=== PATIENT | female | born 1940 | race Caucasian/White ===

== ENCOUNTER 2025-01-04 17:34 | Inpatient (IN) | payer MEDICARE, SELFPAY ==
[2025-01-04] VITALS (76 sets, daily range): BP systolic 66–130; BP diastolic 37–110; PULSE 112–144; RESP 16–33; TEMP 36.7–36.9; O2SAT 97–100
--- NOTE | ~2025-01-04 | CT_ITS ---
EXAMINATION: CT brain wo gail, 01/05/2025 17:20 CDT HISTORY: altered mental status COMPARISON: No comparisons available. Technique: Axial images obtained of the brain without contrast. One or more of the following dose reduction techniques were used: automated exposure control, adjustment of the mA and/or kV according to patient size, use of iterative reconstruction technique. Findings: No acute infarct or parenchymal hemorrhage. No abnormal mass or mass effect. No midline shift. No extra-axial fluid collections. No hydrocephalus. Mastoid air cells unremarkable. Sinuses and orbits unremarkable. No acute fracture. No significant facial or scalp soft tissue swelling evident. No radiopaque foreign body is seen. Impression: 1.No acute intracranial abnormality. Reviewed, dictated and finalized at location A. Impression: 1.No acute intracranial abnormality.
--- NOTE | ~2025-01-04 | XR_ITS ---
EXAMINATION: XR chest 1V portable COMPARISON: No comparisons available. HISTORY: palpitations FINDINGS: Mild pulmonary venous congestion. No pneumothorax. Mild cardiomegaly. Mediastinal and hilar contours are within normal limits. Bony thorax no acute abnormality. Miscellaneous: None Impression: Mild CHF Reviewed, dictated and finalized at location A. Impression: Mild CHF
--- NOTE | ~2025-01-04 | XR_ITS ---
EXAMINATION: XR chest 1V portable DATE: 01/15/2025 05:53 INDICATION: Pulmonary congestion TECHNIQUE: frontal view of the chest was obtained. COMPARISON: Chest radiograph dated 01/04/25 FINDINGS: Again seen are diffuse interstitial and mild groundglass opacities throughout both lungs. There is also some mild bilateral scattered linear discoid atelectasis. No pleural effusion or pneumothorax. Cardiomegaly. IMPRESSION: 1. Persistent interstitial and groundglass opacities throughout both lungs which could represent pulmonary edema and/or pneumonia. 2. Cardiomegaly. Reviewed, dictated and finalized at location A. IMPRESSION: 1. Persistent interstitial and groundglass opacities throughout both lungs whic h could represent pulmonary edema and/or pneumonia. 2. Cardiomegaly.
--- NOTE | ~2025-01-04 | CT_ITS ---
EXAMINATION: CT brain wo gail, 01/19/2025 16:40 CDT HISTORY: altered mental status COMPARISON: No comparisons available. Technique: Axial images obtained of the brain without contrast. One or more of the following dose reduction techniques were used: automated exposure control, adjustment of the mA and/or kV according to patient size, use of iterative reconstruction technique. Findings: No acute infarct or parenchymal hemorrhage. No abnormal mass or mass effect. No midline shift. No extra-axial fluid collections. No hydrocephalus. Mastoid air cells unremarkable. Sinuses and orbits unremarkable. No acute fracture. No significant facial or scalp soft tissue swelling evident. No radiopaque foreign body is seen. Impression: 1.No acute intracranial abnormality. Reviewed, dictated and finalized at location P. Impression: 1.No acute intracranial abnormality.
--- NOTE | ~2025-01-04 | XR_ITS ---
Examination: XR chest 1V portable Clinical History: f/u pneumonia Comparison: 01/17/2025 Technique: Portable AP Findings: Heart size normal. Persistent scattered patchy bilateral airspace disease. Small effusions not excluded. No acute bony abnormality. IMPRESSION: 1. No significant change. 2. Persistent diffuse scattered bilateral airspace disease. Reviewed, dictated and finalized at location R.
--- NOTE | ~2025-01-04 | US_ITS ---
EXAMINATION: US venous doppler LE , 01/13/2025 16:00 CDT HISTORY: Bilateral LE, R>L edema COMPARISON: None Technique: Nicole-scale and color Doppler images were attempted of the lower saphenofemoral junction, common femoral vein,superficial femoral vein, proximal deep femoral vein, proximal deep femoral vein, popliteal vein and posterior tibial veins. Findings: Deep Venous System:There is thrombus with diminished flow in the right posterior tibial and peroneal veins as well as the left posterior tibial and peroneal veins. Superficial Venous SystemNo superficial thrombophlebitis. Soft tissues: Soft tissues are unremarkable. Impression: Bilateral DVT detailed above Reviewed, dictated and finalized at location A. Impression: Bilateral DVT detailed above
--- NOTE | ~2025-01-04 | CT_ITS ---
EXAMINATION: CTA chest PE abdomen pel, 01/19/2025 16:40 CDT HISTORY: rule out PE, tachypnea, DVT COMPARISON: No comparisons available. TECHNIQUE: CTA scan with 3D Reconstructions of the chest, CT of the abdomen and pelvis was performed with contrast Isovue 300, 92cc injected IV. One or more of the following dose reduction techniques were used: automated exposure control, adjustment of the mA and/or kV according to patient size, use of iterative reconstruction technique. Unless otherwise stated, incidental findings do not require dedicated follow up imaging FINDINGS: CT chest: No significant coronary calcification is present ([id number]) LUNGS: Small simple appearing bilateral pleural effusions with compressive atelectasis. The contrast bolus is adequate, there is no pulmonary embolism identified. No tracheomalacia. No bronchiectasis. Moderate emphysematous changes. Moderate pulmonary fibrotic changes. Mild emphysematous changes, no ar eas of bullous formation. There are large bilateral infiltrates throughout the lung parenchyma. Scattered micronodules are noted many of which demonstrate a tree-in-bud distribution and are probably infectious. Punctate calcified splenic granulomas. HEART AND PERICARDIUM: Mild cardiomegaly. Trace pericardial effusion. AORTA: Atherosclerotic changes of the aorta with ectasia, no aneurysm. MEDIASTINUM: Unremarkable. THYROID: The thyroid is unremarkable. CT abdomen: LIVER: Portal vein patent. No intrahepatic biliary duct dilatation. SPLEEN: Unremarkable, no splenomegaly. KIDNEYS: Right Kidney: Right kidney multiple simple appearing renal cysts the largest 3 x 4 cm. Left Kidney: Unremarkable. No calculi. No hydronephrosis ADRENAL GLANDS: Unremarkable. PANCREAS: Moderate pancreatic atrophy. GALLBLADDER/BILIARY: Cholelithiasis. STOMACH AND ESOPHAGUS: The stomach is decompressed. BOWEL/MESENTERY: The rectum is dilated measuring 7 cm with moderate fecal content and pericolonic stranding. Remaining large bowel demonstrates multiple fluid-filled loops. Appendix appears normal. Remaining mesentery normal. No dilated loops of small bowel. RETROPERITONEUM: Unremarkable AORTA/VASCULATURE: Normal caliber aorta. FREE FLUID OR FREE AIR: None. CT pelvis: SOLID ORGANS/REPRODUCTIVE: Uterus atrophic, no adnexal mass. BLADDER: The bladder is distended. LYMPHADENOPATHY: There are enlarged lymph nodes in the mediastinum the largest 1.2 x 1.1 cm. OSSEOUS STRUCTURES: No acute osseous abnormality.No suspicious lesions. OVERLYING SOFT TISSUES: Unremarkable. IMPRESSION: 1. Negative for pulmonary embolism. CHF with chronic lung disease detailed above. Superimposed severe bilateral bronchopneumonia. 2. Fecal impaction with mild proctitis. Incidental findings above Reviewed, dictated and finalized at location P. IMPRESSION: 1. Negative for pulmonary embolism. CHF with chronic lung disease detailed abov e. Superimposed severe bilateral bronchopneumonia. 2. Fecal impaction with mild proctitis. Incidental findings above
--- NOTE | ~2025-01-04 | XR_ITS ---
XR chest 1V portable 01/17/2025 18:34 Indication: Elevated white cell count. Shortness of breath. Procedure: AP portable chest Comparison: 01/15/2025 Findings: Patchy bilateral airspace disease, compatible with pneumonia. Heart size upper normal. No significant effusion or pneumothorax. Impression: 1: Persistent patchy bilateral airspace disease, compatible with pneumonia. Reviewed, dictated and finalized at location O. Impression: 1: Persistent patchy bilateral airspace disease, compatible with pneumonia.
--- NOTE | ~2025-01-04 | CT_ITS ---
EXAMINATION: CT abdomen pelvis w con DATE: 01/04/2025 21:27 INDICATION: Anemia. TECHNIQUE: Computed tomography (CT) of the abdomen and pelvis was performed with 100 mL Omnipaque 350 intravenous contrast. Automated exposure control and iterative reconstruction technique were employed. The dose-length product was 786.98 mGy-cm. COMPARISON: None. FINDINGS: The visualized portions of the lung bases demonstrate small pleural effusions. There is septal thickening in the lungs with groundglass opacities, consistent with pulmonary edema. Calcified pulmonary nodules and calcified right hilar lymph nodes are consistent with old granulomatous disease. Cardiomegaly is noted. There are coronary artery calcifications. There are calcifications of the aortic valve. There is a trace pericardial effusion. The liver is normal. Calcifications in the spleen are consistent with old granulomatous disease. There is a 10 mm hypodense mass in the spleen, most likely a benign mass such as a cyst. There are gallstones in the gallbladder, which is normal in size. The pancreas and adrenal glands are normal. There is cortical thinning of the kidneys. There are areas of hypodensity in the kidneys bilaterally, consistent with pyelonephritis. There are cysts in the kidneys measuring up to 3.7 cm on the right. There is diffuse bladder wall thickening, consistent with cystitis. There are no dilated loops of bowel. The appendix is normal. There are no pathologically enlarged lymph nodes. There is no ascites. There is severe lumbar spondylosis. There are bridging endplate osteophytes at multiple levels in the spine, consistent with diffuse idiopathic skeletal hyperostosis (DISH). IMPRESSION: 1. Mild pulmonary edema. 2. Small pleural effusions. 3. Cystitis. 4. Bilateral acute pyelonephritis. Reviewed, dictated and finalized at location K.
--- NOTE | 2025-01-04 17:40 | ECG_ITS ---
Test Date: 2025-01-04 17:38:04 Measurements Intervals [place] Rate: 133 P: 0 [place]: 0 QRS: 75 QRSD: 137 T: -30 QT: 333 QTc: 496 Interpretive Statements ATRIAL FIBRILLATION WITH RAPID VENTRICULAR RESPONSE RIGHT BUNDLE BRANCH BLOCK [120+ ms QRS DURATION, UPRIGHT V1, 40+ ms S IN I/aVL/V4/V5/V6] ABNORMAL ECG No previous ECG available for comparison Electronically Signed On 01-05-2025 09:38:11 CDT by Francisco Tavares M.D.
[2025-01-04 17:52] LABS: Hematocrit 22.2 % (37.0-47.0); Immature Platelet Fraction Pct 10.5 % (0.9-11.2); Mean Corpuscular HGB Conc 31.1 g/dl (32-36); Mean Corpuscular Hemoglobin 27.9 pg (26-34); Mean Corpuscular Volume 89.9 fl (80-100); Platelet Count Result 126 k/mm3 (150-375); Red Blood Count 2.47 M/mm3 (4.2-5.4); White Blood Count 11.8 K/mm3 (4.5-10.0)
[2025-01-04] MEDS: SODIUM CHLORIDE 0.9% IV 500 ML 999 ML (17:53)
--- NOTE | 2025-01-04 17:56 | ED.ARRPALP ---
HPI - Arrhythmia/Palpitations General Chief Complaint: Arrhythmia/Palpitations <Gary Aguilera MD - Last Filed: 01/04/25 21:00> Stated Complaint: doesn't feel right <Gary Aguilera MD - Last Filed: 01/04/25 21:00> Time Seen by Provider: 01/04/25 17:56 <Gary Aguilera MD - Last Filed: 01/04/25 21:00> Source: patient and EMS <Gary Aguilera MD - Last Filed: 01/04/25 21:00> Mode of arrival: EMS <Gary Aguilera MD - Last Filed: 01/04/25 21:00> Limitations: no limitations <Gary Aguilera MD - Last Filed: 01/04/25 21:00> History of Present Illness HPI narrative: 84 YEARS OLD WHITE FEMALE CAME FROM [facility] FOR NOT FEELING WELL FOR UNKNOWN DURATION. [facility] REPORTED THAT PATIENT HAVING CONFUSION AND SLURRED SPEECH WHICH IS RESOLVED. IN THE ED PATIENT IS AWAKE, ALERT ORIENTED X4, DENYING ANY SYMPTOMS AND DOES NOT KNOW WHY SHE IS HERE. SHE DENIES ANY FEVER, CHILLS, NAUSEA, VOMITING, CHEST PAIN, SHORTNESS OF BREATH OR BACK PAIN. History of AFib, according to [facility] paper patient is not on any anti-platelet or anticoagulant medication her daughter is telling me that patient used to be on Lovenox injection 1 week prior to transfer to [facility]. <Gary Aguilera MD - Last Filed: 01/04/25 21:00> Related Data Allergies/Adverse Reactions: Allergies Allergy/AdvReac Type Severity Reaction Status Date / Time vancomycin Allergy Rash Verified 01/04/25 18:08 <Gary Aguilera MD - Last Filed: 01/04/25 21:00> Review of Systems Review of Systems: All systems reviewed & are unremarkable except as noted in HPI and below <Gary Aguilera MD - Last Filed: 01/04/25 21:00> Exam Narrative: GENERAL APPEARANCE: WELL-DEVELOPED, WELL-NOURISHED SKIN: PALE HEAD: NORMOCEPHALIC, NONTRAUMATIC EYES: CLEAR CONJUNCTIVA ENT: OROPHARYNX NORMAL, EARS NORMAL, NOSE NORMAL NECK: SUPPLE, NONTENDER CHEST AND RESPIRATORY: AIRWAY PATENT, NO RESPIRATORY DISTRESS, NO ACCESSORY MUSCLE USE HEART: TACHYCARDIA, IRREGULAR IRREGULARITY ABDOMEN: SOFT, NONTENDER, NO ORGANOMEGALY, QUIET BOWEL SOUNDS, RECTAL EXAM GUAIAC NEGATIVE VASCULAR: NORMAL PERIPHERAL PULSES, NORMAL CAPILLARY REFILL. MUSCULOSKELETAL: NORMAL RANGE OF MOTION, NONTENDER BACK NEUROLOGIC: ALERT AND ORIENTED ?3, MAIL FORWARDING SYSTEM MARKUP CLERK IS NORMAL TESTED, NO GROSS MOTOR DEFICIT <Gary Aguilera MD - Last Filed: 01/04/25 21:00> Course Vital Signs Vital signs: Vital Signs Pulse Rate 131 H 01/04/25 17:34 Respiratory Rate 22 H 01/04/25 17:34 Blood Pressure 99/54 L 01/04/25 17:34 Pulse Oximetry 100 01/04/25 17:34 Oxygen Delivery Room Air 01/04/25 17:34 Temperature 98.1 F 01/04/25 22:53 Pulse Rate 121 H 01/04/25 22:53 Respiratory Rate 20 01/04/25 22:53 Blood Pressure 71/60 L 01/04/25 22:53 Pulse Oximetry 97 01/04/25 22:53 Oxygen Delivery Room Air 01/04/25 17:34 <Gary Aguilera MD - Last Filed: 01/04/25 21:00> Vital Signs Pulse Rate 131 H 01/04/25 17:34 Respiratory Rate 22 H 01/04/25 17:34 Blood Pressure 99/54 L 01/04/25 17:34 Pulse Oximetry 100 01/04/25 17:34 Oxygen Delivery Room Air 01/04/25 17:34 Temperature 98.1 F 01/04/25 22:53 Pulse Rate 121 H 01/04/25 22:53 Respiratory Rate 20 01/04/25 22:53 Blood Pressure 71/60 L 01/04/25 22:53 Pulse Oximetry 97 01/04/25 22:53 Oxygen Delivery Room Air 01/04/25 17:34 <Denia Pollock MD - Last Filed: 01/04/25 23:37> MDM - Arrhythmia/Palpitations MDM Narrative Medical decision making narrative: PATIENT CAME TO THE ED NOT FEELING WELL VITAL SIGNS BLOOD PRESSURE 99/54, HEART RATE 131, RESPIRATION 22, SATURATION ON ROOM AIR 100% PHYSICAL EXAMINATION: PALE SKIN, TACHYCARDIA, IRREGULAR IRREGULARITY, GUAIAC STOOL IS NEGATIVE DIFFERENTIAL DIAGNOSIS ANXIETY, DEPRESSION, ELECTROLYTE IMBALANCE, DEHYDRATION, ANEMIA, COULD CARDIAC ARRHYTHMIA, AR BLOOD WORKUP TODAY INCLUDES CBC, CMP, TROPONIN, COAG, PRO BMP SHOWED WBC 11.8, hemoglobin 6.9 platelet count 126 EKG ON ARRIVAL SHOWED AFIB WITH RVR AT 133 BEATS PER MINUTE Chest x-ray mild CHF Patient care turned over to Dr. pollock at shift change, awaiting labs, imaging, disposition. Patient been resting quietly in the emergency room without any issues or problems. <Gary Aguilera MD - Last Filed: 01/04/25 21:00> PATIENT CAME TO THE ED NOT FEELING WELL VITAL SIGNS BLOOD PRESSURE 99/54, HEART RATE 131, RESPIRATION 22, SATURATION ON ROOM AIR 100% PHYSICAL EXAMINATION: PALE SKIN, TACHYCARDIA, IRREGULAR IRREGULARITY, GUAIAC STOOL IS NEGATIVE DIFFERENTIAL DIAGNOSIS ANXIETY, DEPRESSION, ELECTROLYTE IMBALANCE, DEHYDRATION, ANEMIA, COULD CARDIAC ARRHYTHMIA, AR BLOOD WORKUP TODAY INCLUDES CBC, CMP, TROPONIN, COAG, PRO BMP SHOWED WBC 11.8, hemoglobin 6.9 platelet count 126 EKG ON ARRIVAL SHOWED AFIB WITH RVR AT 133 BEATS PER MINUTE Chest x-ray mild CHF Patient care turned over to Dr. Pollock at shift change, awaiting labs, imaging, disposition. Patient been resting quietly in the emergency room without any issues or problems. Phill: Patient was signed out to me pending remainder of the workup. CT abdomen pelvis with IV contrast was obtained at this time revealing severe UTI otherwise no acute process, no active bleeding. Patient currently has 2nd unit of packed RBCs going, has approximately 60-70% remaining, last 3 blood pressure 107/66 with a map of 79, 86/69 with a map of 76 and 113/57 with a map of 73. Patient has been maintaining her map above 65 after 1st unit of packed RBCs. Heart rate currently ranging in the 120s. Blood cultures and lactic acid were ordered at this time as patient admits sepsis criteria. Urinalysis did reveal UTI and at this time patient was administered 1 g of IV Rocephin. Case was discussed again with the on-call hospitalist Dr. Moeller who accepted IMU admission. Critical care time of 75 minutes, exclusive of separately performed procedures, necessary for treating or preventing eminent or life-threatening deterioration of patient's condition of sepsis, atrial fibrillation with RVR, anemia requiring transfusion of multiple units of packed RBCs, focused on patient care provided personally by me and time spent during initial evaluation, physical examination, ordering and performing treatments and interventions, ordering and reviewing laboratory studies, ordering and reviewing radiographic studies, re-evaluation of the patient's condition, evaluation of the patient's response to treatment, and discussion of patient case with multiple consultants. <Denia Pollock MD - Last Filed: 01/04/25 23:37> Differential Diagnosis Differential diagnosis: Likely other (As above) <Gary Aguilera MD - Last Filed: 01/04/25 21:00> Lab Data Result diagrams: 01/04/25 17:43 01/04/25 18:27 <Gary Aguilera MD - Last Filed: 01/04/25 21:00> Labs: Lab Results 01/04/25 01/04/25 01/04/25 Range/Units 17:43 18:27 20:47 WBC 11.8 H (4.5-10.0) K/mm3 RBC 2.47 L (4.2-5.4) M/mm3 Hgb 6.9 L* (12.0-15.0) g/dL Hct 22.2 L (37.0-47.0) % MCV 89.9 (80-100) fl MCH 27.9 (26-34) pg MCHC 31.1 L (32-36) g/dl RDW 24.1 H (11.5-14.5) % Plt Count 126 L (150-375) k/mm3 MPV TNP Immature Gran % (Auto) Not Reportable Neut % (Auto) Not Reportable Lymph % (Auto) Not Reportable [place] % (Auto) Not Reportable Eos % (Auto) Not Reportable Baso % (Auto) Not Reportable Lymph # (Auto) Not Reportable [place] # (Auto) Not Reportable Eos # (Auto) Not Reportable Baso # (Auto) Not Reportable Abs Immat Gran (auto) Not Reportable Absolute Neuts (auto) Not Reportable Absolute Nucleated RBC Not Reportable Total Counted 100 Neutrophils % (Manual) 41 L (46-73) % Band Neutrophils % 16 H (0-6) % Lymphocytes % (Manual) 30.0 (18-44) % Monocytes % (Manual) 5 (3-9) % Eosinophils % (Manual) 1 (0-4) % Basophils % (Manual) 2 H (0-1) % Metamyelocytes % 4 % Myelocytes % 1 % Nucleated RBC % Not Reportable Abs Neuts (Manual) 6.72 H (1.3-6.7) K/mm3 Abs Lymphs (Manual) 3.54 (1.1-4.5) K/mm3 Abs Monocytes (Manual) 0.59 (0.1-0.90) K/mm3 Absolute Eos (Manual) 0.11 (0.02-0.50) K/mm3 Abs Basophils (Manual) 0.23 H (0.0-0.1) K/mm3 Nucleated RBCs 1 % Platelet Estimate Decreased (Adequate) Giant Platelets Present % Immature Plt Fraction 10.5 (0.9-11.2) % Polychromasia Occasional Hypochromasia 2+ Anisocytosis 1+ Microcytosis 1+ (NORMAL) Schistocytes None seen PT 15.6 H (11.1-14.7) Seconds INR 1.2 APTT 27.7 (22.3-36.8) Seconds Sodium 132 L (137-145) mmol/L Potassium 4.7 (3.4-5.0) mmol/L Chloride 106 (98-107) mmol/L Carbon Dioxide 14 L (22-30) mmol/L Anion Gap 12 (4-12) mmol/L BUN 21 H (7-17) mg/dL Creatinine 1.26 H (0.7-1.0) mg/dL Estim Creat Clear Calc 29 ml/min Estimated GFR 40 L (59 - ) Glucose 174 H (65-110) mg/dL Calcium 7.9 L (8.4-10.2) mg/dL Iron 110 (37-170) ug/dL TIBC 237 L (261-462) ug/dL % Saturation 46 (20-50) % Ferritin 758.00 H (11.1-264) ng/mL Total Bilirubin 0.8 (0.2-1.3) mg/dL AST 39 H (14-36) U/L ALT 22 (6-35) U/L Alkaline Phosphatase 91 (38-126) U/L Troponin I 1.090 H* 1.120 H* (0.000-0.034) ng/mL NT-Pro-B Natriuret Pep 70536 H (19.9-100) pg/mL Total Protein 7.1 (6.3-8.2) g/dL Albumin 2.6 L (3.5-5.1) g/dL Lipase 182 (23-300) U/L Procalcitonin 0.3 ng/mL Urine Color (Yellow) Urine Appearance (Clear) Urine pH (5.0-9.0) Ur Specific [place] (1.001-1.035) Urine Protein (Negative) mg/dL Urine Glucose (UA) (Negative) mg/dL Urine Ketones (Negative) mg/dL Ur Blood (Man) (Negative) Urine Nitrate (Negative) Urine Bilirubin (Negative) Urine Urobilinogen (<2.0) mg/dL Add Ur Microanalysis Leukocyte Esterase Rfl (Negative) LAYNE/UL Urine RBC (0-2) /hpf Urine WBC (0-3) /hpf Ur Squamous Epith Cells (Few) /hpf Urine Bacteria /hpf Urine Casts Blood Type A Positive Antibody Screen Negative Crossmatch See Detail 01/04/25 Range/Units 21:14 WBC (4.5-10.0) K/mm3 RBC (4.2-5.4) M/mm3 Hgb (12.0-15.0) g/dL Hct (37.0-47.0) % MCV (80-100) fl MCH (26-34) pg MCHC (32-36) g/dl RDW (11.5-14.5) % Plt Count (150-375) k/mm3 MPV Immature Gran % (Auto) Neut % (Auto) Lymph % (Auto) [place] % (Auto) Eos % (Auto) Baso % (Auto) Lymph # (Auto) [place] # (Auto) Eos # (Auto) Baso # (Auto) Abs Immat Gran (auto) Absolute Neuts (auto) Absolute Nucleated RBC Total Counted Neutrophils % (Manual) (46-73) % Band Neutrophils % (0-6) % Lymphocytes % (Manual) (18-44) % Monocytes % (Manual) (3-9) % Eosinophils % (Manual) (0-4) % Basophils % (Manual) (0-1) % Metamyelocytes % % Myelocytes % % Nucleated RBC % Abs Neuts (Manual) (1.3-6.7) K/mm3 Abs Lymphs (Manual) (1.1-4.5) K/mm3 Abs Monocytes (Manual) (0.1-0.90) K/mm3 Absolute Eos (Manual) (0.02-0.50) K/mm3 Abs Basophils (Manual) (0.0-0.1) K/mm3 Nucleated RBCs % Platelet Estimate (Adequate) Giant Platelets % Immature Plt Fraction (0.9-11.2) % Polychromasia Hypochromasia Anisocytosis Microcytosis (NORMAL) Schistocytes PT (11.1-14.7) Seconds INR APTT (22.3-36.8) Seconds Sodium (137-145) mmol/L Potassium (3.4-5.0) mmol/L Chloride (98-107) mmol/L Carbon Dioxide (22-30) mmol/L Anion Gap (4-12) mmol/L BUN (7-17) mg/dL Creatinine (0.7-1.0) mg/dL Estim Creat Clear Calc ml/min Estimated GFR (59 - ) Glucose (65-110) mg/dL Calcium (8.4-10.2) mg/dL Iron (37-170) ug/dL TIBC (261-462) ug/dL % Saturation (20-50) % Ferritin (11.1-264) ng/mL Total Bilirubin (0.2-1.3) mg/dL AST (14-36) U/L ALT (6-35) U/L Alkaline Phosphatase (38-126) U/L Troponin I (0.000-0.034) ng/mL NT-Pro-B Natriuret Pep (19.9-100) pg/mL Total Protein (6.3-8.2) g/dL Albumin (3.5-5.1) g/dL Lipase (23-300) U/L Procalcitonin ng/mL Urine Color Yellow (Yellow) Urine Appearance Turbid H (Clear) Urine pH 5.5 (5.0-9.0) Ur Specific [place] 1.015 (1.001-1.035) Urine Protein 1+ H (Negative) mg/dL Urine Glucose (UA) Negative (Negative) mg/dL Urine Ketones Trace H (Negative) mg/dL Ur Blood (Man) Negative (Negative) Urine Nitrate Negative (Negative) Urine Bilirubin Negative (Negative) Urine Urobilinogen 1.0 (<2.0) mg/dL Add Ur Microanalysis Reviewed Leukocyte Esterase Rfl 2+ H (Negative) LAYNE/UL Urine RBC 0-2 (0-2) /hpf Urine WBC 21-50 H (0-3) /hpf Ur Squamous Epith Cells Many H (Few) /hpf Urine Bacteria 4+ H /hpf Urine Casts 11-20 Blood Type Antibody Screen Crossmatch <Gary Aguilera MD - Last Filed: 01/04/25 21:00> Lab Results 01/04/25 01/04/25 01/04/25 Range/Units 17:43 18:27 20:47 WBC 11.8 H (4.5-10.0) K/mm3 RBC 2.47 L (4.2-5.4) M/mm3 Hgb 6.9 L* (12.0-15.0) g/dL Hct 22.2 L (37.0-47.0) % MCV 89.9 (80-100) fl MCH 27.9 (26-34) pg MCHC 31.1 L (32-36) g/dl RDW 24.1 H (11.5-14.5) % Plt Count 126 L (150-375) k/mm3 MPV TNP Immature Gran % (Auto) Not Reportable Neut % (Auto) Not Reportable Lymph % (Auto) Not Reportable [place] % (Auto) Not Reportable Eos % (Auto) Not Reportable Baso % (Auto) Not Reportable Lymph # (Auto) Not Reportable [place] # (Auto) Not Reportable Eos # (Auto) Not Reportable Baso # (Auto) Not Reportable Abs Immat Gran (auto) Not Reportable Absolute Neuts (auto) Not Reportable Absolute Nucleated RBC Not Reportable Total Counted 100 Neutrophils % (Manual) 41 L (46-73) % Band Neutrophils % 16 H (0-6) % Lymphocytes % (Manual) 30.0 (18-44) % Monocytes % (Manual) 5 (3-9) % Eosinophils % (Manual) 1 (0-4) % Basophils % (Manual) 2 H (0-1) % Metamyelocytes % 4 % Myelocytes % 1 % Nucleated RBC % Not Reportable Abs Neuts (Manual) 6.72 H (1.3-6.7) K/mm3 Abs Lymphs (Manual) 3.54 (1.1-4.5) K/mm3 Abs Monocytes (Manual) 0.59 (0.1-0.90) K/mm3 Absolute Eos (Manual) 0.11 (0.02-0.50) K/mm3 Abs Basophils (Manual) 0.23 H (0.0-0.1) K/mm3 Nucleated RBCs 1 % Platelet Estimate Decreased (Adequate) Giant Platelets Present % Immature Plt Fraction 10.5 (0.9-11.2) % Polychromasia Occasional Hypochromasia 2+ Anisocytosis 1+ Microcytosis 1+ (NORMAL) Schistocytes None seen PT 15.6 H (11.1-14.7) Seconds INR 1.2 APTT 27.7 (22.3-36.8) Seconds Sodium 132 L (137-145) mmol/L Potassium 4.7 (3.4-5.0) mmol/L Chloride 106 (98-107) mmol/L Carbon Dioxide 14 L (22-30) mmol/L Anion Gap 12 (4-12) mmol/L BUN 21 H (7-17) mg/dL Creatinine 1.26 H (0.7-1.0) mg/dL Estim Creat Clear Calc 29 ml/min Estimated GFR 40 L (59 - ) Glucose 174 H (65-110) mg/dL Calcium 7.9 L (8.4-10.2) mg/dL Iron 110 (37-170) ug/dL TIBC 237 L (261-462) ug/dL % Saturation 46 (20-50) % Ferritin 758.00 H (11.1-264) ng/mL Total Bilirubin 0.8 (0.2-1.3) mg/dL AST 39 H (14-36) U/L ALT 22 (6-35) U/L Alkaline Phosphatase 91 (38-126) U/L Troponin I 1.090 H* 1.120 H* (0.000-0.034) ng/mL NT-Pro-B Natriuret Pep 11659 H (19.9-100) pg/mL Total Protein 7.1 (6.3-8.2) g/dL Albumin 2.6 L (3.5-5.1) g/dL Lipase 182 (23-300) U/L Procalcitonin 0.3 ng/mL Urine Color (Yellow) Urine Appearance (Clear) Urine pH (5.0-9.0) Ur Specific [place] (1.001-1.035) Urine Protein (Negative) mg/dL Urine Glucose (UA) (Negative) mg/dL Urine Ketones (Negative) mg/dL Ur Blood (Man) (Negative) Urine Nitrate (Negative) Urine Bilirubin (Negative) Urine Urobilinogen (<2.0) mg/dL Add Ur Microanalysis Leukocyte Esterase Rfl (Negative) LAYNE/UL Urine RBC (0-2) /hpf Urine WBC (0-3) /hpf Ur Squamous Epith Cells (Few) /hpf Urine Bacteria /hpf Urine Casts Blood Type A Positive Antibody Screen Negative Crossmatch See Detail 01/04/25 Range/Units 21:14 WBC (4.5-10.0) K/mm3 RBC (4.2-5.4) M/mm3 Hgb (12.0-15.0) g/dL Hct (37.0-47.0) % MCV (80-100) fl MCH (26-34) pg MCHC (32-36) g/dl RDW (11.5-14.5) % Plt Count (150-375) k/mm3 MPV Immature Gran % (Auto) Neut % (Auto) Lymph % (Auto) [place] % (Auto) Eos % (Auto) Baso % (Auto) Lymph # (Auto) [place] # (Auto) Eos # (Auto) Baso # (Auto) Abs Immat Gran (auto) Absolute Neuts (auto) Absolute Nucleated RBC Total Counted Neutrophils % (Manual) (46-73) % Band Neutrophils % (0-6) % Lymphocytes % (Manual) (18-44) % Monocytes % (Manual) (3-9) % Eosinophils % (Manual) (0-4) % Basophils % (Manual) (0-1) % Metamyelocytes % % Myelocytes % % Nucleated RBC % Abs Neuts (Manual) (1.3-6.7) K/mm3 Abs Lymphs (Manual) (1.1-4.5) K/mm3 Abs Monocytes (Manual) (0.1-0.90) K/mm3 Absolute Eos (Manual) (0.02-0.50) K/mm3 Abs Basophils (Manual) (0.0-0.1) K/mm3 Nucleated RBCs % Platelet Estimate (Adequate) Giant Platelets % Immature Plt Fraction (0.9-11.2) % Polychromasia Hypochromasia Anisocytosis Microcytosis (NORMAL) Schistocytes PT (11.1-14.7) Seconds INR APTT (22.3-36.8) Seconds Sodium (137-145) mmol/L Potassium (3.4-5.0) mmol/L Chloride (98-107) mmol/L Carbon Dioxide (22-30) mmol/L Anion Gap (4-12) mmol/L BUN (7-17) mg/dL Creatinine (0.7-1.0) mg/dL Estim Creat Clear Calc ml/min Estimated GFR (59 - ) Glucose (65-110) mg/dL Calcium (8.4-10.2) mg/dL Iron (37-170) ug/dL TIBC (261-462) ug/dL % Saturation (20-50) % Ferritin (11.1-264) ng/mL Total Bilirubin (0.2-1.3) mg/dL AST (14-36) U/L ALT (6-35) U/L Alkaline Phosphatase (38-126) U/L Troponin I (0.000-0.034) ng/mL NT-Pro-B Natriuret Pep (19.9-100) pg/mL Total Protein (6.3-8.2) g/dL Albumin (3.5-5.1) g/dL Lipase (23-300) U/L Procalcitonin ng/mL Urine Color Yellow (Yellow) Urine Appearance Turbid H (Clear) Urine pH 5.5 (5.0-9.0) Ur Specific [place] 1.015 (1.001-1.035) Urine Protein 1+ H (Negative) mg/dL Urine Glucose (UA) Negative (Negative) mg/dL Urine Ketones Trace H (Negative) mg/dL Ur Blood (Man) Negative (Negative) Urine Nitrate Negative (Negative) Urine Bilirubin Negative (Negative) Urine Urobilinogen 1.0 (<2.0) mg/dL Add Ur Microanalysis Reviewed Leukocyte Esterase Rfl 2+ H (Negative) LAYNE/UL Urine RBC 0-2 (0-2) /hpf Urine WBC 21-50 H (0-3) /hpf Ur Squamous Epith Cells Many H (Few) /hpf Urine Bacteria 4+ H /hpf Urine Casts 11-20 Blood Type Antibody Screen Crossmatch <Denia Pollock MD - Last Filed: 01/04/25 23:37> Imaging Data Radiologist's impression: Impressions Chest X-Ray 01/04/25 17:55 Impression: Mild CHF <Gary Aguilera MD - Last Filed: 01/04/25 21:00> ECG Data EKG #1: Attestation: I personally reviewed and interpreted this ECG as follows: <Gary Aguilera MD - Last Filed: 01/04/25 21:00> ECG completion date: 01/04/25 <Gary Aguilera MD - Last Filed: 01/04/25 21:00> Interpretation: AFIB WITH RVR AT 133 BEATS PER MINUTE, RIGHT BUNDLE-BRANCH BLOCK, NO PREVIOUS EKG AVAILABLE FOR COMPARISON <Gary Aguilera MD - Last Filed: 01/04/25 21:00> Critical Care Time Critical Care Time Critical Care Time: Yes <Gary Aguilera MD - Last Filed: 01/04/25 21:00> Total Critical Care Time: 30 <Gary Aguilera MD - Last Filed: 01/04/25 21:00> 75 (Please refer to [facility] for attestation.) <Denia Pollock MD - Last Filed: 01/04/25 23:37> Discharge Plan Discharge Clinical Impression: Anemia, Atrial fibrillation with rapid ventricular response, Sepsis, Acute UTI <Gary Aguilera MD - Last Filed: 01/04/25 21:00> Patient Disposition: Still a Patient <Gary Aguilera MD - Last Filed: 01/04/25 21:00> Condition: Stable <Gary Aguilera MD - Last Filed: 01/04/25 21:00> Patient Language: Mongolian <Gary Aguilera MD - Last Filed: 01/04/25 21:00> Time of Disposition: 23:37 <Gary Aguilera MD - Last Filed: 01/04/25 21:00> 23:37 <Denia Pollock MD - Last Filed: 01/04/25 23:37>
[2025-01-04 18:02] LABS: Hemoglobin 6.9 g/dL (12.0-15.0)
[2025-01-04 18:03] LABS: INR 1.2; Prothrombin Time 15.6 Seconds (11.1-14.7)
[2025-01-04 18:04] LABS: Partial Thromboplastin Time 27.7 Seconds (22.3-36.8)
[2025-01-04 18:23] LABS: Band Neutrophils Percent 16 % (0-6); Basophils Absolute Manual 0.23 K/mm3 (0.0-0.1); Basophils Percent Manual 2 % (0-1); Eosinophils Absolute Manual 0.11 K/mm3 (0.02-0.50); Eosinophils Percent Manual 1 % (0-4); Lymphocytes Absolute Manual 3.54 K/mm3 (1.1-4.5); Lymphocytes Percent Manual 30.0 % (18-44); Metamyelocytes Percent 4 %; Monocytes Absolute Manual 0.59 K/mm3 (0.1-0.90); Monocytes Percent Manual 5 % (3-9); Myelocytes Percent 1 %; Neutrophils Absolute Manual 6.72 K/mm3 (1.3-6.7); Neutrophils Percent Manual 41 % (46-73); Total Cells Counted 100
[2025-01-04 18:24] LABS: Anisocytosis 1+; Giant Platelets Present; Hypochromasia 2+; Microcytosis 1+ (NORMAL); Polychromasia Occasional; Schistocytes None Seen
--- NOTE | 2025-01-04 19:16 | PC.NURSE ---
ON 01/04/2025 AT 1916 - JERMAINE FROM THE LAB CALLED TO INFORM ED STAFF THAT BLOOD IS NOW READY, JODIE CATALAN CURRENTLY EN ROUTE TO PICK IT UP.
[2025-01-04] MEDS: SODIUM CHLORIDE 0.9% IV 250 ML 30 ML IV CONT (19:47)
[2025-01-04] MEDS: TUBING, BLOOD SET 1 EACH XX (19:47)
[2025-01-04 20:23] LABS: NT Pro B Type Natriuretic Pept 14200 pg/mL (19.9-100)
[2025-01-04 20:34] LABS: Alanine Aminotransferase 22 U/L (6-35); Albumin Level 2.6 g/dL (3.5-5.1); Alkaline Phosphatase 91 U/L (38-126); Anion Gap 12 mmol/L (4-12); Aspartate Amino Transferase 39 U/L (14-36); Bilirubin,Total 0.8 mg/dL (0.2-1.3); Blood Urea Nitrogen 21 mg/dL (7-17); Calcium 7.9 mg/dL (8.4-10.2); Carbon Dioxide 14 mmol/L (22-30); Chloride 106 mmol/L (98-107); Estimated CRCL calculation 29 ml/min; Estimated Glomerular Filt Rate 40; Glucose 174 mg/dL (65-110); Lipase 182 U/L (23-300); Potassium 4.7 mmol/L (3.4-5.0); Sodium 132 mmol/L (137-145); Total Protein 7.1 g/dL (6.3-8.2)
--- NOTE | 2025-01-04 20:38 | ECG_ITS ---
Test Date: 2025-01-04 20:47:51 Measurements Intervals [place] Rate: 131 P: 0 IA: 0 QRS: 77 QRSD: 138 T: -29 QT: 338 QTc: 499 Interpretive Statements ATRIAL FIBRILLATION WITH RAPID VENTRICULAR RESPONSE RIGHT BUNDLE BRANCH BLOCK [120+ ms QRS DURATION, UPRIGHT V1, 40+ ms S IN I/aVL/V4/V5/V6] ABNORMAL ECG Compared to ECG 01/04/2025 17:38:04 No significant changes Electronically Signed On 01-05-2025 09:40:28 CDT by Francisco Tavares M.D.
[2025-01-04 20:47] LABS: Troponin I 1.090 ng/mL (0.000-0.034)
[2025-01-04 21:10] LABS: Iron 110 ug/dL (37-170)
[2025-01-04 21:19] LABS: Troponin I 1.120 ng/mL (0.000-0.034)
[2025-01-04 21:19] LABS: Percent Iron Saturation 46 % (20-50)
[2025-01-04 21:33] LABS: Add Urine Microscopic? YES; Appearance Urine Turbid (Clear); Glucose Urine UA Negative (Negative); Leukocyte Esterase Ur 2+ LEU/UL (Negative); Need Manual Microscopic Reviewed; Nitrate Urine Negative (Negative); Specific Grav Ur 1.015 (1.001-1.035)
[2025-01-04 21:46] LABS: Ferritin 758.00 ng/mL (11.1-264)
[2025-01-04 22:26] LABS: Procalcitonin 0.3 ng/mL
[2025-01-05] VITALS (29 sets, daily range): BP systolic 70–111; BP diastolic 35–70; PULSE 113–156; RESP 16–28; TEMP 36.4–36.7; O2SAT 95–100; BMI 28.5
[2025-01-05] MEDS: cefTRIAXone 1 GM in SODIUM CHLORIDE 0.9% IV 50 ML 100 ML IVPB ×2 (00:23→23:15)
[2025-01-05 00:48] LABS: Troponin I 1.250 ng/mL (0.000-0.034)
--- NOTE | 2025-01-05 01:00 | ADMGEN ---
This patient, Char Tucker, was admitted to IMU Room 205-01 on 01/05/25 at 0045. Patient/family oriented to hospital policies and general routines including ID bracelet, bed and alarms, visiting hours, pain management, procedures, bathroom and other care routines, personal items, smoking policy, room service/diet, and visiting hours. Information on how to activate the Rapid Response Team has been discussed. Patient/Family are encouraged to report perceived risks to care and to ask questions if they do not understand what they are told or what they should do.
--- NOTE | 2025-01-05 01:25 | PM.IMHP ---
H&P: HPI History of Present Illness Date/Time: 01/05/25 01:25 Chief Complaint: ?Not feeling right? Narrative: 84-year-old female with a past medical history of ?cognitive communication disorder, type 2 diabetes mellitus with neuropathy, essential hypertension, CHF, heart murmur, chronic anemia and recent hospitalization for sepsis at [facility] who presented to the ER from [facility] due to confusion and slurred speech. Patient is alert oriented to person, place and year but confused as to the month. Despite being relatively conversational and oriented she is poor historian. As such significant portion of the history was obtained from long term records and ER physician report. Patient is never been evaluated at our facility previously. At the time my evaluation the patient's speech is fluent and clear. She complains of chronic pain in her feet and had is likely due to diabetic peripheral neuropathy. She does report some dysuria recently. She denies any fevers or chills. She has been afebrile since presentation. She denies any nausea or vomiting. She has had decreased appetite. She has not had any upper respiratory symptoms. According to the ER provider he had contacted [facility] and was notified that the patient's prior hemoglobin was 8 with hemoglobin on presentation to the ER was 6. Patient's Hemoccult stool was negative in the ER. Patient is not on any chronic anticoagulation. Patient denied any abdominal pain. She did have significant bandemia on her labs and she had an abnormal urinalysis. Since we did not have a source for patient's drop in hemoglobin and UA was not overtly suggestive of infection CT of the abdomen pelvis was obtained which demonstrated findings concerning for urinary tract infection per stat read interpretation. The patient reports that her blood pressures are always low. Her exact arrange for her normal is unknown. In the ER the patient's blood pressures ranged from 67/40 to 99/50. For the most part are maps ranged between 60 and 65. She received 1 unit of packed red blood cells with improvement in her blood pressures to the 70s to 80s range. Mcc to her 2nd unit of blood patient's blood pressures had improved up to the mid 90s to 100s. Patient was given empiric antibiotic therapy with Rocephin and admitted to IMU for treatment of sepsis and multifactorial hypotension. Review of Systems Review of Systems: 12 systems were reviewed with pertinent positives and negatives per HPI. Except as documented in the HPI, all other systems were reviewed and are negative. However patient is not the best historian which limits accuracy of review of systems. [facility] Past Medical History Medical History (Updated 01/05/25 @ 06:57 by Berkley Moeller DO) Hyperlipidemia Hepatic steatosis Atrial fibrillation CHF (congestive heart failure) Type 2 diabetes mellitus Diabetic peripheral neuropathy Anemia of chronic disease Cognitive communication disorder Surgical History Surgical History (Updated 01/05/25 @ 06:41 by Berkley Moeller DO) History of 3 sections Status post cataract extraction of both eyes with insertion of intraocular lens Family History Family History Father Unknown family medical history Mother Diabetes mellitus Sibling Unknown family medical history Sibling Diabetes mellitus Sibling Unknown family medical history Sibling Diabetes mellitus Sibling Diabetes mellitus Sibling Diabetes mellitus Social History Social History (Updated 01/05/25 @ 06:44 by Berkley Moeller DO) Social History: The patient usually lives with her granddaughter Ranjana but following her recent hospitalization November 2024 she has been at a shelter facility. She has been for about 20 years. She briefly smoked as a young adult. She denies any history of alcohol use. She raised 3 children but does not want her children have any information regarding her medical conditions. Code status: DNR/DNI Healthcare power of commonwealth attorney: Ranjana Alfonso (granddaughter) Smoking packs per day: 1 Smoking cigarettes per day: 20.0 Years smoked: 2 Smoking pack-years: 2.00 Smoking status: Former smoker Tobacco type: cigarettes Second hand tobacco smoke exposure: No Alcohol intake: never Substance use: never Substance use type: does not use Lack of Transportation: No Lack of Food: Never True Current Housing: I Have Housing Concerned About Future Housing: No Difficulty Paying Gas/Electric Bills: No Difficulty Paying for Meds: No Currently Unemployed: No Education: High School Diploma/GED Difficulty w/ Childcare or Family Care: No Spiritual care concerns: No Meds Home Medications and Allergies Home Medications ?Medication ?Instructions ?Recorded ?Confirmed ?Type ascorbic acid (vitamin C) 1,000 mg 1,000 mg PO DAILY 01/05/25 01/05/25 History tablet folic acid 1 mg tablet 1 mg PO DAILY 01/05/25 01/05/25 History insulin glargine 100 unit/mL (3 17 unit subcut BID 01/05/25 01/05/25 History mL) subcutaneous pen (Basaglar TeaHerman U-100 Insulin) losartan 50 mg tablet 50 mg PO DAILY 01/05/25 01/05/25 History metformin 1,000 mg tablet 1,000 mg PO BID 01/05/25 01/05/25 History metoprolol succinate 50 mg 50 mg PO DAILY 01/05/25 01/05/25 History tablet,extended release 24 hr miconazole nitrate 2 % topical 1 applic topical BID 01/05/25 01/05/25 History powder omega 3 350 mg-dha 235 mg-epa 90 1 cap PO DAILY 01/05/25 01/05/25 History mg-fish oil 597 mg capsule,delay rel (Petroleum-3) polyethylene glycol 3350 17 17 g PO BID PRN constipation 01/05/25 01/05/25 History gram/dose oral powder (Miralax) sennosides 8.6 mg-docusate sodium 1 tab-cap PO DAILY 01/05/25 01/05/25 History 50 mg tablet (Senna Plus) Allergies Allergy/AdvReac Type Severity Reaction Status Date / Time vancomycin Allergy Rash Verified 01/05/25 02:18 Vital Signs Vital Signs - 24 hr 01/04/25 17:34 01/04/25 17:54 01/04/25 17:56 Temperature Pulse Rate 131 H 126 H 119 H Respiratory Rate 22 H 29 H 21 H Blood Pressure 99/54 L 70/42 L 66/47 L Pulse Oximetry 100 Oxygen Delivery Room Air 01/04/25 17:57 01/04/25 18:00 01/04/25 18:01 Temperature Pulse Rate 120 H 118 H 119 H Respiratory Rate 33 H 31 H 25 H Blood Pressure 76/65 L Pulse Oximetry Oxygen Delivery 01/04/25 18:11 01/04/25 18:15 01/04/25 18:26 Temperature Pulse Rate 117 H 115 H 132 H Respiratory Rate 27 H 19 26 H Blood Pressure 81/52 L 75/37 L Pulse Oximetry 100 Oxygen Delivery 01/04/25 18:40 01/04/25 18:45 01/04/25 18:46 Temperature Pulse Rate 122 H 112 H 112 H Respiratory Rate 29 H 25 H 30 H Blood Pressure 71/56 L 76/50 L Pulse Oximetry 100 100 100 Oxygen Delivery 01/04/25 18:51 01/04/25 18:56 01/04/25 19:00 Temperature Pulse Rate 120 H 125 H 130 H Respiratory Rate 25 H 28 H 20 Blood Pressure 77/59 L 85/60 L Pulse Oximetry Oxygen Delivery 01/04/25 19:01 01/04/25 19:06 01/04/25 19:11 Temperature Pulse Rate 136 H 133 H 138 H Respiratory Rate 25 H 25 H 26 H Blood Pressure 78/58 L 84/55 L 76/52 L Pulse Oximetry Oxygen Delivery 01/04/25 19:15 01/04/25 19:16 01/04/25 19:21 Temperature Pulse Rate 118 H 119 H 126 H Respiratory Rate 20 27 H 21 H Blood Pressure 85/59 L 81/45 L Pulse Oximetry Oxygen Delivery 01/04/25 19:26 01/04/25 19:30 01/04/25 19:31 Temperature Pulse Rate 122 H 134 H 123 H Respiratory Rate 26 H 29 H 28 H Blood Pressure 86/59 L 85/59 L Pulse Oximetry Oxygen Delivery 01/04/25 19:36 01/04/25 19:36 01/04/25 19:41 Temperature 98.5 F Pulse Rate 132 H 129 H 124 H Respiratory Rate 24 H 26 H 25 H Blood Pressure 79/62 L 79/62 L 87/60 L Pulse Oximetry 98 Oxygen Delivery 01/04/25 19:45 01/04/25 19:46 01/04/25 19:51 Temperature Pulse Rate 120 H 126 H 127 H Respiratory Rate 16 22 H 26 H Blood Pressure 81/54 L 77/46 L Pulse Oximetry Oxygen Delivery 01/04/25 19:52 01/04/25 19:56 01/04/25 20:00 Temperature 98.2 F Pulse Rate 113 H 125 H 126 H Respiratory Rate 24 H 25 H 26 H Blood Pressure 77/46 L 82/54 L Pulse Oximetry 97 Oxygen Delivery 01/04/25 20:01 01/04/25 20:06 01/04/25 20:11 Temperature Pulse Rate 132 H 127 H 127 H Respiratory Rate 26 H 26 H 25 H Blood Pressure 84/58 L 77/50 L 83/59 L Pulse Oximetry Oxygen Delivery 01/04/25 20:15 01/04/25 20:16 01/04/25 20:21 Temperature Pulse Rate 125 H 124 H 137 H Respiratory Rate 26 H 27 H 30 H Blood Pressure 92/64 L 73/57 L Pulse Oximetry Oxygen Delivery 01/04/25 20:26 01/04/25 20:30 01/04/25 20:32 Temperature Pulse Rate 135 H 128 H 132 H Respiratory Rate 28 H 26 H 28 H Blood Pressure 84/56 L 89/50 L Pulse Oximetry Oxygen Delivery 01/04/25 20:36 01/04/25 20:41 01/04/25 20:45 Temperature Pulse Rate 126 H 133 H 128 H Respiratory Rate 27 H 27 H 24 H Blood Pressure 74/50 L 130/110 H Pulse Oximetry Oxygen Delivery 01/04/25 20:46 01/04/25 20:51 01/04/25 20:52 Temperature 98.5 F Pulse Rate 121 H 124 H 124 H Respiratory Rate 22 H 23 H 20 Blood Pressure 90/69 L 85/59 L 81/56 L Pulse Oximetry 97 Oxygen Delivery 01/04/25 20:56 01/04/25 21:00 01/04/25 21:01 Temperature Pulse Rate 127 H 132 H 138 H Respiratory Rate 26 H 25 H 26 H Blood Pressure 81/56 L 71/59 L Pulse Oximetry Oxygen Delivery 01/04/25 21:06 01/04/25 21:11 01/04/25 21:27 Temperature Pulse Rate 127 H 125 H 132 H Respiratory Rate 26 H 20 26 H Blood Pressure 79/61 L 74/56 L Pulse Oximetry Oxygen Delivery 01/04/25 21:30 01/04/25 21:32 01/04/25 21:34 Temperature 98.3 F Pulse Rate 128 H 128 H 115 H Respiratory Rate 26 H 24 H 25 H Blood Pressure 74/42 L Pulse Oximetry 97 Oxygen Delivery 01/04/25 21:41 01/04/25 21:46 01/04/25 21:51 Temperature Pulse Rate 125 H 144 H 122 H Respiratory Rate 23 H 23 H 24 H Blood Pressure 87/54 L 78/56 L 82/60 L Pulse Oximetry 100 100 Oxygen Delivery 01/04/25 21:53 01/04/25 21:58 01/04/25 22:53 Temperature 98.2 F 98.4 F 98.1 F Pulse Rate 130 H 122 H 121 H Respiratory Rate 20 20 20 Blood Pressure 67/44 L 67/44 L 71/60 L Pulse Oximetry 100 100 97 Oxygen Delivery 01/04/25 23:11 01/04/25 23:15 01/04/25 23:16 Temperature Pulse Rate 135 H 124 H 141 H Respiratory Rate 24 H 25 H 27 H Blood Pressure 107/66 114/76 Pulse Oximetry 100 Oxygen Delivery 01/04/25 23:21 01/04/25 23:26 01/04/25 23:30 Temperature Pulse Rate 135 H 141 H 116 H Respiratory Rate 27 H 28 H 24 H Blood Pressure 92/67 L 86/69 L Pulse Oximetry 100 100 99 Oxygen Delivery 01/04/25 23:31 01/04/25 23:36 01/04/25 23:40 Temperature Pulse Rate 128 H 126 H 125 H Respiratory Rate 26 H 22 H Blood Pressure 96/62 L 113/57 L 102/58 L Pulse Oximetry 99 100 Oxygen Delivery 01/04/25 23:41 01/04/25 23:45 01/04/25 23:47 Temperature Pulse Rate 126 H 129 H 126 H Respiratory Rate 26 H 27 H 23 H Blood Pressure 102/58 L 97/63 L Pulse Oximetry 100 100 Oxygen Delivery 01/04/25 23:51 01/04/25 23:56 01/05/25 00:00 Temperature Pulse Rate 137 H 125 H 122 H Respiratory Rate 22 H 25 H 25 H Blood Pressure 99/67 L 96/60 L Pulse Oximetry 100 96 Oxygen Delivery 01/05/25 00:01 01/05/25 00:06 01/05/25 00:07 Temperature Pulse Rate 133 H 123 H 116 H Respiratory Rate 24 H 24 H 26 H Blood Pressure 99/69 L 93/63 L Pulse Oximetry 100 100 Oxygen Delivery 01/05/25 00:11 01/05/25 00:15 01/05/25 00:16 Temperature Pulse Rate 116 H 130 H 123 H Respiratory Rate 25 H 26 H 24 H Blood Pressure 89/70 L 84/68 L Pulse Oximetry 99 99 98 Oxygen Delivery 01/05/25 00:22 01/05/25 00:23 01/05/25 00:26 Temperature Pulse Rate 135 H 130 H 126 H Respiratory Rate 24 H 28 H 24 H Blood Pressure 70/35 L 98/61 L 96/66 L Pulse Oximetry Oxygen Delivery 01/05/25 00:30 01/05/25 00:31 01/05/25 01:15 Temperature 98.1 F Pulse Rate 136 H 120 H 121 H Respiratory Rate 26 H 27 H 19 Blood Pressure 96/67 L 95/58 L Pulse Oximetry 100 Oxygen Delivery Exam Narrative: Weight 75.3 kg BMI 28.5 Const: Other: No acute distress, well-developed well-nourished appears stated age HENMT: Other: Mucous membranes are tacky, no oral pharyngeal erythema, head is normocephalic atraumatic Eyes: Other: Pupils are equal and reactive with lens implants noted bilaterally, positive conjunctival pallor, no scleral icterus Neck: Other: No JVD, no lymphadenopathy Resp: Other: Clear to auscultation bilaterally, no increased work of breathing Cardio: Other: 3/6 systolic murmur heard best at the left upper sternal border, irregularly irregular, tachycardic, no JVD GI: Other: Soft, nontender, nondistended, positive bowel sounds Skin: Other: Generalized pallor, non jaundice, no petechiae Neuro: Other: Alert oriented to person, place, year and when in prompted a she can states that president to last name once she has told his 1st name, she thinks the month is January or February, speech is clear and fluent, no localizing neurologic deficits noted during the course of conversation Extrem: Other: 5/5 armature winder repair strength bilateral, no lower extremity edema, no foot wounds Psych: Other: Pleasantly confused, cooperative H&P: Results Labs Labs: Laboratory Tests 01/04/25 17:43 01/04/25 18:27 01/04/25 01/04/25 01/04/25 17:43 18:27 20:47 WBC 11.8 H RBC 2.47 L Hgb 6.9 L* Hct 22.2 L MCV 89.9 MCH 27.9 MCHC 31.1 L RDW 24.1 H Plt Count 126 L MPV TNP Immature Gran % (Auto) Not Reportable Neut % (Auto) Not Reportable Lymph % (Auto) Not Reportable [place] % (Auto) Not Reportable Eos % (Auto) Not Reportable Baso % (Auto) Not Reportable Lymph # (Auto) Not Reportable [place] # (Auto) Not Reportable Eos # (Auto) Not Reportable Baso # (Auto) Not Reportable Abs Immat Gran (auto) Not Reportable Absolute Neuts (auto) Not Reportable Absolute Nucleated RBC Not Reportable Total Counted 100 Neutrophils % (Manual) 41 L Band Neutrophils % 16 H Lymphocytes % (Manual) 30.0 Monocytes % (Manual) 5 Eosinophils % (Manual) 1 Basophils % (Manual) 2 H Metamyelocytes % 4 Myelocytes % 1 Nucleated RBC % Not Reportable Abs Neuts (Manual) 6.72 H Abs Lymphs (Manual) 3.54 Abs Monocytes (Manual) 0.59 Absolute Eos (Manual) 0.11 Abs Basophils (Manual) 0.23 H Nucleated RBCs 1 Platelet Estimate Decreased Giant Platelets Present % Immature Plt Fraction 10.5 Polychromasia Occasional Hypochromasia 2+ Anisocytosis 1+ Microcytosis 1+ Schistocytes None seen PT 15.6 H INR 1.2 APTT 27.7 Sodium 132 L Potassium 4.7 Chloride 106 Carbon Dioxide 14 L Anion Gap 12 BUN 21 H Creatinine 1.26 H Estim Creat Clear Calc 29 Estimated GFR 40 L Glucose 174 H Lactic Acid Calcium 7.9 L Iron 110 TIBC 237 L % Saturation 46 Ferritin 758.00 H Total Bilirubin 0.8 AST 39 H ALT 22 Alkaline Phosphatase 91 Troponin I 1.090 H* 1.120 H* NT-Pro-B Natriuret Pep 60593 H Total Protein 7.1 Albumin 2.6 L Lipase 182 Procalcitonin 0.3 Urine Color Urine Appearance Urine pH Ur Specific Tr[place]ble Urine Protein Urine Glucose (UA) Urine Ketones Ur Blood (Man) Urine Nitrate Urine Bilirubin Urine Urobilinogen Add Ur Microanalysis Leukocyte Esterase Rfl Urine RBC Urine WBC Ur Squamous Epith Cells Urine Bacteria Urine Casts Blood Type A Positive Antibody Screen Negative Crossmatch See Detail 01/04/25 01/05/25 21:14 00:09 WBC RBC Hgb Hct MCV MCH MCHC RDW Plt Count MPV Immature Gran % (Auto) Neut % (Auto) Lymph % (Auto) [place] % (Auto) Eos % (Auto) Baso % (Auto) Lymph # (Auto) [place] # (Auto) Eos # (Auto) Baso # (Auto) Abs Immat Gran (auto) Absolute Neuts (auto) Absolute Nucleated RBC Total Counted Neutrophils % (Manual) Band Neutrophils % Lymphocytes % (Manual) Monocytes % (Manual) Eosinophils % (Manual) Basophils % (Manual) Metamyelocytes % Myelocytes % Nucleated RBC % Abs Neuts (Manual) Abs Lymphs (Manual) Abs Monocytes (Manual) Absolute Eos (Manual) Abs Basophils (Manual) Nucleated RBCs Platelet Estimate Giant Platelets % Immature Plt Fraction Polychromasia Hypochromasia Anisocytosis Microcytosis Schistocytes PT INR APTT Sodium Potassium Chloride Carbon Dioxide Anion Gap BUN Creatinine Estim Creat Clear Calc Estimated GFR Glucose Lactic Acid 3.2 H Calcium Iron TIBC % Saturation Ferritin Total Bilirubin AST ALT Alkaline Phosphatase Troponin I 1.250 H* NT-Pro-B Natriuret Pep Total Protein Albumin Lipase Procalcitonin Urine Color Yellow Urine Appearance Turbid H Urine pH 5.5 Ur Specific Tr[place]ble 1.015 Urine Protein 1+ H Urine Glucose (UA) Negative Urine Ketones Trace H Ur Blood (Man) Negative Urine Nitrate Negative Urine Bilirubin Negative Urine Urobilinogen 1.0 Add Ur Microanalysis Reviewed Leukocyte Esterase Rfl 2+ H Urine RBC 0-2 Urine WBC 21-50 H Ur Squamous Epith Cells Many H Urine Bacteria 4+ H Urine Casts 11-20 Blood Type Antibody Screen Crossmatch Impressions Chest X-Ray 01/04/25 17:55 Impression: Mild CHF EKG: AFib RVR rate 131 with right bundle-branch block QTC mildly prolonged at 499 cardiology interpretation pending Assessment and Plan Assessment and plan (1) Sepsis: Qualifiers: Acute renal failure type: unspecified Sepsis acute organ dysfunction status: with acute organ dysfunction Sepsis type: sepsis due to unspecified organism Severe sepsis acute organ dysfunction type: acute renal failure Severe sepsis shock status: without septic shock Qualified Code(s): A41.9 - Sepsis, unspecified organism; R65.20 - Severe sepsis without septic shock; N17.9 - Acute kidney failure, unspecified Code(s): A41.9 - Sepsis, unspecified organism Status: Acute (2) Acute on chronic anemia: Code(s): D64.9 - Anemia, unspecified Status: Acute (3) Acute UTI: Code(s): N39.0 - Urinary tract infection, site not specified Status: Acute (4) Atrial fibrillation with rapid ventricular response: Code(s): I48.91 - Unspecified atrial fibrillation Status: Acute (5) Hypotension due to hypovolemia: Code(s): E86.1 - Hypovolemia Status: Acute (6) Type 2 diabetes mellitus with hyperglycemia, with long-term current use of insulin: Code(s): E11.65 - Type 2 diabetes mellitus with hyperglycemia; Z79.4 - long term (current) use of insulin Status: Acute (7) Bandemia: Code(s): D72.825 - Bandemia Status: Acute (8) Elevated troponin level not due myocardial infarction: Code(s): R79.89 - Other specified abnormal findings of blood chemistry Status: Acute Plan Patient had hypotension likely due to a combination of sepsis from UTI and hypovolemia due to acute on chronic anemia. Patient has 2 units packed red blood cells ordered. By the time of my evaluation the patient had completed her 2nd unit of blood transfusion and blood pressures have improved. Patient's heart rate however remains elevated with her known history of AFib and likely underlying valvular heart disease given history murmur in the position of the aortic valve on exam I still suspect patient has hypovolemic given her dry mucous membranes. The patient has no evidence of is lower extremity edema is or volume overload. Will give the patient 1 L fluid fluid bolus over 4 hours and re-evaluate fluid status at that time. Patient's heart rate has improved. Will resume the patient's home metoprolol but will hold lisinopril. Will obtain echocardiogram to further evaluate cardiac structure and function. Patient is not a candidate for chronic anticoagulation given her acute on chronic anemia. Anemia evaluation is consistent with anemia of chronic disease. Patient does have an elevated troponin due to demand ischemia from hypotension and tachycardia. Currently treating underlying causes. Patient has acute kidney injury associated with above factors. It Is unknown if she has some component of chronic kidney disease as well.. Will avoid nephrotoxic medications. Will repeat electrolyte panel in a.m.. Will monitor strict I&O's. The patient has been started on empiric antibiotic therapy with Rocephin. Blood cultures and urine cultures have been obtained. Will repeat CBC with diff in a.m. Patient does have a history of diabetes mellitus and has mildly hyperglycemic. Will place patient on a decreased dose of her home long-acting insulin. Will hold metformin. Will add moderate dose sliding scale insulin with Accu-Cheks a.c. HS. 45 minute spent in critical care activities. Due to a high probability of clinically significant, life threatening deterioration, the patient required my highest level of preparedness to intervene emergently and I personally spent this critical care time directly and personally managing the patient. This critical care time included obtaining a history; examining the patient; pulse oximetry; ordering and review of studies; arranging urgent treatment with development of a management plan; evaluation of patient's response to treatment; frequent reassessment; and discussions with other providers. It was exclusive of separately billable procedures and treating other patients and teaching time. Please see Assessment and Plan section and the rest of the note for further information on patient assessment and treatment. Quality VTE Prophylaxis VTE prophylaxis: mechanical ordered (SCDs) Hospitalist MIPS Advance Care Plan I have confirmed that the patient's Advanced Care Plan is present, code status is documented, or surrogate decision maker is listed in patient medical record.: Yes Medication Reconciliation I have utilized all available resources to obtain, update and review the patients current medications (includes all prescriptions, OTC, herbals, cannabis, and nutritional supplements).: Yes
[2025-01-05] MEDS: SODIUM CHLORIDE 0.9% IV 1,000 ML 250 ML IV CONT (02:07)
[2025-01-05 03:29] LABS: Alanine Aminotransferase 16 U/L (6-35); Albumin Level 2.6 g/dL (3.5-5.1); Alkaline Phosphatase 92 U/L (38-126); Anion Gap 10 mmol/L (4-12); Aspartate Amino Transferase 36 U/L (14-36); Bilirubin,Total 1.3 mg/dL (0.2-1.3); Blood Urea Nitrogen 21 mg/dL (7-17); Calcium 7.7 mg/dL (8.4-10.2); Carbon Dioxide 16 mmol/L (22-30); Chloride 106 mmol/L (98-107); Estimated CRCL calculation 30 ml/min; Estimated Glomerular Filt Rate 42; Glucose 200 mg/dL (65-110); Potassium 5.0 mmol/L (3.4-5.0); Sodium 132 mmol/L (137-145); Total Protein 7.1 g/dL (6.3-8.2)
[2025-01-05 03:30] LABS: Hematocrit 26.7 % (37.0-47.0); Hemoglobin 9.0 g/dL (12.0-15.0); Immature Platelet Fraction Pct 9.7 % (0.9-11.2); Mean Corpuscular HGB Conc 33.7 g/dl (32-36); Mean Corpuscular Hemoglobin 29.6 pg (26-34); Mean Corpuscular Volume 87.8 fl (80-100); Platelet Count Result 101 k/mm3 (150-375); Red Blood Count 3.04 M/mm3 (4.2-5.4); White Blood Count 9.7 K/mm3 (4.5-10.0)
[2025-01-05 03:44] LABS: Troponin I 1.320 ng/mL (0.000-0.034)
--- NOTE | 2025-01-05 03:57 | PC.NURSE ---
12/26/24 0118-Per Dr. Moeller, hold off on transfusing the 3rd unit of PRBC's until we know what the latest H&H results are.
[2025-01-05 04:09] LABS: Band Neutrophils Percent 6 % (0-6); Basophils Absolute Manual 0.09 K/mm3 (0.0-0.1); Basophils Percent Manual 1 % (0-1); Lymphocytes Absolute Manual 3.10 K/mm3 (1.1-4.5); Lymphocytes Percent Manual 32.0 % (18-44); Metamyelocytes Percent 1 %; Monocytes Absolute Manual 0.67 K/mm3 (0.1-0.90); Monocytes Percent Manual 7 % (3-9); Myelocytes Percent 1 %; Neutrophils Absolute Manual 5.62 K/mm3 (1.3-6.7); Neutrophils Percent Manual 52 % (46-73); Total Cells Counted 100
[2025-01-05 04:10] LABS: Anisocytosis 2+; Microcytosis 2+ (NORMAL); Poikilocytosis 2+
[2025-01-05 04:11] LABS: Ovalocytes 1+
[2025-01-05 04:12] LABS: Schistocytes Rare
[2025-01-05 04:15] LABS: Hypochromasia 1+; Smudge Cells FEW
--- NOTE | 2025-01-05 08:57 | P.PNCROSS_ITS ---
Event Note Event Note Event Note: Evaluated patient at bedside. She reports no shortness of breath, no chest noemi n, no cough. Denies fever. She is confused, A&O x2. Unclear what her baseline is. We will obtain a CT of head noncontrast evaluate for ischemic event however since she has persistent tachycardia, low blood pressure, we will hold off until she is more hemodynamically stable as lying her flat may cause her CHF to exacerbate. She has crackles bibasilar and mid lung grullon greater on the right. Consult cardiology. We hold metoprolol for now since her blood pressures on the lower side. Likely this is all precipitated by UTI with sepsis which we are treating. However, giving more fluids may exacerbate her heart failure, Consult Cardiology for further recommendations of AFib with RVR while she is in severe sepsis. Amiodarone is a consideration but she is not on anticoagulation prior to arrival. We will recheck lactic acid, troponin. Elevated troponin likely due to demand ischemia. It appears there is no urine culture reflux from the urinalysis, will order now STAT.
[2025-01-05] MEDS: OMEGA 3 POLYUNSAT FATTY ACIDS 1 GM CAP PO (09:08)
[2025-01-05] MEDS: FOLIC ACID 1 MG TABLET PO (09:08)
[2025-01-05] MEDS: SENNA/DOCUSATE SODIUM TABLET 1 TAB PO (09:08)
[2025-01-05 09:45] LABS: Hematocrit 27.9 % (37.0-47.0); Hemoglobin 9.0 g/dL (12.0-15.0); Immature Reticulocyte Fraction 17.8 % (3.0-15.9); Reticulocyte Hemoglobin Conten 30.4 pg (28.2-36.6); Reticulocytes Absolute 0.05 10^6/uL (0.02-0.10)
[2025-01-05 10:15] LABS: Troponin I 1.160 ng/mL (0.000-0.034)
--- NOTE | 2025-01-05 11:21 | PM.CNCAR ---
Assessment and Plan Assessment and plan (1) Atrial fibrillation with rapid ventricular response: Code(s): I48.91 - Unspecified atrial fibrillation Status: Acute Assessment and Plan: She did receive her metoprolol but blood pressure is still soft and she is still significantly tachycardic. Will give a dose of IV amiodarone 150 mg IV x1 to evaluate for response. May start her on amiodarone drip. If not responsive, could also use digoxin (albeit not preferred). As blood pressure stabilizes with antibiotics and fluid resuscitation, up titration of beta-rose marie could be utilized also. Due to severe anemia upon presentation, holding off on anticoagulation at this point. 2D echocardiogram Doppler is ordered and will be reviewed. (2) Elevated troponin: Code(s): R79.89 - Other specified abnormal findings of blood chemistry Status: Acute Assessment and Plan: Not related to acute plaque rupture. Demand ischemia from severe anemia and tachycardia/urosepsis (3) Hypotension due to hypovolemia: Code(s): E86.1 - Hypovolemia Status: Acute Assessment and Plan: Improving but still hypotensive. (4) Sepsis: Qualifiers: Acute renal failure type: unspecified Sepsis acute organ dysfunction status: with acute organ dysfunction Sepsis type: sepsis due to unspecified organism Severe sepsis acute organ dysfunction type: acute renal failure Severe sepsis shock status: without septic shock Qualified Code(s): A41.9 - Sepsis, unspecified organism; R65.20 - Severe sepsis without septic shock; N17.9 - Acute kidney failure, unspecified Code(s): A41.9 - Sepsis, unspecified organism Status: Acute Assessment and Plan: On antibiotics. Uroseptic History of Present Illness History of Present Illness Consult date/time: 01/05/25 11:21 Requesting physician: Cherri Sosa MD Consult reason: atrial fibrillation Reason For Visit: Anemia, Sepsis Narrative: Date of service: 01/05/2025 Reason for consultation: Atrial fibrillation in setting of sepsis Requesting provider: History: Patient 84-year-old female with diabetes, hypertension, CHF, anemia who was recently hospitalized for sepsis a [place]. She was at [facility] and was admitted and brought to the hospital for confusion, slurred speech. She was thought to be uroseptic and also found to be in atrial fibrillation with rapid ventricular response. Cardiology consultation to assist with management. Patient's blood pressure in the ER was significantly hypotensive with systolic BP of 67. She did receive 2 unit packed red blood cells. She was started on IV antibiotics and volume. Blood pressure has stabilized. He was falling she is not a candidate for anticoagulation due to acute on chronic anemia. She denies any chest pain, significant shortness breath, syncope again, presyncope, paroxysmal nocturnal dyspnea, orthopnea, edema or palpitations. Review of Systems Review of Systems: All systems reviewed & are unremarkable except as noted in HPI and below Constitutional: Constitutional: Denies body ache(s) Eyes: Eyes: Denies blurry vision ENT: Denies Normal hearing present Cardiovascular: Cardiovascular: Denies chest pain Respiratory: Respiratory: Reports dyspnea on exertion Gastrointestinal: Gastrointestinal: Denies abdominal pain Genitourinary: Genitourinary: Denies hematuria Musculoskeletal: Musculoskeletal: Denies arthralgias Integumentary/Breasts: Skin/Breast: Denies pruritus Neurologic: Denies Abnormal speech present Psychiatric: Psychiatric: Denies behavioral changes Endocrine: Endocrine: Denies excessive sweating Hematologic/Lymphatic: Hematologic/Lymphatic: Denies easy bleeding Allergic/Immunologic: Allergic/Immunologic: Denies GI upset with certain foods PMFSH Past Medical History Medical History (Updated 01/05/25 @ 11:30 by Francisco Tavares MD) Hyperlipidemia Hepatic steatosis Atrial fibrillation CHF (congestive heart failure) Type 2 diabetes mellitus Diabetic peripheral neuropathy Anemia of chronic disease Cognitive communication disorder Surgical History Surgical History (Updated 01/05/25 @ 06:41 by Berkley Moeller DO) History of 3 sections Status post cataract extraction of both eyes with insertion of intraocular lens Family History Family History Father Unknown family medical history Mother Diabetes mellitus Sibling Unknown family medical history Sibling Diabetes mellitus Sibling Unknown family medical history Sibling Diabetes mellitus Sibling Diabetes mellitus Sibling Diabetes mellitus Social History Social History (Updated 01/05/25 @ 06:44 by Berkley Moeller DO) Social History: The patient usually lives with her granddaughter Ranjana but following her recent hospitalization November 2024 she has been at a correction facility. She has been for about 20 years. She briefly smoked as a young adult. She denies any history of alcohol use. She raised 3 children but does not want her children have any information regarding her medical conditions. Code status: DNR/DNI Healthcare power of insurance defense attorney: Ranjana Alfonso (granddaughter) Smoking packs per day: 1 Smoking cigarettes per day: 20.0 Years smoked: 2 Smoking pack-years: 2.00 Smoking status: Former smoker Tobacco type: cigarettes Second hand tobacco smoke exposure: No Alcohol intake: never Substance use: never Substance use type: does not use Lack of Transportation: No Lack of Food: Never True Current Housing: I Have Housing Concerned About Future Housing: No Difficulty Paying Gas/Electric Bills: No Difficulty Paying for Meds: No Currently Unemployed: No Education: High School Diploma/GED Difficulty w/ Childcare or Family Care: No Spiritual care concerns: No Meds Home Medications and Allergies Home Medications ?Medication ?Instructions ?Recorded ?Confirmed ?Type ascorbic acid (vitamin C) 1,000 mg 1,000 mg PO DAILY 01/05/25 01/05/25 History tablet folic acid 1 mg tablet 1 mg PO DAILY 01/05/25 01/05/25 History insulin glargine 100 unit/mL (3 17 unit subcut BID 01/05/25 01/05/25 History mL) subcutaneous pen (Basaglar KwikPen U-100 Insulin) losartan 50 mg tablet 50 mg PO DAILY 01/05/25 01/05/25 History metformin 1,000 mg tablet 1,000 mg PO BID 01/05/25 01/05/25 History metoprolol succinate 50 mg 50 mg PO DAILY 01/05/25 01/05/25 History tablet,extended release 24 hr miconazole nitrate 2 % topical 1 applic topical BID 01/05/25 01/05/25 History powder omega 3 350 mg-dha 235 mg-epa 90 1 cap PO DAILY 01/05/25 01/05/25 History mg-fish oil 597 mg capsule,delay rel (Reno-3) polyethylene glycol 3350 17 17 g PO BID PRN constipation 01/05/25 01/05/25 History gram/dose oral powder (Miralax) sennosides 8.6 mg-docusate sodium 1 tab-cap PO DAILY 01/05/25 01/05/25 History 50 mg tablet (Senna Plus) Allergies Allergy/AdvReac Type Severity Reaction Status Date / Time vancomycin Allergy Rash Verified 01/05/25 02:18 Vital Signs Vital Signs - 24 hr 01/04/25 17:34 01/04/25 17:54 01/04/25 17:56 Temperature Pulse Rate 131 H 126 H 119 H Respiratory Rate 22 H 29 H 21 H Blood Pressure 99/54 L 70/42 L 66/47 L Pulse Oximetry 100 Oxygen Delivery Room Air 01/04/25 17:57 01/04/25 18:00 01/04/25 18:01 Temperature Pulse Rate 120 H 118 H 119 H Respiratory Rate 33 H 31 H 25 H Blood Pressure 76/65 L Pulse Oximetry Oxygen Delivery 01/04/25 18:11 01/04/25 18:15 01/04/25 18:26 Temperature Pulse Rate 117 H 115 H 132 H Respiratory Rate 27 H 19 26 H Blood Pressure 81/52 L 75/37 L Pulse Oximetry 100 Oxygen Delivery 01/04/25 18:40 01/04/25 18:45 01/04/25 18:46 Temperature Pulse Rate 122 H 112 H 112 H Respiratory Rate 29 H 25 H 30 H Blood Pressure 71/56 L 76/50 L Pulse Oximetry 100 100 100 Oxygen Delivery 01/04/25 18:51 01/04/25 18:56 01/04/25 19:00 Temperature Pulse Rate 120 H 125 H 130 H Respiratory Rate 25 H 28 H 20 Blood Pressure 77/59 L 85/60 L Pulse Oximetry Oxygen Delivery 01/04/25 19:01 01/04/25 19:06 01/04/25 19:11 Temperature Pulse Rate 136 H 133 H 138 H Respiratory Rate 25 H 25 H 26 H Blood Pressure 78/58 L 84/55 L 76/52 L Pulse Oximetry Oxygen Delivery 01/04/25 19:15 01/04/25 19:16 01/04/25 19:21 Temperature Pulse Rate 118 H 119 H 126 H Respiratory Rate 20 27 H 21 H Blood Pressure 85/59 L 81/45 L Pulse Oximetry Oxygen Delivery 01/04/25 19:26 01/04/25 19:30 01/04/25 19:31 Temperature Pulse Rate 122 H 134 H 123 H Respiratory Rate 26 H 29 H 28 H Blood Pressure 86/59 L 85/59 L Pulse Oximetry Oxygen Delivery 01/04/25 19:36 01/04/25 19:36 01/04/25 19:41 Temperature 36.9 C Pulse Rate 132 H 129 H 124 H Respiratory Rate 24 H 26 H 25 H Blood Pressure 79/62 L 79/62 L 87/60 L Pulse Oximetry 98 Oxygen Delivery 01/04/25 19:45 01/04/25 19:46 01/04/25 19:51 Temperature Pulse Rate 120 H 126 H 127 H Respiratory Rate 16 22 H 26 H Blood Pressure 81/54 L 77/46 L Pulse Oximetry Oxygen Delivery 01/04/25 19:52 01/04/25 19:56 01/04/25 20:00 Temperature 36.8 C Pulse Rate 113 H 125 H 126 H Respiratory Rate 24 H 25 H 26 H Blood Pressure 77/46 L 82/54 L Pulse Oximetry 97 Oxygen Delivery 01/04/25 20:01 01/04/25 20:06 01/04/25 20:11 Temperature Pulse Rate 132 H 127 H 127 H Respiratory Rate 26 H 26 H 25 H Blood Pressure 84/58 L 77/50 L 83/59 L Pulse Oximetry Oxygen Delivery 01/04/25 20:15 01/04/25 20:16 01/04/25 20:21 Temperature Pulse Rate 125 H 124 H 137 H Respiratory Rate 26 H 27 H 30 H Blood Pressure 92/64 L 73/57 L Pulse Oximetry Oxygen Delivery 01/04/25 20:26 01/04/25 20:30 01/04/25 20:32 Temperature Pulse Rate 135 H 128 H 132 H Respiratory Rate 28 H 26 H 28 H Blood Pressure 84/56 L 89/50 L Pulse Oximetry Oxygen Delivery 01/04/25 20:36 01/04/25 20:41 01/04/25 20:45 Temperature Pulse Rate 126 H 133 H 128 H Respiratory Rate 27 H 27 H 24 H Blood Pressure 74/50 L 130/110 H Pulse Oximetry Oxygen Delivery 01/04/25 20:46 01/04/25 20:51 01/04/25 20:52 Temperature 36.9 C Pulse Rate 121 H 124 H 124 H Respiratory Rate 22 H 23 H 20 Blood Pressure 90/69 L 85/59 L 81/56 L Pulse Oximetry 97 Oxygen Delivery 01/04/25 20:56 01/04/25 21:00 01/04/25 21:01 Temperature Pulse Rate 127 H 132 H 138 H Respiratory Rate 26 H 25 H 26 H Blood Pressure 81/56 L 71/59 L Pulse Oximetry Oxygen Delivery 01/04/25 21:06 01/04/25 21:11 01/04/25 21:27 Temperature Pulse Rate 127 H 125 H 132 H Respiratory Rate 26 H 20 26 H Blood Pressure 79/61 L 74/56 L Pulse Oximetry Oxygen Delivery 01/04/25 21:30 01/04/25 21:32 01/04/25 21:34 Temperature 36.8 C Pulse Rate 128 H 128 H 115 H Respiratory Rate 26 H 24 H 25 H Blood Pressure 74/42 L Pulse Oximetry 97 Oxygen Delivery 01/04/25 21:41 01/04/25 21:46 01/04/25 21:51 Temperature Pulse Rate 125 H 144 H 122 H Respiratory Rate 23 H 23 H 24 H Blood Pressure 87/54 L 78/56 L 82/60 L Pulse Oximetry 100 100 Oxygen Delivery 01/04/25 21:53 01/04/25 21:58 01/04/25 22:53 Temperature 36.8 C 36.9 C 36.7 C Pulse Rate 130 H 122 H 121 H Respiratory Rate 20 20 20 Blood Pressure 67/44 L 67/44 L 71/60 L Pulse Oximetry 100 100 97 Oxygen Delivery 01/04/25 23:11 01/04/25 23:15 01/04/25 23:16 Temperature Pulse Rate 135 H 124 H 141 H Respiratory Rate 24 H 25 H 27 H Blood Pressure 107/66 114/76 Pulse Oximetry 100 Oxygen Delivery 01/04/25 23:21 01/04/25 23:26 01/04/25 23:30 Temperature Pulse Rate 135 H 141 H 116 H Respiratory Rate 27 H 28 H 24 H Blood Pressure 92/67 L 86/69 L Pulse Oximetry 100 100 99 Oxygen Delivery 01/04/25 23:31 01/04/25 23:36 01/04/25 23:40 Temperature Pulse Rate 128 H 126 H 125 H Respiratory Rate 26 H 22 H Blood Pressure 96/62 L 113/57 L 102/58 L Pulse Oximetry 99 100 Oxygen Delivery 01/04/25 23:41 01/04/25 23:45 01/04/25 23:47 Temperature Pulse Rate 126 H 129 H 126 H Respiratory Rate 26 H 27 H 23 H Blood Pressure 102/58 L 97/63 L Pulse Oximetry 100 100 Oxygen Delivery 01/04/25 23:51 01/04/25 23:56 01/05/25 00:00 Temperature Pulse Rate 137 H 125 H 122 H Respiratory Rate 22 H 25 H 25 H Blood Pressure 99/67 L 96/60 L Pulse Oximetry 100 96 Oxygen Delivery 01/05/25 00:01 01/05/25 00:06 01/05/25 00:07 Temperature Pulse Rate 133 H 123 H 116 H Respiratory Rate 24 H 24 H 26 H Blood Pressure 99/69 L 93/63 L Pulse Oximetry 100 100 Oxygen Delivery 01/05/25 00:11 01/05/25 00:15 01/05/25 00:16 Temperature Pulse Rate 116 H 130 H 123 H Respiratory Rate 25 H 26 H 24 H Blood Pressure 89/70 L 84/68 L Pulse Oximetry 99 99 98 Oxygen Delivery 01/05/25 00:22 01/05/25 00:23 01/05/25 00:26 Temperature Pulse Rate 135 H 130 H 126 H Respiratory Rate 24 H 28 H 24 H Blood Pressure 70/35 L 98/61 L 96/66 L Pulse Oximetry Oxygen Delivery 01/05/25 00:30 01/05/25 00:31 01/05/25 00:55 Temperature Pulse Rate 136 H 120 H 130 H Respiratory Rate 26 H 27 H Blood Pressure 96/67 L Pulse Oximetry Oxygen Delivery 01/05/25 00:56 01/05/25 01:15 01/05/25 02:00 Temperature 36.7 C Pulse Rate 121 H 121 H 124 H Respiratory Rate 19 19 Blood Pressure 95/58 L Pulse Oximetry 100 100 Oxygen Delivery Room Air 01/05/25 03:33 01/05/25 04:00 01/05/25 04:00 Temperature 36.4 C L Pulse Rate 113 H 113 H 118 H Respiratory Rate 24 H 24 H Blood Pressure 94/52 L Pulse Oximetry 95 95 Oxygen Delivery Room Air 01/05/25 06:00 01/05/25 07:43 01/05/25 08:00 Temperature 36.5 C Pulse Rate 122 H 127 H Respiratory Rate 16 Blood Pressure 99/61 L Pulse Oximetry 100 Oxygen Delivery Room Air 01/05/25 08:00 01/05/25 10:00 Temperature Pulse Rate 143 H 139 H Respiratory Rate Blood Pressure Pulse Oximetry Oxygen Delivery Exam Narrative: Awake alert oriented. Appears to be in no acute distress. Appears stated age Const: General: comfortable and no acute distress HENMT: Ears: TM's normal bilaterally Face/Nose/Sinus: Normal nares present Eyes: General: appearance normal, both eyes and all related structures Sclera: sclerae normal Neck: Neck: supple and no JVD Chest: Other: No reproducible chest wall pain to palpation Resp: Effort & Inspection: normal respiratory effort Auscultation: clear to auscultation bilaterally Cardio: Rate: tachycardic Rhythm: abnormal rhythm irregularly irregular GI: Inspection: non-distended GI Palp: Yes Soft to palpation Skin: General skin exam: normal color Neuro: Speech: normal speech Sensory Exam: normal sensation Extrem: General: normal to inspection Psych: Mental Status: mental status grossly normal Affect: normal affect Results Labs and Meds 01/05/25 09:29 01/05/25 03:08 Lab results: Cardiac Enzymes 01/04/25 01/04/25 01/05/25 Range/Units 18:27 20:47 00:09 AST 39 H (14-36) U/L Troponin I 1.090 H* 1.120 H* 1.250 H* (0.000-0.034) ng/mL 01/05/25 01/05/25 Range/Units 03:08 09:29 AST 36 (14-36) U/L Troponin I 1.320 H* 1.160 H* (0.000-0.034) ng/mL Coagulation 01/04/25 Range/Units 17:43 PT 15.6 H (11.1-14.7) Seconds APTT 27.7 (22.3-36.8) Seconds CBC 01/04/25 01/05/25 01/05/25 Range/Units 17:43 03:08 09:29 WBC 11.8 H 9.7 (4.5-10.0) K/mm3 RBC 2.47 L 3.04 L (4.2-5.4) M/mm3 Hgb 6.9 L* 9.0 L 9.0 L (12.0-15.0) g/dL Hct 22.2 L 26.7 L 27.9 L (37.0-47.0) % Plt Count 126 L 101 L (150-375) k/mm3 Lymph # (Auto) Not Reportable Not Reportable Reynolds # (Auto) Not Reportable Not Reportable Eos # (Auto) Not Reportable Not Reportable Baso # (Auto) Not Reportable Not Reportable Comprehensive Metabolic Panel 01/04/25 01/05/25 Range/Units 18:27 03:08 Sodium 132 L 132 L (137-145) mmol/L Potassium 4.7 5.0 (3.4-5.0) mmol/L Chloride 106 106 (98-107) mmol/L Carbon Dioxide 14 L 16 L (22-30) mmol/L BUN 21 H 21 H (7-17) mg/dL Creatinine 1.26 H 1.21 H (0.7-1.0) mg/dL Glucose 174 H 200 H (65-110) mg/dL Calcium 7.9 L 7.7 L (8.4-10.2) mg/dL AST 39 H 36 (14-36) U/L ALT 22 16 (6-35) U/L Alkaline Phosphatase 91 92 (38-126) U/L Total Protein 7.1 7.1 (6.3-8.2) g/dL Albumin 2.6 L 2.6 L (3.5-5.1) g/dL Intake and Output 01/04/25 01/05/25 01/05/25 23:59 07:59 15:59 Intake Total 850 1650 Output Total 0 Balance 850 1650 Intake: IV 500 1100 Sodium Chloride 0.9% IV 500 ml 500 @ 0 mls/hr .ROUTE .STK-MED ONE Rx#:[id number] Sodium Chloride 0.9% IV 1,000 1000 ml @ 250 mls/hr IV CONT .Q4H ONE Rx#:[id number] Sodium Chloride 0.9% IV 250 ml 50 @ 30 mls/hr IV CONT .Q8H20M STA Rx#:[id number] [id number] 1 gm In Sodium 50 Chloride 0.9% IV 50 ml @ 100 mls/hr IVPB ONCE STA Rx#: [id number] Intake (Blood Product) Amt 350 350 Leukocyte Reduced Rbc Unit 0 350 [id number] Leukocyte Reduced Rbc Unit 350 [id number] Oral 200 Output: Catheter Urine 0 External/Condom 0 Other: # Unmeasured Voids 1 Patient Weight 01/05/25 23:59 Weight 77.3 kg EKG is personally reviewed and independently interpreted showing atrial fibrillation with rapid ventricular response and right bundle-branch block. Abnormal ECG
[2025-01-05] MEDS: INSULIN ASPART (*BKC) 100 UNITS/ML SUB-Q ×2 (12:10→16:37)
[2025-01-05 13:54] LABS: Magnesium 1.3 mg/dL (1.6-2.3)
[2025-01-05] MEDS: MAGNESIUM SULF 4 GM/WATER100ML 4 GM/100 ML BAG IVPB (15:56)
[2025-01-05 21:11] LABS: Anion Gap 8 mmol/L (4-12); Blood Urea Nitrogen 22 mg/dL (7-17); Calcium 7.8 mg/dL (8.4-10.2); Carbon Dioxide 16 mmol/L (22-30); Chloride 106 mmol/L (98-107); Estimated CRCL calculation 34 ml/min; Estimated Glomerular Filt Rate 50; Glucose 327 mg/dL (65-110); Potassium 4.7 mmol/L (3.4-5.0); Sodium 130 mmol/L (137-145)
[2025-01-05] MEDS: INSULIN GLARGINE (*BKC) 100 UNITS/ML 12 UNITS SUB-Q (21:18)
[2025-01-06] VITALS (27 sets, daily range): BP systolic 92–108; BP diastolic 53–67; PULSE 99–150; RESP 16–22; TEMP 36.4–36.8; O2SAT 97–100; BMI 29.5
--- NOTE | 2025-01-06 | ECHO_ITS ---
Patient Info Name: Char Tucker Age: 84 years : 1940 Gender: Female Ht: 64 in Wt: 170 lbs BSA: 1.89 m2 HR: 125 bpm BP: 93 / 61 mmHg Heart Rhythm: Atrial Fibrillation Technical Quality: Good Exam Date: 01/06/2025 9:39 AM Patient Status: I Admit Date: 01/04/2025 Exam Type: CA echo doppler color flow Complete two-dimensional, color flow and Doppler transthoracic echocardiogram is performed. Staff Referring Physician: Cherri Sosa Groover And Turner: Ashley Cai Attending Provider: Berkley Moeller DO Summary 1. Complete two-dimensional, color flow and Doppler transthoracic echocardiogram is performed. 2. Left ventricular chamber dimension is mildly enlarged. 3. Left ventricular systolic function is mildly reduced, estimated at 45-50. 4. There is moderate asymmetric septal increased left ventricular wall thickness. 5. The left ventricular diastolic function is abnormal. 6. Right ventricular chamber dimension is mildly enlarged. 7. Left atrial chamber dimension is moderately enlarged. 8. Right atrial chamber dimension is moderately enlarged. 9. There is moderate to severe aortic valve stenosis with a peak velocity of 291 cm/s, mean gradient of 15 mmHg, and aortic valve area of 1.0 cm2. 10. There is moderate aortic valve regurgitation. 11. There is severe aortic valve calcification. 12. There is moderate mitral valve regurgitation. 13. There is moderate tricuspid valve regurgitation. 14. Moderate pulmonary hypertension, estimated pulmonary arterial systolic pressure is 59 mmHg. 15. There is mild pulmonic regurgitation. 16. The prox ascending aorta size is dilated. Left Ventricle Left ventricular chamber dimension is mildly enlarged. Left ventricular systolic function is mildly reduced, estimated at 45-50. There is moderate asymmetric septal increased left ventricular wall thickness. The left ventricular diastolic function is abnormal. Right Ventricle Right ventricular chamber dimension is mildly enlarged. Right ventricular systolic function is normal. Left Atria Left atrial chamber dimension is moderately enlarged. Right Atria Right atrial chamber dimension is moderately enlarged. Atrial Septum Intact interatrial septum visualized by color flow imaging. Aortic Valve The aortic valve is trileaflet. There is moderate to severe aortic valve stenosis with a peak velocity of 291 cm/s, mean gradient of 15 mmHg, and aortic valve area of 1.0 cm2. There is moderate aortic valve regurgitation. There is severe aortic valve calcification. Pulmonic Valve The pulmonic valve is normal. There is no pulmonic valve stenosis. There is mild pulmonic regurgitation. Mitral Valve The mitral valve has a calcified annulus. There is no mitral valve stenosis. There is moderate mitral valve regurgitation. Tricuspid Valve The tricuspid valve leaflets are normal. There is no significant tricuspid valve stenosis. There is moderate tricuspid valve regurgitation. Moderate pulmonary hypertension, estimated pulmonary arterial systolic pressure is 59 mmHg. Pericardium/Pleural The pericardium appears normal. There is no pericardial effusion. Inferior Vena Cava Normal inferior vena cava with <50% collapse upon inspiration consistent with elevated right atrial pressure, 10 mmHg. Aorta The aortic root size at the sinus of Valsalva is normal. The prox ascending aorta size is dilated. Left Ventricular Outflow Tract Name Value Normal LVOT 2D LVOT Diameter 2.1 cm LVOT Doppler LVOT Peak Velocity 90 cm/s LVOT Peak Gradient 3 mmHg LVOT Mean Gradient 2 mmHg LVOT VTI 16 cm LVOT VTI/AV VTI Ratio 0.3 LVOT Stroke Volume 54 ml LVOT CO 14.1 l/min LVOT CI 7.4 l/min/m2 Pulmonic Valve Name Value Normal PV Doppler PV Peak Velocity 104 cm/s PV Peak Gradient 4 mmHg Mitral Valve Name Value Normal MV Diastolic Function MV E Peak Velocity 140 cm/s MV A Peak Velocity 2 cm/s MV E/A 82.9 MV Decel Time (PW) 160 ms MV Annular TDI MV E/e' (Septal) 26.3 MV E/e' (Lateral) 15.9 MV E/e' (Average) 21.1 Tricuspid Valve Name Value Normal TV Regurgitation Doppler TR Peak Velocity 351 cm/s TR Peak Gradient 49 mmHg Estimated PAP/RSVP RA Pressure 10 mmHg <=5 PA Systolic Pressure 59 mmHg <36 RV Systolic Pressure 59 mmHg <36 TV Annular TDI TV Lateral Joan s' Velocity 6.4 cm/s >=9.5 Aorta Name Value Normal Ascending Aorta Ao Root Diameter (MM) 3.4 cm Ao Root Diam Index (MM) 1.8 cm/m2 Aortic Valve Name Value Normal AV Doppler AV Peak Velocity 291 cm/s AV Peak Gradient 23 mmHg AV Mean Gradient 15 mmHg AV VTI 52 cm AV Area (Cont Eq VTI) 1.0 cm2 >=3.0 AV Area (Cont Eq Flo) 1.0 cm2 AV DI (Flo) 0.31 AV Regurgitation 2D LVOT Area 3.3 cm2 Ventricles Name Value Normal LV Dimensions 2D/MM IVS Diastolic Thickness (2D) 1.5 cm 0.6-1.0 LVID Diastole (2D) 4.2 cm 3.8-5.2 LVIW Diastolic Thickness (2D) 0.9 cm 0.6-0.9 LVID Systole (2D) 3.2 cm 2.2-3.5 LVOT Diameter 2.1 cm LV Mass (2D Cubed) 167.38 g 67.00-162.00 LV Mass Index (2D Cubed) 89 g/m2 43-95 Relative Wall Thickness (2D) 0.41 <=0.42 LV Fractional Shortening/Ejection Fraction 2D/MM LV Fractional Shortening (2D) 24 % 27-45 LV EF (2D Teichholz) 47 % LV Diastolic Volume (4C MOD) 80 ml LV EF (4C MOD) 54 % LV Diastolic Volume (2C MOD) 102 ml LV EF (2C MOD) 47 % LV Diastolic Volume (BP MOD) 92 ml 46-106 LV Diastolic Volume Index (BP MOD) 49 ml/m2 29-61 LV Systolic Volume (BP MOD) 44 ml 14-42 LV Systolic Volume Index (BP MOD) 23 ml/m2 8-24 LV EF (BP MOD) 52 % 54-74 LV Diastolic Length (4C) 6.9 cm LV Systolic Length (4C) 6.2 cm LV Stroke Volume (4C MOD) 43 ml RV Dimensions 2D/MM RVID Diastole (2D) 5.0 cm 2.1-3.5 Atria Name Value Normal LA Dimensions LA Dimension (MM) 4.7 cm 2.7-3.8 LA Volume (4C A-L) 82 ml LA Volume (BP A-L) 83 ml RA Dimensions RA Systolic Major Ovalo Length (4C) 5.1 cm 2.2-2.8 RA Area (4C) 19.7 cm2 <=18.0 Report Signatures
--- NOTE | 2025-01-06 00:37 | PC.NURSE ---
Called and left message for Dr. Tavares regarding patients heart rate continuing to stay elevated to see if he wanted to add any additional orders. Answering service said the message would be relayed to him.
--- NOTE | 2025-01-06 01:00 | PC.NURSE ---
Received phone call back from Dr. Tavares to start amio crystal per protocol.
[2025-01-06 04:43] LABS: Hematocrit 28.6 % (37.0-47.0); Hemoglobin 9.1 g/dL (12.0-15.0); Immature Platelet Fraction Pct 9.5 % (0.9-11.2); Mean Corpuscular HGB Conc 31.8 g/dl (32-36); Mean Corpuscular Hemoglobin 29.0 pg (26-34); Mean Corpuscular Volume 91.1 fl (80-100); Platelet Count Result 85 k/mm3 (150-375); Red Blood Count 3.14 M/mm3 (4.2-5.4); White Blood Count 8.8 K/mm3 (4.5-10.0)
[2025-01-06 05:07] LABS: Alanine Aminotransferase 17 U/L (6-35); Albumin Level 2.6 g/dL (3.5-5.1); Alkaline Phosphatase 107 U/L (38-126); Anion Gap 8 mmol/L (4-12); Aspartate Amino Transferase 32 U/L (14-36); Bilirubin,Total 0.8 mg/dL (0.2-1.3); Blood Urea Nitrogen 22 mg/dL (7-17); Calcium 7.8 mg/dL (8.4-10.2); Carbon Dioxide 16 mmol/L (22-30); Chloride 104 mmol/L (98-107); Estimated CRCL calculation 35 ml/min; Estimated Glomerular Filt Rate 51; Glucose 343 mg/dL (65-110); Magnesium 2.5 mg/dL (1.6-2.3); Potassium 4.8 mmol/L (3.4-5.0); Sodium 128 mmol/L (137-145); Total Protein 6.9 g/dL (6.3-8.2)
[2025-01-06 05:11] LABS: Band Neutrophils Percent 18 % (0-6); Lymphocytes Absolute Manual 2.20 K/mm3 (1.1-4.5); Lymphocytes Percent Manual 25.0 % (18-44); Monocytes Absolute Manual 0.35 K/mm3 (0.1-0.90); Monocytes Percent Manual 4 % (3-9); Neutrophils Absolute Manual 6.24 K/mm3 (1.3-6.7); Neutrophils Percent Manual 53 % (46-73); Total Cells Counted 100
[2025-01-06 05:16] LABS: Anisocytosis 2+; Schistocytes None Seen
[2025-01-06 05:17] LABS: Burr Cells 1+; Ovalocytes 1+
--- NOTE | 2025-01-06 07:49 | P.PNIM_ITS ---
Progress Note: A&P Assessment and Plan (1) Acute on chronic anemia: Code(s): D64.9 - Anemia, unspecified Status: Acute (2) Acute UTI: Code(s): N39.0 - Urinary tract infection, site not specified Status: Acute (3) Elevated troponin: Code(s): R79.89 - Other specified abnormal findings of blood chemistry Status: Acute (4) Atrial fibrillation with rapid ventricular response: Code(s): I48.91 - Unspecified atrial fibrillation Status: Acute Plan 84-year-old female with H neurocognitive disorder, type 2 diabetes mellitus neuropathy with current long-term use of insulin, essential hypertension, CHF, chronic anemia, recent hospitalization for sepsis at [place] presented to [facility] on 01/05/[address] [facility] due to confusion and slurred speech. Upon arrival the patient A&O x2 and in unreliable historian. Found to be in AFib with RVR with an acute UTI and severe anemia. ----- Complicated UTI, present on admission with severe sepsis -urinalysis 01/04/2025 many squamous cells, 4+ bacteria, 2+ leukocyte esterase. CT abdomen pelvis on admission demonstrated findings concerning for urinary tract infection. Official radiology interpretation pending. -urine culture did not reflex, ordered urine culture, has not been obtained yet, I discussed with nurse to obtain this, straight cath Maxwell if needed. Urine culture results may be unreliable after antibiotics administered -01/06/2025 leukocytosis resolved, bandemia 18 now -01/05/2025 blood culture x2, pending. -ceftriaxone 1 g started 01/05/2025, continue -01/04/2025 checks x-ray with mild CHF reported -she has persistent hypotension, not requiring vasopressors. She received fluid bolus on admission but has significant crackles. Unclear if due to rapid ventricular rate or true hypovolemia. She is 4.3 L net fluid balance positive since admission. Treat RVR and reassess. Anemia, normocytic -unclear baseline, 6.9 on admission. Received 2 units PRBC, has stabilized with a hemoglobin 9.0. -hemoccult negative. No evidence of overt bleeding. -iron 110, TIBC 237, ferritin 758 -monitor hemoglobin daily AFib with RVR -sepsis complicates treatment. Received metoprolol on admission, due to persistent tachycardia and hypotension she was given amiodarone bolus with GTT protocol. -01/06/2025: Telemetry reveals average heart rate 130. Continue to appreciate Cardiology recommendations. Currently on metoprolol 50 mg p.o. q.day. she does have crackles -magnesium 1.3 on admission 01/05/2025: Adequate on 01/06/2025 status post replacement Confusion/slurred speech -she does have a baseline neurocognitive disorder/cognitive communication disorder -A&O x2, pleasantly confused. -CT brain on admission no evidence of ischemic/hemorrhagic event CHF -BNP 42277 on admission, has crackles but on room air, received volume and blood -pending surface echocardiogram -cardiology following Lactic acidosis -3.2 on admission, resolved status post 2 units PRBC isotonic fluid resuscitation Elevated serum creatinine -1.26 on admission, unclear baseline. Improving. Elevated troponin -present on admission, likely due to sepsis in AFib with RVR. Peak. No chest pain, no shortness of breath. Cardiology consulted Insulin-dependent diabetes mellitus -blood sugars reviewed, continue current regimen, avoid over-correction. -Accu-Cheks a.c. HS with Lantus 12 units subQ b.i.d.. ----- DNR. Hold pharmacological DVT prophylaxis due to recent severe anemia. SCDs. Diabetic heart healthy diet. Saline lock IV. Daily weights/intake/output. Ambulate with assistance Subjective Date/time seen: 01/06/25 07:49 Interval history: No major acute overnight events. Patient sits at the edge of the bed eating breakfast. Today, she is A&O x2 and her history is unreliable. Review of Systems Review of Systems: All systems reviewed & are unremarkable except as noted in HPI and below (Subjective) Exam Const: General: comfortable and no acute distress Other: A&O x2 HENMT: Mouth: Yes moist mucous membranes Eyes: Pupils: Equal, round and reactive pupils present Neck: Neck: supple Resp: Effort & Inspection: normal respiratory effort Other: Wet crackles at bases and mid lung [place] bilaterally Cardio: Rate: tachycardic Rhythm: abnormal rhythm GI: Inspection: non-distended GI Palp: Yes Soft to palpation Neuro: Motor exam (neuro): 5/5 motor strength present throughout Extrem: General: no edema Objective Data Vital Signs Vital Signs: Vital Signs - 24 hr 01/05/25 08:00 01/05/25 08:00 01/05/25 10:00 Temperature Pulse Rate 143 H 139 H Respiratory Rate Blood Pressure Pulse Oximetry Oxygen Delivery Room Air 01/05/25 12:00 01/05/25 12:00 01/05/25 12:00 Temperature 97.5 F L Pulse Rate 138 H 143 H Respiratory Rate 28 H Blood Pressure 98/60 L Pulse Oximetry 100 Oxygen Delivery Room Air 01/05/25 12:11 01/05/25 14:00 01/05/25 16:00 Temperature Pulse Rate 156 H 129 H Respiratory Rate Blood Pressure Pulse Oximetry Oxygen Delivery Room Air 01/05/25 16:00 01/05/25 16:00 01/05/25 20:00 Temperature 97.8 F 98.0 F Pulse Rate 137 H 135 H 129 H Respiratory Rate 24 H 18 Blood Pressure 111/65 98/60 L Pulse Oximetry 98 98 Oxygen Delivery 01/05/25 20:00 01/05/25 22:00 01/05/25 23:40 Temperature 97.5 F L Pulse Rate 127 H 131 H 146 H Respiratory Rate 28 H Blood Pressure 108/60 Pulse Oximetry 97 Oxygen Delivery 01/06/25 00:00 01/06/25 01:12 01/06/25 02:00 Temperature Pulse Rate 144 H 136 H 133 H Respiratory Rate Blood Pressure Pulse Oximetry Oxygen Delivery 01/06/25 03:34 01/06/25 04:00 01/06/25 06:00 Temperature 98.2 F Pulse Rate 122 H 133 H 135 H Respiratory Rate 19 Blood Pressure 93/61 L Pulse Oximetry 100 Oxygen Delivery 01/06/25 06:29 01/06/25 06:48 Temperature Pulse Rate 150 H 126 H Respiratory Rate Blood Pressure 94/55 L Pulse Oximetry Oxygen Delivery Intake/Output Intake/Output: Intake & Output 01/03/25 01/04/25 01/05/25 01/06/25 23:59 23:59 23:59 23:59 Intake Total 850 2250 1560 Output Total 300 225 Balance 850 1950 1335 Meds/Results Medications: Active Medications Generic Name Dose Route Start Last Admin Trade Name Freq PRN Reason Stop Dose Admin Dextrose 12.5 gm 01/05/25 01:39 Dextrose 50% 25 Gm/50 Ml Syringe IV PUSH PRN PRN Hypoglycemia Protocol Fish Oil 1 gm 01/05/25 09:00 01/05/25 09:08 [place] 3 Polyunsat Fatty Acids 1 Gm Cap PO 1 gm QAM JEN Administration Folic Acid 1 mg 01/05/25 09:00 01/05/25 09:08 Folic Acid 1 Mg Tablet PO 1 mg DAILY JEN Administration Glucagon 1 mg 01/05/25 01:39 Glucagon For Inj 1 Mg Vial IM PRN PRN Hypoglycemia Protocol Glucose 15 gm 01/05/25 01:39 Glucose Oral Gel 15 Gm Of Glucse In 37.5 Gm Tube PO PRN PRN Hypoglycemia Protocol Dextrose 1,000 mls @ 100 mls/hr 01/05/25 01:39 Dextrose 5% 1,000 Ml IVPB PRN PRN Hypoglycemia Protocol Ceftriaxone Sodium 1 gm/ 50 mls @ 100 mls/hr 01/05/25 23:00 01/05/25 23:15 Sodium Chloride IVPB 100 mls/hr Q24H JEN Administration Insulin Aspart 3 - 6 units 01/05/25 08:00 01/05/25 16:37 Insulin Aspart (*Bkc) 100 Units/Ml SUB-Q 5 units TIDWM JEN Administration Protocol Insulin Glargine 12 units 01/05/25 09:00 01/05/25 21:18 Insulin Glargine (*Bkc) 100 Units/Ml SUB-Q 12 units Q12HR JEN Administration Metoprolol Succinate 50 mg 01/05/25 09:00 01/05/25 09:04 Metoprolol Succinate Ext Rel 50 Mg Tabcr PO Not Given DAILY JEN Perflutren Lipid Microsphere 0 ml 01/05/25 06:56 Perflutren Lipid Microspheres 1.5 Ml Vial Diluted To 10 Ml Total Volume IV PUSH 01/08/25 06:56 ONCE PRN adequate visualization Protocol Polyethylene Glycol 17 gm 01/05/25 01:38 Polyethylene Glycol 3350 17 Gm Powd.Pack PO BID PRN Constipation Senna/Docusate Sodium 1 tab 01/05/25 09:00 01/05/25 09:08 Senna/Docusate Sodium Tablet PO 1 tab DAILY JEN Administration Radiology Results: ITS Impressions Chest X-Ray 01/04/25 17:55 Impression: Mild CHF Head CT 01/05/25 17:34 Impression: 1.No acute intracranial abnormality. Labs Labs: Laboratory Results - last 24 hr 01/04/25 01/05/25 01/05/25 17:43 09:29 11:36 WBC RBC Hgb 9.0 L Hct 27.9 L MCV MCH MCHC RDW Plt Count MPV Immature Gran % (Auto) Neut % (Auto) Lymph % (Auto) [place] % (Auto) Eos % (Auto) Baso % (Auto) Lymph # (Auto) [place] # (Auto) Eos # (Auto) Baso # (Auto) Abs Immat Gran (auto) Absolute Neuts (auto) Absolute Nucleated RBC Total Counted Neutrophils % (Manual) Band Neutrophils % Lymphocytes % (Manual) Monocytes % (Manual) Nucleated RBC % Abs Neuts (Manual) Abs Lymphs (Manual) Abs Monocytes (Manual) Platelet Estimate % Immature Plt Fraction Anisocytosis Ovalocytes [place] Cells Schistocytes Absolute Retic 0.05 Percent Retic 1.54 Immature Retic Fraction 17.8 H Retic Hgb Content 30.4 Sodium Potassium Chloride Carbon Dioxide Anion Gap BUN Creatinine Estim Creat Clear Calc Estimated GFR Glucose POC Capillary Glucose 297 H Lactic Acid 2.9 H Calcium Magnesium 1.3 L Total Bilirubin AST ALT Alkaline Phosphatase Troponin I 1.160 H* Total Protein Albumin Crossmatch See Detail 01/05/25 01/05/25 01/05/25 13:25 15:41 15:49 WBC RBC Hgb Hct MCV MCH MCHC RDW Plt Count MPV Immature Gran % (Auto) Neut % (Auto) Lymph % (Auto) [place] % (Auto) Eos % (Auto) Baso % (Auto) Lymph # (Auto) [place] # (Auto) Eos # (Auto) Baso # (Auto) Abs Immat Gran (auto) Absolute Neuts (auto) Absolute Nucleated RBC Total Counted Neutrophils % (Manual) Band Neutrophils % Lymphocytes % (Manual) Monocytes % (Manual) Nucleated RBC % Abs Neuts (Manual) Abs Lymphs (Manual) Abs Monocytes (Manual) Platelet Estimate % Immature Plt Fraction Anisocytosis Ovalocytes [place] Cells Schistocytes Absolute Retic Percent Retic Immature Retic Fraction Retic Hgb Content Sodium Potassium Chloride Carbon Dioxide Anion Gap BUN Creatinine Estim Creat Clear Calc Estimated GFR Glucose POC Capillary Glucose 306 H Lactic Acid 2.6 H 2.2 H Calcium Magnesium Cancelled Total Bilirubin AST ALT Alkaline Phosphatase Troponin I Total Protein Albumin Crossmatch 01/05/25 01/05/25 01/06/25 20:50 21:01 03:57 WBC 8.8 RBC 3.14 L Hgb 9.1 L Hct 28.6 L MCV 91.1 MCH 29.0 MCHC 31.8 L RDW 21.3 H Plt Count 85 L MPV TNP Immature Gran % (Auto) Not Reportable Neut % (Auto) Not Reportable Lymph % (Auto) Not Reportable [place] % (Auto) Not Reportable Eos % (Auto) Not Reportable Baso % (Auto) Not Reportable Lymph # (Auto) Not Reportable [place] # (Auto) Not Reportable Eos # (Auto) Not Reportable Baso # (Auto) Not Reportable Abs Immat Gran (auto) Not Reportable Absolute Neuts (auto) Not Reportable Absolute Nucleated RBC Not Reportable Total Counted 100 Neutrophils % (Manual) 53 Band Neutrophils % 18 H Lymphocytes % (Manual) 25.0 Monocytes % (Manual) 4 Nucleated RBC % Not Reportable Abs Neuts (Manual) 6.24 Abs Lymphs (Manual) 2.20 Abs Monocytes (Manual) 0.35 Platelet Estimate Decreased % Immature Plt Fraction 9.5 Anisocytosis 2+ Ovalocytes 1+ [place] Cells 1+ Schistocytes None seen Absolute Retic Percent Retic Immature Retic Fraction Retic Hgb Content Sodium 130 L 128 L Potassium 4.7 4.8 Chloride 106 104 Carbon Dioxide 16 L 16 L Anion Gap 8 8 BUN 22 H 22 H Creatinine 1.05 H 1.03 H Estim Creat Clear Calc 34 35 Estimated GFR 50 L 51 L Glucose 327 H 343 H POC Capillary Glucose 313 H Lactic Acid 2.0 Calcium 7.8 L 7.8 L Magnesium 2.5 H Total Bilirubin 0.8 AST 32 ALT 17 Alkaline Phosphatase 107 Troponin I Total Protein 6.9 Albumin 2.6 L Crossmatch 01/06/25 07:29 WBC RBC Hgb Hct MCV MCH MCHC RDW Plt Count MPV Immature Gran % (Auto) Neut % (Auto) Lymph % (Auto) [place] % (Auto) Eos % (Auto) Baso % (Auto) Lymph # (Auto) [place] # (Auto) Eos # (Auto) Baso # (Auto) Abs Immat Gran (auto) Absolute Neuts (auto) Absolute Nucleated RBC Total Counted Neutrophils % (Manual) Band Neutrophils % Lymphocytes % (Manual) Monocytes % (Manual) Nucleated RBC % Abs Neuts (Manual) Abs Lymphs (Manual) Abs Monocytes (Manual) Platelet Estimate % Immature Plt Fraction Anisocytosis Ovalocytes [place] Cells Schistocytes Absolute Retic Percent Retic Immature Retic Fraction Retic Hgb Content Sodium Potassium Chloride Carbon Dioxide Anion Gap BUN Creatinine Estim Creat Clear Calc Estimated GFR Glucose POC Capillary Glucose 331 H Lactic Acid Calcium Magnesium Total Bilirubin AST ALT Alkaline Phosphatase Troponin I Total Protein Albumin Crossmatch
[2025-01-06] MEDS: INSULIN ASPART (*BKC) 100 UNITS/ML SUB-Q ×3 (07:55→16:59)
[2025-01-06] MEDS: INSULIN GLARGINE (*BKC) 100 UNITS/ML 12 UNITS SUB-Q ×2 (07:57→20:38)
[2025-01-06] MEDS: OMEGA 3 POLYUNSAT FATTY ACIDS 1 GM CAP PO (09:07)
[2025-01-06] MEDS: FOLIC ACID 1 MG TABLET PO (09:07)
[2025-01-06] MEDS: SENNA/DOCUSATE SODIUM TABLET 1 TAB PO (09:07)
--- NOTE | 2025-01-06 10:27 | P.PNCA_ITS ---
Progress Note: A&P Assessment and Plan (1) Atrial fibrillation with rapid ventricular response: Code(s): I48.91 - Unspecified atrial fibrillation Status: Acute (2) Elevated troponin: Code(s): R79.89 - Other specified abnormal findings of blood chemistry Status: Acute Plan Diagnosis: -AFib with RVR-symptomatic -Not on anticoagulation due to anemia -Elevated troponin (1.090, 1.120, 1.250, 1.320, 1.160)-most likely type 2 NM secondary to AFib with RVR, no chest pain -Acute on chronic anemia requiring blood transfusion during this hospitali zation-hemoglobin 9.1 today; no evidence of external bleeding (no urinary bleeding, no blood in stool-Hemoccult negative) -Hyponatremia -Urosepsis on IV antibiotics-symptoms improving Plan: -Continue amiodarone drip -Change metoprolol to [id number] tartrate 25 mg QID. Hold beta- rose marie for SBP less than 100 mm Hg -Unable to cardiovert as she cannot take anticoagulation due to anemia (if cardioversion is performed she will need anticoagulation for at least a month) -TTE -Outpatient consult with structural interventional cardiology for evaluation for left atrial appendage occlusion-unable to take anticoagulation due to anemia -Continue to monitor on telemetry -Check and replace electrolytes to keep potassium greater than 4 and magnesium greater than 2 -plan was discussed with patient and she is agreeable with above plan Subjective Date/time seen: 01/06/25 10:27 Interval history: Reason for encounter: AFib with RVR, hypotension at presentation with SBP in the 60s Other medical history: Urosepsis on IV antibiotics, diabetes, hypertension, CHF , anemia status post PRBC transfusion during this hospitalization Interval history: Patient remains in AFib with RVR with rates in the 120s to 150s on amiodarone drip. SBP is in the 90s. Beta-rose marie has been held due to soft blood pressure. No chest pain or shortness of breath. She reports occasional lightheadedness. Review of Systems Cardiovascular: Comments: As per HPI Respiratory: Comments: As per HPI Objective Data Vital Signs Vital Signs: Vital Signs - 24 hr 01/05/25 12:00 01/05/25 12:00 01/05/25 12:00 Temperature 36.4 C L Pulse Rate 138 H 143 H Respiratory Rate 28 H Blood Pressure 98/60 L Pulse Oximetry 100 Oxygen Delivery Room Air 01/05/25 12:11 01/05/25 14:00 01/05/25 16:00 Temperature Pulse Rate 156 H 129 H Respiratory Rate Blood Pressure Pulse Oximetry Oxygen Delivery Room Air 01/05/25 16:00 01/05/25 16:00 01/05/25 20:00 Temperature 36.6 C 36.7 C Pulse Rate 137 H 135 H 129 H Respiratory Rate 24 H 18 Blood Pressure 111/65 98/60 L Pulse Oximetry 98 98 Oxygen Delivery 01/05/25 20:00 01/05/25 22:00 01/05/25 23:40 Temperature 36.4 C L Pulse Rate 127 H 131 H 146 H Respiratory Rate 28 H Blood Pressure 108/60 Pulse Oximetry 97 Oxygen Delivery 01/06/25 00:00 01/06/25 01:12 01/06/25 02:00 Temperature Pulse Rate 144 H 136 H 133 H Respiratory Rate Blood Pressure Pulse Oximetry Oxygen Delivery 01/06/25 03:34 01/06/25 04:00 01/06/25 06:00 Temperature 36.8 C Pulse Rate 122 H 133 H 135 H Respiratory Rate 19 Blood Pressure 93/61 L Pulse Oximetry 100 Oxygen Delivery 01/06/25 06:29 01/06/25 06:48 01/06/25 08:00 Temperature 36.6 C Pulse Rate 150 H 126 H 136 H Respiratory Rate 18 Blood Pressure 94/55 L 96/67 L Pulse Oximetry 98 Oxygen Delivery 01/06/25 08:57 01/06/25 10:17 Temperature 36.4 C L Pulse Rate 110 H 105 H Respiratory Rate 16 Blood Pressure 92/53 L 108/60 Pulse Oximetry 98 Oxygen Delivery Intake/Output Intake/Output: Intake & Output 01/03/25 01/04/25 01/05/25 01/06/25 23:59 23:59 23:59 23:59 Intake Total 850 2250 1780 Output Total 300 225 Balance 850 1950 1555 Meds/Results Medications: Active Medications Generic Name Dose Route Start Last Admin Trade Name Freq PRN Reason Stop Dose Admin Dextrose 12.5 gm 01/05/25 01:39 Dextrose 50% 25 Gm/50 Ml Syringe IV PUSH PRN PRN Hypoglycemia Protocol Fish Oil 1 gm 01/05/25 09:00 01/06/25 09:07 [place] 3 Polyunsat Fatty Acids 1 Gm Cap PO 1 gm QAM JEN Administration Folic Acid 1 mg 01/05/25 09:00 01/06/25 09:07 Folic Acid 1 Mg Tablet PO 1 mg DAILY JEN Administration Glucagon 1 mg 01/05/25 01:39 Glucagon For Inj 1 Mg Vial IM PRN PRN Hypoglycemia Protocol Glucose 15 gm 01/05/25 01:39 Glucose Oral Gel 15 Gm Of Glucse In 37.5 Gm Tube PO PRN PRN Hypoglycemia Protocol Dextrose 1,000 mls @ 100 mls/hr 01/05/25 01:39 Dextrose 5% 1,000 Ml IVPB PRN PRN Hypoglycemia Protocol Ceftriaxone Sodium 1 gm/ 50 mls @ 100 mls/hr 01/05/25 23:00 01/05/25 23:15 Sodium Chloride IVPB 100 mls/hr Q24H JEN Administration Insulin Aspart 3 - 6 units 01/05/25 08:00 01/06/25 07:55 Insulin Aspart (*Bkc) 100 Units/Ml SUB-Q 5 units TIDWM JEN Administration Protocol Insulin Glargine 12 units 01/05/25 09:00 01/06/25 07:57 Insulin Glargine (*Bkc) 100 Units/Ml SUB-Q 12 units Q12HR JEN Administration Metoprolol Succinate 50 mg 01/05/25 09:00 01/06/25 09:43 Metoprolol Succinate Ext Rel 50 Mg Tabcr PO Not Given DAILY JEN Perflutren Lipid Microsphere 0 ml 01/05/25 06:56 Perflutren Lipid Microspheres 1.5 Ml Vial Diluted To 10 Ml Total Volume IV PUSH 01/08/25 06:56 ONCE PRN adequate visualization Protocol Polyethylene Glycol 17 gm 01/05/25 01:38 Polyethylene Glycol 3350 17 Gm Powd.Pack PO BID PRN Constipation Senna/Docusate Sodium 1 tab 01/05/25 09:00 01/06/25 09:07 Senna/Docusate Sodium Tablet PO 1 tab DAILY JEN Administration Radiology Results: ITS Impressions Chest X-Ray 01/04/25 17:55 Impression: Mild CHF Head CT 01/05/25 17:34 Impression: 1.No acute intracranial abnormality. Labs Labs: Laboratory Results - last 24 hr 01/05/25 01/05/25 01/05/25 09:29 11:36 13:25 WBC RBC Hgb Hct MCV MCH MCHC RDW Plt Count MPV Immature Gran % (Auto) Neut % (Auto) Lymph % (Auto) [place] % (Auto) Eos % (Auto) Baso % (Auto) Lymph # (Auto) [place] # (Auto) Eos # (Auto) Baso # (Auto) Abs Immat Gran (auto) Absolute Neuts (auto) Absolute Nucleated RBC Total Counted Neutrophils % (Manual) Band Neutrophils % Lymphocytes % (Manual) Monocytes % (Manual) Nucleated RBC % Abs Neuts (Manual) Abs Lymphs (Manual) Abs Monocytes (Manual) Platelet Estimate % Immature Plt Fraction Anisocytosis Ovalocytes [place] Cells Schistocytes Sodium Potassium Chloride Carbon Dioxide Anion Gap BUN Creatinine Estim Creat Clear Calc Estimated GFR Glucose POC Capillary Glucose 297 H Lactic Acid 2.6 H Calcium Magnesium 1.3 L Cancelled Total Bilirubin AST ALT Alkaline Phosphatase Total Protein Albumin 01/05/25 01/05/25 01/05/25 15:41 15:49 20:50 WBC RBC Hgb Hct MCV MCH MCHC RDW Plt Count MPV Immature Gran % (Auto) Neut % (Auto) Lymph % (Auto) [place] % (Auto) Eos % (Auto) Baso % (Auto) Lymph # (Auto) [place] # (Auto) Eos # (Auto) Baso # (Auto) Abs Immat Gran (auto) Absolute Neuts (auto) Absolute Nucleated RBC Total Counted Neutrophils % (Manual) Band Neutrophils % Lymphocytes % (Manual) Monocytes % (Manual) Nucleated RBC % Abs Neuts (Manual) Abs Lymphs (Manual) Abs Monocytes (Manual) Platelet Estimate % Immature Plt Fraction Anisocytosis Ovalocytes [place] Cells Schistocytes Sodium 130 L Potassium 4.7 Chloride 106 Carbon Dioxide 16 L Anion Gap 8 BUN 22 H Creatinine 1.05 H Estim Creat Clear Calc 34 Estimated GFR 50 L Glucose 327 H POC Capillary Glucose 306 H Lactic Acid 2.2 H 2.0 Calcium 7.8 L Magnesium Total Bilirubin AST ALT Alkaline Phosphatase Total Protein Albumin 01/05/25 01/06/25 01/06/25 21:01 03:57 07:29 WBC 8.8 RBC 3.14 L Hgb 9.1 L Hct 28.6 L MCV 91.1 MCH 29.0 MCHC 31.8 L RDW 21.3 H Plt Count 85 L MPV TNP Immature Gran % (Auto) Not Reportable Neut % (Auto) Not Reportable Lymph % (Auto) Not Reportable [place] % (Auto) Not Reportable Eos % (Auto) Not Reportable Baso % (Auto) Not Reportable Lymph # (Auto) Not Reportable [place] # (Auto) Not Reportable Eos # (Auto) Not Reportable Baso # (Auto) Not Reportable Abs Immat Gran (auto) Not Reportable Absolute Neuts (auto) Not Reportable Absolute Nucleated RBC Not Reportable Total Counted 100 Neutrophils % (Manual) 53 Band Neutrophils % 18 H Lymphocytes % (Manual) 25.0 Monocytes % (Manual) 4 Nucleated RBC % Not Reportable Abs Neuts (Manual) 6.24 Abs Lymphs (Manual) 2.20 Abs Monocytes (Manual) 0.35 Platelet Estimate Decreased % Immature Plt Fraction 9.5 Anisocytosis 2+ Ovalocytes 1+ [place] Cells 1+ Schistocytes None seen Sodium 128 L Potassium 4.8 Chloride 104 Carbon Dioxide 16 L Anion Gap 8 BUN 22 H Creatinine 1.03 H Estim Creat Clear Calc 35 Estimated GFR 51 L Glucose 343 H POC Capillary Glucose 313 H 331 H Lactic Acid Calcium 7.8 L Magnesium 2.5 H Total Bilirubin 0.8 AST 32 ALT 17 Alkaline Phosphatase 107 Total Protein 6.9 Albumin 2.6 L ECG Interpretation: AFib with RVR with rates in the 130s
[2025-01-06] MEDS: METOPROLOL TARTRATE 25 MG TABLET PO (11:59)
--- NOTE | 2025-01-06 17:08 | PC.NURSE ---
On 01/06/25, the student, Jesica Hurtado and Marzena Deluna, provided care and completed [employer] documentation on this patient. I have reviewed the student's documentation and agree with the findings. AR Arnett, MSN, RN
[2025-01-06] MEDS: cefTRIAXone 1 GM in SODIUM CHLORIDE 0.9% IV 50 ML 100 ML IVPB (23:21)
[2025-01-07] VITALS (21 sets, daily range): BP systolic 85–113; BP diastolic 45–77; PULSE 82–154; RESP 16–24; TEMP 36.5–36.8; O2SAT 94–99
[2025-01-07 04:35] LABS: Hematocrit 26.2 % (37.0-47.0); Hemoglobin 8.6 g/dL (12.0-15.0); Immature Granulocyte Percent A 12.1 % (0-0.5); Immature Platelet Fraction Pct 10.0 % (0.9-11.2); Lymphocytes Absolute Auto 1.39 K/mm3 (0.9-3.2); Mean Corpuscular HGB Conc 32.8 g/dl (32-36); Mean Corpuscular Hemoglobin 29.1 pg (26-34); Mean Corpuscular Volume 88.5 fl (80-100); Nucleated Red Blood Cells Absolute Auto 0.370 K/mm3 (0.0-0.012); Nucleated Red Blood Cells Perc 4.9 % (0.0-0.2); Platelet Count Result 71 k/mm3 (150-375); Red Blood Count 2.96 M/mm3 (4.2-5.4); White Blood Count 7.6 K/mm3 (4.5-10.0)
[2025-01-07 04:53] LABS: Alanine Aminotransferase 14 U/L (6-35); Albumin Level 2.4 g/dL (3.5-5.1); Alkaline Phosphatase 83 U/L (38-126); Anion Gap 7 mmol/L (4-12); Aspartate Amino Transferase 29 U/L (14-36); Bilirubin,Total 0.7 mg/dL (0.2-1.3); Blood Urea Nitrogen 21 mg/dL (7-17); Calcium 7.6 mg/dL (8.4-10.2); Carbon Dioxide 18 mmol/L (22-30); Chloride 103 mmol/L (98-107); Estimated CRCL calculation 37 ml/min; Estimated Glomerular Filt Rate 54; Glucose 190 mg/dL (65-110); Magnesium 2.1 mg/dL (1.6-2.3); Potassium 4.2 mmol/L (3.4-5.0); Sodium 128 mmol/L (137-145); Total Protein 6.5 g/dL (6.3-8.2)
[2025-01-07 05:35] LABS: Anisocytosis 1+; Burr Cells 2+; Hypochromasia 1+; Poikilocytosis 1+; Schistocytes None Seen
--- NOTE | 2025-01-07 08:32 | P.PNIM_ITS ---
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 Upon arrival the patient A&O x2 and in unreliable historian. Found to be in AFib with RVR with an acute UTI and severe anemia. ----- Complicated UTI, present on admission with severe sepsis -urinalysis 01/04/2025 many squamous cells, 4+ bacteria, 2+ leukocyte esterase. CT abdomen pelvis on admission demonstrated findings concerning for urinary tract infection, small pleural effusions, mild pulmonary edema, bilateral acute pyelonephritis. -urine culture did not reflex, urine culture finally obtained on 01/06/2025. Results may be unreliable as she has had antibiotics -01/06/2025, leukocytosis resolved. 01/07/2025, bandemia resolved. -01/05/2025 blood culture x2, pending. -ceftriaxone 1 g started 01/05/2025, continue -she has persistent hypotension which is more likely due to RVR. Sepsis in all other aspects as improved. She received fluid bolus on admission but has crackles, small pleural effusions. Anemia, normocytic Thrombocytopenia -unclear baseline, 6.9 on admission. Received 2 units PRBC, has stabilized with a hemoglobin around 9.0. -hemoccult negative reported in ER. No evidence of overt bleeding. -iron 110, TIBC 237, ferritin 758 -check lactic acid, vitamin B12, haptoglobin, reticulocyte, TSH -consult Hematology to assist. -monitor hemoglobin daily AFib with RVR -Received metoprolol on admission, due to persistent tachycardia and hypotension she was given amiodarone GTT, ended on 01/06/2025. -check TSH -persistent RVR. Currently on metoprolol 25 mg p.o. q.6 hours however unable to give due to blood pressure being low. -appreciate cardiology recommendations. Hemoglobin stable, thrombocytopenia slightly decreasing. Consult Hematology, anticoagulation? would need shared decisions making with consultants and pt's surrogate. -keep potassium greater than 4, magnesium greater than 2. -has been stable on RA, breathing well, she appears dry at the mucous membranes today, has had poor oral intake. will give small 500 cc bolus considering blood pressure decreased this am. discussed with cardiology, continue to manage and re-assess. Confusion/slurred speech, resolved. -she does have a baseline neurocognitive disorder/cognitive communication disorder -A&O x2, pleasantly confused. -CT brain on admission no evidence of ischemic/hemorrhagic event CHF, systolic -BNP 70741 on admission, has crackles but on room air, received volume and blood. -unable to tolerate metoprolol at this time due to low BP, treat a fib. -TTE 01/07/25: Summary 1. Complete two-dimensional, color flow and Doppler transthoracic echocardiogram is performed. 2. Left ventricular chamber dimension is mildly enlarged. 3. Left ventricular systolic function is mildly reduced, estimated at 45-50. 4. There is moderate asymmetric septal increased left ventricular wall thickness. 5. The left ventricular diastolic function is abnormal. 6. Right ventricular chamber dimension is mildly enlarged. 7. Left atrial chamber dimension is moderately enlarged. 8. Right atrial chamber dimension is moderately enlarged. 9. There is moderate to severe aortic valve stenosis with a peak velocity of 291 cm/s, mean gradient of 15 mmHg, and aortic valve area of 1.0 cm2. 10. There is moderate aortic valve regurgitation. 11. There is severe aortic valve calcification. 12. There is moderate mitral valve regurgitation. 13. There is moderate tricuspid valve regurgitation. 14. Moderate pulmonary hypertension, estimated pulmonary arterial systolic pressure is 59 mmHg. 15. There is mild pulmonic regurgitation. 16. The prox ascending aorta size is dilated. -cardiology following Lactic acidosis -3.2 on admission, resolved status post 2 units PRBC and isotonic fluid resuscitation Elevated serum creatinine -1.26 on admission, unclear baseline. Serum creatinine 0.97 on 01/07/2025 Elevated troponin -present on admission, likely due to sepsis in AFib with RVR. Peak. No chest pain, no shortness of breath. Cardiology consulted Insulin-dependent diabetes mellitus -blood sugars reviewed, continue current regimen, avoid over-correction. -Accu-Cheks a.c. HS with Lantus 12 units subQ b.i.d.. Constipation -CE[employer]ER Senokot S1 tab p.o. q.day resumed -01/07/2025 no BM, increase to 2 tabs b.i.d. ----- DNR. Hold pharmacological DVT prophylaxis due to recent severe anemia. SCDs. Diabetic heart healthy diet. consult dietitian, poor oral intake. Saline lock IV. Daily weights/intake/output. Ambulate with assistance PT/OT when RVR improved Subjective Date/time seen: 01/07/25 08:32 Interval history: No major acute overnight events. Overnight heart rate high normal, this morning averaging 130. Patient has no complaints although is pleasantly confused. She does tell me has been 3 days since she had a bowel movement. Review of Systems Review of Systems: All systems reviewed & are unremarkable except as noted in HPI and below (subjective) Exam Const: General: comfortable and no acute distress Other: A&O x2 HENMT: Mouth: Yes moist mucous membranes Eyes: Pupils: Equal, round and reactive pupils present Neck: Neck: supple Resp: Effort & Inspection: normal respiratory effort Other: Wet crackles at bases and mid lung gr[place] bilaterally Cardio: Rate: tachycardic Rhythm: abnormal rhythm GI: Inspection: non-distended GI Palp: Yes Soft to palpation Neuro: Motor exam (neuro): 5/5 motor strength present throughout Extrem: General: no edema Objective Data Vital Signs Vital Signs: Vital Signs - 24 hr 01/06/25 08:57 01/06/25 10:00 01/06/25 10:00 Temperature Pulse Rate 110 H 105 H 105 H Respiratory Rate Blood Pressure 92/53 L 108/60 Pulse Oximetry 01/06/25 10:17 01/06/25 11:59 01/06/25 12:00 Temperature 97.5 F L Pulse Rate 105 H 107 H 127 H Respiratory Rate 16 Blood Pressure 108/60 Pulse Oximetry 98 01/06/25 12:00 01/06/25 12:11 01/06/25 13:24 Temperature 97.6 F Pulse Rate 107 H 107 H 120 H Respiratory Rate 16 Blood Pressure 106/56 L 106/56 L 107/64 Pulse Oximetry 99 01/06/25 13:53 01/06/25 14:00 01/06/25 16:00 Temperature Pulse Rate 117 H 106 H 99 Respiratory Rate Blood Pressure 107/64 Pulse Oximetry 01/06/25 16:28 01/06/25 16:57 01/06/25 17:52 Temperature 98.1 F Pulse Rate 105 H 107 H 101 H Respiratory Rate 18 Blood Pressure 92/55 L 92/55 L Pulse Oximetry 98 01/06/25 18:00 01/06/25 18:01 01/06/25 20:00 Temperature 98.3 F Pulse Rate 112 H 112 H 113 H Respiratory Rate 22 H Blood Pressure 92/54 L 92/54 L 98/63 L Pulse Oximetry 97 01/06/25 20:00 01/06/25 22:00 01/06/25 23:40 Temperature 97.8 F Pulse Rate 105 H 114 H 116 H Respiratory Rate 18 Blood Pressure 101/56 L Pulse Oximetry 98 01/07/25 00:00 01/07/25 02:00 01/07/25 03:57 Temperature 98 F Pulse Rate 116 H 114 H 120 H Respiratory Rate 18 Blood Pressure 104/45 L Pulse Oximetry 99 01/07/25 04:00 01/07/25 06:00 01/07/25 07:52 Temperature 98.2 F Pulse Rate 123 H 120 H 125 H Respiratory Rate 20 Blood Pressure 85/54 L Pulse Oximetry 99 Intake/Output Intake/Output: Intake & Output 01/04/25 01/05/25 01/06/25 01/07/25 23:59 23:59 23:59 23:59 Intake Total 850 2300 3186.9 580 Output Total 300 775 300 Balance 850 2000 2411.9 280 Meds/Results Medications: Active Medications Generic Name Dose Route Start Last Admin Trade Name Freq PRN Reason Stop Dose Admin Dextrose 12.5 gm 01/05/25 01:39 Dextrose 50% 25 Gm/50 Ml Syringe IV PUSH PRN PRN Hypoglycemia Protocol Fish Oil 1 gm 01/05/25 09:00 01/06/25 09:07 [place] 3 Polyunsat Fatty Acids 1 Gm Cap PO 1 gm QAM JEN Administration Folic Acid 1 mg 01/05/25 09:00 01/06/25 09:07 Folic Acid 1 Mg Tablet PO 1 mg DAILY JEN Administration Glucagon 1 mg 01/05/25 01:39 Glucagon For Inj 1 Mg Vial IM PRN PRN Hypoglycemia Protocol Glucose 15 gm 01/05/25 01:39 Glucose Oral Gel 15 Gm Of Glucse In 37.5 Gm Tube PO PRN PRN Hypoglycemia Protocol Dextrose 1,000 mls @ 100 mls/hr 01/05/25 01:39 Dextrose 5% 1,000 Ml IVPB PRN PRN Hypoglycemia Protocol Ceftriaxone Sodium 1 gm/ 50 mls @ 100 mls/hr 01/05/25 23:00 01/06/25 23:21 Sodium Chloride IVPB 100 mls/hr Q24H JEN Administration Insulin Aspart 3 - 6 units 01/05/25 08:00 01/06/25 16:59 Insulin Aspart (*Bkc) 100 Units/Ml SUB-Q 5 units TIDWM JEN Administration Protocol Insulin Glargine 12 units 01/05/25 09:00 01/06/25 20:38 Insulin Glargine (*Bkc) 100 Units/Ml SUB-Q 12 units Q12HR JEN Administration Metoprolol Tartrate 25 mg 01/06/25 10:50 01/07/25 05:38 Metoprolol Tartrate 25 Mg Tablet PO Not Given Q6HR JEN Perflutren Lipid Microsphere 0 ml 01/05/25 06:56 Perflutren Lipid Microspheres 1.5 Ml Vial Diluted To 10 Ml Total Volume IV PUSH 01/08/25 06:56 ONCE PRN adequate visualization Protocol Polyethylene Glycol 17 gm 01/05/25 01:38 Polyethylene Glycol 3350 17 Gm Powd.Pack PO BID PRN Constipation Senna/Docusate Sodium 1 tab 01/05/25 09:00 01/06/25 09:07 Senna/Docusate Sodium Tablet PO 1 tab DAILY JEN Administration Radiology Results: ITS Impressions Chest X-Ray 01/04/25 17:55 Impression: Mild CHF Head CT 01/05/25 17:34 Impression: 1.No acute intracranial abnormality. Abdomen/Pelvis CT 01/06/25 16:01 IMPRESSION: 1. Mild pulmonary edema. 2. Small pleural effusions. 3. Cystitis. 4. Bilateral acute pyelonephritis. Labs Labs: Laboratory Results - last 24 hr 01/06/25 01/06/25 01/06/25 10:47 10:52 15:55 WBC RBC Hgb Hct MCV MCH MCHC RDW Plt Count MPV Immature Gran % (Auto) Neut % (Auto) Lymph % (Auto) [place] % (Auto) Eos % (Auto) Baso % (Auto) Lymph # (Auto) [place] # (Auto) Eos # (Auto) Baso # (Auto) Abs Immat Gran (auto) Absolute Neuts (auto) Absolute Nucleated RBC Band Neutrophils % Nucleated RBC % Platelet Estimate % Immature Plt Fraction Hypochromasia Poikilocytosis Anisocytosis [place] Cells Schistocytes Sodium Potassium Chloride Carbon Dioxide Anion Gap BUN Creatinine Estim Creat Clear Calc Estimated GFR Glucose POC Capillary Glucose 402 H 370 H 340 H Calcium Magnesium Total Bilirubin AST ALT Alkaline Phosphatase Total Protein Albumin 01/07/25 01/07/25 03:55 07:20 WBC 7.6 RBC 2.96 L Hgb 8.6 L Hct 26.2 L MCV 88.5 MCH 29.1 MCHC 32.8 RDW 20.4 H Plt Count 71 L MPV TNP Immature Gran % (Auto) 12.1 H Neut % (Auto) 45.9 Lymph % (Auto) 18.4 [place] % (Auto) 18.4 H Eos % (Auto) 2.4 Baso % (Auto) 2.8 H Lymph # (Auto) 1.39 [place] # (Auto) 1.4 H Eos # (Auto) 0.2 Baso # (Auto) 0.2 H Abs Immat Gran (auto) 0.91 H Absolute Neuts (auto) 3.5 Absolute Nucleated RBC 0.370 H Band Neutrophils % Not Reportable Nucleated RBC % 4.9 H Platelet Estimate Decreased % Immature Plt Fraction 10.0 Hypochromasia 1+ Poikilocytosis 1+ Anisocytosis 1+ [place] Cells 2+ Schistocytes None seen Sodium 128 L Potassium 4.2 Chloride 103 Carbon Dioxide 18 L Anion Gap 7 BUN 21 H Creatinine 0.97 Estim Creat Clear Calc 37 Estimated GFR 54 L Glucose 190 H POC Capillary Glucose 167 H Calcium 7.6 L Magnesium 2.1 Total Bilirubin 0.7 AST 29 ALT 14 Alkaline Phosphatase 83 Total Protein 6.5 Albumin 2.4 L
--- NOTE | 2025-01-07 08:45 | PM.PNCARD ---
Progress Note: A&P Assessment and Plan (1) Atrial fibrillation with rapid ventricular response: Code(s): I48.91 - Unspecified atrial fibrillation Status: Acute (2) Elevated troponin: Code(s): R79.89 - Other specified abnormal findings of blood chemistry Status: Acute (3) Moderate aortic stenosis: Code(s): I35.0 - Nonrheumatic aortic (valve) stenosis Status: Acute (4) Moderate mitral regurgitation: Code(s): I34.0 - Nonrheumatic mitral (valve) insufficiency Status: Acute (5) Moderate tricuspid regurgitation: Code(s): I07.1 - Rheumatic tricuspid insufficiency Status: Acute (6) Cardiomyopathy: Code(s): I42.9 - Cardiomyopathy, unspecified Status: Acute (7) Hypotension: Code(s): I95.9 - Hypotension, unspecified Status: Acute Plan Diagnosis: -AFib with RVR-symptomatic; not on anticoagulation due to anemia -Hypotension with SBP in the 80s -Valvular heart disease that Moderate with aortic valve area of 1 cm2, moderate MR, moderate TR -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 Start p.o. amiodarone 200 mg b.i.d. for 5 days followed by 200 mg p.o. daily -Give digoxin 0.125 mg BID -Hold beta-rose marie given hypotension with SBP in the 80s -Give normal saline 500 mL bolus -Unable to cardiovert as she cannot take anticoagulation due to anemia (if cardioversion is performed she will need anticoagulation for at least a month). However if she does not respond to amiodarone and digoxin and continues to be hypotensive, then recommend cardioversion as benefits outweigh risks -Outpatient consult with structural interventional cardiology for evaluation for left atrial appendage occlusion-unable to take anticoagulation due to anemia; and valvular heart disease (moderate , moderate MR, moderate TR) -Continue to monitor on telemetry -Check and replace electrolytes to keep potassium greater than 4 and magnesium greater than 2 -Plan was discussed with patient and she is agreeable with above plan Subjective Date/time seen: 01/07/25 08:45 Interval history: Reason for encounter: AFib with RVR, hypotension at presentation with SBP in the 60s Other medical history: Urosepsis on IV antibiotics, diabetes, hypertension, CHF, anemia status post PRBC transfusion during this hospitalization Interval history: Patient remains in AFib with RVR with rates in the 120s to 150s. SBP is in the 80s. Beta-rose marie held due to soft blood pressure. No chest pain or shortness of breath. She reports occasional lightheadedness. Review of Systems Cardiovascular: Comments: As per HPI Respiratory: Comments: As per HPI Exam Narrative: General: Alert oriented x3, no acute distress Neck: Supple, no JVD Chest: Bilaterally clear to auscultation, no rales or rhonchi Cardiac: S1, S2 +, rapid rates, irregularly irregular rhythm, systolic murmur at apex and right upper sternal border Extremities: No pedal edema, no skin rash Neurologic: Alert and oriented x3, no focal neurological deficits Objective Data Vital Signs Vital Signs: Vital Signs - 24 hr 01/06/25 08:57 01/06/25 10:00 01/06/25 10:00 Temperature Pulse Rate 110 H 105 H 105 H Respiratory Rate Blood Pressure 92/53 L 108/60 Pulse Oximetry 01/06/25 10:17 01/06/25 11:59 01/06/25 12:00 Temperature 36.4 C L Pulse Rate 105 H 107 H 127 H Respiratory Rate 16 Blood Pressure 108/60 Pulse Oximetry 98 01/06/25 12:00 01/06/25 12:11 01/06/25 13:24 Temperature 36.4 C Pulse Rate 107 H 107 H 120 H Respiratory Rate 16 Blood Pressure 106/56 L 106/56 L 107/64 Pulse Oximetry 99 01/06/25 13:53 01/06/25 14:00 01/06/25 16:00 Temperature Pulse Rate 117 H 106 H 99 Respiratory Rate Blood Pressure 107/64 Pulse Oximetry 01/06/25 16:28 01/06/25 16:57 01/06/25 17:52 Temperature 36.7 C Pulse Rate 105 H 107 H 101 H Respiratory Rate 18 Blood Pressure 92/55 L 92/55 L Pulse Oximetry 98 01/06/25 18:00 01/06/25 18:01 01/06/25 20:00 Temperature 36.8 C Pulse Rate 112 H 112 H 113 H Respiratory Rate 22 H Blood Pressure 92/54 L 92/54 L 98/63 L Pulse Oximetry 97 01/06/25 20:00 01/06/25 22:00 01/06/25 23:40 Temperature 36.6 C Pulse Rate 105 H 114 H 116 H Respiratory Rate 18 Blood Pressure 101/56 L Pulse Oximetry 98 01/07/25 00:00 01/07/25 02:00 01/07/25 03:57 Temperature 36.6 C Pulse Rate 116 H 114 H 120 H Respiratory Rate 18 Blood Pressure 104/45 L Pulse Oximetry 99 01/07/25 04:00 01/07/25 06:00 01/07/25 07:52 Temperature 36.8 C Pulse Rate 123 H 120 H 125 H Respiratory Rate 20 Blood Pressure 85/54 L Pulse Oximetry 99 Intake/Output Intake/Output: Intake & Output 01/04/25 01/05/25 01/06/25 01/07/25 23:59 23:59 23:59 23:59 Intake Total 850 2300 3186.9 580 Output Total 300 775 300 Balance 850 2000 2411.9 280 Meds/Results Medications: Active Medications Generic Name Dose Route Start Last Admin Trade Name Abiodunq PRN Reason Stop Dose Admin Dextrose 12.5 gm 01/05/25 01:39 Dextrose 50% 25 Gm/50 Ml Syringe IV PUSH PRN PRN Hypoglycemia Protocol Fish Oil 1 gm 01/05/25 09:00 01/06/25 09:07 [place] 3 Polyunsat Fatty Acids 1 Gm Cap PO 1 gm QAM JEN Administration Folic Acid 1 mg 01/05/25 09:00 01/06/25 09:07 Folic Acid 1 Mg Tablet PO 1 mg DAILY JEN Administration Glucagon 1 mg 01/05/25 01:39 Glucagon For Inj 1 Mg Vial IM PRN PRN Hypoglycemia Protocol Glucose 15 gm 01/05/25 01:39 Glucose Oral Gel 15 Gm Of Glucse In 37.5 Gm Tube PO PRN PRN Hypoglycemia Protocol Dextrose 1,000 mls @ 100 mls/hr 01/05/25 01:39 Dextrose 5% 1,000 Ml IVPB PRN PRN Hypoglycemia Protocol Ceftriaxone Sodium 1 gm/ 50 mls @ 100 mls/hr 01/05/25 23:00 01/06/25 23:21 Sodium Chloride IVPB 100 mls/hr Q24H JEN Administration Insulin Aspart 3 - 6 units 01/05/25 08:00 01/06/25 16:59 Insulin Aspart (*Bkc) 100 Units/Ml SUB-Q 5 units TIDWM JEN Administration Protocol Insulin Glargine 12 units 01/05/25 09:00 01/06/25 20:38 Insulin Glargine (*Bkc) 100 Units/Ml SUB-Q 12 units Q12HR JEN Administration Metoprolol Tartrate 25 mg 01/06/25 10:50 01/07/25 05:38 Metoprolol Tartrate 25 Mg Tablet PO Not Given Q6HR JEN Perflutren Lipid Microsphere 0 ml 01/05/25 06:56 Perflutren Lipid Microspheres 1.5 Ml Vial Diluted To 10 Ml Total Volume IV PUSH 01/08/25 06:56 ONCE PRN adequate visualization Protocol Polyethylene Glycol 17 gm 01/05/25 01:38 Polyethylene Glycol 3350 17 Gm Powd.Pack PO BID PRN Constipation Senna/Docusate Sodium 2 tab 01/07/25 09:00 Senna/Docusate Sodium Tablet PO BID [facility] Radiology Results: ITS Impressions Chest X-Ray 01/04/25 17:55 Impression: Mild CHF Head CT 01/05/25 17:34 Impression: 1.No acute intracranial abnormality. Abdomen/Pelvis CT 01/06/25 16:01 IMPRESSION: 1. Mild pulmonary edema. 2. Small pleural effusions. 3. Cystitis. 4. Bilateral acute pyelonephritis. Labs Labs: Laboratory Results - last 24 hr 01/06/25 01/06/25 01/06/25 10:47 10:52 15:55 WBC RBC Hgb Hct MCV MCH MCHC RDW Plt Count MPV Immature Gran % (Auto) Neut % (Auto) Lymph % (Auto) [place] % (Auto) Eos % (Auto) Baso % (Auto) Lymph # (Auto) [place] # (Auto) Eos # (Auto) Baso # (Auto) Abs Immat Gran (auto) Absolute Neuts (auto) Absolute Nucleated RBC Band Neutrophils % Nucleated RBC % Platelet Estimate % Immature Plt Fraction Hypochromasia Poikilocytosis Anisocytosis [place] Cells Schistocytes Sodium Potassium Chloride Carbon Dioxide Anion Gap BUN Creatinine Estim Creat Clear Calc Estimated GFR Glucose POC Capillary Glucose 402 H 370 H 340 H Calcium Magnesium Total Bilirubin AST ALT Alkaline Phosphatase Total Protein Albumin 01/07/25 01/07/25 03:55 07:20 WBC 7.6 RBC 2.96 L Hgb 8.6 L Hct 26.2 L MCV 88.5 MCH 29.1 MCHC 32.8 RDW 20.4 H Plt Count 71 L MPV TNP Immature Gran % (Auto) 12.1 H Neut % (Auto) 45.9 Lymph % (Auto) 18.4 [place] % (Auto) 18.4 H Eos % (Auto) 2.4 Baso % (Auto) 2.8 H Lymph # (Auto) 1.39 [place] # (Auto) 1.4 H Eos # (Auto) 0.2 Baso # (Auto) 0.2 H Abs Immat Gran (auto) 0.91 H Absolute Neuts (auto) 3.5 Absolute Nucleated RBC 0.370 H Band Neutrophils % Not Reportable Nucleated RBC % 4.9 H Platelet Estimate Decreased % Immature Plt Fraction 10.0 Hypochromasia 1+ Poikilocytosis 1+ Anisocytosis 1+ [place] Cells 2+ Schistocytes None seen Sodium 128 L Potassium 4.2 Chloride 103 Carbon Dioxide 18 L Anion Gap 7 BUN 21 H Creatinine 0.97 Estim Creat Clear Calc 37 Estimated GFR 54 L Glucose 190 H POC Capillary Glucose 167 H Calcium 7.6 L Magnesium 2.1 Total Bilirubin 0.7 AST 29 ALT 14 Alkaline Phosphatase 83 Total Protein 6.5 Albumin 2.4 L
[2025-01-07 09:05] LABS: Thyroid Stimulating Hormone Reflex 1.150 uIU/mL (0.465-4.68)
[2025-01-07] MEDS: DIGOXIN INJ 250 MCG/ML 2 ML AMP (*BKC) 125 MCG IV PUSH (09:08)
[2025-01-07] MEDS: OMEGA 3 POLYUNSAT FATTY ACIDS 1 GM CAP PO (09:09)
[2025-01-07] MEDS: AMIODARONE HCL 200 MG TABLET PO ×2 (09:09→17:53)
[2025-01-07] MEDS: SENNA/DOCUSATE SODIUM TABLET 2 TAB PO ×2 (09:09→17:53)
[2025-01-07] MEDS: FOLIC ACID 1 MG TABLET PO (09:09)
[2025-01-07 09:37] LABS: Vitamin B12 852.0 pg/mL (239-931)
[2025-01-07] MEDS: SODIUM CHLORIDE 0.9% IV 1,000 ML 500 ML IV CONT (10:52)
[2025-01-07] MEDS: INSULIN GLARGINE (*BKC) 100 UNITS/ML 12 UNITS SUB-Q ×2 (10:52→21:39)
[2025-01-07] MEDS: INSULIN ASPART (*BKC) 100 UNITS/ML SUB-Q ×2 (13:23→17:53)
--- NOTE | 2025-01-07 18:25 | WPDONCCN ---
Assessment and Plan Assessment and plan (1) Anemia: Code(s): D64.9 - Anemia, unspecified Status: Acute Assessment and Plan: Patient is the 84-year-old female with multiple comorbidities including type 2 diabetes with peripheral neuropathy, hypertension, CHF, heart murmur, chronic anemia and cognitive impairment came into the hospital with generalized tiredness and fatigue with mental status changes and confusion. She was found to be septic. CT scan showed evidence of bilateral pyelonephritis. She was anemic with hemoglobin of 6.9. Denies any blood loss. Labs done prior to the blood transfusion showed normal iron studies with elevated ferritin and normal B12 level. Kidney function was slightly low. Her anemia could be secondary to recent infection and mild renal insufficiency. Other possibilities include bone marrow disorders like MDS. Blood has improved after transfusion. I do not see any evidence of bleeding. I have provided her my office information for follow-up. We will repeat labs after recovery from the infection and decide about bone marrow biopsy as an outpatient. HPI Data of Consult Date/Time: 01/07/25 18:25 Requesting Physician: Berkley Moeller DO Primary Care Provider: Agusto Rodriguez, DO Consult Narrative Narrative: Char Loness is a 84 year old female with history of type 2 diabetes, peripheral neuropathy, hypertension, CHF and chronic anemia came into the hospital transfer with mental status changes generalized weakness and confusion. She was diagnosed with UTI. Labs showed hemoglobin of 6.9. Other labs showed iron of 110 with iron saturation of 46% and elevated serum ferritin. B12 was normal at 852. Creatinine was slightly elevated with GFR of about 40%. She received blood transfusion. Her hemoglobin has improved to 8.6. She denies any bleeding including melena hematochezia. Denies any previous history of anemia. Denies any previous history of malignancy. She remains tired and fatigued. CT abdomen and pelvis was performed that showed small pleural effusion and mild pulmonary edema with cystitis and bilateral acute pyelonephritis. Patient was evaluated by Cardiology for atrial fibrillation with rapid ventricular response. Troponin was also elevated. Review of Systems Review of Systems: Twelve point review of system was reviewed [facility] Past Medical History Medical History (Updated 01/07/25 @ 09:42 by Meg Anand MD) Hyperlipidemia Hepatic steatosis Atrial fibrillation CHF (congestive heart failure) Type 2 diabetes mellitus Diabetic peripheral neuropathy Anemia of chronic disease Cognitive communication disorder Surgical History Surgical History (Updated 01/05/25 @ 06:41 by Berkley Moeller DO) History of 3 sections Status post cataract extraction of both eyes with insertion of intraocular lens Family History Family History Father Unknown family medical history Mother Diabetes mellitus Sibling Unknown family medical history Sibling Diabetes mellitus Sibling Unknown family medical history Sibling Diabetes mellitus Sibling Diabetes mellitus Sibling Diabetes mellitus Social History Social History (Updated 01/05/25 @ 06:44 by Berkley Moeller DO) Social History: The patient usually lives with her granddaughter Ranjana but following her recent hospitalization November 2024 she has been at a [facility] facility. She has been for about 20 years. She briefly smoked as a young adult. She denies any history of alcohol use. She raised 3 children but does not want her children have any information regarding her medical conditions. Code status: DNR/DNI Healthcare power of brand development manager: Ranjana Alfonso (granddaughter) Smoking packs per day: 1 Smoking cigarettes per day: 20.0 Years smoked: 2 Smoking pack-years: 2.00 Smoking status: Former smoker Tobacco type: cigarettes Second hand tobacco smoke exposure: No Alcohol intake: never Substance use: never Substance use type: does not use Lack of Transportation: No Lack of Food: Never True Current Housing: I Have Housing Concerned About Future Housing: No Difficulty Paying Gas/Electric Bills: No Difficulty Paying for Meds: No Currently Unemployed: No Education: High School Diploma/GED Difficulty w/ Childcare or Family Care: No Spiritual care concerns: No Meds Home Medications and Allergies Home Medications ?Medication ?Instructions ?Recorded ?Confirmed ?Type ascorbic acid (vitamin C) 1,000 mg 1,000 mg PO DAILY 01/05/25 01/05/25 History tablet folic acid 1 mg tablet 1 mg PO DAILY 01/05/25 01/05/25 History insulin glargine 100 unit/mL (3 17 unit subcut BID 01/05/25 01/05/25 History mL) subcutaneous pen (Basaglar KwikPen U-100 Insulin) losartan 50 mg tablet 50 mg PO DAILY 01/05/25 01/05/25 History metformin 1,000 mg tablet 1,000 mg PO BID 01/05/25 01/05/25 History metoprolol succinate 50 mg 50 mg PO DAILY 01/05/25 01/05/25 History tablet,extended release 24 hr miconazole nitrate 2 % topical 1 applic topical BID 01/05/25 01/05/25 History powder omega 3 350 mg-dha 235 mg-epa 90 1 cap PO DAILY 01/05/25 01/05/25 History mg-fish oil 597 mg capsule,delay rel ([place]-3) polyethylene glycol 3350 17 17 g PO BID PRN constipation 01/05/25 01/05/25 History gram/dose oral powder (Miralax) sennosides 8.6 mg-docusate sodium 1 tab-cap PO DAILY 01/05/25 01/05/25 History 50 mg tablet (Senna Plus) Allergies Allergy/AdvReac Type Severity Reaction Status Date / Time vancomycin Allergy Rash Verified 01/05/25 02:18 Vital Signs Vital Signs - 24 hr 01/06/25 20:00 01/06/25 20:00 01/06/25 22:00 Temperature 36.8 C Pulse Rate 113 H 105 H 114 H Respiratory Rate 22 H Blood Pressure 98/63 L Pulse Oximetry 97 Oxygen Delivery 01/06/25 23:40 01/07/25 00:00 01/07/25 02:00 Temperature 36.6 C Pulse Rate 116 H 116 H 114 H Respiratory Rate 18 Blood Pressure 101/56 L Pulse Oximetry 98 Oxygen Delivery 01/07/25 03:57 01/07/25 04:00 01/07/25 06:00 Temperature 36.6 C Pulse Rate 120 H 123 H 120 H Respiratory Rate 18 Blood Pressure 104/45 L Pulse Oximetry 99 Oxygen Delivery 01/07/25 07:52 01/07/25 08:00 01/07/25 09:08 Temperature 36.8 C Pulse Rate 125 H 134 H 154 H Respiratory Rate 20 Blood Pressure 85/54 L Pulse Oximetry 99 Oxygen Delivery 01/07/25 09:09 01/07/25 10:00 01/07/25 10:13 Temperature Pulse Rate 140 H 142 H Respiratory Rate Blood Pressure Pulse Oximetry 95 Oxygen Delivery Room Air 01/07/25 12:00 01/07/25 12:00 01/07/25 16:00 Temperature 36.8 C 36.5 C Pulse Rate 131 H 122 H 126 H Respiratory Rate 24 H 20 Blood Pressure 86/58 L 91/61 L Pulse Oximetry 97 98 Oxygen Delivery 01/07/25 17:42 01/07/25 17:53 Temperature Pulse Rate 115 H 123 H Respiratory Rate Blood Pressure Pulse Oximetry Oxygen Delivery Results Labs 01/07/25 03:55 01/07/25 03:55 Labs: Short CBC 01/07/25 Range/Units 03:55 WBC 7.6 (4.5-10.0) K/mm3 Hgb 8.6 L (12.0-15.0) g/dL Hct 26.2 L (37.0-47.0) % Plt Count 71 L (150-375) k/mm3 BMP 01/07/25 03:55 Sodium 128 L Potassium 4.2 Chloride 103 Carbon Dioxide 18 L BUN 21 H Creatinine 0.97 Glucose 190 H Calcium 7.6 L Liver Function 01/07/25 Range/Units 03:55 Total Bilirubin 0.7 (0.2-1.3) mg/dL AST 29 (14-36) U/L ALT 14 (6-35) U/L Alkaline Phosphatase 83 (38-126) U/L Albumin 2.4 L (3.5-5.1) g/dL
[2025-01-07] MEDS: cefTRIAXone 1 GM in SODIUM CHLORIDE 0.9% IV 50 ML 100 ML IVPB (23:06)
[2025-01-08] VITALS (20 sets, daily range): BP systolic 87–106; BP diastolic 53–65; PULSE 74–136; RESP 16–18; TEMP 36.8–36.9; O2SAT 96–100
[2025-01-08 04:15] LABS: Hematocrit 25.9 % (37.0-47.0); Hemoglobin 8.5 g/dL (12.0-15.0); Immature Platelet Fraction Pct 10.6 % (0.9-11.2); Mean Corpuscular HGB Conc 32.8 g/dl (32-36); Mean Corpuscular Hemoglobin 29.8 pg (26-34); Mean Corpuscular Volume 90.9 fl (80-100); Platelet Count Result 70 k/mm3 (150-375); Red Blood Count 2.85 M/mm3 (4.2-5.4); White Blood Count 7.2 K/mm3 (4.5-10.0)
[2025-01-08 04:27] LABS: Anion Gap 6 mmol/L (4-12); Blood Urea Nitrogen 23 mg/dL (7-17); Calcium 7.5 mg/dL (8.4-10.2); Carbon Dioxide 17 mmol/L (22-30); Chloride 105 mmol/L (98-107); Estimated CRCL calculation 39 ml/min; Estimated Glomerular Filt Rate 58; Glucose 208 mg/dL (65-110); Magnesium 1.9 mg/dL (1.6-2.3); Potassium 4.2 mmol/L (3.4-5.0); Sodium 128 mmol/L (137-145)
[2025-01-08 04:47] LABS: Neutrophils Percent Manual 45 % (46-73); Total Cells Counted 100
[2025-01-08 04:48] LABS: Band Neutrophils Percent 17 % (0-6); Eosinophils Absolute Manual 0.07 K/mm3 (0.02-0.50); Eosinophils Percent Manual 1 % (0-4); Lymphocytes Absolute Manual 2.37 K/mm3 (1.1-4.5); Lymphocytes Percent Manual 33.0 % (18-44); Monocytes Absolute Manual 0.28 K/mm3 (0.1-0.90); Monocytes Percent Manual 4 % (3-9); Neutrophils Absolute Manual 4.46 K/mm3 (1.3-6.7)
[2025-01-08 04:51] LABS: Anisocytosis 1+; Burr Cells 2+; Ovalocytes 1+; Schistocytes None Seen
--- NOTE | 2025-01-08 08:24 | PM.PNCARD ---
Progress Note: A&P Assessment and Plan (1) Atrial fibrillation with rapid ventricular response: Code(s): I48.91 - Unspecified atrial fibrillation Status: Acute (2) Elevated troponin: Code(s): R79.89 - Other specified abnormal findings of blood chemistry Status: Acute (3) Moderate aortic stenosis: Code(s): I35.0 - Nonrheumatic aortic (valve) stenosis Status: Acute (4) Moderate mitral regurgitation: Code(s): I34.0 - Nonrheumatic mitral (valve) insufficiency Status: Acute (5) Moderate tricuspid regurgitation: Code(s): I07.1 - Rheumatic tricuspid insufficiency Status: Acute (6) Cardiomyopathy: Code(s): I42.9 - Cardiomyopathy, unspecified Status: Acute (7) Hypotension: Code(s): I95.9 - Hypotension, unspecified Status: Acute Plan Diagnosis: -AFib with RVR-symptomatic; not on anticoagulation due to anemia -Hypotension-SBP is around 100 this morning -Valvular heart disease that Moderate with aortic valve area of 1 cm2, moderate MR, moderate TR -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 b.i.d. for 5 days (until Monday) followed by 200 mg p.o. daily -Give digoxin 0.125 mg BID -Hold beta-rose marie for SBP less than 110 mm Hg -Unable to cardiovert as she cannot take anticoagulation due to anemia (if cardioversion is performed she will need anticoagulation for at least a month). However if she does not respond to amiodarone and digoxin and continues to be hypotensive, then recommend cardioversion as benefits outweigh risks -Outpatient consult with structural interventional cardiology for evaluation for left atrial appendage occlusion-unable to take anticoagulation due to anemia; and valvular heart disease (moderate , moderate MR, moderate TR) -Continue to monitor on telemetry -Check and replace electrolytes to keep potassium greater than 4 and magnesium greater than 2 -Plan was discussed with patient and she is agreeable with above plan Subjective Date/time seen: 01/08/25 08:24 Interval history: Reason for encounter: AFib with RVR, hypotension at presentation with SBP in the 60s Other medical history: Urosepsis on IV antibiotics, diabetes, hypertension, CHF, anemia status post PRBC transfusion during this hospitalization Interval history: No chest pain, palpitations. She has occasional dizziness. Telemetry shows AFib RVR with rates in the 120s to 140s. Her SBP is slightly improved today to the 100s. IV fluids have been initiated this morning. Review of Systems Cardiovascular: Comments: As per HPI Respiratory: Comments: As per HPI Exam Narrative: General: Alert oriented x3, no acute distress Neck: Supple, no JVD Chest: Bilaterally clear to auscultation, no rales or rhonchi Cardiac: S1, S2 +, rapid rates, irregularly irregular rhythm, systolic murmur at apex and right upper sternal border Extremities: No pedal edema, no skin rash Neurologic: Alert and oriented x3, no focal neurological deficits Objective Data Vital Signs Vital Signs: Vital Signs - 24 hr 01/07/25 09:08 01/07/25 09:09 01/07/25 10:00 Temperature Pulse Rate 154 H 140 H 142 H Respiratory Rate Blood Pressure Pulse Oximetry Oxygen Delivery Fraction of Inspired Oxygen 01/07/25 10:13 01/07/25 12:00 01/07/25 12:00 Temperature 36.8 C Pulse Rate 131 H 122 H Respiratory Rate 24 H Blood Pressure 86/58 L Pulse Oximetry 95 97 Oxygen Delivery Room Air Fraction of Inspired Oxygen 01/07/25 14:00 01/07/25 16:00 01/07/25 16:00 Temperature 36.5 C Pulse Rate 127 H 126 H 122 H Respiratory Rate 20 Blood Pressure 91/61 L Pulse Oximetry 98 Oxygen Delivery Fraction of Inspired Oxygen 01/07/25 17:42 01/07/25 17:53 01/07/25 18:00 Temperature Pulse Rate 115 H 123 H 130 H Respiratory Rate Blood Pressure Pulse Oximetry Oxygen Delivery Fraction of Inspired Oxygen 01/07/25 20:00 01/07/25 20:00 01/07/25 20:15 Temperature 36.5 C Pulse Rate 115 H 126 H 82 Respiratory Rate 16 20 Blood Pressure 86/53 L Pulse Oximetry 98 94 Oxygen Delivery Room Air Fraction of Inspired Oxygen 21 01/07/25 22:00 01/07/25 23:26 01/08/25 00:00 Temperature 36.8 C Pulse Rate 117 H 121 H 111 H Respiratory Rate 16 Blood Pressure 113/77 Pulse Oximetry 97 Oxygen Delivery Fraction of Inspired Oxygen 01/08/25 02:00 01/08/25 04:00 01/08/25 04:00 Temperature 36.9 C Pulse Rate 108 H 118 H 106 H Respiratory Rate 17 Blood Pressure 100/59 L Pulse Oximetry 99 Oxygen Delivery Fraction of Inspired Oxygen 01/08/25 06:00 Temperature Pulse Rate 74 Respiratory Rate Blood Pressure Pulse Oximetry Oxygen Delivery Fraction of Inspired Oxygen Intake/Output Intake/Output: Intake & Output 01/05/25 01/06/25 01/07/25 01/08/25 23:59 23:59 23:59 23:59 Intake Total 2300 3236.9 1190 Output Total 300 775 300 Balance 2000 2461.9 890 Meds/Results Medications: Active Medications Generic Name Dose Route Start Last Admin Trade Name Freq PRN Reason Stop Dose Admin Amiodarone HCl 200 mg 01/07/25 09:00 01/07/25 17:53 Amiodarone Hcl 200 Mg Tablet PO 01/11/25 23:00 200 mg BID JEN Administration Amiodarone HCl 200 mg 01/12/25 09:00 Amiodarone Hcl 200 Mg Tablet PO DAILY@0800 JEN Dextrose 12.5 gm 01/05/25 01:39 Dextrose 50% 25 Gm/50 Ml Syringe IV PUSH PRN PRN Hypoglycemia Protocol Fish Oil 1 gm 01/05/25 09:00 01/07/25 09:09 [place] 3 Polyunsat Fatty Acids 1 Gm Cap PO 1 gm QAM JEN Administration Folic Acid 1 mg 01/05/25 09:00 01/07/25 09:09 Folic Acid 1 Mg Tablet PO 1 mg DAILY JEN Administration Glucagon 1 mg 01/05/25 01:39 Glucagon For Inj 1 Mg Vial IM PRN PRN Hypoglycemia Protocol Glucose 15 gm 01/05/25 01:39 Glucose Oral Gel 15 Gm Of Glucse In 37.5 Gm Tube PO PRN PRN Hypoglycemia Protocol Dextrose 1,000 mls @ 100 mls/hr 01/05/25 01:39 Dextrose 5% 1,000 Ml IVPB PRN PRN Hypoglycemia Protocol Ceftriaxone Sodium 1 gm/ 50 mls @ 100 mls/hr 01/05/25 23:00 01/07/25 23:06 Sodium Chloride IVPB 100 mls/hr Q24H JEN Administration Magnesium Sulfate/Dextrose 1 gm in 100 mls @ 100 mls/hr 01/08/25 08:22 Magnesium Sulf 1 Gm/D5w 100 Ml IVPB 01/08/25 09:21 ONCE ONE Insulin Aspart 3 - 6 units 01/05/25 08:00 01/07/25 17:53 Insulin Aspart (*Bkc) 100 Units/Ml SUB-Q 3 units TIDWM JEN Administration Protocol Insulin Glargine 12 units 01/05/25 09:00 01/07/25 21:39 Insulin Glargine (*Bkc) 100 Units/Ml SUB-Q 12 units Q12HR JEN Administration Metoprolol Tartrate 25 mg 01/06/25 10:50 01/08/25 06:13 Metoprolol Tartrate 25 Mg Tablet PO Not Given Q6HR JEN Polyethylene Glycol 17 gm 01/05/25 01:38 Polyethylene Glycol 3350 17 Gm Powd.Pack PO BID PRN Constipation Senna/Docusate Sodium 2 tab 01/07/25 09:00 01/07/25 17:53 Senna/Docusate Sodium Tablet PO 2 tab BID JEN Administration Radiology Results: ITS Impressions Chest X-Ray 01/04/25 17:55 Impression: Mild CHF Head CT 01/05/25 17:34 Impression: 1.No acute intracranial abnormality. Abdomen/Pelvis CT 01/06/25 16:01 IMPRESSION: 1. Mild pulmonary edema. 2. Small pleural effusions. 3. Cystitis. 4. Bilateral acute pyelonephritis. Labs Labs: Laboratory Results - last 24 hr 01/07/25 01/07/25 01/07/25 03:55 11:38 16:39 WBC RBC Hgb Hct MCV MCH MCHC RDW Plt Count MPV Immature Gran % (Auto) Neut % (Auto) Lymph % (Auto) [place] % (Auto) Eos % (Auto) Baso % (Auto) Lymph # (Auto) [place] # (Auto) Eos # (Auto) Baso # (Auto) Abs Immat Gran (auto) Absolute Neuts (auto) Absolute Nucleated RBC Total Counted Neutrophils % (Manual) Band Neutrophils % Lymphocytes % (Manual) Monocytes % (Manual) Eosinophils % (Manual) Nucleated RBC % Abs Neuts (Manual) Abs Lymphs (Manual) Abs Monocytes (Manual) Absolute Eos (Manual) Platelet Estimate % Immature Plt Fraction Anisocytosis Ovalocytes [place] Cells Schistocytes Sodium Potassium Chloride Carbon Dioxide Anion Gap BUN Creatinine Estim Creat Clear Calc Estimated GFR Glucose POC Capillary Glucose 264 H 203 H Calcium Magnesium Vitamin B12 852.0 Folate > 20.0 H TSH (Reflex) 1.150 01/07/25 01/08/25 01/08/25 21:16 03:51 07:20 WBC 7.2 RBC 2.85 L Hgb 8.5 L Hct 25.9 L MCV 90.9 MCH 29.8 MCHC 32.8 RDW 20.2 H Plt Count 70 L MPV TNP Immature Gran % (Auto) Not Reportable Neut % (Auto) Not Reportable Lymph % (Auto) Not Reportable [place] % (Auto) Not Reportable Eos % (Auto) Not Reportable Baso % (Auto) Not Reportable Lymph # (Auto) Not Reportable [place] # (Auto) Not Reportable Eos # (Auto) Not Reportable Baso # (Auto) Not Reportable Abs Immat Gran (auto) Not Reportable Absolute Neuts (auto) Not Reportable Absolute Nucleated RBC Not Reportable Total Counted 100 Neutrophils % (Manual) 45 L Band Neutrophils % 17 H Lymphocytes % (Manual) 33.0 Monocytes % (Manual) 4 Eosinophils % (Manual) 1 Nucleated RBC % Not Reportable Abs Neuts (Manual) 4.46 Abs Lymphs (Manual) 2.37 Abs Monocytes (Manual) 0.28 Absolute Eos (Manual) 0.07 Platelet Estimate Decreased % Immature Plt Fraction 10.6 Anisocytosis 1+ Ovalocytes 1+ [place] Cells 2+ Schistocytes None seen Sodium 128 L Potassium 4.2 Chloride 105 Carbon Dioxide 17 L Anion Gap 6 BUN 23 H Creatinine 0.92 Estim Creat Clear Calc 39 Estimated GFR 58 L Glucose 208 H POC Capillary Glucose 241 H 193 H Calcium 7.5 L Magnesium 1.9 Vitamin B12 Folate TSH (Reflex)
--- NOTE | 2025-01-08 08:35 | P.PNIM_ITS ---
Progress Note: A&P Assessment and Plan (1) Hypotension: Code(s): I95.9 - Hypotension, unspecified Status: Acute (2) Atrial fibrillation with rapid ventricular response: Code(s): I48.91 - Unspecified atrial fibrillation Status: Acute (3) Acute UTI: Code(s): N39.0 - Urinary tract infection, site not specified Status: Acute (4) Anemia: Code(s): D64.9 - Anemia, unspecified Status: Acute (5) Acute on chronic anemia: Code(s): D64.9 - Anemia, unspecified Status: Acute (6) Elevated troponin: Code(s): R79.89 - Other specified abnormal findings of blood chemistry Status: Acute Plan 84-year-old female with PMH neurocognitive disorder, 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 Upon arrival the patient A&O x2 and in unreliable historian. Found to be in AFib with RVR with an acute UTI and severe anemia. ----- Complicated UTI, present on admission with severe sepsis -urinalysis 01/04/2025 many squamous cells, 4+ bacteria, 2+ leukocyte esterase. CT abdomen pelvis on admission demonstrated findings concerning for urinary tract infection, small pleural effusions, mild pulmonary edema, bilateral acute pyelonephritis. -urine culture did not reflex, urine culture finally obtained on 01/06/2025 after antibiotics were given. Final results negative. Unreliable results. Continue ceftriaxone 1 g Q 24 hours for a total 7 days, with last dose on 01/10/2025. Leukocytosis and bandemia resolved. -01/05/2025 blood culture x2, pending. Anemia, normocytic Thrombocytopenia -unclear baseline, 6.9 on admission. Received 2 units PRBC, has stabilized with a hemoglobin around 9.0. -hemoccult negative reported in ER. No evidence of overt bleeding. -iron 110, TIBC 237, ferritin 758. Vitamin B12 852. Folic acid greater than 20. TSH 1.150. Haptoglobin pending -check lactic acid, vitamin B12, haptoglobin, reticulocyte, TSH -hematology consulted. See below. AFib with RVR -Received metoprolol on admission, due to persistent tachycardia and hypotension she was given amiodarone GTT, ended on 01/06/2025. -persistent RVR. Patient is on metoprolol 25 mg p.o. q.6 hours but has not been receiving due to blood pressure parameters. -on 01/08/2025 her rapid ventricular rate is finally improved, average in the 100s. The 01/07/2025 received digoxin x1 in p.o. amiodarone started. -keep potassium greater than 4, magnesium greater than 2. -continue to appreciate Cardiology recommendations. I spoke with Hematology and they do not see overt bleeding either, recommended would be okay to do anticoagulation. At this time her hemoglobin is slightly decreased from 9 to 8.6. Since she is improved we can continue the amiodarone/digoxin per Cardiology or metoprolol if her blood pressure continues to improve. If absolutely needed we could pursue anticoagulation and electrical cardioversion as the benefit would outweigh the risk. She received fluids on admission, a small bolus on 01/07/2025. On 01/08/2025 she appears very dry, crackles have decreased in the lungs. Poor skin turgor, dry mucous membranes. Will start normal saline at 50 cc/hour to help support her blood pressure, she has 25% of oral intake with a poor appetite. Continue dietary supplements She is net positive since admission but she is incontinent going in the diaper so the documentation is inaccurate. Confusion/slurred speech, resolved. -she does have a baseline neurocognitive disorder/cognitive communication disorder -A&O x2, pleasantly confused. -CT brain on admission no evidence of ischemic/hemorrhagic event CHF, systolic -BNP 40024 on admission, has crackles but on room air, received volume and blood. -unable to tolerate metoprolol at this time due to low BP, treat a fib. -TTE 01/07/25: Summary 1. Complete two-dimensional, color flow and Doppler transthoracic echocardiogram is performed. 2. Left ventricular chamber dimension is mildly enlarged. 3. Left ventricular systolic function is mildly reduced, estimated at 45-50. 4. There is moderate asymmetric septal increased left ventricular wall thickness. 5. The left ventricular diastolic function is abnormal. 6. Right ventricular chamber dimension is mildly enlarged. 7. Left atrial chamber dimension is moderately enlarged. 8. Right atrial chamber dimension is moderately enlarged. 9. There is moderate to severe aortic valve stenosis with a peak velocity of 291 cm/s, mean gradient of 15 mmHg, and aortic valve area of 1.0 cm2. 10. There is moderate aortic valve regurgitation. 11. There is severe aortic valve calcification. 12. There is moderate mitral valve regurgitation. 13. There is moderate tricuspid valve regurgitation. 14. Moderate pulmonary hypertension, estimated pulmonary arterial systolic pressure is 59 mmHg. 15. There is mild pulmonic regurgitation. 16. The prox ascending aorta size is dilated. -cardiology following Lactic acidosis -3.2 on admission, resolved status post 2 units PRBC and isotonic fluid resuscitation Elevated serum creatinine -1.26 on admission. Likely EDDA since serum creatinine has come down to normal. Likely due to AFib/sepsis. Elevated troponin -present on admission, likely due to sepsis in AFib with RVR. Peak. No chest pain, no shortness of breath. Cardiology consulted Insulin-dependent diabetes mellitus -blood sugars reviewed, continue current regimen, avoid over-correction. -Accu-Cheks a.c. HS with Lantus 12 units subQ b.i.d.. Constipation -ACCOUNTANT Senokot S1 tab p.o. q.day resumed -01/07/2025 no BM, increase to 2 tabs b.i.d. ----- To remain in IMU. DNR. Hold pharmacological DVT prophylaxis due to recent severe anemia. SCDs. Diabetic heart healthy diet. consult dietitian, poor oral intake. Continue dietary supplements. Normal saline at 50 cc/hour Daily weights/intake/output. Ambulate with assistance Maybe PT/OT on 01/09/2025 if hemodynamics continue to improve. Subjective Date/time seen: 01/08/25 08:35 Interval history: No major acute overnight events. Patient has no complaints. Is a poor historian although due to her neurocognitive disorder. Review of Systems Review of Systems: All systems reviewed & are unremarkable except as noted in HPI and below (Subjective) Exam Const: General: comfortable and no acute distress Other: A&O x2 HENMT: Mouth: Yes dry mucous membranes Eyes: Pupils: Equal, round and reactive pupils present Neck: Neck: supple Resp: Effort & Inspection: normal respiratory effort Auscultation: clear to auscultation bilaterally Cardio: Rate: regular rate Rhythm: abnormal rhythm GI: Inspection: non-distended GI Palp: Yes Soft to palpation Auscultation: normal bowel sounds Skin: Other: Poor skin turgor Neuro: Motor exam (neuro): 5/5 motor strength present throughout Extrem: General: no edema Objective Data Vital Signs Vital Signs: Vital Signs - 24 hr 01/07/25 09:08 01/07/25 09:09 01/07/25 10:00 Temperature Pulse Rate 154 H 140 H 142 H Respiratory Rate Blood Pressure Pulse Oximetry Oxygen Delivery Fraction of Inspired Oxygen 01/07/25 10:13 01/07/25 12:00 01/07/25 12:00 Temperature 98.3 F Pulse Rate 131 H 122 H Respiratory Rate 24 H Blood Pressure 86/58 L Pulse Oximetry 95 97 Oxygen Delivery Room Air Fraction of Inspired Oxygen 01/07/25 14:00 01/07/25 16:00 01/07/25 16:00 Temperature 97.7 F Pulse Rate 127 H 126 H 122 H Respiratory Rate 20 Blood Pressure 91/61 L Pulse Oximetry 98 Oxygen Delivery Fraction of Inspired Oxygen 01/07/25 17:42 01/07/25 17:53 01/07/25 18:00 Temperature Pulse Rate 115 H 123 H 130 H Respiratory Rate Blood Pressure Pulse Oximetry Oxygen Delivery Fraction of Inspired Oxygen 01/07/25 20:00 01/07/25 20:00 01/07/25 20:15 Temperature 97.7 F Pulse Rate 115 H 126 H 82 Respiratory Rate 16 20 Blood Pressure 86/53 L Pulse Oximetry 98 94 Oxygen Delivery Room Air Fraction of Inspired Oxygen 21 01/07/25 22:00 01/07/25 23:26 01/08/25 00:00 Temperature 98.3 F Pulse Rate 117 H 121 H 111 H Respiratory Rate 16 Blood Pressure 113/77 Pulse Oximetry 97 Oxygen Delivery Fraction of Inspired Oxygen 01/08/25 02:00 01/08/25 04:00 01/08/25 04:00 Temperature 98.4 F Pulse Rate 108 H 118 H 106 H Respiratory Rate 17 Blood Pressure 100/59 L Pulse Oximetry 99 Oxygen Delivery Fraction of Inspired Oxygen 01/08/25 06:00 Temperature Pulse Rate 74 Respiratory Rate Blood Pressure Pulse Oximetry Oxygen Delivery Fraction of Inspired Oxygen Intake/Output Intake/Output: Intake & Output 01/05/25 01/06/25 01/07/25 01/08/25 23:59 23:59 23:59 23:59 Intake Total 2300 3236.9 1190 Output Total 300 775 300 Balance 1999 2461.9 890 Meds/Results Medications: Active Medications Generic Name Dose Route Start Last Admin Trade Name Freq PRN Reason Stop Dose Admin Amiodarone HCl 200 mg 01/07/25 09:00 01/07/25 17:53 Amiodarone Hcl 200 Mg Tablet PO 01/11/25 23:00 200 mg BID JEN Administration Amiodarone HCl 200 mg 01/12/25 09:00 Amiodarone Hcl 200 Mg Tablet PO DAILY@0800 JEN Dextrose 12.5 gm 01/05/25 01:39 Dextrose 50% 25 Gm/50 Ml Syringe IV PUSH PRN PRN Hypoglycemia Protocol Fish Oil 1 gm 01/05/25 09:00 01/07/25 09:09 [place] 3 Polyunsat Fatty Acids 1 Gm Cap PO 1 gm QAM JEN Administration Folic Acid 1 mg 01/05/25 09:00 01/07/25 09:09 Folic Acid 1 Mg Tablet PO 1 mg DAILY JEN Administration Glucagon 1 mg 01/05/25 01:39 Glucagon For Inj 1 Mg Vial IM PRN PRN Hypoglycemia Protocol Glucose 15 gm 01/05/25 01:39 Glucose Oral Gel 15 Gm Of Glucse In 37.5 Gm Tube PO PRN PRN Hypoglycemia Protocol Dextrose 1,000 mls @ 100 mls/hr 01/05/25 01:39 Dextrose 5% 1,000 Ml IVPB PRN PRN Hypoglycemia Protocol Ceftriaxone Sodium 1 gm/ 50 mls @ 100 mls/hr 01/05/25 23:00 01/07/25 23:06 Sodium Chloride IVPB 01/10/25 02:00 100 mls/hr Q24H JEN Administration Magnesium Sulfate/Dextrose 1 gm in 100 mls @ 100 mls/hr 01/08/25 08:45 Magnesium Sulf 1 Gm/D5w 100 Ml IVPB 01/08/25 09:44 ONCE ONE Sodium Chloride 1,000 mls @ 50 mls/hr 01/08/25 08:35 Normal Saline Iv IV CONT .Q20H JEN Insulin Aspart 3 - 6 units 01/05/25 08:00 01/07/25 17:53 Insulin Aspart (*Bkc) 100 Units/Ml SUB-Q 3 units TIDWM JEN Administration Protocol Insulin Glargine 12 units 01/05/25 09:00 01/07/25 21:39 Insulin Glargine (*Bkc) 100 Units/Ml SUB-Q 12 units Q12HR JEN Administration Metoprolol Tartrate 25 mg 01/06/25 10:50 01/08/25 06:13 Metoprolol Tartrate 25 Mg Tablet PO Not Given Q6HR JEN Polyethylene Glycol 17 gm 01/05/25 01:38 Polyethylene Glycol 3350 17 Gm Powd.Pack PO BID PRN Constipation Senna/Docusate Sodium 2 tab 01/07/25 09:00 01/07/25 17:53 Senna/Docusate Sodium Tablet PO 2 tab BID JEN Administration Radiology Results: ITS Impressions Chest X-Ray 01/04/25 17:55 Impression: Mild CHF Head CT 01/05/25 17:34 Impression: 1.No acute intracranial abnormality. Abdomen/Pelvis CT 01/06/25 16:01 IMPRESSION: 1. Mild pulmonary edema. 2. Small pleural effusions. 3. Cystitis. 4. Bilateral acute pyelonephritis. Labs Labs: Laboratory Results - last 24 hr 01/07/25 01/07/25 01/07/25 03:55 11:38 16:39 WBC RBC Hgb Hct MCV MCH MCHC RDW Plt Count MPV Immature Gran % (Auto) Neut % (Auto) Lymph % (Auto) [place] % (Auto) Eos % (Auto) Baso % (Auto) Lymph # (Auto) [place] # (Auto) Eos # (Auto) Baso # (Auto) Abs Immat Gran (auto) Absolute Neuts (auto) Absolute Nucleated RBC Total Counted Neutrophils % (Manual) Band Neutrophils % Lymphocytes % (Manual) Monocytes % (Manual) Eosinophils % (Manual) Nucleated RBC % Abs Neuts (Manual) Abs Lymphs (Manual) Abs Monocytes (Manual) Absolute Eos (Manual) Platelet Estimate % Immature Plt Fraction Anisocytosis Ovalocytes [place] Cells Schistocytes Sodium Potassium Chloride Carbon Dioxide Anion Gap BUN Creatinine Estim Creat Clear Calc Estimated GFR Glucose POC Capillary Glucose 264 H 203 H Calcium Magnesium Vitamin B12 852.0 Folate > 20.0 H TSH (Reflex) 1.150 01/07/25 01/08/25 01/08/25 21:16 03:51 07:20 WBC 7.2 RBC 2.85 L Hgb 8.5 L Hct 25.9 L MCV 90.9 MCH 29.8 MCHC 32.8 RDW 20.2 H Plt Count 70 L MPV TNP Immature Gran % (Auto) Not Reportable Neut % (Auto) Not Reportable Lymph % (Auto) Not Reportable [place] % (Auto) Not Reportable Eos % (Auto) Not Reportable Baso % (Auto) Not Reportable Lymph # (Auto) Not Reportable [place] # (Auto) Not Reportable Eos # (Auto) Not Reportable Baso # (Auto) Not Reportable Abs Immat Gran (auto) Not Reportable Absolute Neuts (auto) Not Reportable Absolute Nucleated RBC Not Reportable Total Counted 100 Neutrophils % (Manual) 45 L Band Neutrophils % 17 H Lymphocytes % (Manual) 33.0 Monocytes % (Manual) 4 Eosinophils % (Manual) 1 Nucleated RBC % Not Reportable Abs Neuts (Manual) 4.46 Abs Lymphs (Manual) 2.37 Abs Monocytes (Manual) 0.28 Absolute Eos (Manual) 0.07 Platelet Estimate Decreased % Immature Plt Fraction 10.6 Anisocytosis 1+ Ovalocytes 1+ [place] Cells 2+ Schistocytes None seen Sodium 128 L Potassium 4.2 Chloride 105 Carbon Dioxide 17 L Anion Gap 6 BUN 23 H Creatinine 0.92 Estim Creat Clear Calc 39 Estimated GFR 58 L Glucose 208 H POC Capillary Glucose 241 H 193 H Calcium 7.5 L Magnesium 1.9 Vitamin B12 Folate TSH (Reflex)
[2025-01-08] MEDS: FOLIC ACID 1 MG TABLET PO (08:55)
[2025-01-08] MEDS: OMEGA 3 POLYUNSAT FATTY ACIDS 1 GM CAP PO (08:55)
[2025-01-08] MEDS: SENNA/DOCUSATE SODIUM TABLET 2 TAB PO ×2 (08:55→16:56)
[2025-01-08] MEDS: INSULIN GLARGINE (*BKC) 100 UNITS/ML 12 UNITS SUB-Q ×2 (09:00→20:33)
[2025-01-08] MEDS: SODIUM CHLORIDE 0.9% IV 1,000 ML 50 ML IV CONT (09:08)
[2025-01-08] MEDS: MAGNESIUM SULF 1 GM/D5W 100 ML 1 GM/100 ML BAG IVPB (09:09)
[2025-01-08] MEDS: AMIODARONE HCL 200 MG TABLET 400 MG PO ×2 (09:34→16:56)
[2025-01-08] MEDS: DIGOXIN INJ 250 MCG/ML 2 ML AMP (*BKC) 125 MCG IV PUSH ×2 (09:34→16:57)
--- NOTE | 2025-01-08 16:27 | PC.NURSE ---
On 01/08/25, the student, Rosana, provided care and completed [facility] documentation on this patient. I have reviewed the student's documentation and agree with the findings.
[2025-01-08] MEDS: INSULIN ASPART (*BKC) 100 UNITS/ML SUB-Q (16:53)
[2025-01-09] VITALS (18 sets, daily range): BP systolic 103–121; BP diastolic 44–68; PULSE 84–116; RESP 15–20; TEMP 36.4–36.9; O2SAT 97–99
[2025-01-09] MEDS: SODIUM CHLORIDE 0.9% IV 1,000 ML 50 ML IV CONT (03:52)
[2025-01-09 03:53] LABS: Hematocrit 25.0 % (37.0-47.0); Hemoglobin 8.1 g/dL (12.0-15.0); Immature Granulocyte Percent A 10.5 % (0-0.5); Immature Platelet Fraction Pct 8.7 % (0.9-11.2); Lymphocytes Absolute Auto 1.35 K/mm3 (0.9-3.2); Mean Corpuscular HGB Conc 32.4 g/dl (32-36); Mean Corpuscular Hemoglobin 28.9 pg (26-34); Mean Corpuscular Volume 89.3 fl (80-100); Nucleated Red Blood Cells Absolute Auto 0.290 K/mm3 (0.0-0.012); Nucleated Red Blood Cells Perc 4.1 % (0.0-0.2); Platelet Count Result 70 k/mm3 (150-375); Red Blood Count 2.80 M/mm3 (4.2-5.4); White Blood Count 7.2 K/mm3 (4.5-10.0)
[2025-01-09 04:17] LABS: Anisocytosis 1+; Hypochromasia 1+; Poikilocytosis 1+
[2025-01-09 04:18] LABS: Alanine Aminotransferase 15 U/L (6-35); Albumin Level 2.2 g/dL (3.5-5.1); Alkaline Phosphatase 94 U/L (38-126); Anion Gap 3 mmol/L (4-12); Aspartate Amino Transferase 30 U/L (14-36); Bilirubin,Total 1.4 mg/dL (0.2-1.3); Blood Urea Nitrogen 19 mg/dL (7-17); Calcium 7.5 mg/dL (8.4-10.2); Carbon Dioxide 19 mmol/L (22-30); Chloride 107 mmol/L (98-107); Estimated CRCL calculation 42 ml/min; Estimated Glomerular Filt Rate > 60; Glucose 155 mg/dL (65-110); Magnesium 1.9 mg/dL (1.6-2.3); Ovalocytes 1+; Potassium 4.0 mmol/L (3.4-5.0); Schistocytes None Seen; Sodium 129 mmol/L (137-145); Target Cells Occasional; Total Protein 6.3 g/dL (6.3-8.2)
--- NOTE | 2025-01-09 08:25 | P.PNCA_ITS ---
Progress Note: A&P Assessment and Plan (1) Atrial fibrillation with rapid ventricular response: Code(s): I48.91 - Unspecified atrial fibrillation Status: Acute (2) Elevated troponin: Code(s): R79.89 - Other specified abnormal findings of blood chemistry Status: Acute (3) Moderate aortic stenosis: Code(s): I35.0 - Nonrheumatic aortic (valve) stenosis Status: Acute (4) Moderate mitral regurgitation: Code(s): I34.0 - Nonrheumatic mitral (valve) insufficiency Status: Acute (5) Moderate tricuspid regurgitation: Code(s): I07.1 - Rheumatic tricuspid insufficiency Status: Acute (6) Cardiomyopathy: Code(s): I42.9 - Cardiomyopathy, unspecified Status: Acute Plan Diagnosis: -AFib with RVR-symptomatic; not on anticoagulation due to anemia -Hypotension-SBP is around 100 this morning -Valvular heart disease that Moderate with aortic valve area of 1 cm2, moderate MR, moderate TR -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 b.i.d. for 5 days (until Monday) followed by 200 mg p.o. daily -Give digoxin 0.125 mg BID -Resume metoprolol 25mg BID -Plan for SABA cardioversion today as rate control not achieved with amiodarone and digoxin; unable to give BB due to hypotension. She will need one month of uninterrupted antocpagulation after the cardioversion. She was evaluated by hem/oncology and given anemia of chronic disease and no overt bleeding, OK to give anticoagulation and monitor -Outpatient consult with structural interventional cardiology for evaluation for left atrial appendage occlusion-unable to take anticoagulation due to anemia; and valvular heart disease (moderate , moderate MR, moderate TR) -Continue to monitor on telemetry -Check and replace electrolytes to keep potassium greater than 4 and magnesium greater than 2 -Plan was discussed with patient and she is agreeable Subjective Date/time seen: 01/09/25 08:25 Interval history: Reason for encounter: AFib with RVR Other medical history: Urosepsis treated with abx, diabetes, hypertension, CHF, anemia status post PRBC transfusion during this hospitalization Interval history: No chest pain, palpitations. She has occasional dizziness. Telemetry shows AFib RVR with rates in the 110s to 120s. Her SBP is is in the 120s today post IV fluids. BB has been restarted. Review of Systems Cardiovascular: Comments: As per HPI Respiratory: Comments: As per HPI Exam Narrative: General: Alert oriented x3, no acute distress Neck: Supple, no JVD Chest: Bilaterally clear to auscultation, no rales or rhonchi Cardiac: S1, S2 +, rapid rates, irregularly irregular rhythm, systolic murmur at apex and right upper sternal border Extremities: No pedal edema, no skin rash Neurologic: Alert and oriented x3, no focal neurological deficits Objective Data Vital Signs Vital Signs: Vital Signs - 24 hr 01/08/25 09:34 01/08/25 09:34 01/08/25 09:37 Temperature Pulse Rate 136 H 136 H 136 H Respiratory Rate Blood Pressure Pulse Oximetry Oxygen Delivery Fraction of Inspired Oxygen 01/08/25 10:00 01/08/25 12:00 01/08/25 12:00 Temperature 36.8 C Pulse Rate 136 H 124 H 124 H Respiratory Rate 18 18 Blood Pressure 87/57 L Pulse Oximetry 98 98 Oxygen Delivery Room Air Fraction of Inspired Oxygen 01/08/25 12:00 01/08/25 13:25 01/08/25 14:00 Temperature Pulse Rate 127 H 120 H Respiratory Rate Blood Pressure 103/62 Pulse Oximetry Oxygen Delivery Fraction of Inspired Oxygen 01/08/25 16:00 01/08/25 16:00 01/08/25 16:00 Temperature 36.8 C Pulse Rate 120 H 129 H 135 H Respiratory Rate 18 18 Blood Pressure 101/65 Pulse Oximetry 98 98 Oxygen Delivery Room Air Fraction of Inspired Oxygen 01/08/25 16:56 01/08/25 16:57 01/08/25 18:00 Temperature Pulse Rate 133 H 133 H 131 H Respiratory Rate Blood Pressure Pulse Oximetry Oxygen Delivery Fraction of Inspired Oxygen 01/08/25 19:44 01/08/25 20:00 01/08/25 20:00 Temperature 36.8 C Pulse Rate 115 H 115 H 115 H Respiratory Rate 16 16 Blood Pressure 100/61 Pulse Oximetry 96 96 Oxygen Delivery Room Air Fraction of Inspired Oxygen 21 01/08/25 20:27 01/08/25 21:48 01/08/25 23:57 Temperature 36.8 C Pulse Rate 115 H 118 H 105 H Respiratory Rate 16 Blood Pressure 106/53 L Pulse Oximetry 97 Oxygen Delivery Fraction of Inspired Oxygen 01/09/25 00:00 01/09/25 00:00 01/09/25 02:00 Temperature Pulse Rate 109 H 105 H 96 Respiratory Rate 16 Blood Pressure Pulse Oximetry 97 Oxygen Delivery Room Air Fraction of Inspired Oxygen 01/09/25 04:00 01/09/25 04:00 01/09/25 04:00 Temperature 36.6 C Pulse Rate 85 103 H 103 H Respiratory Rate 15 16 Blood Pressure 110/53 L Pulse Oximetry 97 97 Oxygen Delivery Room Air Fraction of Inspired Oxygen 01/09/25 05:48 01/09/25 08:00 01/09/25 08:00 Temperature 36.4 C Pulse Rate 114 H 112 H Respiratory Rate 20 Blood Pressure 121/68 Pulse Oximetry 99 Oxygen Delivery Room Air Fraction of Inspired Oxygen 21 Intake/Output Intake/Output: Intake & Output 01/06/25 01/07/25 01/08/25 01/09/25 23:59 23:59 23:59 23:59 Intake Total 3236.9 2523 623 8874.7 Output Total 775 300 700 Balance 2461.9 890 -355 1036.7 Meds/Results Medications: Active Medications Generic Name Dose Route Start Last Admin Trade Name Freq PRN Reason Stop Dose Admin Amiodarone HCl 200 mg 01/12/25 09:00 Amiodarone Hcl 200 Mg Tablet PO DAILY@0800 [facility] Amiodarone HCl 400 mg 01/08/25 09:15 01/08/25 16:56 Amiodarone Hcl 200 Mg Tablet PO 01/11/25 23:00 400 mg BID JEN Administration Amoxicillin/Clavulanate Potassium 1 tablet 01/08/25 21:00 01/08/25 20:32 Amoxicillin/Clavulanate K 875-125 Mg Tab PO 01/11/25 09:01 1 tablet Q12HR JEN Administration Dextrose 12.5 gm 01/05/25 01:39 Dextrose 50% 25 Gm/50 Ml Syringe IV PUSH PRN PRN Hypoglycemia Protocol Fish Oil 1 gm 01/05/25 09:00 01/08/25 08:55 [place] 3 Polyunsat Fatty Acids 1 Gm Cap PO 1 gm QAM JEN Administration Folic Acid 1 mg 01/05/25 09:00 01/08/25 08:55 Folic Acid 1 Mg Tablet PO 1 mg DAILY JEN Administration Glucagon 1 mg 01/05/25 01:39 Glucagon For Inj 1 Mg Vial IM PRN PRN Hypoglycemia Protocol Glucose 15 gm 01/05/25 01:39 Glucose Oral Gel 15 Gm Of Glucse In 37.5 Gm Tube PO PRN PRN Hypoglycemia Protocol Dextrose 1,000 mls @ 100 mls/hr 01/05/25 01:39 Dextrose 5% 1,000 Ml IVPB PRN PRN Hypoglycemia Protocol Sodium Chloride 1,000 mls @ 50 mls/hr 01/08/25 08:35 01/09/25 03:52 Normal Saline Iv IV CONT 50 mls/hr .Q20H JEN Administration Insulin Aspart 3 - 6 units 01/05/25 08:00 01/09/25 08:01 Insulin Aspart (*Bkc) 100 Units/Ml SUB-Q Not Given TIDWM [facility] Protocol Insulin Glargine 12 units 01/05/25 09:00 01/08/25 20:33 Insulin Glargine (*Bkc) 100 Units/Ml SUB-Q 12 units Q12HR JEN Administration Metoprolol Tartrate 25 mg 01/08/25 09:20 01/08/25 20:27 Metoprolol Tartrate 25 Mg Tablet PO Not Given Q12HR JEN Polyethylene Glycol 17 gm 01/05/25 01:38 Polyethylene Glycol 3350 17 Gm Powd.Pack PO BID PRN Constipation Senna/Docusate Sodium 2 tab 01/07/25 09:00 01/08/25 16:56 Senna/Docusate Sodium Tablet PO 2 tab BID JEN Administration Radiology Results: ITS Impressions Chest X-Ray 01/04/25 17:55 Impression: Mild CHF Head CT 01/05/25 17:34 Impression: 1.No acute intracranial abnormality. Abdomen/Pelvis CT 01/06/25 16:01 IMPRESSION: 1. Mild pulmonary edema. 2. Small pleural effusions. 3. Cystitis. 4. Bilateral acute pyelonephritis. Labs Labs: Laboratory Results - last 24 hr 01/07/25 01/08/25 01/08/25 09:09 11:33 16:23 WBC RBC Hgb Hct MCV MCH MCHC RDW Plt Count MPV Immature Gran % (Auto) Neut % (Auto) Lymph % (Auto) [place] % (Auto) Eos % (Auto) Baso % (Auto) Lymph # (Auto) [place] # (Auto) Eos # (Auto) Baso # (Auto) Abs Immat Gran (auto) Absolute Neuts (auto) Absolute Nucleated RBC Band Neutrophils % Nucleated RBC % Platelet Estimate % Immature Plt Fraction Hypochromasia Poikilocytosis Anisocytosis Target Cells Ovalocytes Schistocytes Haptoglobin 226 Sodium Potassium Chloride Carbon Dioxide Anion Gap BUN Creatinine Estim Creat Clear Calc Estimated GFR Glucose POC Capillary Glucose 234 H 216 H Calcium Magnesium Total Bilirubin AST ALT Alkaline Phosphatase Total Protein Albumin 01/08/25 01/09/25 01/09/25 20:15 03:21 07:42 WBC 7.2 RBC 2.80 L Hgb 8.1 L Hct 25.0 L MCV 89.3 MCH 28.9 MCHC 32.4 RDW 21.6 H Plt Count 70 L MPV TNP Immature Gran % (Auto) 10.5 H Neut % (Auto) 49.3 Lymph % (Auto) 18.9 [place] % (Auto) 18.7 H Eos % (Auto) 0.1 Baso % (Auto) 2.5 H Lymph # (Auto) 1.35 [place] # (Auto) 1.3 H Eos # (Auto) 0.0 Baso # (Auto) 0.2 H Abs Immat Gran (auto) 0.75 H Absolute Neuts (auto) 3.5 Absolute Nucleated RBC 0.290 H Band Neutrophils % Not Reportable Nucleated RBC % 4.1 H Platelet Estimate Decreased % Immature Plt Fraction 8.7 Hypochromasia 1+ Poikilocytosis 1+ Anisocytosis 1+ Target Cells Occasional Ovalocytes 1+ Schistocytes None seen Haptoglobin Sodium 129 L Potassium 4.0 Chloride 107 Carbon Dioxide 19 L Anion Gap 3 L BUN 19 H Creatinine 0.86 Estim Creat Clear Calc 42 Estimated GFR > 60 Glucose 155 H POC Capillary Glucose 189 H 137 H Calcium 7.5 L Magnesium 1.9 Total Bilirubin 1.4 H AST 30 ALT 15 Alkaline Phosphatase 94 Total Protein 6.3 Albumin 2.2 L
[2025-01-09] MEDS: INSULIN GLARGINE (*BKC) 100 UNITS/ML 12 UNITS SUB-Q ×2 (08:55→21:10)
[2025-01-09] MEDS: METOPROLOL TARTRATE 25 MG TABLET PO ×2 (08:59→21:10)
[2025-01-09] MEDS: AMIODARONE HCL 200 MG TABLET 400 MG PO ×2 (08:59→16:26)
[2025-01-09] MEDS: DIGOXIN TAB 125 MCG TABLET PO ×2 (09:00→16:26)
[2025-01-09] MEDS: SENNA/DOCUSATE SODIUM TABLET 2 TAB PO (09:00)
[2025-01-09] MEDS: FOLIC ACID 1 MG TABLET PO (09:00)
[2025-01-09] MEDS: OMEGA 3 POLYUNSAT FATTY ACIDS 1 GM CAP PO (09:00)
--- NOTE | 2025-01-09 11:00 | P.PNIM_ITS ---
Progress Note: A&P Assessment and Plan (1) Hypotension: Code(s): I95.9 - Hypotension, unspecified Status: Acute (2) Atrial fibrillation with rapid ventricular response: Code(s): I48.91 - Unspecified atrial fibrillation Status: Acute (3) Acute UTI: Code(s): N39.0 - Urinary tract infection, site not specified Status: Acute (4) Anemia: Code(s): D64.9 - Anemia, unspecified Status: Acute (5) Acute on chronic anemia: Code(s): D64.9 - Anemia, unspecified Status: Acute (6) Elevated troponin: Code(s): R79.89 - Other specified abnormal findings of blood chemistry Status: Acute Plan 84-year-old female with PMH neurocognitive disorder, 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 Upon arrival the patient A&O x2 and in unreliable historian. Found to be in AFib with RVR with an acute UTI and severe anemia. ----- Complicated UTI, present on admission with severe sepsis -urinalysis 01/04/2025 many squamous cells, 4+ bacteria, 2+ leukocyte esterase. CT abdomen pelvis on admission demonstrated findings concerning for urinary tract infection, small pleural effusions, mild pulmonary edema, bilateral acute pyelonephritis. -urine culture did not reflex, urine culture finally obtained on 01/06/2025 after antibiotics were given. Final results negative. Unreliable results. Ceftriaxone transition to Augmentin for a total 7 day course. Leukocytosis and bandemia resolved. -01/05/2025 blood culture x2, pending. Anemia, normocytic Thrombocytopenia -unclear baseline, 6.9 on admission. Received 2 units PRBC, has stabilized with a hemoglobin around 9.0. -hemoccult negative reported in ER. No evidence of overt bleeding. -iron 110, TIBC 237, ferritin 758. Vitamin B12 852. Folic acid greater than 20 . TSH 1.150. Haptoglobin 226 -hematology consulted. See below. AFib with RVR -Received metoprolol on admission, due to persistent tachycardia and hypotension she was given amiodarone GTT, ended on 01/06/2025. -persistent RVR. Patient has been uncontrolled, there has been improvement on 01/09/2025 with amiodarone and digoxin loading. Blood pressure has improved, metoprolol being given. -keep potassium greater than 4, magnesium greater than 2. -cardiology planning for cardioversion on 01/09/2025, with anticoagulation, patient seen by Hematology and recommended no evidence of overt bleeding, okay for anticoagulation for now. -Poor skin turgor, dry mucous membranes. Started normal saline at 50 cc/hour on 01/08/2025 improvement in her blood pressure. No further swelling, dry crackles, scant. She has 25% of oral intake with a poor appetite. Continue dietary supplements. She is net positive since admission but she is incontinent going in the diaper so the documentation is inaccurate. Continue dietitian consultation. Confusion/slurred speech, resolved. -she does have a baseline neurocognitive disorder/cognitive communication disorder -A&O x2, pleasantly confused. -CT brain on admission no evidence of ischemic/hemorrhagic event CHF, systolic -BNP 77854 on admission, no evidence of clinical overload -on metoprolol -TTE 01/07/25: Summary 1. Complete two-dimensional, color flow and Doppler transthoracic echocardiogram is performed. 2. Left ventricular chamber dimension is mildly enlarged. 3. Left ventricular systolic function is mildly reduced, estimated at 45-50. 4. There is moderate asymmetric septal increased left ventricular wall thickness. 5. The left ventricular diastolic function is abnormal. 6. Right ventricular chamber dimension is mildly enlarged. 7. Left atrial chamber dimension is moderately enlarged. 8. Right atrial chamber dimension is moderately enlarged. 9. There is moderate to severe aortic valve stenosis with a peak velocity of 291 cm/s, mean gradient of 15 mmHg, and aortic valve area of 1.0 cm2. 10. There is moderate aortic valve regurgitation. 11. There is severe aortic valve calcification. 12. There is moderate mitral valve regurgitation. 13. There is moderate tricuspid valve regurgitation. 14. Moderate pulmonary hypertension, estimated pulmonary arterial systolic pressure is 59 mmHg. 15. There is mild pulmonic regurgitation. 16. The prox ascending aorta size is dilated. -cardiology following Lactic acidosis -3.2 on admission, resolved status post 2 units PRBC and isotonic fluid resuscitation Elevated serum creatinine -1.26 on admission. Likely EDDA since serum creatinine has come down to normal. Likely due to AFib/sepsis. Elevated troponin -present on admission, likely due to sepsis in AFib with RVR. Peak. No chest pain, no shortness of breath. Cardiology consulted Insulin-dependent diabetes mellitus -blood sugars reviewed, continue current regimen, avoid over-correction. -Accu-Cheks a.c. HS with Lantus 12 units subQ b.i.d.. 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 q.day resumed -01/07/2025 no BM, increase to 2 tabs b.i.d. -had 3 bowel movements on 01/08/2025: Will decrease tabs back to 1 p.o. b.i.d. Hyponatremia -stable, continue to monitor. Continue resuscitation, dehydrated. ----- To remain in IMU. DNR. SCDs. Diabetic heart healthy diet. consult dietitian, poor oral intake. Continue dietary supplements. Normal saline at 50 cc/hour Daily weights/intake/output. Ambulate with assistance PT/OT evaluations after cardioversion if stable. Subjective Date/time seen: 01/09/25 11:00 Interval history: No major acute overnight events. Patient is pleasantly confused. She denies pain, shortness of breath. Reports feeling weak. Review of Systems Review of Systems: All systems reviewed & are unremarkable except as noted in HPI and below (Subjective) Exam Const: General: comfortable and no acute distress Other: A&O x2 HENMT: Mouth: Yes dry mucous membranes Eyes: Pupils: Equal, round and reactive pupils present Neck: Neck: supple Resp: Effort & Inspection: normal respiratory effort Other: Scant dry crackles Cardio: Rate: regular rate Rhythm: abnormal rhythm GI: Inspection: non-distended GI Palp: Yes Soft to palpation Auscultation: normal bowel sounds Skin: Other: Poor skin turgor Neuro: Motor exam (neuro): 5/5 motor strength present throughout Extrem: General: no edema Objective Data Vital Signs Vital Signs: Vital Signs - 24 hr 01/08/25 12:00 01/08/25 12:00 01/08/25 12:00 Temperature 98.2 F Pulse Rate 124 H 124 H 127 H Respiratory Rate 18 18 Blood Pressure 87/57 L Pulse Oximetry 98 98 Oxygen Delivery Room Air Fraction of Inspired Oxygen 01/08/25 13:25 01/08/25 14:00 01/08/25 16:00 Temperature Pulse Rate 120 H 120 H Respiratory Rate 18 Blood Pressure 103/62 Pulse Oximetry 98 Oxygen Delivery Room Air Fraction of Inspired Oxygen 01/08/25 16:00 01/08/25 16:00 01/08/25 16:56 Temperature 98.3 F Pulse Rate 129 H 135 H 133 H Respiratory Rate 18 Blood Pressure 101/65 Pulse Oximetry 98 Oxygen Delivery Fraction of Inspired Oxygen 01/08/25 16:57 01/08/25 18:00 01/08/25 19:44 Temperature 98.2 F Pulse Rate 133 H 131 H 115 H Respiratory Rate 16 Blood Pressure 100/61 Pulse Oximetry 96 Oxygen Delivery Fraction of Inspired Oxygen 01/08/25 20:00 01/08/25 20:00 01/08/25 20:27 Temperature Pulse Rate 115 H 115 H 115 H Respiratory Rate 16 Blood Pressure Pulse Oximetry 96 Oxygen Delivery Room Air Fraction of Inspired Oxygen 21 01/08/25 21:48 01/08/25 23:57 01/09/25 00:00 Temperature 98.2 F Pulse Rate 118 H 105 H 109 H Respiratory Rate 16 16 Blood Pressure 106/53 L Pulse Oximetry 97 97 Oxygen Delivery Room Air Fraction of Inspired Oxygen 21 01/09/25 00:00 01/09/25 02:00 01/09/25 04:00 Temperature 97.9 F Pulse Rate 105 H 96 85 Respiratory Rate 15 Blood Pressure 110/53 L Pulse Oximetry 97 Oxygen Delivery Fraction of Inspired Oxygen 01/09/25 04:00 01/09/25 04:00 01/09/25 05:48 Temperature Pulse Rate 103 H 103 H 114 H Respiratory Rate 16 Blood Pressure Pulse Oximetry 97 Oxygen Delivery Room Air Fraction of Inspired Oxygen 01/09/25 08:00 01/09/25 08:00 01/09/25 08:00 Temperature 97.6 F Pulse Rate 112 H 114 H Respiratory Rate 20 Blood Pressure 121/68 Pulse Oximetry 99 Oxygen Delivery Room Air Fraction of Inspired Oxygen 21 01/09/25 08:59 01/09/25 08:59 01/09/25 09:00 Temperature Pulse Rate 107 H 107 H 107 H Respiratory Rate Blood Pressure Pulse Oximetry Oxygen Delivery Fraction of Inspired Oxygen 01/09/25 10:00 Temperature Pulse Rate 94 Respiratory Rate Blood Pressure Pulse Oximetry Oxygen Delivery Fraction of Inspired Oxygen Intake/Output Intake/Output: Intake & Output 01/06/25 01/07/25 01/08/25 01/09/25 23:59 23:59 23:59 23:59 Intake Total 3236.9 9379 726 7768.7 Output Total 775 300 700 Balance 2461.9 890 -355 1036.7 Meds/Results Medications: Active Medications Generic Name Dose Route Start Last Admin Trade Name Freq PRN Reason Stop Dose Admin Amiodarone HCl 200 mg 01/12/25 09:00 Amiodarone Hcl 200 Mg Tablet PO DAILY@0800 JEN Amiodarone HCl 400 mg 01/08/25 09:15 01/09/25 08:59 Amiodarone Hcl 200 Mg Tablet PO 01/11/25 23:00 400 mg BID JEN Administration Amoxicillin/Clavulanate Potassium 1 tablet 01/08/25 21:00 01/09/25 09:00 Amoxicillin/Clavulanate K 875-125 Mg Tab PO 01/11/25 09:01 1 tablet Q12HR JEN Administration Dextrose 12.5 gm 01/05/25 01:39 Dextrose 50% 25 Gm/50 Ml Syringe IV PUSH PRN PRN Hypoglycemia Protocol Digoxin 125 mcg 01/09/25 09:00 01/09/25 09:00 Digoxin Tab 125 Mcg Tablet PO 125 mcg BID JEN Administration Fish Oil 1 gm 01/05/25 09:00 01/09/25 09:00 [place] 3 Polyunsat Fatty Acids 1 Gm Cap PO 1 gm QAM JEN Administration Folic Acid 1 mg 01/05/25 09:00 01/09/25 09:00 Folic Acid 1 Mg Tablet PO 1 mg DAILY JEN Administration Glucagon 1 mg 01/05/25 01:39 Glucagon For Inj 1 Mg Vial IM PRN PRN Hypoglycemia Protocol Glucose 15 gm 01/05/25 01:39 Glucose Oral Gel 15 Gm Of Glucse In 37.5 Gm Tube PO PRN PRN Hypoglycemia Protocol Dextrose 1,000 mls @ 100 mls/hr 01/05/25 01:39 Dextrose 5% 1,000 Ml IVPB PRN PRN Hypoglycemia Protocol Sodium Chloride 1,000 mls @ 50 mls/hr 01/08/25 08:35 01/09/25 03:52 Normal Saline Iv IV CONT 50 mls/hr .Q20H JEN Administration Insulin Aspart 3 - 6 units 01/05/25 08:00 01/09/25 08:01 Insulin Aspart (*Bkc) 100 Units/Ml SUB-Q Not Given TIDWM [facility] Protocol Insulin Glargine 12 units 01/05/25 09:00 01/09/25 08:55 Insulin Glargine (*Bkc) 100 Units/Ml SUB-Q 12 units Q12HR JEN Administration Metoprolol Tartrate 25 mg 01/08/25 09:20 01/09/25 08:59 Metoprolol Tartrate 25 Mg Tablet PO 25 mg Q12HR JEN Administration Polyethylene Glycol 17 gm 01/05/25 01:38 Polyethylene Glycol 3350 17 Gm Powd.Pack PO BID PRN Constipation Senna/Docusate Sodium 2 tab 01/07/25 09:00 01/09/25 09:00 Senna/Docusate Sodium Tablet PO 2 tab BID JEN Administration Radiology Results: ITS Impressions Chest X-Ray 01/04/25 17:55 Impression: Mild CHF Head CT 01/05/25 17:34 Impression: 1.No acute intracranial abnormality. Abdomen/Pelvis CT 01/06/25 16:01 IMPRESSION: 1. Mild pulmonary edema. 2. Small pleural effusions. 3. Cystitis. 4. Bilateral acute pyelonephritis. Labs Labs: Laboratory Results - last 24 hr 01/07/25 01/08/25 01/08/25 09:09 11:33 16:23 WBC RBC Hgb Hct MCV MCH MCHC RDW Plt Count MPV Immature Gran % (Auto) Neut % (Auto) Lymph % (Auto) Ness % (Auto) Eos % (Auto) Baso % (Auto) Lymph # (Auto) Ness # (Auto) Eos # (Auto) Baso # (Auto) Abs Immat Gran (auto) Absolute Neuts (auto) Absolute Nucleated RBC Band Neutrophils % Nucleated RBC % Platelet Estimate % Immature Plt Fraction Hypochromasia Poikilocytosis Anisocytosis Target Cells Ovalocytes Schistocytes Haptoglobin 226 Sodium Potassium Chloride Carbon Dioxide Anion Gap BUN Creatinine Estim Creat Clear Calc Estimated GFR Glucose POC Capillary Glucose 234 H 216 H Calcium Magnesium Total Bilirubin AST ALT Alkaline Phosphatase Total Protein Albumin 01/08/25 01/09/25 01/09/25 20:15 03:21 07:42 WBC 7.2 RBC 2.80 L Hgb 8.1 L Hct 25.0 L MCV 89.3 MCH 28.9 MCHC 32.4 RDW 21.6 H Plt Count 70 L MPV TNP Immature Gran % (Auto) 10.5 H Neut % (Auto) 49.3 Lymph % (Auto) 18.9 Ness % (Auto) 18.7 H Eos % (Auto) 0.1 Baso % (Auto) 2.5 H Lymph # (Auto) 1.35 Ness # (Auto) 1.3 H Eos # (Auto) 0.0 Baso # (Auto) 0.2 H Abs Immat Gran (auto) 0.75 H Absolute Neuts (auto) 3.5 Absolute Nucleated RBC 0.290 H Band Neutrophils % Not Reportable Nucleated RBC % 4.1 H Platelet Estimate Decreased % Immature Plt Fraction 8.7 Hypochromasia 1+ Poikilocytosis 1+ Anisocytosis 1+ Target Cells Occasional Ovalocytes 1+ Schistocytes None seen Haptoglobin Sodium 129 L Potassium 4.0 Chloride 107 Carbon Dioxide 19 L Anion Gap 3 L BUN 19 H Creatinine 0.86 Estim Creat Clear Calc 42 Estimated GFR > 60 Glucose 155 H POC Capillary Glucose 189 H 137 H Calcium 7.5 L Magnesium 1.9 Total Bilirubin 1.4 H AST 30 ALT 15 Alkaline Phosphatase 94 Total Protein 6.3 Albumin 2.2 L
[2025-01-09] MEDS: SENNA/DOCUSATE SODIUM TABLET 1 TAB PO (16:27)
[2025-01-10] VITALS (11 sets, daily range): BP systolic 96–116; BP diastolic 44–68; PULSE 77–102; RESP 16–20; TEMP 36.6–36.7; O2SAT 97–100
[2025-01-10 04:42] LABS: Hematocrit 25.2 % (37.0-47.0); Hemoglobin 8.2 g/dL (12.0-15.0); Immature Platelet Fraction Pct 8.5 % (0.9-11.2); Mean Corpuscular HGB Conc 32.5 g/dl (32-36); Mean Corpuscular Hemoglobin 28.6 pg (26-34); Mean Corpuscular Volume 87.8 fl (80-100); Red Blood Count 2.87 M/mm3 (4.2-5.4); White Blood Count 7.4 K/mm3 (4.5-10.0)
[2025-01-10 04:43] LABS: Platelet Count Result 83 k/mm3 (150-375)
[2025-01-10 05:02] LABS: Anion Gap 3 mmol/L (4-12); Blood Urea Nitrogen 17 mg/dL (7-17); Calcium 7.7 mg/dL (8.4-10.2); Carbon Dioxide 20 mmol/L (22-30); Chloride 109 mmol/L (98-107); Estimated CRCL calculation 43 ml/min; Estimated Glomerular Filt Rate > 60; Glucose 142 mg/dL (65-110); Magnesium 1.7 mg/dL (1.6-2.3); Potassium 4.0 mmol/L (3.4-5.0); Sodium 132 mmol/L (137-145)
--- NOTE | 2025-01-10 06:21 | PM.PNCARD ---
Progress Note: A&P Assessment and Plan (1) Atrial fibrillation with rapid ventricular response: Code(s): I48.91 - Unspecified atrial fibrillation Status: Acute (2) Elevated troponin: Code(s): R79.89 - Other specified abnormal findings of blood chemistry Status: Acute (3) Moderate aortic stenosis: Code(s): I35.0 - Nonrheumatic aortic (valve) stenosis Status: Acute (4) Moderate mitral regurgitation: Code(s): I34.0 - Nonrheumatic mitral (valve) insufficiency Status: Acute (5) Moderate tricuspid regurgitation: Code(s): I07.1 - Rheumatic tricuspid insufficiency Status: Acute (6) Cardiomyopathy: Code(s): I42.9 - Cardiomyopathy, unspecified Status: Acute Plan Diagnosis: -AFib with RVR-symptomatic; not on anticoagulation due to anemia -Hypotension-SBP is around 100 this morning -Valvular heart disease that moderate to severe with aortic valve area of 1 cm2, moderate AR, moderate MR, moderate TR -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 b.i.d. for 5 days (until Monday) followed by 200 mg p.o. daily -Give digoxin 0.125 mg BID -Resume metoprolol 25mg BID -Plan for SABA cardioversion today as rate control not achieved with amiodarone and digoxin; unable to give BB due to hypotension. She will need one month of uninterrupted antocpagulation after the cardioversion. She was evaluated by hem/oncology and given anemia of chronic disease and no overt bleeding, OK to give anticoagulation and monitor -Outpatient consult with structural interventional cardiology for evaluation for left atrial appendage occlusion-unable to take anticoagulation due to anemia; and valvular heart disease (moderate , moderate MR, moderate TR) -Continue to monitor on telemetry -Check and replace electrolytes to keep potassium greater than 4 and magnesium greater than 2 -Plan was discussed with patient and she is agreeable Subjective Date/time seen: 01/10/25 06:21 Review of Systems Cardiovascular: Comments: As per HPI Respiratory: Comments: As per HPI Exam Narrative: General: Alert oriented x3, no acute distress Neck: Supple, no JVD Chest: Bilaterally clear to auscultation, no rales or rhonchi Cardiac: S1, S2 +, rapid rates, irregularly irregular rhythm, systolic murmur at apex and right upper sternal border Extremities: No pedal edema, no skin rash Neurologic: Alert and oriented x3, no focal neurological deficits Objective Data Vital Signs Vital Signs: Vital Signs - 24 hr 01/09/25 08:00 01/09/25 08:00 01/09/25 08:00 Temperature 36.4 C Pulse Rate 112 H 114 H Respiratory Rate 20 Blood Pressure 121/68 Pulse Oximetry 99 Oxygen Delivery Room Air Fraction of Inspired Oxygen 21 01/09/25 08:59 01/09/25 08:59 01/09/25 09:00 Temperature Pulse Rate 107 H 107 H 107 H Respiratory Rate Blood Pressure Pulse Oximetry Oxygen Delivery Fraction of Inspired Oxygen 01/09/25 10:00 01/09/25 11:36 01/09/25 12:00 Temperature Pulse Rate 94 104 H Respiratory Rate Blood Pressure Pulse Oximetry Oxygen Delivery Room Air Fraction of Inspired Oxygen 01/09/25 12:00 01/09/25 14:00 01/09/25 15:34 Temperature 36.9 C Pulse Rate 89 84 Respiratory Rate 18 Blood Pressure 110/47 L Pulse Oximetry 98 Oxygen Delivery Room Air Fraction of Inspired Oxygen 01/09/25 16:00 01/09/25 16:00 01/09/25 16:26 Temperature 36.5 C Pulse Rate 99 97 103 H Respiratory Rate 20 Blood Pressure 103/53 L Pulse Oximetry 97 Oxygen Delivery Fraction of Inspired Oxygen 01/09/25 16:26 01/09/25 18:00 01/09/25 20:00 Temperature 36.4 C Pulse Rate 103 H 116 H 103 H Respiratory Rate 20 Blood Pressure 114/52 L Pulse Oximetry 98 Oxygen Delivery Fraction of Inspired Oxygen 01/09/25 20:00 01/09/25 20:00 01/09/25 21:10 Temperature Pulse Rate 98 100 98 Respiratory Rate 20 Blood Pressure Pulse Oximetry 98 Oxygen Delivery Room Air Fraction of Inspired Oxygen 21 01/09/25 22:00 01/09/25 23:17 01/09/25 23:17 Temperature Pulse Rate 85 90 90 Respiratory Rate 20 Blood Pressure Pulse Oximetry 98 Oxygen Delivery Room Air Fraction of Inspired Oxygen 21 01/09/25 23:44 01/10/25 02:00 01/10/25 04:00 Temperature 36.7 C 36.6 C Pulse Rate 100 90 87 Respiratory Rate 20 20 Blood Pressure 105/44 L 112/60 Pulse Oximetry 97 97 Oxygen Delivery Fraction of Inspired Oxygen 01/10/25 04:00 01/10/25 04:00 Temperature Pulse Rate 92 92 Respiratory Rate 20 Blood Pressure Pulse Oximetry 97 Oxygen Delivery Room Air Fraction of Inspired Oxygen 21 Intake/Output Intake/Output: Intake & Output 01/07/25 01/08/25 01/09/25 01/10/25 23:59 23:59 23:59 23:59 Intake Total 1410 651 8783.7 240 Output Total 465 620 8940 Balance 890 -355 424.7 240 Meds/Results Medications: Active Medications Generic Name Dose Route Start Last Admin Trade Name Freq PRN Reason Stop Dose Admin Amiodarone HCl 200 mg 01/12/25 09:00 Amiodarone Hcl 200 Mg Tablet PO DAILY@0800 [facility] Amiodarone HCl 400 mg 01/08/25 09:15 01/09/25 16:26 Amiodarone Hcl 200 Mg Tablet PO 01/11/25 23:00 400 mg BID JEN Administration Amoxicillin/Clavulanate Potassium 1 tablet 01/08/25 21:00 01/09/25 21:10 Amoxicillin/Clavulanate K 875-125 Mg Tab PO 01/11/25 09:01 1 tablet Q12HR JEN Administration Dextrose 12.5 gm 01/05/25 01:39 Dextrose 50% 25 Gm/50 Ml Syringe IV PUSH PRN PRN Hypoglycemia Protocol Digoxin 125 mcg 01/09/25 09:00 01/09/25 16:26 Digoxin Tab 125 Mcg Tablet PO 125 mcg BID JEN Administration Fish Oil 1 gm 01/05/25 09:00 01/09/25 09:00 [place] 3 Polyunsat Fatty Acids 1 Gm Cap PO 1 gm QAM JEN Administration Folic Acid 1 mg 01/05/25 09:00 01/09/25 09:00 Folic Acid 1 Mg Tablet PO 1 mg DAILY JEN Administration Glucagon 1 mg 01/05/25 01:39 Glucagon For Inj 1 Mg Vial IM PRN PRN Hypoglycemia Protocol Glucose 15 gm 01/05/25 01:39 Glucose Oral Gel 15 Gm Of Glucse In 37.5 Gm Tube PO PRN PRN Hypoglycemia Protocol Dextrose 1,000 mls @ 100 mls/hr 01/05/25 01:39 Dextrose 5% 1,000 Ml IVPB PRN PRN Hypoglycemia Protocol Sodium Chloride 1,000 mls @ 50 mls/hr 01/08/25 08:35 01/10/25 06:08 Normal Saline Iv IV CONT Not Given .Q20H [facility] Insulin Aspart 3 - 6 units 01/05/25 08:00 01/09/25 16:23 Insulin Aspart (*Bkc) 100 Units/Ml SUB-Q Not Given TIDWM [facility] Protocol Insulin Glargine 12 units 01/05/25 09:00 01/09/25 21:10 Insulin Glargine (*Bkc) 100 Units/Ml SUB-Q 12 units Q12HR JEN Administration Metoprolol Tartrate 25 mg 01/08/25 09:20 01/09/25 21:10 Metoprolol Tartrate 25 Mg Tablet PO 25 mg Q12HR JEN Administration Polyethylene Glycol 17 gm 01/05/25 01:38 Polyethylene Glycol 3350 17 Gm Powd.Pack PO BID PRN Constipation Senna/Docusate Sodium 1 tab 01/09/25 17:00 01/09/25 16:27 Senna/Docusate Sodium Tablet PO 1 tab BID JEN Administration Radiology Results: ITS Impressions Chest X-Ray 01/04/25 17:55 Impression: Mild CHF Head CT 01/05/25 17:34 Impression: 1.No acute intracranial abnormality. Abdomen/Pelvis CT 01/06/25 16:01 IMPRESSION: 1. Mild pulmonary edema. 2. Small pleural effusions. 3. Cystitis. 4. Bilateral acute pyelonephritis. Labs Labs: Laboratory Results - last 24 hr 01/09/25 01/09/25 01/09/25 07:42 11:41 16:03 WBC RBC Hgb Hct MCV MCH MCHC RDW Plt Count MPV % Immature Plt Fraction Sodium Potassium Chloride Carbon Dioxide Anion Gap BUN Creatinine Estim Creat Clear Calc Estimated GFR Glucose POC Capillary Glucose 137 H 125 H 132 H Calcium Magnesium 01/09/25 01/10/25 20:06 04:11 WBC 7.4 RBC 2.87 L Hgb 8.2 L Hct 25.2 L MCV 87.8 MCH 28.6 MCHC 32.5 RDW 21.5 H Plt Count 83 L MPV TNP % Immature Plt Fraction 8.5 Sodium 132 L Potassium 4.0 Chloride 109 H Carbon Dioxide 20 L Anion Gap 3 L BUN 17 Creatinine 0.84 Estim Creat Clear Calc 43 Estimated GFR > 60 Glucose 142 H POC Capillary Glucose 204 H Calcium 7.7 L Magnesium 1.7
--- NOTE | 2025-01-10 08:00 | P.PNCA_ITS ---
Progress Note: A&P Assessment and Plan (1) Atrial fibrillation with rapid ventricular response: Code(s): I48.91 - Unspecified atrial fibrillation Status: Acute (2) Elevated troponin: Code(s): R79.89 - Other specified abnormal findings of blood chemistry Status: Acute (3) Moderate aortic stenosis: Code(s): I35.0 - Nonrheumatic aortic (valve) stenosis Status: Acute (4) Moderate mitral regurgitation: Code(s): I34.0 - Nonrheumatic mitral (valve) insufficiency Status: Acute (5) Moderate tricuspid regurgitation: Code(s): I07.1 - Rheumatic tricuspid insufficiency Status: Acute (6) Cardiomyopathy: Code(s): I42.9 - Cardiomyopathy, unspecified Status: Acute Plan Diagnosis: -AFib with RVR-symptomatic; not on anticoagulation due to anemia -Hypotension- BP improved -Valvular heart disease that moderate to severe with aortic valve area of 1 cm2, moderate AR, moderate MR, moderate TR -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 Amiodarone was started in the hospital in the setting of RVR to the 140s-150s as BB could not be administered due to hypotension. However, Amiodarone can cause chemical cardioversion and risk of stroke. In the absence of anticoagulation, will stop amiodarone as patient rates are better controlled with reinitiation BB and starting digoxin -Continue digoxin 0.125 mg BID -Continue metoprolol 25mg BID -GDMT for CM. Continue BB. Add ACEi/ARB, empagliflozin as BP tolerates -Continue to monitor on telemetry -Outpatient consult with SHD for VHD and evaluation for candidacy of LAAC -Check and replace electrolytes to keep potassium greater than 4 and magnesium greater than 2 -Plan was discussed with patient and she is agreeable Subjective Date/time seen: 01/10/25 08:00 Interval history: Reason for encounter: AFib with RVR Other medical history: Urosepsis treated with abx, diabetes, hypertension, CHF, anemia of chronic disease status post PRBC transfusion during this hosp italization Interval history: No chest pain, palpitations. Telemetry shows AFib RVR with rates in the 90s. Rates better controlled with amiodarone, BB and digoxin. Review of Systems Cardiovascular: Comments: As per HPI Respiratory: Comments: As per HPI Exam Narrative: General: Alert oriented x3, no acute distress Neck: Supple, no JVD Chest: Bilaterally clear to auscultation, no rales or rhonchi Cardiac: S1, S2 +, rapid rates, irregularly irregular rhythm, systolic murmur at apex and right upper sternal border Extremities: No pedal edema, no skin rash Neurologic: Alert and oriented x3, no focal neurological deficits Objective Data Vital Signs Vital Signs: Vital Signs - 24 hr 01/09/25 08:59 01/09/25 08:59 01/09/25 09:00 Temperature Pulse Rate 107 H 107 H 107 H Respiratory Rate Blood Pressure Pulse Oximetry Oxygen Delivery Fraction of Inspired Oxygen 01/09/25 10:00 01/09/25 11:36 01/09/25 12:00 Temperature Pulse Rate 94 104 H Respiratory Rate Blood Pressure Pulse Oximetry Oxygen Delivery Room Air Fraction of Inspired Oxygen 01/09/25 12:00 01/09/25 14:00 01/09/25 15:34 Temperature 36.9 C Pulse Rate 89 84 Respiratory Rate 18 Blood Pressure 110/47 L Pulse Oximetry 98 Oxygen Delivery Room Air Fraction of Inspired Oxygen 01/09/25 16:00 01/09/25 16:00 01/09/25 16:26 Temperature 36.5 C Pulse Rate 99 97 103 H Respiratory Rate 20 Blood Pressure 103/53 L Pulse Oximetry 97 Oxygen Delivery Fraction of Inspired Oxygen 01/09/25 16:26 01/09/25 18:00 01/09/25 20:00 Temperature 36.4 C Pulse Rate 103 H 116 H 103 H Respiratory Rate 20 Blood Pressure 114/52 L Pulse Oximetry 98 Oxygen Delivery Fraction of Inspired Oxygen 01/09/25 20:00 01/09/25 20:00 01/09/25 21:10 Temperature Pulse Rate 98 100 98 Respiratory Rate 20 Blood Pressure Pulse Oximetry 98 Oxygen Delivery Room Air Fraction of Inspired Oxygen 21 01/09/25 22:00 01/09/25 23:17 01/09/25 23:17 Temperature Pulse Rate 85 90 90 Respiratory Rate 20 Blood Pressure Pulse Oximetry 98 Oxygen Delivery Room Air Fraction of Inspired Oxygen 21 01/09/25 23:44 01/10/25 02:00 01/10/25 04:00 Temperature 36.7 C 36.6 C Pulse Rate 100 90 87 Respiratory Rate 20 20 Blood Pressure 105/44 L 112/60 Pulse Oximetry 97 97 Oxygen Delivery Fraction of Inspired Oxygen 01/10/25 04:00 01/10/25 04:00 Temperature Pulse Rate 92 92 Respiratory Rate 20 Blood Pressure Pulse Oximetry 97 Oxygen Delivery Room Air Fraction of Inspired Oxygen 21 Intake/Output Intake/Output: Intake & Output 01/07/25 01/08/25 01/09/25 01/10/25 23:59 23:59 23:59 23:59 Intake Total 9457 438 5263.7 240 Output Total 328 356 7077 Balance 890 -355 424.7 240 Meds/Results Medications: Active Medications Generic Name Dose Route Start Last Admin Trade Name Freq PRN Reason Stop Dose Admin Amiodarone HCl 200 mg 01/12/25 09:00 Amiodarone Hcl 200 Mg Tablet PO DAILY@0800 [facility] Amiodarone HCl 400 mg 01/08/25 09:15 01/09/25 16:26 Amiodarone Hcl 200 Mg Tablet PO 01/11/25 23:00 400 mg BID JEN Administration Amoxicillin/Clavulanate Potassium 1 tablet 01/08/25 21:00 01/09/25 21:10 Amoxicillin/Clavulanate K 875-125 Mg Tab PO 01/11/25 09:01 1 tablet Q12HR JEN Administration Dextrose 12.5 gm 01/05/25 01:39 Dextrose 50% 25 Gm/50 Ml Syringe IV PUSH PRN PRN Hypoglycemia Protocol Digoxin 125 mcg 01/10/25 09:00 Digoxin Tab 125 Mcg Tablet PO DAILY [facility] Fish Oil 1 gm 01/05/25 09:00 01/09/25 09:00 [place] 3 Polyunsat Fatty Acids 1 Gm Cap PO 1 gm QAM JEN Administration Folic Acid 1 mg 01/05/25 09:00 01/09/25 09:00 Folic Acid 1 Mg Tablet PO 1 mg DAILY JEN Administration Glucagon 1 mg 01/05/25 01:39 Glucagon For Inj 1 Mg Vial IM PRN PRN Hypoglycemia Protocol Glucose 15 gm 01/05/25 01:39 Glucose Oral Gel 15 Gm Of Glucse In 37.5 Gm Tube PO PRN PRN Hypoglycemia Protocol Dextrose 1,000 mls @ 100 mls/hr 01/05/25 01:39 Dextrose 5% 1,000 Ml IVPB PRN PRN Hypoglycemia Protocol Sodium Chloride 1,000 mls @ 50 mls/hr 01/08/25 08:35 01/10/25 06:08 Normal Saline Iv IV CONT Not Given .Q20H JEN Insulin Aspart 3 - 6 units 01/05/25 08:00 01/10/25 07:22 Insulin Aspart (*Bkc) 100 Units/Ml SUB-Q Not Given TIDWM [facility] Protocol Insulin Glargine 12 units 01/05/25 09:00 01/09/25 21:10 Insulin Glargine (*Bkc) 100 Units/Ml SUB-Q 12 units Q12HR JEN Administration Metoprolol Tartrate 25 mg 01/08/25 09:20 01/09/25 21:10 Metoprolol Tartrate 25 Mg Tablet PO 25 mg Q12HR JEN Administration Polyethylene Glycol 17 gm 01/05/25 01:38 Polyethylene Glycol 3350 17 Gm Powd.Pack PO BID PRN Constipation Senna/Docusate Sodium 1 tab 01/09/25 17:00 01/09/25 16:27 Senna/Docusate Sodium Tablet PO 1 tab BID JEN Administration Radiology Results: ITS Impressions Chest X-Ray 01/04/25 17:55 Impression: Mild CHF Head CT 01/05/25 17:34 Impression: 1.No acute intracranial abnormality. Abdomen/Pelvis CT 01/06/25 16:01 IMPRESSION: 1. Mild pulmonary edema. 2. Small pleural effusions. 3. Cystitis. 4. Bilateral acute pyelonephritis. Labs Labs: Laboratory Results - last 24 hr 01/09/25 01/09/25 01/09/25 11:41 16:03 20:06 WBC RBC Hgb Hct MCV MCH MCHC RDW Plt Count MPV % Immature Plt Fraction Sodium Potassium Chloride Carbon Dioxide Anion Gap BUN Creatinine Estim Creat Clear Calc Estimated GFR Glucose POC Capillary Glucose 125 H 132 H 204 H Calcium Magnesium 01/10/25 01/10/25 04:11 07:16 WBC 7.4 RBC 2.87 L Hgb 8.2 L Hct 25.2 L MCV 87.8 MCH 28.6 MCHC 32.5 RDW 21.5 H Plt Count 83 L MPV TNP % Immature Plt Fraction 8.5 Sodium 132 L Potassium 4.0 Chloride 109 H Carbon Dioxide 20 L Anion Gap 3 L BUN 17 Creatinine 0.84 Estim Creat Clear Calc 43 Estimated GFR > 60 Glucose 142 H POC Capillary Glucose 112 H Calcium 7.7 L Magnesium 1.7
[2025-01-10] MEDS: METOPROLOL TARTRATE 25 MG TABLET PO ×2 (08:49→21:56)
[2025-01-10] MEDS: FOLIC ACID 1 MG TABLET PO (08:49)
[2025-01-10] MEDS: OMEGA 3 POLYUNSAT FATTY ACIDS 1 GM CAP PO (08:49)
[2025-01-10] MEDS: DIGOXIN TAB 125 MCG TABLET PO (08:49)
[2025-01-10] MEDS: INSULIN GLARGINE (*BKC) 100 UNITS/ML 12 UNITS SUB-Q ×2 (08:50→21:56)
--- NOTE | 2025-01-10 09:33 | P.PNIM_ITS ---
Progress Note: A&P Assessment and Plan (1) Hypotension: Code(s): I95.9 - Hypotension, unspecified Status: Acute (2) Atrial fibrillation with rapid ventricular response: Code(s): I48.91 - Unspecified atrial fibrillation Status: Acute (3) Acute UTI: Code(s): N39.0 - Urinary tract infection, site not specified Status: Acute (4) Anemia: Code(s): D64.9 - Anemia, unspecified Status: Acute (5) Acute on chronic anemia: Code(s): D64.9 - Anemia, unspecified Status: Acute (6) Elevated troponin: Code(s): R79.89 - Other specified abnormal findings of blood chemistry Status: Acute Plan 84-year-old female with PMH neurocognitive disorder, 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 Upon arrival the patient A&O x2 and in unreliable historian. Found to be in AFib with RVR with an acute UTI and severe anemia. ----- Complicated UTI, present on admission with severe sepsis -urinalysis 01/04/2025 many squamous cells, 4+ bacteria, 2+ leukocyte esterase. CT abdomen pelvis on admission demonstrated findings concerning for urinary tract infection, small pleural effusions, mild pulmonary edema, bilateral acute pyelonephritis. -urine culture did not reflex, urine culture finally obtained on 01/06/2025 after antibiotics were given. Final results negative. Unreliable results. Ceftriaxone transition to Augmentin for a total 7 day course. Leukocytosis and bandemia resolved. -01/05/2025 blood culture x2, no growth at 48 hours Anemia, normocytic Thrombocytopenia -unclear baseline, 6.9 on admission. Received 2 units PRBC, has stabilized with a hemoglobin around 9.0. -hemoccult negative reported in ER. No evidence of overt bleeding. -iron 110, TIBC 237, ferritin 758. Vitamin B12 852. Folic acid greater than 20. TSH 1.150. Haptoglobin 226 -hematology consulted. See below. AFib with RVR -Received metoprolol on admission, due to persistent tachycardia and hypotension she was given amiodarone GTT, ended on 01/06/2025. -persistent RVR. Patient has been uncontrolled, there has been improvement on 01/09/2025 with amiodarone and digoxin loading. Blood pressure has improved, metoprolol being given. -01/10/2025: Amiodarone has been discontinued, continue digoxin 125 mcg p.o. q.day, metoprolol 25 mg p.o. b.i.d.. -keep potassium greater than 4, magnesium greater than 2. -Poor skin turgor, dry mucous membranes. Started normal saline at 50 cc/hour on 01/08/2025 with improvement in her blood pressure. No further swelling, dry crackles, scant. She has 25% of oral intake with a poor appetite. Continue dietary supplements. She is net positive since admission but she is incontinent going in the diaper so the documentation is inaccurate. Continue dietitian consultation. Confusion/slurred speech, resolved. -she does have a baseline neurocognitive disorder/cognitive communication disorder -A&O x2, pleasantly confused. -CT brain on admission no evidence of ischemic/hemorrhagic event CHF, systolic -BNP 34683 on admission, no evidence of clinical overload -on metoprolol. Add Entresto, empagliflozin as BP tolerates. -TTE 01/07/25: Summary 1. Complete two-dimensional, color flow and Doppler transthoracic echocardiogram is performed. 2. Left ventricular chamber dimension is mildly enlarged. 3. Left ventricular systolic function is mildly reduced, estimated at 45-50. 4. There is moderate asymmetric septal increased left ventricular wall thickness. 5. The left ventricular diastolic function is abnormal. 6. Right ventricular chamber dimension is mildly enlarged. 7. Left atrial chamber dimension is moderately enlarged. 8. Right atrial chamber dimension is moderately enlarged. 9. There is moderate to severe aortic valve stenosis with a peak velocity of 291 cm/s, mean gradient of 15 mmHg, and aortic valve area of 1.0 cm2. 10. There is moderate aortic valve regurgitation. 11. There is severe aortic valve calcification. 12. There is moderate mitral valve regurgitation. 13. There is moderate tricuspid valve regurgitation. 14. Moderate pulmonary hypertension, estimated pulmonary arterial systolic pressure is 59 mmHg. 15. There is mild pulmonic regurgitation. 16. The prox ascending aorta size is dilated. -cardiology following Lactic acidosis -3.2 on admission, resolved status post 2 units PRBC and isotonic fluid resuscitation Elevated serum creatinine -1.26 on admission. Likely EDDA since serum creatinine has come down to normal. Likely due to AFib/sepsis. Elevated troponin -present on admission, likely due to sepsis in AFib with RVR. Peak. No chest pain, no shortness of breath. Cardiology consulted Insulin-dependent diabetes mellitus -blood sugars reviewed, currently at goal for a elderly female poor oral intake, continue current regimen, avoid over-correction. -Accu-Cheks a.c. HS with Lantus 12 units subQ b.i.d.. Constipation -[employer]ERSON Senokot S1 tab p.o. q.day resumed -01/07/2025 no BM, increase to 2 tabs b.i.d. -had 3 bowel movements on 01/08/2025: Will decrease tabs back to 1 p.o. b.i.d. -continue monitoring Hyponatremia -stable, continue to monitor. Continue resuscitation, dehydrated. ----- To remain in IMU. DNR. SCDs. Diabetic heart healthy diet. consult dietitian, poor oral intake. Continue dietary supplements. Normal saline at 50 cc/hour Daily weights/intake/output. Ambulate with assistance PT/OT evaluations for weakness. [facility], was at [facility] prior. Subjective Date/time seen: 01/10/25 09:33 Interval history: No major acute overnight events. Patient is pleasantly confused. She denies pain, shortness of breath. Reports feeling weak still. Review of Systems Review of Systems: All systems reviewed & are unremarkable except as noted in HPI and below (Subjective) Exam Const: General: comfortable and no acute distress Other: A&O x2 HENMT: Mouth: Yes dry mucous membranes Eyes: Pupils: Equal, round and reactive pupils present Neck: Neck: supple Resp: Effort & Inspection: normal respiratory effort Other: Scant dry crackles Cardio: Rate: regular rate Rhythm: abnormal rhythm GI: Inspection: non-distended GI Palp: Yes Soft to palpation Auscultation: normal bowel sounds Skin: Other: Poor skin turgor Neuro: Motor exam (neuro): 5/5 motor strength present throughout Extrem: General: no edema Objective Data Vital Signs Vital Signs: Vital Signs - 24 hr 01/09/25 10:00 01/09/25 11:36 01/09/25 12:00 Temperature Pulse Rate 94 104 H Respiratory Rate Blood Pressure Pulse Oximetry Oxygen Delivery Room Air Fraction of Inspired Oxygen 01/09/25 12:00 01/09/25 14:00 01/09/25 15:34 Temperature 98.4 F Pulse Rate 89 84 Respiratory Rate 18 Blood Pressure 110/47 L Pulse Oximetry 98 Oxygen Delivery Room Air Fraction of Inspired Oxygen 01/09/25 16:00 01/09/25 16:00 01/09/25 16:26 Temperature 97.7 F Pulse Rate 99 97 103 H Respiratory Rate 20 Blood Pressure 103/53 L Pulse Oximetry 97 Oxygen Delivery Fraction of Inspired Oxygen 01/09/25 16:26 01/09/25 18:00 01/09/25 20:00 Temperature 97.6 F Pulse Rate 103 H 116 H 103 H Respiratory Rate 20 Blood Pressure 114/52 L Pulse Oximetry 98 Oxygen Delivery Fraction of Inspired Oxygen 01/09/25 20:00 01/09/25 20:00 01/09/25 21:10 Temperature Pulse Rate 98 100 98 Respiratory Rate 20 Blood Pressure Pulse Oximetry 98 Oxygen Delivery Room Air Fraction of Inspired Oxygen 21 01/09/25 22:00 01/09/25 23:17 01/09/25 23:17 Temperature Pulse Rate 85 90 90 Respiratory Rate 20 Blood Pressure Pulse Oximetry 98 Oxygen Delivery Room Air Fraction of Inspired Oxygen 21 01/09/25 23:44 01/10/25 02:00 01/10/25 04:00 Temperature 98.1 F 98 F Pulse Rate 100 90 87 Respiratory Rate 20 20 Blood Pressure 105/44 L 112/60 Pulse Oximetry 97 97 Oxygen Delivery Fraction of Inspired Oxygen 01/10/25 04:00 01/10/25 04:00 01/10/25 08:00 Temperature 97.8 F Pulse Rate 92 92 97 Respiratory Rate 20 20 Blood Pressure 116/56 L Pulse Oximetry 97 100 Oxygen Delivery Room Air Fraction of Inspired Oxygen 21 01/10/25 08:00 01/10/25 08:00 01/10/25 08:49 Temperature Pulse Rate 102 H 99 Respiratory Rate Blood Pressure Pulse Oximetry Oxygen Delivery Room Air Fraction of Inspired Oxygen 21 Intake/Output Intake/Output: Intake & Output 01/07/25 01/08/25 01/09/25 01/10/25 23:59 23:59 23:59 23:59 Intake Total 0965 488 8193.7 240 Output Total 243 091 4842 Balance 890 -355 424.7 240 Meds/Results Medications: Active Medications Generic Name Dose Route Start Last Admin Trade Name Freq PRN Reason Stop Dose Admin Amoxicillin/Clavulanate Potassium 1 tablet 01/08/25 21:00 01/10/25 08:49 Amoxicillin/Clavulanate K 875-125 Mg Tab PO 01/11/25 09:01 1 tablet Q12HR JEN Administration Dextrose 12.5 gm 01/05/25 01:39 Dextrose 50% 25 Gm/50 Ml Syringe IV PUSH PRN PRN Hypoglycemia Protocol Digoxin 125 mcg 01/10/25 09:00 01/10/25 08:49 Digoxin Tab 125 Mcg Tablet PO 125 mcg DAILY JEN Administration Fish Oil 1 gm 01/05/25 09:00 01/10/25 08:49 [place] 3 Polyunsat Fatty Acids 1 Gm Cap PO 1 gm QAM JEN Administration Folic Acid 1 mg 01/05/25 09:00 01/10/25 08:49 Folic Acid 1 Mg Tablet PO 1 mg DAILY JEN Administration Glucagon 1 mg 01/05/25 01:39 Glucagon For Inj 1 Mg Vial IM PRN PRN Hypoglycemia Protocol Glucose 15 gm 01/05/25 01:39 Glucose Oral Gel 15 Gm Of Glucse In 37.5 Gm Tube PO PRN PRN Hypoglycemia Protocol Dextrose 1,000 mls @ 100 mls/hr 01/05/25 01:39 Dextrose 5% 1,000 Ml IVPB PRN PRN Hypoglycemia Protocol Sodium Chloride 1,000 mls @ 50 mls/hr 01/08/25 08:35 01/10/25 06:08 Normal Saline Iv IV CONT Not Given .Q20H [facility] Insulin Aspart 3 - 6 units 01/05/25 08:00 01/10/25 07:22 Insulin Aspart (*Bkc) 100 Units/Ml SUB-Q Not Given TIDWM [facility] Protocol Insulin Glargine 12 units 01/05/25 09:00 01/10/25 08:50 Insulin Glargine (*Bkc) 100 Units/Ml SUB-Q 12 units Q12HR JEN Administration Metoprolol Tartrate 25 mg 01/08/25 09:20 01/10/25 08:49 Metoprolol Tartrate 25 Mg Tablet PO 25 mg Q12HR JEN Administration Polyethylene Glycol 17 gm 01/05/25 01:38 Polyethylene Glycol 3350 17 Gm Powd.Pack PO BID PRN Constipation Senna/Docusate Sodium 1 tab 01/09/25 17:00 01/10/25 08:46 Senna/Docusate Sodium Tablet PO Not Given BID [facility] Radiology Results: ITS Impressions Chest X-Ray 01/04/25 17:55 Impression: Mild CHF Head CT 01/05/25 17:34 Impression: 1.No acute intracranial abnormality. Abdomen/Pelvis CT 01/06/25 16:01 IMPRESSION: 1. Mild pulmonary edema. 2. Small pleural effusions. 3. Cystitis. 4. Bilateral acute pyelonephritis. Labs Labs: Laboratory Results - last 24 hr 01/09/25 01/09/25 01/09/25 11:41 16:03 20:06 WBC RBC Hgb Hct MCV MCH MCHC RDW Plt Count MPV % Immature Plt Fraction Sodium Potassium Chloride Carbon Dioxide Anion Gap BUN Creatinine Estim Creat Clear Calc Estimated GFR Glucose POC Capillary Glucose 125 H 132 H 204 H Calcium Magnesium 01/10/25 01/10/25 04:11 07:16 WBC 7.4 RBC 2.87 L Hgb 8.2 L Hct 25.2 L MCV 87.8 MCH 28.6 MCHC 32.5 RDW 21.5 H Plt Count 83 L MPV TNP % Immature Plt Fraction 8.5 Sodium 132 L Potassium 4.0 Chloride 109 H Carbon Dioxide 20 L Anion Gap 3 L BUN 17 Creatinine 0.84 Estim Creat Clear Calc 43 Estimated GFR > 60 Glucose 142 H POC Capillary Glucose 112 H Calcium 7.7 L Magnesium 1.7
--- NOTE | 2025-01-10 10:12 | PCNFU ---
Nutrition Follow-Up Complete: Inadequate oral intake related to loss of appetite as evidenced by intakes 25-50% Adequate PO intake at least 50-75%- Slow progress with goal. Continue same goal Goal: Pt current nutrition is Heart healthy, diabetic consistent carb diet. Glucerna BID (220 kcal 10 g protein) Nutrition recommendation: No new recommendations. Continue current nutrition care plan and orders. Agree with orders Last recorded weight is 77.4 kg. Bowel Motility: +2 BMs 01/09 Labs Reviewed: Hgb 8.2, Hct 25.2, Alb 2.2, Na 132, Glu 142 Meds Noted: Folic acid, Lantus, novolog, senna Skin: No pressure injuries noted Additional Notes: Intakes around 5-25% with one instance of 75% last 48 hours. Drinking some Glucerna. Continue current nutrition plan. Agree with current orders Monitoring intakes, weights, labs, supplement tolerance, output, plan of care Follow up in 5 days
--- NOTE | 2025-01-10 14:19 | PC.NURSE ---
This patient, Char Garrett, was transferred to [ ] on 01/10/25 at 1419. Personal belongings sent with patient. Report given to [ ]. Appropriate documentation sent with patient.
--- NOTE | 2025-01-10 15:34 | PC.NURSE ---
RN was told in report from IMU that fluids were paused and RN received patient with fluids paused still. RN reached out to MD and MD was coming to assess if fluids needed DC.
[2025-01-11] VITALS (7 sets, daily range): BP systolic 108–115; BP diastolic 48–54; PULSE 78–92; RESP 17–18; TEMP 36.4–36.6; O2SAT 99–100
[2025-01-11 05:26] LABS: Hematocrit 25.0 % (37.0-47.0); Hemoglobin 8.1 g/dL (12.0-15.0); Mean Corpuscular HGB Conc 32.4 g/dl (32-36); Mean Corpuscular Hemoglobin 29.3 pg (26-34); Mean Corpuscular Volume 90.6 fl (80-100); Platelet Count Result 58 k/mm3 (150-375); Red Blood Count 2.76 M/mm3 (4.2-5.4); White Blood Count 7.3 K/mm3 (4.5-10.0)
[2025-01-11 05:53] LABS: Anion Gap 5 mmol/L (4-12); Blood Urea Nitrogen 15 mg/dL (7-17); Calcium 7.6 mg/dL (8.4-10.2); Carbon Dioxide 20 mmol/L (22-30); Chloride 108 mmol/L (98-107); Estimated CRCL calculation 42 ml/min; Estimated Glomerular Filt Rate > 60; Glucose 140 mg/dL (65-110); Potassium 3.8 mmol/L (3.4-5.0); Sodium 133 mmol/L (137-145)
[2025-01-11] MEDS: OMEGA 3 POLYUNSAT FATTY ACIDS 1 GM CAP PO (09:18)
[2025-01-11] MEDS: FOLIC ACID 1 MG TABLET PO (09:18)
[2025-01-11] MEDS: METOPROLOL TARTRATE 25 MG TABLET PO (09:18)
[2025-01-11] MEDS: DIGOXIN TAB 125 MCG TABLET PO (09:18)
[2025-01-11] MEDS: INSULIN GLARGINE (*BKC) 100 UNITS/ML 12 UNITS SUB-Q ×2 (09:24→22:08)
--- NOTE | 2025-01-11 11:09 | P.PNIM_ITS ---
Progress Note: A&P Assessment and Plan (1) Hypotension: Code(s): I95.9 - Hypotension, unspecified Status: Acute (2) Atrial fibrillation with rapid ventricular response: Code(s): I48.91 - Unspecified atrial fibrillation Status: Acute (3) Acute UTI: Code(s): N39.0 - Urinary tract infection, site not specified Status: Acute (4) Anemia: Code(s): D64.9 - Anemia, unspecified Status: Acute (5) Acute on chronic anemia: Code(s): D64.9 - Anemia, unspecified Status: Acute (6) Elevated troponin: Code(s): R79.89 - Other specified abnormal findings of blood chemistry Status: Acute Plan 84-year-old female with PMH neurocognitive disorder, 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 on 01/05/2025 from [facility] due to confusion and slurred speech. Upon arrival the patient A&O x2 and in unreliable historian. Found to be in AFib with RVR with an acute UTI and severe anemia. ----- Complicated UTI, present on admission with severe sepsis -urinalysis 01/04/2025 many squamous cells, 4+ bacteria, 2+ leukocyte esterase. CT abdomen pelvis on admission demonstrated findings concerning for urinary tract infection, small pleural effusions, mild pulmonary edema, bilateral acute pyelonephritis. -urine culture did not reflex, urine culture finally obtained on 01/06/2025 after antibiotics were given. Final results negative. Unreliable results. Ceftriaxone transition to Augmentin for a total 7 day course. Leukocytosis and bandemia resolved. -01/05/2025 blood culture x2, no growth at 48 hours Anemia, normocytic Thrombocytopenia -unclear baseline, 6.9 on admission. Received 2 units PRBC, has stabilized with a hemoglobin around 9.0. -hemoccult negative reported in ER. No evidence of overt bleeding. -iron 110, TIBC 237, ferritin 758. Vitamin B12 852. Folic acid greater than 20. TSH 1.150. Haptoglobin 226 -hematology consulted. See below. AFib with RVR -keep potassium greater than 4, magnesium greater than 2. -she has improved with low volume continue was fluid infusion. We will discontinue that on 01/11/2025. She reports poor appetite and really does not with eat or drink anything. Dietary supplements t.i.d. with Glucerna. Dietitian consultation. Initially she was on metoprolol but that was held due to low blood pressure which is improved status post volume resuscitation. Continue metoprolol 25 mg p.o. b.i.d., digoxin 125 mcg p.o. q.day. Amiodarone has been discontinued to prevent cardioversion and risk of stroke. Continue telemetry, she continues to be in AFib with better controlled rate in the 90s. Confusion/slurred speech, resolved. -she does have a baseline neurocognitive disorder/cognitive communication disorder -A&O x2, pleasantly confused. -CT brain on admission no evidence of ischemic/hemorrhagic event CHF, systolic -BNP [id number] on admission, no evidence of clinical overload -on metoprolol. Add Entresto, empagliflozin as BP tolerates. -TTE 01/07/25: Summary 1. Complete two-dimensional, color flow and Doppler transthoracic echocardiogram is performed. 2. Left ventricular chamber dimension is mildly enlarged. 3. Left ventricular systolic function is mildly reduced, estimated at 45-50. 4. There is moderate asymmetric septal increased left ventricular wall thickness. 5. The left ventricular diastolic function is abnormal. 6. Right ventricular chamber dimension is mildly enlarged. 7. Left atrial chamber dimension is moderately enlarged. 8. Right atrial chamber dimension is moderately enlarged. 9. There is moderate to severe aortic valve stenosis with a peak velocity of 291 cm/s, mean gradient of 15 mmHg, and aortic valve area of 1.0 cm2. 10. There is moderate aortic valve regurgitation. 11. There is severe aortic valve calcification. 12. There is moderate mitral valve regurgitation. 13. There is moderate tricuspid valve regurgitation. 14. Moderate pulmonary hypertension, estimated pulmonary arterial systolic pressure is 59 mmHg. 15. There is mild pulmonic regurgitation. 16. The prox ascending aorta size is dilated. -cardiology following Lactic acidosis -3.2 on admission, resolved status post 2 units PRBC and isotonic fluid resuscitation Elevated serum creatinine -1.26 on admission. Likely EDDA since serum creatinine has come down to normal. Likely due to AFib/sepsis. Elevated troponin -present on admission, likely due to sepsis in AFib with RVR. Peak. No chest pain, no shortness of breath. Cardiology consulted Insulin-dependent diabetes mellitus -blood sugars reviewed, currently at goal for a elderly female with poor oral intake, continue current regimen, avoid over-correction. -Accu-Cheks a.c. HS with Lantus 12 units subQ b.i.d.. Constipation -VET[employer]IC[employer] SCI[employer]IST Senokot S1 tab p.o. q.day resumed -01/07/2025 no BM, increase to 2 tabs b.i.d. -had 3 bowel movements on 01/08/2025: Will decrease tabs back to 1 p.o. b.i.d. -continue monitoring Hyponatremia -improved after volume resuscitation. Continue to trend daily. ----- Stable on medical floor with telemetry. DNR. SCDs. Diabetic heart healthy diet. consult dietitian, poor oral intake. Continue dietary supplements. Discontinue fluids on 01/11/2025. Daily weights/intake/output. Ambulate with assistance PT/OT evaluations for weakness. Recommend discharge to SNF. Presented from [facility], was at [facility] prior. Subjective Date/time seen: 01/11/25 11:09 Interval history: No acute overnight events. Patient sits up in bed, she reports to me she does not like the hospital fluid or really any food for that matter. She does not even like water. I have encouraged her to at least drink water. Will also order dietary supplements. Review of Systems Review of Systems: All systems reviewed & are unremarkable except as noted in HPI and below (Subjective) Exam Const: General: comfortable and no acute distress Other: A&O x2 HENMT: Mouth: Yes dry mucous membranes Eyes: Pupils: Equal, round and reactive pupils present Neck: Neck: supple Resp: Effort & Inspection: normal respiratory effort Other: Bibasilar crackle Cardio: Rate: regular rate Rhythm: abnormal rhythm GI: Inspection: non-distended GI Palp: Yes Soft to palpation Auscultation: normal bowel sounds Skin: Other: Poor skin turgor Neuro: Motor exam (neuro): 5/5 motor strength present throughout Extrem: General: no edema Objective Data Vital Signs Vital Signs: Vital Signs - 24 hr 01/10/25 11:31 01/10/25 12:00 01/10/25 12:00 Temperature 98.1 F Pulse Rate 93 92 Respiratory Rate 16 Blood Pressure 96/44 L Pulse Oximetry 98 Oxygen Delivery Room Air Fraction of Inspired Oxygen 21 01/10/25 13:19 01/10/25 14:50 01/10/25 16:00 Temperature Pulse Rate 96 Respiratory Rate Blood Pressure 105/68 Pulse Oximetry Oxygen Delivery Room Air Fraction of Inspired Oxygen 01/10/25 20:00 01/10/25 20:00 01/10/25 20:00 Temperature 97.8 F Pulse Rate 77 90 Respiratory Rate 18 Blood Pressure 116/48 L Pulse Oximetry 98 Oxygen Delivery Room Air Fraction of Inspired Oxygen 01/10/25 21:56 01/10/25 23:43 01/11/25 00:00 Temperature 97.8 F Pulse Rate 77 81 78 Respiratory Rate 18 Blood Pressure 98/51 L Pulse Oximetry 98 Oxygen Delivery Fraction of Inspired Oxygen 01/11/25 04:00 01/11/25 04:00 01/11/25 08:00 Temperature 97.6 F 97.6 F Pulse Rate 88 87 84 Respiratory Rate 18 17 Blood Pressure 110/48 L 108/52 L Pulse Oximetry 100 100 Oxygen Delivery Fraction of Inspired Oxygen 01/11/25 08:00 01/11/25 09:05 01/11/25 09:18 Temperature Pulse Rate 92 90 Respiratory Rate Blood Pressure Pulse Oximetry Oxygen Delivery Room Air Fraction of Inspired Oxygen 01/11/25 09:18 Temperature Pulse Rate 90 Respiratory Rate Blood Pressure Pulse Oximetry Oxygen Delivery Fraction of Inspired Oxygen Intake/Output Intake/Output: Intake & Output 01/08/25 01/09/25 01/10/25 01/11/25 23:59 23:59 23:59 23:59 Intake Total 345 1476.7 1077 120 Output Total 700 1052 Balance -355 424.7 1077 120 Meds/Results Medications: Active Medications Generic Name Dose Route Start Last Admin Trade Name Freq PRN Reason Stop Dose Admin Dextrose 12.5 gm 01/05/25 01:39 Dextrose 50% 25 Gm/50 Ml Syringe IV PUSH PRN PRN Hypoglycemia Protocol Digoxin 125 mcg 01/10/25 09:00 01/11/25 09:18 Digoxin Tab 125 Mcg Tablet PO 125 mcg DAILY JEN Administration Fish Oil 1 gm 01/05/25 09:00 01/11/25 09:18 [place] 3 Polyunsat Fatty Acids 1 Gm Cap PO 1 gm QAM JEN Administration Folic Acid 1 mg 01/05/25 09:00 01/11/25 09:18 Folic Acid 1 Mg Tablet PO 1 mg DAILY JEN Administration Glucagon 1 mg 01/05/25 01:39 Glucagon For Inj 1 Mg Vial IM PRN PRN Hypoglycemia Protocol Glucose 15 gm 01/05/25 01:39 Glucose Oral Gel 15 Gm Of Glucse In 37.5 Gm Tube PO PRN PRN Hypoglycemia Protocol Dextrose 1,000 mls @ 100 mls/hr 01/05/25 01:39 Dextrose 5% 1,000 Ml IVPB PRN PRN Hypoglycemia Protocol Insulin Aspart 3 - 6 units 01/05/25 08:00 01/11/25 09:19 Insulin Aspart (*Bkc) 100 Units/Ml SUB-Q Not Given TIDWM JEN Protocol Insulin Glargine 12 units 01/05/25 09:00 01/11/25 09:24 Insulin Glargine (*Bkc) 100 Units/Ml SUB-Q 12 units Q12HR JEN Administration Metoprolol Tartrate 25 mg 01/08/25 09:20 01/11/25 09:18 Metoprolol Tartrate 25 Mg Tablet PO 25 mg Q12HR JEN Administration Polyethylene Glycol 17 gm 01/05/25 01:38 Polyethylene Glycol 3350 17 Gm Powd.Pack PO BID PRN Constipation Senna/Docusate Sodium 1 tab 01/09/25 17:00 01/11/25 09:19 Senna/Docusate Sodium Tablet PO Not Given BID JEN Radiology Results: ITS Impressions Chest X-Ray 01/04/25 17:55 Impression: Mild CHF Head CT 01/05/25 17:34 Impression: 1.No acute intracranial abnormality. Abdomen/Pelvis CT 01/06/25 16:01 IMPRESSION: 1. Mild pulmonary edema. 2. Small pleural effusions. 3. Cystitis. 4. Bilateral acute pyelonephritis. Labs Labs: Laboratory Results - last 24 hr 01/10/25 01/10/25 01/10/25 11:37 16:06 20:57 WBC RBC Hgb Hct MCV MCH MCHC RDW Plt Count MPV Sodium Potassium Chloride Carbon Dioxide Anion Gap BUN Creatinine Estim Creat Clear Calc Estimated GFR Glucose POC Capillary Glucose 130 H 155 H 175 H Calcium 01/11/25 01/11/25 04:48 07:50 WBC 7.3 RBC 2.76 L Hgb 8.1 L Hct 25.0 L MCV 90.6 MCH 29.3 MCHC 32.4 RDW 21.8 H Plt Count 58 L MPV TNP Sodium 133 L Potassium 3.8 Chloride 108 H Carbon Dioxide 20 L Anion Gap 5 BUN 15 Creatinine 0.87 Estim Creat Clear Calc 42 Estimated GFR > 60 Glucose 140 H POC Capillary Glucose 122 H Calcium 7.6 L
--- NOTE | 2025-01-11 13:01 | PM.PNCARD ---
Progress Note: A&P Assessment and Plan (1) Atrial fibrillation with rapid ventricular response: Code(s): I48.91 - Unspecified atrial fibrillation Status: Acute Plan 84-year-old lady with: Atrial fibrillation heart rate is adequately controlled with combination metoprolol and digoxin. I am going to transition her metoprolol to metoprolol succinate which she was taking her home medication list. As stated in my partner's notes she cannot be safely anticoagulated because of significant anemia and falling. Because of her age, frailty, comorbidities and DNR status I would not consider her a candidate for invasive workup, left atrial appendage occlusion procedure or aortic valve interventions. Will continue to follow with you while she is in the hospital Jermaine Samuels MD [facility] Subjective Date/time seen: Date of service: 01/11/25 13:01 Interval history: Follow-up visit in this 84-year-old lady with atrial fibrillation and probably moderate aortic valve stenosis. Admitted with evidence of urosepsis RVR. Currently resting comfortably offers no cardiovascular complaints at this time. Telemetry shows atrial fib with heart rate in the 70s. She is receiving metoprolol and digoxin. Exam Narrative: General: Alert oriented x3, no acute distress Neck: Supple, no JVD Chest: Bilaterally clear to auscultation, no rales or rhonchi Cardiac: S1, S2 +, rapid rates, irregularly irregular rhythm, systolic murmur at apex and right upper sternal border Extremities: No pedal edema, no skin rash Neurologic: Alert and oriented x3, no focal neurological deficits Const: General: comfortable and no acute distress HENMT: Ears: TM's normal bilaterally Face/Nose/Sinus: Normal nares present Eyes: General: appearance normal, both eyes and all related structures Sclera: sclerae normal Neck: Neck: supple and no JVD Chest: Other: No reproducible chest wall pain to palpation Resp: Effort & Inspection: normal respiratory effort Auscultation: clear to auscultation bilaterally Cardio: Rate: regular rate Rhythm: abnormal rhythm irregularly irregular GI: Inspection: non-distended Skin: General skin exam: normal color Neuro: Cranial nerves: No Normal hearing present Speech: normal speech and No Abnormal speech present Sensory Exam: normal sensation Extrem: General: normal to inspection Psych: Mental Status: mental status grossly normal Affect: normal affect Objective Data Vital Signs Vital Signs: Vital Signs - 24 hr 01/10/25 13:19 01/10/25 14:50 01/10/25 16:00 Temperature Pulse Rate 96 Respiratory Rate Blood Pressure 105/68 Pulse Oximetry Oxygen Delivery Room Air 01/10/25 20:00 01/10/25 20:00 01/10/25 20:00 Temperature 36.6 C Pulse Rate 77 90 Respiratory Rate 18 Blood Pressure 116/48 L Pulse Oximetry 98 Oxygen Delivery Room Air 01/10/25 21:56 01/10/25 23:43 01/11/25 00:00 Temperature 36.6 C Pulse Rate 77 81 78 Respiratory Rate 18 Blood Pressure 98/51 L Pulse Oximetry 98 Oxygen Delivery 01/11/25 04:00 01/11/25 04:00 01/11/25 08:00 Temperature 36.4 C 36.4 C Pulse Rate 88 87 84 Respiratory Rate 18 17 Blood Pressure 110/48 L 108/52 L Pulse Oximetry 100 100 Oxygen Delivery 01/11/25 08:00 01/11/25 09:05 01/11/25 09:18 Temperature Pulse Rate 92 90 Respiratory Rate Blood Pressure Pulse Oximetry Oxygen Delivery Room Air 01/11/25 09:18 01/11/25 12:00 Temperature Pulse Rate 90 79 Respiratory Rate Blood Pressure Pulse Oximetry Oxygen Delivery Intake/Output Intake/Output: Intake & Output 01/08/25 01/09/25 01/10/25 01/11/25 23:59 23:59 23:59 23:59 Intake Total 345 1476.7 1077 600 Output Total 700 1052 Balance -355 424.7 1077 600 Meds/Results Medications: Active Medications Generic Name Dose Route Start Last Admin Trade Name Freq PRN Reason Stop Dose Admin Dextrose 12.5 gm 01/05/25 01:39 Dextrose 50% 25 Gm/50 Ml Syringe IV PUSH PRN PRN Hypoglycemia Protocol Digoxin 125 mcg 01/10/25 09:00 01/11/25 09:18 Digoxin Tab 125 Mcg Tablet PO 125 mcg DAILY JEN Administration Fish Oil 1 gm 01/05/25 09:00 01/11/25 09:18 [place] 3 Polyunsat Fatty Acids 1 Gm Cap PO 1 gm QAM JEN Administration Folic Acid 1 mg 01/05/25 09:00 01/11/25 09:18 Folic Acid 1 Mg Tablet PO 1 mg DAILY JEN Administration Glucagon 1 mg 01/05/25 01:39 Glucagon For Inj 1 Mg Vial IM PRN PRN Hypoglycemia Protocol Glucose 15 gm 01/05/25 01:39 Glucose Oral Gel 15 Gm Of Glucse In 37.5 Gm Tube PO PRN PRN Hypoglycemia Protocol Dextrose 1,000 mls @ 100 mls/hr 01/05/25 01:39 Dextrose 5% 1,000 Ml IVPB PRN PRN Hypoglycemia Protocol Insulin Aspart 3 - 6 units 01/05/25 08:00 01/11/25 12:01 Insulin Aspart (*Bkc) 100 Units/Ml SUB-Q Not Given TIDWM JEN Protocol Insulin Glargine 12 units 01/05/25 09:00 01/11/25 09:24 Insulin Glargine (*Bkc) 100 Units/Ml SUB-Q 12 units Q12HR JEN Administration Polyethylene Glycol 17 gm 01/05/25 01:38 Polyethylene Glycol 3350 17 Gm Powd.Pack PO BID PRN Constipation Senna/Docusate Sodium 1 tab 01/09/25 17:00 01/11/25 09:19 Senna/Docusate Sodium Tablet PO Not Given BID JEN Radiology Results: ITS Impressions Chest X-Ray 01/04/25 17:55 Impression: Mild CHF Head CT 01/05/25 17:34 Impression: 1.No acute intracranial abnormality. Abdomen/Pelvis CT 01/06/25 16:01 IMPRESSION: 1. Mild pulmonary edema. 2. Small pleural effusions. 3. Cystitis. 4. Bilateral acute pyelonephritis. Labs Labs: Laboratory Results - last 24 hr 01/10/25 01/10/25 01/11/25 16:06 20:57 04:48 WBC 7.3 RBC 2.76 L Hgb 8.1 L Hct 25.0 L MCV 90.6 MCH 29.3 MCHC 32.4 RDW 21.8 H Plt Count 58 L MPV TNP Sodium 133 L Potassium 3.8 Chloride 108 H Carbon Dioxide 20 L Anion Gap 5 BUN 15 Creatinine 0.87 Estim Creat Clear Calc 42 Estimated GFR > 60 Glucose 140 H POC Capillary Glucose 155 H 175 H Calcium 7.6 L 01/11/25 01/11/25 07:50 11:33 WBC RBC Hgb Hct MCV MCH MCHC RDW Plt Count MPV Sodium Potassium Chloride Carbon Dioxide Anion Gap BUN Creatinine Estim Creat Clear Calc Estimated GFR Glucose POC Capillary Glucose 122 H 178 H Calcium
[2025-01-11] MEDS: INSULIN ASPART (*BKC) 100 UNITS/ML SUB-Q (17:17)
[2025-01-11] MEDS: SENNA/DOCUSATE SODIUM TABLET 1 TAB PO (17:17)
[2025-01-12] VITALS (10 sets, daily range): BP systolic 117–128; BP diastolic 49–73; PULSE 86–111; RESP 18–20; TEMP 36.4–37.1; O2SAT 97–100
[2025-01-12] MEDS: ACETAMINOPHEN 325 MG TABLET 650 MG PO (02:49)
[2025-01-12] MEDS: diphenhydrAMINE HCl CAP 25 MG CAPSULE PO (02:49)
[2025-01-12 05:25] LABS: Hematocrit 24.1 % (37.0-47.0); Hemoglobin 7.7 g/dL (12.0-15.0); Immature Platelet Fraction Pct 9.1 % (0.9-11.2); Mean Corpuscular HGB Conc 32.0 g/dl (32-36); Mean Corpuscular Hemoglobin 28.5 pg (26-34); Mean Corpuscular Volume 89.3 fl (80-100); Platelet Count Result 94 k/mm3 (150-375); Red Blood Count 2.70 M/mm3 (4.2-5.4); White Blood Count 9.8 K/mm3 (4.5-10.0)
[2025-01-12 05:47] LABS: Anion Gap 6 mmol/L (4-12); Blood Urea Nitrogen 16 mg/dL (7-17); Calcium 7.4 mg/dL (8.4-10.2); Carbon Dioxide 18 mmol/L (22-30); Chloride 107 mmol/L (98-107); Estimated CRCL calculation 44 ml/min; Estimated Glomerular Filt Rate > 60; Glucose 216 mg/dL (65-110); Magnesium 1.6 mg/dL (1.6-2.3); Potassium 4.0 mmol/L (3.4-5.0); Sodium 131 mmol/L (137-145)
[2025-01-12 06:00] LABS: Band Neutrophils Percent 2 % (0-6); Eosinophils Absolute Manual 0.09 K/mm3 (0.02-0.50); Eosinophils Percent Manual 1 % (0-4); Lymphocytes Absolute Manual 3.72 K/mm3 (1.1-4.5); Lymphocytes Percent Manual 38.0 % (18-44); Monocytes Absolute Manual 0.49 K/mm3 (0.1-0.90); Monocytes Percent Manual 5 % (3-9); Myelocytes Percent 3 %; Neutrophils Absolute Manual 4.70 K/mm3 (1.3-6.7); Neutrophils Percent Manual 46 % (46-73); Promyelocytes Percent 5 %; Total Cells Counted 100
[2025-01-12 06:01] LABS: Anisocytosis 2+
[2025-01-12 06:02] LABS: Hypochromasia 2+; Macrocytosis 1+ (NORMAL); Ovalocytes 1+; Polychromasia Occasional; Schistocytes None Seen; Smudge Cells PRESENT
[2025-01-12] MEDS: OMEGA 3 POLYUNSAT FATTY ACIDS 1 GM CAP PO (08:26)
[2025-01-12] MEDS: METOPROLOL SUCCINATE EXT REL 50 MG TABCR PO (08:27)
[2025-01-12] MEDS: FOLIC ACID 1 MG TABLET PO (08:28)
[2025-01-12] MEDS: SENNA/DOCUSATE SODIUM TABLET 1 TAB PO ×2 (08:28→17:05)
[2025-01-12] MEDS: DIGOXIN TAB 125 MCG TABLET PO (08:28)
[2025-01-12] MEDS: INSULIN GLARGINE (*BKC) 100 UNITS/ML 12 UNITS SUB-Q ×2 (08:28→21:18)
--- NOTE | 2025-01-12 13:18 | P.PNCA_ITS ---
Progress Note: A&P Assessment and Plan (1) Atrial fibrillation with rapid ventricular response: Code(s): I48.91 - Unspecified atrial fibrillation Status: Acute Plan Continue current rate control regimen she is doing well and is asymptomatic of her AFib Jermaine Samuels MD [facility] Subjective Date/time seen: Date of service 01/12/25 13:18 Interval history: Follow-up visit in this 84-year-old lady with atrial fibrillation and probably moderate aortic valve stenosis. Admitted with evidence of urosepsis RVR. Currently resting comfortably offers no cardiovascular complaints at this time. Telemetry shows atrial fib with heart rate in the 70s. She is receiving metoprolol and digoxin. 01/12/2025: Patient comfortable without any cardiovascular complaints. Continues to be in atrial fib with well controlled heart rate Exam Narrative: General: Alert oriented x3, no acute distress Neck: Supple, no JVD Chest: Bilaterally clear to auscultation, no rales or rhonchi Cardiac: S1, S2 +, rapid rates, irregularly irregular rhythm, systolic murmur at apex and right upper sternal border Extremities: No pedal edema, no skin rash Neurologic: Alert and oriented x3, no focal neurological deficits Const: General: comfortable and no acute distress HENMT: Ears: TM's normal bilaterally Face/Nose/Sinus: Normal nares present Eyes: General: appearance normal, both eyes and all related structures Sclera: sclerae normal Neck: Neck: supple and no JVD Chest: Other: No reproducible chest wall pain to palpation Resp: Effort & Inspection: normal respiratory effort Auscultation: clear to auscultation bilaterally Cardio: Rate: regular rate and tachycardic Rhythm: abnormal rhythm irr egularly irregular GI: Inspection: non-distended Skin: General skin exam: normal color Neuro: Cranial nerves: No Normal hearing present Speech: normal speech and No Abnormal speech present Sensory Exam: normal sensation Extrem: General: normal to inspection Psych: Mental Status: mental status grossly normal Affect: normal affect Objective Data Vital Signs Vital Signs: Vital Signs - 24 hr 01/11/25 16:00 01/11/25 16:01/11/25 20:00 Temperature 36.4 C 36.6 C Pulse Rate 80 86 91 Respiratory Rate 18 18 Blood Pressure 115/54 L 111/50 L Pulse Oximetry 100 99 Oxygen Delivery 01/11/25 20:00 01/11/25 20:00 01/12/25 00:00 Temperature 36.8 C Pulse Rate 87 93 Respiratory Rate 18 Blood Pressure 117/49 L Pulse Oximetry 99 Oxygen Delivery Room Air 01/12/25 00:00 01/12/25 04:00 01/12/25 04:00 Temperature 36.6 C Pulse Rate 91 99 97 Respiratory Rate 18 Blood Pressure 120/73 Pulse Oximetry 99 Oxygen Delivery 01/12/25 06:11 01/12/25 08:00 01/12/25 08:00 Temperature 36.6 C Pulse Rate 93 94 Respiratory Rate 18 Blood Pressure 119/59 L Pulse Oximetry 98 Oxygen Delivery Room Air 01/12/25 08:27 01/12/25 08:28 01/12/25 12:00 Temperature Pulse Rate 111 H 111 H 86 Respiratory Rate Blood Pressure Pulse Oximetry Oxygen Delivery Intake/Output Intake/Output: Intake & Output 01/09/25 01/10/25 01/11/25 01/12/25 23:59 23:59 23:59 23:59 Intake Total 1476.7 1077 1284 840 Output Total 1052 Balance 424.7 1077 1284 840 Meds/Results Medications: Active Medications Generic Name Dose Route Start Last Admin Trade Name Freq PRN Reason Stop Dose Admin Acetaminophen 650 mg 01/12/25 02:25 01/12/25 02:49 Acetaminophen 325 Mg Tablet PO 650 mg Q4H PRN Administration Mild Pain (1-3) or Fever Dextrose 12.5 gm 01/05/25 01:39 Dextrose 50% 25 Gm/50 Ml Syringe IV PUSH PRN PRN Hypoglycemia Protocol Digoxin 125 mcg 01/10/25 09:00 01/12/25 08:28 Digoxin Tab 125 Mcg Tablet PO 125 mcg DAILY JEN Administration Diphenhydramine HCl 25 mg 01/12/25 02:25 01/12/25 02:49 Diphenhydramine Hcl Cap 25 Mg Capsule PO 25 mg Q4HR PRN Administration Itching Fish Oil 1 gm 01/05/25 09:00 01/12/25 08:26 [place] 3 Polyunsat Fatty Acids 1 Gm Cap PO 1 gm QAM JEN Administration Folic Acid 1 mg 01/05/25 09:00 01/12/25 08:28 Folic Acid 1 Mg Tablet PO 1 mg DAILY JEN Administration Glucagon 1 mg 01/05/25 01:39 Glucagon For Inj 1 Mg Vial IM PRN PRN Hypoglycemia Protocol Glucose 15 gm 01/05/25 01:39 Glucose Oral Gel 15 Gm Of Glucse In 37.5 Gm Tube PO PRN PRN Hypoglycemia Protocol Dextrose 1,000 mls @ 100 mls/hr 01/05/25 01:39 Dextrose 5% 1,000 Ml IVPB PRN PRN Hypoglycemia Protocol Insulin Aspart 3 - 6 units 01/05/25 08:00 01/12/25 12:08 Insulin Aspart (*Bkc) 100 Units/Ml SUB-Q Not Given TIDWM JEN Protocol Insulin Glargine 12 units 01/05/25 09:00 01/12/25 08:28 Insulin Glargine (*Bkc) 100 Units/Ml SUB-Q 12 units Q12HR JEN Administration Metoprolol Succinate 50 mg 01/12/25 09:00 01/12/25 08:27 Metoprolol Succinate Ext Rel 50 Mg Tabcr PO 50 mg QAM JEN Administration Polyethylene Glycol 17 gm 01/05/25 01:38 Polyethylene Glycol 3350 17 Gm Powd.Pack PO BID PRN Constipation Senna/Docusate Sodium 1 tab 01/09/25 17:00 01/12/25 08:28 Senna/Docusate Sodium Tablet PO 1 tab BID JEN Administration Radiology Results: ITS Impressions Chest X-Ray 01/04/25 17:55 Impression: Mild CHF Head CT 01/05/25 17:34 Impression: 1.No acute intracranial abnormality. Abdomen/Pelvis CT 01/06/25 16:01 IMPRESSION: 1. Mild pulmonary edema. 2. Small pleural effusions. 3. Cystitis. 4. Bilateral acute pyelonephritis. Labs Labs: Laboratory Results - last 24 hr 01/11/25 01/11/25 01/12/25 16:51 21:18 04:49 WBC 9.8 RBC 2.70 L Hgb 7.7 L Hct 24.1 L MCV 89.3 MCH 28.5 MCHC 32.0 RDW 22.4 H Plt Count 94 L D MPV TNP Immature Gran % (Auto) Not Reportable Neut % (Auto) Not Reportable Lymph % (Auto) Not Reportable [place] % (Auto) Not Reportable Eos % (Auto) Not Reportable Baso % (Auto) Not Reportable Lymph # (Auto) Not Reportable [place] # (Auto) Not Reportable Eos # (Auto) Not Reportable Baso # (Auto) Not Reportable Abs Immat Gran (auto) Not Reportable Absolute Neuts (auto) Not Reportable Absolute Nucleated RBC Not Reportable Total Counted 100 Neutrophils % (Manual) 46 Band Neutrophils % 2 Lymphocytes % (Manual) 38.0 Monocytes % (Manual) 5 Eosinophils % (Manual) 1 Myelocytes % 3 Promyelocytes % (Man) 5 Nucleated RBC % Not Reportable Abs Neuts (Manual) 4.70 Abs Lymphs (Manual) 3.72 Abs Monocytes (Manual) 0.49 Absolute Eos (Manual) 0.09 Atypical Lymphocytes Present Smudge Cells Present Platelet Estimate Decreased Large Platelets Present % Immature Plt Fraction 9.1 Polychromasia Occasional Hypochromasia 2+ Anisocytosis 2+ Macrocytosis 1+ Ovalocytes 1+ Schistocytes None seen Sodium 131 L Potassium 4.0 Chloride 107 Carbon Dioxide 18 L Anion Gap 6 BUN 16 Creatinine 0.83 Estim Creat Clear Calc 44 Estimated GFR > 60 Glucose 216 H POC Capillary Glucose 219 H 235 H Calcium 7.4 L Magnesium 1.6 01/12/25 01/12/25 07:34 11:52 WBC RBC Hgb Hct MCV MCH MCHC RDW Plt Count MPV Immature Gran % (Auto) Neut % (Auto) Lymph % (Auto) [place] % (Auto) Eos % (Auto) Baso % (Auto) Lymph # (Auto) [place] # (Auto) Eos # (Auto) Baso # (Auto) Abs Immat Gran (auto) Absolute Neuts (auto) Absolute Nucleated RBC Total Counted Neutrophils % (Manual) Band Neutrophils % Lymphocytes % (Manual) Monocytes % (Manual) Eosinophils % (Manual) Myelocytes % Promyelocytes % (Man) Nucleated RBC % Abs Neuts (Manual) Abs Lymphs (Manual) Abs Monocytes (Manual) Absolute Eos (Manual) Atypical Lymphocytes Smudge Cells Platelet Estimate Large Platelets % Immature Plt Fraction Polychromasia Hypochromasia Anisocytosis Macrocytosis Ovalocytes Schistocytes Sodium Potassium Chloride Carbon Dioxide Anion Gap BUN Creatinine Estim Creat Clear Calc Estimated GFR Glucose POC Capillary Glucose 184 H 189 H Calcium Magnesium
--- NOTE | 2025-01-12 13:56 | PM.IMPN ---
Progress Note: A&P Assessment and Plan (1) Hypotension: Code(s): I95.9 - Hypotension, unspecified Status: Acute (2) Atrial fibrillation with rapid ventricular response: Code(s): I48.91 - Unspecified atrial fibrillation Status: Acute (3) Acute UTI: Code(s): N39.0 - Urinary tract infection, site not specified Status: Acute (4) Anemia: Code(s): D64.9 - Anemia, unspecified Status: Acute (5) Acute on chronic anemia: Code(s): D64.9 - Anemia, unspecified Status: Acute (6) Elevated troponin: Code(s): R79.89 - Other specified abnormal findings of blood chemistry Status: Acute Plan 84-year-old female with PMH neurocognitive disorder, 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 Upon arrival the patient A&O x2 and in unreliable historian. Found to be in AFib with RVR with an acute UTI and severe anemia. ----- Complicated UTI, present on admission with severe sepsis -urinalysis 01/04/2025 many squamous cells, 4+ bacteria, 2+ leukocyte esterase. CT abdomen pelvis on admission demonstrated findings concerning for urinary tract infection, small pleural effusions, mild pulmonary edema, bilateral acute pyelonephritis. -urine culture did not reflex, urine culture finally obtained on 01/06/2025 after antibiotics were given. Final results negative. Unreliable results. Ceftriaxone transition to Augmentin for a total 7 day course. Leukocytosis and bandemia resolved. Augmentin finished on 01/11. -01/05/2025 blood culture x2, no growth at 48 hours Anemia, normocytic Thrombocytopenia -unclear baseline, 6.9 on admission. Received 2 units PRBC, has stabilized with a hemoglobin around 9.0. -hemoccult negative reported in ER. No evidence of overt bleeding. -iron 110, TIBC 237, ferritin 758. Vitamin B12 852. Folic acid greater than 20. TSH 1.150. Haptoglobin 226 -hematology consulted. See below. AFib with RVR -keep potassium greater than 4, magnesium greater than 2. -she has improved with low volume continue was fluid infusion. We will discontinue that on 01/11/2025. She reports poor appetite and really does not with eat or drink anything. Dietary supplements t.i.d. with Glucerna. Dietitian consultation. Initially she was on metoprolol but that was held due to low blood pressure which is improved status post volume resuscitation. Continue metoprolol 25 mg p.o. b.i.d., digoxin 125 mcg p.o. q.day. Amiodarone has been discontinued to prevent cardioversion and risk of stroke. Continue telemetry, she continues to be in AFib with better controlled rate in the 90s. No changes on 01/12 - remains asymptomatic. Confusion/slurred speech, resolved. -she does have a baseline neurocognitive disorder/cognitive communication disorder -A&O x2, pleasantly confused. -CT brain on admission no evidence of ischemic/hemorrhagic event CHF, systolic -BNP 54643 on admission, no evidence of clinical overload -on metoprolol. Add Entresto, empagliflozin as BP tolerates. -TTE 01/07/25: Summary 1. Complete two-dimensional, color flow and Doppler transthoracic echocardiogram is performed. 2. Left ventricular chamber dimension is mildly enlarged. 3. Left ventricular systolic function is mildly reduced, estimated at 45-50. 4. There is moderate asymmetric septal increased left ventricular wall thickness. 5. The left ventricular diastolic function is abnormal. 6. Right ventricular chamber dimension is mildly enlarged. 7. Left atrial chamber dimension is moderately enlarged. 8. Right atrial chamber dimension is moderately enlarged. 9. There is moderate to severe aortic valve stenosis with a peak velocity of 291 cm/s, mean gradient of 15 mmHg, and aortic valve area of 1.0 cm2. 10. There is moderate aortic valve regurgitation. 11. There is severe aortic valve calcification. 12. There is moderate mitral valve regurgitation. 13. There is moderate tricuspid valve regurgitation. 14. Moderate pulmonary hypertension, estimated pulmonary arterial systolic pressure is 59 mmHg. 15. There is mild pulmonic regurgitation. 16. The prox ascending aorta size is dilated. -cardiology following Lactic acidosis -3.2 on admission, resolved status post 2 units PRBC and isotonic fluid resuscitation Elevated serum creatinine -1.26 on admission. Likely EDDA since serum creatinine has come down to normal. Likely due to AFib/sepsis. Elevated troponin -present on admission, likely due to sepsis in AFib with RVR. Peak. No chest pain, no shortness of breath. Cardiology consulted Insulin-dependent diabetes mellitus -blood sugars reviewed, currently at goal for a elderly female with poor oral intake, continue current regimen, avoid over-correction. -Accu-Cheks a.c. HS with Lantus 12 units subQ b.i.d.. Constipation -[employer] Senokot S1 tab p.o. q.day resumed -01/07/2025 no BM, increase to 2 tabs b.i.d. -had 3 bowel movements on 01/08/2025: Will decrease tabs back to 1 p.o. b.i.d. -continue monitoring Hyponatremia -improved after volume resuscitation. Continue to trend daily. ----- Stable on medical floor with telemetry. DNR. SCDs. Diabetic heart healthy diet. consult dietitian, poor oral intake. Continue dietary supplements. Discontinue fluids on 01/11/2025. Daily weights/intake/output. Ambulate with assistance PT/OT evaluations for weakness. Recommend discharge to SNF. Plan to discharge back to [facility] - no staffing on Monday so likely patient to go back Monday. Presented from [facility], was at [facility] prior. Subjective Date/time seen: 01/12/25 13:56 Interval history: Follow-up visit in this 84-year-old lady with atrial fibrillation and probably moderate aortic valve stenosis. Admitted with evidence of urosepsis RVR. Currently resting comfortably offers no cardiovascular complaints at this time. Telemetry shows atrial fib with heart rate in the 70s. She is receiving metoprolol and digoxin. 01/12/2025 Patient sitting comfortably in bed at time of examination. Continues to be in atrial fib with well controlled heart rate, asymptomatic. Finishing course of Augmentin today for a total of 7 day course for UTI. Patient has no complaints today. Working with cc regarding placement -likely discharge tomorrow, going back to [facility]. Review of Systems Review of Systems: 12 systems were reviewed with pertinent positives and negatives per HPI. Except as documented in the HPI, all other systems were reviewed and are negative. However patient is not the best historian which limits accuracy of review of systems. All systems reviewed & are unremarkable except as noted in HPI and below (Subjective) Exam Narrative: Weight 75.3 kg BMI 28.5 Const: General: comfortable and no acute distress Other: A&O x2 HENMT: Mouth: Yes moist mucous membranes and Yes dry mucous membranes Other: Mucous membranes are moist, no oral pharyngeal erythema, head is normocephalic atraumatic Eyes: Pupils: Equal, round and reactive pupils present Other: Pupils are equal and reactive with lens implants noted bilaterally, positive conjunctival pallor, no scleral icterus Neck: Neck: supple Other: No JVD, no lymphadenopathy Resp: Effort & Inspection: normal respiratory effort Auscultation: clear to auscultation bilaterally Other: Bibasilar crackle Cardio: Rate: regular rate and tachycardic Rhythm: abnormal rhythm Other: 3/6 systolic murmur heard best at the left upper sternal border, irregularly irregular, tachycardic, no JVD GI: Inspection: non-distended Auscultation: normal bowel sounds Other: Soft, nontender, nondistended, positive bowel sounds Skin: Other: Poor skin turgor Neuro: Cranial nerves: Yes Equal, round and reactive pupils present Motor exam (neuro): 5/5 motor strength present throughout Other: Alert oriented to person, place, year and when in prompted a she can states that president to last name once she has told his 1st name, she thinks the month is January or February, speech is clear and fluent, no localizing neurologic deficits noted during the course of conversation Extrem: General: no edema Other: 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, no lower extremity edema, no foot wounds Psych: Other: Pleasantly confused, cooperative Objective Data Vital Signs Vital Signs: Vital Signs - 24 hr 01/11/25 16:00 01/11/25 16:00 01/11/25 20:00 Temperature 97.6 F 97.8 F Pulse Rate 80 86 91 Respiratory Rate 18 18 Blood Pressure 115/54 L 111/50 L Pulse Oximetry 100 99 Oxygen Delivery 01/11/25 20:00 01/11/25 20:00 01/12/25 00:00 Temperature 98.3 F Pulse Rate 87 93 Respiratory Rate 18 Blood Pressure 117/49 L Pulse Oximetry 99 Oxygen Delivery Room Air 01/12/25 00:00 01/12/25 04:00 01/12/25 04:00 Temperature 97.9 F Pulse Rate 91 99 97 Respiratory Rate 18 Blood Pressure 120/73 Pulse Oximetry 99 Oxygen Delivery 01/12/25 06:11 01/12/25 08:00 01/12/25 08:00 Temperature 97.9 F Pulse Rate 93 94 Respiratory Rate 18 Blood Pressure 119/59 L Pulse Oximetry 98 Oxygen Delivery Room Air 01/12/25 08:27 01/12/25 08:28 01/12/25 12:00 Temperature Pulse Rate 111 H 111 H 86 Respiratory Rate Blood Pressure Pulse Oximetry Oxygen Delivery Intake/Output Intake/Output: Intake & Output 01/09/25 01/10/25 01/11/25 01/12/25 23:59 23:59 23:59 23:59 Intake Total 1476.7 1077 1284 840 Output Total 1052 Balance 424.7 1077 1284 840 Meds/Results Medications: Active Medications Generic Name Dose Route Start Last Admin Trade Name Freq PRN Reason Stop Dose Admin Acetaminophen 650 mg 01/12/25 02:25 01/12/25 02:49 Acetaminophen 325 Mg Tablet PO 650 mg Q4H PRN Administration Mild Pain (1-3) or Fever Dextrose 12.5 gm 01/05/25 01:39 Dextrose 50% 25 Gm/50 Ml Syringe IV PUSH PRN PRN Hypoglycemia Protocol Digoxin 125 mcg 01/10/25 09:00 01/12/25 08:28 Digoxin Tab 125 Mcg Tablet PO 125 mcg DAILY JEN Administration Diphenhydramine HCl 25 mg 01/12/25 02:25 01/12/25 02:49 Diphenhydramine Hcl Cap 25 Mg Capsule PO 25 mg Q4HR PRN Administration Itching Fish Oil 1 gm 01/05/25 09:00 01/12/25 08:26 [place] 3 Polyunsat Fatty Acids 1 Gm Cap PO 1 gm QAM JEN Administration Folic Acid 1 mg 01/05/25 09:00 01/12/25 08:28 Folic Acid 1 Mg Tablet PO 1 mg DAILY JEN Administration Glucagon 1 mg 01/05/25 01:39 Glucagon For Inj 1 Mg Vial IM PRN PRN Hypoglycemia Protocol Glucose 15 gm 01/05/25 01:39 Glucose Oral Gel 15 Gm Of Glucse In 37.5 Gm Tube PO PRN PRN Hypoglycemia Protocol Dextrose 1,000 mls @ 100 mls/hr 01/05/25 01:39 Dextrose 5% 1,000 Ml IVPB PRN PRN Hypoglycemia Protocol Insulin Aspart 3 - 6 units 01/05/25 08:00 01/12/25 12:08 Insulin Aspart (*Bkc) 100 Units/Ml SUB-Q Not Given TIDWM [facility] Protocol Insulin Glargine 12 units 01/05/25 09:00 01/12/25 08:28 Insulin Glargine (*Bkc) 100 Units/Ml SUB-Q 12 units Q12HR JEN Administration Metoprolol Succinate 50 mg 01/12/25 09:00 01/12/25 08:27 Metoprolol Succinate Ext Rel 50 Mg Tabcr PO 50 mg QAM JEN Administration Polyethylene Glycol 17 gm 01/05/25 01:38 Polyethylene Glycol 3350 17 Gm Powd.Pack PO BID PRN Constipation Senna/Docusate Sodium 1 tab 01/09/25 17:00 01/12/25 08:28 Senna/Docusate Sodium Tablet PO 1 tab BID JEN Administration Radiology Results: ITS Impressions Chest X-Ray 01/04/25 17:55 Impression: Mild CHF Head CT 01/05/25 17:34 Impression: 1.No acute intracranial abnormality. Abdomen/Pelvis CT 01/06/25 16:01 IMPRESSION: 1. Mild pulmonary edema. 2. Small pleural effusions. 3. Cystitis. 4. Bilateral acute pyelonephritis. Labs Labs: Laboratory Results - last 24 hr 01/11/25 01/11/25 01/12/25 16:51 21:18 04:49 WBC 9.8 RBC 2.70 L Hgb 7.7 L Hct 24.1 L MCV 89.3 MCH 28.5 MCHC 32.0 RDW 22.4 H Plt Count 94 L D MPV TNP Immature Gran % (Auto) Not Reportable Neut % (Auto) Not Reportable Lymph % (Auto) Not Reportable Boundary % (Auto) Not Reportable Eos % (Auto) Not Reportable Baso % (Auto) Not Reportable Lymph # (Auto) Not Reportable Boundary # (Auto) Not Reportable Eos # (Auto) Not Reportable Baso # (Auto) Not Reportable Abs Immat Gran (auto) Not Reportable Absolute Neuts (auto) Not Reportable Absolute Nucleated RBC Not Reportable Total Counted 100 Neutrophils % (Manual) 46 Band Neutrophils % 2 Lymphocytes % (Manual) 38.0 Monocytes % (Manual) 5 Eosinophils % (Manual) 1 Myelocytes % 3 Promyelocytes % (Man) 5 Nucleated RBC % Not Reportable Abs Neuts (Manual) 4.70 Abs Lymphs (Manual) 3.72 Abs Monocytes (Manual) 0.49 Absolute Eos (Manual) 0.09 Atypical Lymphocytes Present Smudge Cells Present Platelet Estimate Decreased Large Platelets Present % Immature Plt Fraction 9.1 Polychromasia Occasional Hypochromasia 2+ Anisocytosis 2+ Macrocytosis 1+ Ovalocytes 1+ Schistocytes None seen Sodium 131 L Potassium 4.0 Chloride 107 Carbon Dioxide 18 L Anion Gap 6 BUN 16 Creatinine 0.83 Estim Creat Clear Calc 44 Estimated GFR > 60 Glucose 216 H POC Capillary Glucose 219 H 235 H Calcium 7.4 L Magnesium 1.6 01/12/25 01/12/25 07:34 11:52 WBC RBC Hgb Hct MCV MCH MCHC RDW Plt Count MPV Immature Gran % (Auto) Neut % (Auto) Lymph % (Auto) Boundary % (Auto) Eos % (Auto) Baso % (Auto) Lymph # (Auto) Boundary # (Auto) Eos # (Auto) Baso # (Auto) Abs Immat Gran (auto) Absolute Neuts (auto) Absolute Nucleated RBC Total Counted Neutrophils % (Manual) Band Neutrophils % Lymphocytes % (Manual) Monocytes % (Manual) Eosinophils % (Manual) Myelocytes % Promyelocytes % (Man) Nucleated RBC % Abs Neuts (Manual) Abs Lymphs (Manual) Abs Monocytes (Manual) Absolute Eos (Manual) Atypical Lymphocytes Smudge Cells Platelet Estimate Large Platelets % Immature Plt Fraction Polychromasia Hypochromasia Anisocytosis Macrocytosis Ovalocytes Schistocytes Sodium Potassium Chloride Carbon Dioxide Anion Gap BUN Creatinine Estim Creat Clear Calc Estimated GFR Glucose POC Capillary Glucose 184 H 189 H Calcium Magnesium Quality VTE Prophylaxis VTE prophylaxis: mechanical ordered (SCDs)
[2025-01-12] MEDS: INSULIN ASPART (*BKC) 100 UNITS/ML SUB-Q (17:05)
[2025-01-13] VITALS (11 sets, daily range): BP systolic 107–126; BP diastolic 39–67; PULSE 80–99; RESP 16–24; TEMP 36.2–36.7; O2SAT 92–100
[2025-01-13] MEDS: OMEGA 3 POLYUNSAT FATTY ACIDS 1 GM CAP PO (09:27)
[2025-01-13] MEDS: METOPROLOL SUCCINATE EXT REL 50 MG TABCR PO (09:27)
[2025-01-13] MEDS: SENNA/DOCUSATE SODIUM TABLET 1 TAB PO ×2 (09:27→18:01)
[2025-01-13] MEDS: DIGOXIN TAB 125 MCG TABLET PO (09:27)
[2025-01-13] MEDS: FOLIC ACID 1 MG TABLET PO (09:27)
[2025-01-13] MEDS: INSULIN GLARGINE (*BKC) 100 UNITS/ML 12 UNITS SUB-Q ×2 (09:29→20:48)
--- NOTE | 2025-01-13 14:09 | P.PNIM_ITS ---
Progress Note: A&P Assessment and Plan (1) Hypotension: Code(s): I95.9 - Hypotension, unspecified Status: Acute (2) Atrial fibrillation with rapid ventricular response: Code(s): I48.91 - Unspecified atrial fibrillation Status: Acute (3) Acute UTI: Code(s): N39.0 - Urinary tract infection, site not specified Status: Acute (4) Anemia: Code(s): D64.9 - Anemia, unspecified Status: Acute (5) Acute on chronic anemia: Code(s): D64.9 - Anemia, unspecified Status: Acute (6) Elevated troponin: Code(s): R79.89 - Other specified abnormal findings of blood chemistry Status: Acute Plan 84-year-old female with PMH neurocognitive disorder, 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 Upon arrival the patient A&O x2 and in unreliable historian. Found to be in AFib with RVR with an acute UTI and severe anemia. Complicated UTI, present on admission with severe sepsis -urinalysis 01/04/2025 many squamous cells, 4+ bacteria, 2+ leukocyte esterase. CT abdomen pelvis on admission demonstrated findings concerning for urinary tract infection, small pleural effusions, mild pulmonary edema, bilateral acute pyelonephritis. -urine culture did not reflex, urine culture finally obtained on 01/06/2025 after antibiotics were given. Final results negative. Unreliable results. Ceftriaxone transition to Augmentin for a total 7 day course. Leukocytosis and bandemia resolved. Augmentin finished on 01/11. -01/05/2025 blood culture x2, no growth at 48 hours Anemia, normocytic Thrombocytopenia Unclear baseline, 6.9 on admission. Received 2 units PRBC, improved with a hemoglobin around 9.0 but has been gradually down trending -hemoccult negative reported in ER. No evidence of overt bleeding. -iron 110, TIBC 237, ferritin 758. Vitamin B12 852. Folic acid greater than 20. TSH 1.150. Haptoglobin 226 -hematology consulted. --Blood count trending down. Repeat haptoglobin, LDH, Total and direct bili, retic, SHERRIE. Consider a peripheral blood smear if evidence of hemolysis. Previously no evidence of hemolysis in urine but at risk with moderate to severe --Monitor for black/bloody stools DVT Bilateral LE DVT on dopplers --Start lovenox and monitor Hgb & plt --Discuss with hematology in AM, consulted previously AFib with RVR -keep potassium greater than 4, magnesium greater than 2. -she has improved with low volume continue was fluid infusion. We will discontinue that on 01/11/2025. She reports poor appetite and really does not with eat or drink anything. Dietary supplements t.i.d. with Glucerna. Dietitian consultation. Initially she was on metoprolol but that was held due to low blood pressure which is improved status post volume resuscitation. Continue metoprolol 25 mg p.o. b.i.d., digoxin 125 mcg p.o. q.day. Amiodarone has been discontinued to prevent cardioversion and risk of stroke. Continue telemetry, she continues to be in AFib with better controlled rate in the 90s. No changes on 01/12 - remains asymptomatic. Confusion/slurred speech, resolved. -she does have a baseline neurocognitive disorder/cognitive communication disorder -A&O x2, pleasantly confused. -CT brain on admission no evidence of ischemic/hemorrhagic event CHF, systolic -BNP 07617 on admission, no evidence of clinical overload -on metoprolol. Add Entresto, empagliflozin as BP tolerates. -Repeat BNP and trop -TTE 01/07/25: Summary 1. Complete two-dimensional, color flow and Doppler transthoracic echocardiogram is performed. 2. Left ventricular chamber dimension is mildly enlarged. 3. Left ventricular systolic function is mildly reduced, estimated at 45-50. 4. There is moderate asymmetric septal increased left ventricular wall thickness. 5. The left ventricular diastolic function is abnormal. 6. Right ventricular chamber dimension is mildly enlarged. 7. Left atrial chamber dimension is moderately enlarged. 8. Right atrial chamber dimension is moderately enlarged. 9. There is moderate to severe aortic valve stenosis with a peak velocity of 291 cm/s, mean gradient of 15 mmHg, and aortic valve area of 1.0 cm2. 10. There is moderate aortic valve regurgitation. 11. There is severe aortic valve calcification. 12. There is moderate mitral valve regurgitation. 13. There is moderate tricuspid valve regurgitation. 14. Moderate pulmonary hypertension, estimated pulmonary arterial systolic pressure is 59 mmHg. 15. There is mild pulmonic regurgitation. 16. The prox ascending aorta size is dilated. -cardiology following Lactic acidosis -3.2 on admission, resolved status post 2 units PRBC and isotonic fluid resuscitation Elevated serum creatinine -1.26 on admission. Likely EDDA since serum creatinine has come down to normal. Likely due to AFib/sepsis. Elevated troponin -present on admission, likely due to sepsis in AFib with RVR. Peak. No chest pain, no shortness of breath. Cardiology consulted -repeat trop and bnp with DVT, though has been asymptomatic and still asymptomatic Insulin-dependent diabetes mellitus -blood sugars reviewed, currently at goal for a elderly female with poor oral intake, continue current regimen, avoid over-correction. -Accu-Cheks a.c. HS with Lantus 12 units subQ b.i.d.. Constipation -EXTERIOR INTERIOR SPECIALIST Senokot S1 tab p.o. q.day resumed -01/07/2025 no BM, increase to 2 tabs b.i.d. -had 3 bowel movements on 01/08/2025: Will decrease tabs back to 1 p.o. b.i.d. -continue monitoring Hyponatremia -improved after volume resuscitation. Continue to trend . ----- Stable on medical floor with telemetry. DNR. SCDs. Diabetic heart healthy diet. consult dietitian, poor oral intake. Continue dietary supplements. Discontinue fluids on 01/11/2025. Daily weights/intake/output. Ambulate with assistance PT/OT evaluations for weakness. Recommend discharge to SNF. Plan to discharge back to [facility] when Hgb stable. Starting anticoagulation and monitoring Presented from [facility], was at [facility] prior. Time Spent With Patient Time: 62 minutes Subjective Date/time seen: 01/13/25 14:09 Interval history: Overnight events Blood count trending down gradually since 01/05 (9.0>8.4>7.7). Had received PRBC's on admission. Unclear cause of drop of blood count. No report of black or bloody stools. Has Bilateral LE edema, R>L. She denied leg pain or shortness of breath. Venous dopplers showed bilateral DVT's. Starting lovenox for anticoagulation & monitoring blood count Echo noted moderate to severe aortic valve stenosis, has some risk of hemolysis from shear. Haptoglobin is an acute phase reactant and could be more elevated in the setting of DVT Reason for hospitalization 84-year-old lady with atrial fibrillation and probably moderate to severe aortic valve stenosis admitted with a UTI complicated by sepsis and afib with RVR. Now rate controlled and no urinary complaints. Finishing a 7 day course of Augmentin for the UTI Review of Systems Review of Systems: 12 systems were reviewed with pertinent positives and negatives per HPI. Except as documented in the HPI, all other systems were reviewed and are negative. However patient is not the best historian which limits accuracy of review of systems. All systems reviewed & are unremarkable except as noted in HPI and below (Subjective) Exam Narrative: General - Awake and alert. No acute distress Eyes - PERRLA, EOM intact ENT - No thrush, No erythema Neck - No noticeable or palpable swelling Lymph Nodes - No lymphadenopathy Cardiovascular - RRR, , +murmur, no JVD Lungs: Clear to auscultation, No wheezing, use of accessory muscles, no crackles Skin - Skin warm and dry, no wounds or rashes Abdomen - Normal bowel sounds, abdomen soft and nontender Extremities - Bilateral LE edema R>L, cyanosis or clubbing Musculoskeletal - 5/5 strength, normal range of motion, no swollen or erythematous joints. Neurological ? Alert and oriented x 2, CN 2-12 grossly intact. Psych: Normal mood and affect Objective Data Vital Signs Vital Signs: Vital Signs - 24 hr 01/12/25 16:00 01/12/25 16:00 01/12/25 20:00 Temperature 97.7 F Pulse Rate 90 98 98 Respiratory Rate 18 Blood Pressure 128/60 Pulse Oximetry 98 Oxygen Delivery Fraction of Inspired Oxygen 01/12/25 20:29 01/13/25 00:00 01/13/25 00:00 Temperature 98.8 F 97.5 F L Pulse Rate 96 85 89 Respiratory Rate 20 16 Blood Pressure 118/62 112/49 L Pulse Oximetry 100 92 Oxygen Delivery Fraction of Inspired Oxygen 01/13/25 04:00 01/13/25 04:00 01/13/25 09:21 Temperature 97.5 F L 97.6 F Pulse Rate 93 93 99 Respiratory Rate 16 18 Blood Pressure 125/57 L 114/41 L Pulse Oximetry 100 97 Oxygen Delivery Fraction of Inspired Oxygen 01/13/25 09:26 01/13/25 09:27 01/13/25 09:27 Temperature 98.1 F Pulse Rate 89 89 89 Respiratory Rate 18 Blood Pressure 114/67 Pulse Oximetry 93 Oxygen Delivery Fraction of Inspired Oxygen 01/13/25 09:27 01/13/25 09:27 01/13/25 12:00 Temperature Pulse Rate 89 91 85 Respiratory Rate 18 Blood Pressure Pulse Oximetry 93 Oxygen Delivery Room Air Fraction of Inspired Oxygen 21 Intake/Output Intake/Output: Intake & Output 01/10/25 01/11/25 01/12/25 01/13/25 23:59 23:59 23:59 23:59 Intake Total 1077 1284 1080 530 Balance 1077 1284 1080 530 Meds/Results Medications: Active Medications Generic Name Dose Route Start Last Admin Trade Name Freq PRN Reason Stop Dose Admin Acetaminophen 650 mg 01/12/25 02:25 01/12/25 02:49 Acetaminophen 325 Mg Tablet PO 650 mg Q4H PRN Administration Mild Pain (1-3) or Fever Dextrose 12.5 gm 01/05/25 01:39 Dextrose 50% 25 Gm/50 Ml Syringe IV PUSH PRN PRN Hypoglycemia Protocol Digoxin 125 mcg 01/10/25 09:00 01/13/25 09:27 Digoxin Tab 125 Mcg Tablet PO 125 mcg DAILY JEN Administration Diphenhydramine HCl 25 mg 01/12/25 02:25 01/12/25 02:49 Diphenhydramine Hcl Cap 25 Mg Capsule PO 25 mg Q4HR PRN Administration Itching Fish Oil 1 gm 01/05/25 09:00 01/13/25 09:27 [place] 3 Polyunsat Fatty Acids 1 Gm Cap PO 1 gm QAM JEN Administration Folic Acid 1 mg 01/05/25 09:00 01/13/25 09:27 Folic Acid 1 Mg Tablet PO 1 mg DAILY JEN Administration Glucagon 1 mg 01/05/25 01:39 Glucagon For Inj 1 Mg Vial IM PRN PRN Hypoglycemia Protocol Glucose 15 gm 01/05/25 01:39 Glucose Oral Gel 15 Gm Of Glucse In 37.5 Gm Tube PO PRN PRN Hypoglycemia Protocol Dextrose 1,000 mls @ 100 mls/hr 01/05/25 01:39 Dextrose 5% 1,000 Ml IVPB PRN PRN Hypoglycemia Protocol Insulin Aspart 3 - 6 units 01/05/25 08:00 01/13/25 12:38 Insulin Aspart (*Bkc) 100 Units/Ml SUB-Q Not Given [facility] Protocol Insulin Glargine 12 units 01/05/25 09:00 01/13/25 09:29 Insulin Glargine (*Bkc) 100 Units/Ml SUB-Q 12 units Q12HR JEN Administration Metoprolol Succinate 50 mg 01/12/25 09:00 01/13/25 09:27 Metoprolol Succinate Ext Rel 50 Mg Tabcr PO 50 mg QAM JEN Administration Polyethylene Glycol 17 gm 01/05/25 01:38 Polyethylene Glycol 3350 17 Gm Powd.Pack PO BID PRN Constipation Senna/Docusate Sodium 1 tab 01/09/25 17:00 01/13/25 09:27 Senna/Docusate Sodium Tablet PO 1 tab BID JEN Administration Radiology Results: ITS Impressions Chest X-Ray 01/04/25 17:55 Impression: Mild CHF Head CT 01/05/25 17:34 Impression: 1.No acute intracranial abnormality. Abdomen/Pelvis CT 01/06/25 16:01 IMPRESSION: 1. Mild pulmonary edema. 2. Small pleural effusions. 3. Cystitis. 4. Bilateral acute pyelonephritis. Labs Labs: Laboratory Results - last 24 hr 01/12/25 01/12/25 01/13/25 16:46 21:16 08:15 POC Capillary Glucose 275 H 182 H 141 H 01/13/25 12:15 POC Capillary Glucose 160 H Quality VTE Prophylaxis VTE prophylaxis: mechanical ordered (SCDs) and pharmacologic ordered Hospitalist MIPS Advance Care Plan I have confirmed that the patient's Advanced Care Plan is present, code status is documented, or surrogate decision maker is listed in patient medical record.: Yes Medication Reconciliation I have utilized all available resources to obtain, update and review the patients current medications (includes all prescriptions, OTC, herbals, cannabis, and nutritional supplements).: Yes
[2025-01-13] MEDS: INSULIN ASPART (*BKC) 100 UNITS/ML SUB-Q (18:00)
[2025-01-13] MEDS: ENOXAPARIN 80 MG/0.8 ML SYRINGE SUB-Q (20:49)
[2025-01-13 20:57] LABS: Hematocrit 23.5 % (37.0-47.0); Hemoglobin 7.5 g/dL (12.0-15.0); Immature Platelet Fraction Pct 7.8 % (0.9-11.2); Immature Reticulocyte Fraction 30.8 % (3.0-15.9); Mean Corpuscular HGB Conc 31.9 g/dl (32-36); Mean Corpuscular Hemoglobin 28.7 pg (26-34); Mean Corpuscular Volume 90.0 fl (80-100); Platelet Count Result 101 k/mm3 (150-375); Red Blood Count 2.61 M/mm3 (4.2-5.4); Reticulocyte Hemoglobin Conten 28.4 pg (28.2-36.6); White Blood Count 10.7 K/mm3 (4.5-10.0)
[2025-01-13 21:19] LABS: INR 1.4; Partial Thromboplastin Time 32.2 Seconds (22.3-36.8); Prothrombin Time 17.3 Seconds (11.1-14.7)
[2025-01-13 21:37] LABS: Alanine Aminotransferase 17 U/L (6-35); Albumin Level 2.3 g/dL (3.5-5.1); Alkaline Phosphatase 95 U/L (38-126); Aspartate Amino Transferase 40 U/L (14-36); Bilirubin,Total 1.1 mg/dL (0.2-1.3); Total Protein 6.5 g/dL (6.3-8.2)
[2025-01-13 21:38] LABS: Reticulocytes Absolute 0.06 10^6/uL (0.02-0.10)
[2025-01-13 21:46] LABS: Band Neutrophils Percent 6 % (0-6); Basophils Absolute Manual 0.10 K/mm3 (0.0-0.1); Basophils Percent Manual 1 % (0-1); Eosinophils Absolute Manual 0.53 K/mm3 (0.02-0.50); Eosinophils Percent Manual 5 % (0-4); Lymphocytes Absolute Manual 4.06 K/mm3 (1.1-4.5); Lymphocytes Percent Manual 38.0 % (18-44); Metamyelocytes Percent 1 %; Monocytes Absolute Manual 0.42 K/mm3 (0.1-0.90); Monocytes Percent Manual 4 % (3-9); Neutrophils Absolute Manual 5.45 K/mm3 (1.3-6.7); Neutrophils Percent Manual 45 % (46-73); Total Cells Counted 100
[2025-01-13 21:47] LABS: Anisocytosis 2+; Hypochromasia 2+; Microcytosis 2+ (NORMAL); Ovalocytes 1+; Poikilocytosis 2+; Schistocytes None Seen
[2025-01-13 21:48] LABS: Smudge Cells FEW
[2025-01-13 21:53] LABS: NT Pro B Type Natriuretic Pept 15800 pg/mL (19.9-100); Troponin I 0.097 ng/mL (0.000-0.034)
[2025-01-13] MEDS: ACETAMINOPHEN 325 MG TABLET 650 MG PO (22:24)
[2025-01-13] MEDS: diphenhydrAMINE HCl CAP 25 MG CAPSULE PO (22:29)
[2025-01-14] VITALS (8 sets, daily range): BP systolic 113–128; BP diastolic 46–56; PULSE 81–91; RESP 16–20; TEMP 36.2–36.5; O2SAT 96–99
[2025-01-14] MEDS: SENNA/DOCUSATE SODIUM TABLET 1 TAB PO ×2 (08:23→17:11)
[2025-01-14] MEDS: DIGOXIN TAB 125 MCG TABLET PO (08:23)
[2025-01-14] MEDS: FOLIC ACID 1 MG TABLET PO (08:23)
[2025-01-14] MEDS: OMEGA 3 POLYUNSAT FATTY ACIDS 1 GM CAP PO (08:23)
[2025-01-14] MEDS: MAGNESIUM OXIDE 400 MG TABLET PO (08:24)
[2025-01-14] MEDS: METOPROLOL SUCCINATE EXT REL 50 MG TABCR PO (08:24)
[2025-01-14] MEDS: ENOXAPARIN 80 MG/0.8 ML SYRINGE SUB-Q ×2 (08:32→20:20)
--- NOTE | 2025-01-14 08:37 | P.PNIM_ITS ---
Progress Note: A&P Assessment and Plan (1) Hypotension: Code(s): I95.9 - Hypotension, unspecified Status: Acute (2) Atrial fibrillation with rapid ventricular response: Code(s): I48.91 - Unspecified atrial fibrillation Status: Acute (3) Acute UTI: Code(s): N39.0 - Urinary tract infection, site not specified Status: Acute (4) Anemia: Code(s): D64.9 - Anemia, unspecified Status: Acute (5) Acute on chronic anemia: Code(s): D64.9 - Anemia, unspecified Status: Acute (6) Elevated troponin: Code(s): R79.89 - Other specified abnormal findings of blood chemistry Status: Acute Plan 84-year-old female with PMH neurocognitive disorder, 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 Upon arrival the patient A&O x2 and in unreliable historian. Found to be in AFib with RVR with an acute UTI and severe anemia. Complicated UTI, present on admission with severe sepsis -urinalysis 01/04/2025 many squamous cells, 4+ bacteria, 2+ leukocyte esterase. CT abdomen pelvis on admission demonstrated findings concerning for urinary tract infection, small pleural effusions, mild pulmonary edema, bilateral acute pyelonephritis. -urine culture did not reflex, urine culture finally obtained on 01/06/2025 after antibiotics were given. Final results negative. Unreliable results. Ceftriaxone transition to Augmentin for a total 7 day course. Leukocytosis and bandemia resolved. Augmentin finished on 01/11. -01/05/2025 blood culture x2, no growth at 48 hours Anemia, normocytic Thrombocytopenia Unclear baseline, 6.9 on admission. Received 2 units PRBC, improved with a hemoglobin around 9.0 but has been gradually down trending -hemoccult negative reported in ER. No evidence of overt bleeding. -iron 110, TIBC 237, ferritin 758. Vitamin B12 852. Folic acid greater than 20. TSH 1.150. Haptoglobin 226 -hematology consulted. --Blood count trending down. Repeat haptoglobin, LDH, Total and direct bili, retic, SHERRIE. Consider a peripheral blood smear if evidence of hemolysis. Previously no evidence of hemolysis in urine but at risk with moderate to severe --Monitor for black/bloody stools Acute DVT Bilateral LE DVT on dopplers --Start therapeutic lovenox and monitor Hgb & plt --Discuss with hematology if continues to downtrend, consulted previously --Follow stools --Maybe be chronic disease. At risk for hemolysis with severe /calcification AFib with RVR -keep potassium greater than 4, magnesium greater than 2. -she has improved with low volume continue was fluid infusion. We will discontinue that on 01/11/2025. She reports poor appetite and really does not with eat or drink anything. Dietary supplements t.i.d. with Glucerna. Dietitian consultation. Initially she was on metoprolol but that was held due to low blood pressure which is improved status post volume resuscitation. Continue metoprolol 25 mg p.o. b.i.d., digoxin 125 mcg p.o. q.day. Amiodarone has been discontinued to prevent cardioversion and risk of stroke. Continue telemetry, she continues to be in AFib with better controlled rate in the 90s. No changes on 01/12 - remains asymptomatic. Confusion/slurred speech, resolved. -she does have a baseline neurocognitive disorder/cognitive communication disorder -A&O x2, pleasantly confused. -CT brain on admission no evidence of ischemic/hemorrhagic event CHF, systolic -BNP 47261 on admission, no evidence of clinical overload -on metoprolol. Add Entresto, empagliflozin as BP tolerates. -Repeat BNP and trop downtrending -TTE 01/07/25: Summary 1. Complete two-dimensional, color flow and Doppler transthoracic echocardiogram is performed. 2. Left ventricular chamber dimension is mildly enlarged. 3. Left ventricular systolic function is mildly reduced, estimated at 45-50. 4. There is moderate asymmetric septal increased left ventricular wall thickness. 5. The left ventricular diastolic function is abnormal. 6. Right ventricular chamber dimension is mildly enlarged. 7. Left atrial chamber dimension is moderately enlarged. 8. Right atrial chamber dimension is moderately enlarged. 9. There is moderate to severe aortic valve stenosis with a peak velocity of 291 cm/s, mean gradient of 15 mmHg, and aortic valve area of 1.0 cm2. 10. There is moderate aortic valve regurgitation. 11. There is severe aortic valve calcification. 12. There is moderate mitral valve regurgitation. 13. There is moderate tricuspid valve regurgitation. 14. Moderate pulmonary hypertension, estimated pulmonary arterial systolic pressure is 59 mmHg. 15. There is mild pulmonic regurgitation. 16. The prox ascending aorta size is dilated. -cardiology following --Start lasix 40mg daily Lactic acidosis -3.2 on admission, resolved status post 2 units PRBC and isotonic fluid resuscitation Elevated serum creatinine -1.26 on admission. Likely EDDA since serum creatinine has come down to normal. Likely due to AFib/sepsis. Elevated troponin -present on admission, likely due to sepsis in AFib with RVR. Peak. No chest pain, no shortness of breath. Cardiology consulted -repeat trop and bnp with DVT, though has been asymptomatic and still asymptomatic Insulin-dependent diabetes mellitus -blood sugars reviewed, currently at goal for a elderly female with poor oral intake, continue current regimen, avoid over-correction. -Accu-Cheks a.c. HS with Lantus 12 units subQ b.i.d., change to daily since trending down --Consistent carb, heart healthy diet Constipation -[employer] Senokot S1 tab p.o. q.day resumed -01/07/2025 no BM, increase to 2 tabs b.i.d. -had 3 bowel movements on 01/08/2025: Will decrease tabs back to 1 p.o. b.i.d. -continue monitoring Hyponatremia -improved after volume resuscitation. Continue to trend . Stable on medical floor with telemetry. DNR. SCDs. Discontinue fluids on 01/11/2025. Daily weights/intake/output. Ambulate with assistance PT/OT evaluations for weakness. Recommend discharge to SNF. Plan to discharge back to [facility] when Hgb stable. Started anticoagulation and monitoring Presented from [facility], was at [facility] prior. Time Spent With Patient Time: 57 minutes Subjective Date/time seen: 01/14/25 08:37 Interval history: Overnight events Blood count trending down gradually since 01/05 (9.0>8.4>7.7>7.5). Had received PRBC's earlier in admission. Unclear cause of drop of blood count. No report of black or bloody stools. --No BM overnight--scheduling miralax Has Bilateral LE edema, R>L. Venous dopplers showed bilateral DVT's, elevated d-dimer >20. Starting lovenox for anticoagulation & monitoring blood count Denies leg pain or shortness of breath. Trop downtrending from prior but B[place] elevated, [id number]. Start lasix, also with LE edema Echo noted moderate to severe aortic valve stenosis, has some risk of hemolysis from shear. Haptoglobin is an acute phase reactant and could be more elevated in the setting of DVT Reason for hospitalization 84-year-old lady with atrial fibrillation and probably moderate to severe aortic valve stenosis admitted with a UTI complicated by sepsis and afib with RVR. Now rate controlled and no urinary complaints. Finishing a 7 day course of Augmentin for the UTI Review of Systems Review of Systems: 12 systems were reviewed with pertinent positives and negatives per HPI. Except as documented in the HPI, all other systems were reviewed and are negative. However patient is not the best historian which limits accuracy of review of systems. All systems reviewed & are unremarkable except as noted in HPI and below (Subjective) Exam Narrative: General - Awake and alert. No acute distress Eyes - PERRLA, EOM intact ENT - No thrush, No erythema Neck - No noticeable or palpable swelling Lymph Nodes - No lymphadenopathy Cardiovascular - RRR, , +murmur, no JVD Lungs: Clear to auscultation, No wheezing, use of accessory muscles, no crackles Skin - Skin warm and dry, no wounds or rashes Abdomen - Normal bowel sounds, abdomen soft and nontender Extremities - Bilateral LE edema R>L, cyanosis or clubbing Musculoskeletal - 5/5 strength, normal range of motion, no swollen or erythematous joints. Neurological ? Alert and oriented x 2, CN 2-12 grossly intact. Psych: Normal mood and affect Objective Data Vital Signs Vital Signs: Vital Signs - 24 hr 01/13/25 09:21 01/13/25 09:26 01/13/25 09:27 Temperature 97.6 F 98.1 F Pulse Rate 99 89 89 Respiratory Rate 18 18 Blood Pressure 114/41 L 114/67 Pulse Oximetry 97 93 Oxygen Delivery Fraction of Inspired Oxygen 01/13/25 09:27 01/13/25 09:27 01/13/25 09:27 Temperature Pulse Rate 89 89 91 Respiratory Rate 18 Blood Pressure Pulse Oximetry 93 Oxygen Delivery Room Air Fraction of Inspired Oxygen 01/13/25 12:00 01/13/25 14:00 01/13/25 16:00 Temperature 98.0 F Pulse Rate 85 90 80 Respiratory Rate 18 Blood Pressure 115/53 L Pulse Oximetry 96 Oxygen Delivery Fraction of Inspired Oxygen 01/13/25 16:00 01/13/25 19:52 01/13/25 20:00 Temperature 97.7 F 97.3 F L Pulse Rate 83 87 Respiratory Rate 18 24 H Blood Pressure 107/39 L 126/50 L Pulse Oximetry 99 100 Oxygen Delivery Room Air Fraction of Inspired Oxygen 01/13/25 20:19 01/13/25 23:58 01/14/25 00:00 Temperature 97.1 F L Pulse Rate 83 81 Respiratory Rate 20 Blood Pressure 119/44 L Pulse Oximetry 100 98 Oxygen Delivery Room Air Fraction of Inspired Oxygen 01/14/25 04:00 01/14/25 04:00 01/14/25 08:23 Temperature 97.2 F L Pulse Rate 86 88 88 Respiratory Rate 20 Blood Pressure 117/49 L Pulse Oximetry 98 Oxygen Delivery Fraction of Inspired Oxygen 01/14/25 08:24 Temperature Pulse Rate 88 Respiratory Rate Blood Pressure Pulse Oximetry Oxygen Delivery Fraction of Inspired Oxygen Intake/Output Intake/Output: Intake & Output 01/11/25 01/12/25 01/13/25 01/14/25 23:59 23:59 23:59 23:59 Intake Total 1284 1080 770 200 Output Total 300 500 Balance 1284 1080 470 -300 Meds/Results Medications: Active Medications Generic Name Dose Route Start Last Admin Trade Name Freq PRN Reason Stop Dose Admin Acetaminophen 650 mg 01/12/25 02:25 01/13/25 22:24 Acetaminophen 325 Mg Tablet PO 650 mg Q4H PRN Administration Mild Pain (1-3) or Fever Dextrose 12.5 gm 01/05/25 01:39 Dextrose 50% 25 Gm/50 Ml Syringe IV PUSH PRN PRN Hypoglycemia Protocol Digoxin 125 mcg 01/10/25 09:00 01/14/25 08:23 Digoxin Tab 125 Mcg Tablet PO 125 mcg DAILY JEN Administration Diphenhydramine HCl 25 mg 01/12/25 02:25 01/13/25 22:29 Diphenhydramine Hcl Cap 25 Mg Capsule PO 25 mg Q4HR PRN Administration Itching Enoxaparin Sodium 80 mg 01/13/25 21:00 01/14/25 08:32 Enoxaparin 80 Mg/0.8 Ml Syringe SUB-Q 80 mg Q12HR JEN Administration Fish Oil 1 gm 01/05/25 09:00 01/14/25 08:23 [place] 3 Polyunsat Fatty Acids 1 Gm Cap PO 1 gm QAM JEN Administration Folic Acid 1 mg 01/05/25 09:00 01/14/25 08:23 Folic Acid 1 Mg Tablet PO 1 mg DAILY JEN Administration Glucagon 1 mg 01/05/25 01:39 Glucagon For Inj 1 Mg Vial IM PRN PRN Hypoglycemia Protocol Glucose 15 gm 01/05/25 01:39 Glucose Oral Gel 15 Gm Of Glucse In 37.5 Gm Tube PO PRN PRN Hypoglycemia Protocol Dextrose 1,000 mls @ 100 mls/hr 01/05/25 01:39 Dextrose 5% 1,000 Ml IVPB PRN PRN Hypoglycemia Protocol Insulin Aspart 3 - 6 units 01/05/25 08:00 01/14/25 08:21 Insulin Aspart (*Bkc) 100 Units/Ml SUB-Q Not Given TIDWM [facility] Protocol Insulin Glargine 12 units 01/14/25 21:00 Insulin Glargine (*Bkc) 100 Units/Ml SUB-Q HS JEN Magnesium Oxide 400 mg 01/14/25 09:00 01/14/25 08:24 Magnesium Oxide 400 Mg Tablet PO 01/15/25 09:01 400 mg DAILY JEN Administration Metoprolol Succinate 50 mg 01/12/25 09:00 01/14/25 08:24 Metoprolol Succinate Ext Rel 50 Mg Tabcr PO 50 mg QAM JEN Administration Polyethylene Glycol 17 gm 01/05/25 01:38 Polyethylene Glycol 3350 17 Gm Powd.Pack PO BID PRN Constipation Senna/Docusate Sodium 1 tab 01/09/25 17:00 01/14/25 08:23 Senna/Docusate Sodium Tablet PO 1 tab BID JEN Administration Radiology Results: ITS Impressions Chest X-Ray 01/04/25 17:55 Impression: Mild CHF Head CT 01/05/25 17:34 Impression: 1.No acute intracranial abnormality. Abdomen/Pelvis CT 01/06/25 16:01 IMPRESSION: 1. Mild pulmonary edema. 2. Small pleural effusions. 3. Cystitis. 4. Bilateral acute pyelonephritis. Venous Doppler Study 01/13/25 16:38 Impression: Bilateral DVT detailed above Labs Labs: Laboratory Results - last 24 hr 01/13/25 01/13/25 01/13/25 12:15 16:45 19:50 WBC RBC Hgb Hct MCV MCH MCHC RDW Plt Count MPV Immature Gran % (Auto) Neut % (Auto) Lymph % (Auto) [place] % (Auto) Eos % (Auto) Baso % (Auto) Lymph # (Auto) [place] # (Auto) Eos # (Auto) Baso # (Auto) Abs Immat Gran (auto) Absolute Neuts (auto) Absolute Nucleated RBC Total Counted Neutrophils % (Manual) Band Neutrophils % Lymphocytes % (Manual) Monocytes % (Manual) Eosinophils % (Manual) Basophils % (Manual) Metamyelocytes % Nucleated RBC % Abs Neuts (Manual) Abs Lymphs (Manual) Abs Monocytes (Manual) Absolute Eos (Manual) Abs Basophils (Manual) Atypical Lymphocytes Smudge Cells Platelet Estimate Large Platelets % Immature Plt Fraction Hypochromasia Poikilocytosis Anisocytosis Microcytosis Ovalocytes Schistocytes Absolute Retic Percent Retic Immature Retic Fraction Retic Hgb Content PT INR APTT D-Dimer POC Capillary Glucose 160 H 246 H 240 H Total Bilirubin Direct Bilirubin AST ALT Alkaline Phosphatase Lactate Dehydrogenase Troponin I NT-Pro-B Natriuret Pep Total Protein Albumin Blood Type Antibody Screen SHERRIE, IgG Interpret SHERRIE, Poly Interpret SHERRIE, Complement Interp 01/13/25 01/14/25 20:47 07:52 WBC 10.7 H RBC 2.61 L Hgb 7.5 L Hct 23.5 L MCV 90.0 MCH 28.7 MCHC 31.9 L RDW 22.6 H Plt Count 101 L MPV TNP Immature Gran % (Auto) Not Reportable Neut % (Auto) Not Reportable Lymph % (Auto) Not Reportable [place] % (Auto) Not Reportable Eos % (Auto) Not Reportable Baso % (Auto) Not Reportable Lymph # (Auto) Not Reportable [place] # (Auto) Not Reportable Eos # (Auto) Not Reportable Baso # (Auto) Not Reportable Abs Immat Gran (auto) Not Reportable Absolute Neuts (auto) Not Reportable Absolute Nucleated RBC Not Reportable Total Counted 100 Neutrophils % (Manual) 45 L Band Neutrophils % 6 Lymphocytes % (Manual) 38.0 Monocytes % (Manual) 4 Eosinophils % (Manual) 5 H Basophils % (Manual) 1 Metamyelocytes % 1 Nucleated RBC % Not Reportable Abs Neuts (Manual) 5.45 Abs Lymphs (Manual) 4.06 Abs Monocytes (Manual) 0.42 Absolute Eos (Manual) 0.53 H Abs Basophils (Manual) 0.10 Atypical Lymphocytes Present Smudge Cells Few Platelet Estimate Decreased Large Platelets Present % Immature Plt Fraction 7.8 Hypochromasia 2+ Poikilocytosis 2+ Anisocytosis 2+ Microcytosis 2+ Ovalocytes 1+ Schistocytes None seen Absolute Retic 0.06 Percent Retic 2.49 Immature Retic Fraction 30.8 H Retic Hgb Content 28.4 PT 17.3 H INR 1.4 APTT 32.2 D-Dimer > 20.00 H POC Capillary Glucose 82 Total Bilirubin 1.1 Direct Bilirubin 0.0 AST 40 H ALT 17 Alkaline Phosphatase 95 Lactate Dehydrogenase 235 Troponin I 0.097 H* NT-Pro-B Natriuret Pep 97800 H Total Protein 6.5 Albumin 2.3 L Blood Type A Positive Antibody Screen Negative SHERRIE, IgG Interpret 2+ SHERRIE, Poly Interpret 2+ SHERRIE, Complement Interp Negative Quality VTE Prophylaxis VTE prophylaxis: mechanical ordered (SCDs) and pharmacologic ordered Hospitalist MIPS Advance Care Plan I have confirmed that the patient's Advanced Care Plan is present, code status is documented, or surrogate decision maker is listed in patient medical record.: Yes Medication Reconciliation I have utilized all available resources to obtain, update and review the patients current medications (includes all prescriptions, OTC, herbals, cannabis, and nutritional supplements).: Yes
[2025-01-14] MEDS: FUROSEMIDE 40 MG TABLET PO (15:28)
[2025-01-14 15:35] LABS: Hematocrit 23.4 % (37.0-47.0); Hemoglobin 7.5 g/dL (12.0-15.0); Immature Platelet Fraction Pct 8.5 % (0.9-11.2); Mean Corpuscular HGB Conc 32.1 g/dl (32-36); Mean Corpuscular Hemoglobin 29.0 pg (26-34); Mean Corpuscular Volume 90.3 fl (80-100); Platelet Count Result 104 k/mm3 (150-375); Red Blood Count 2.59 M/mm3 (4.2-5.4); White Blood Count 12.3 K/mm3 (4.5-10.0)
[2025-01-14 15:46] LABS: Anion Gap 6 mmol/L (4-12); Blood Urea Nitrogen 15 mg/dL (7-17); Calcium 7.8 mg/dL (8.4-10.2); Carbon Dioxide 20 mmol/L (22-30); Chloride 107 mmol/L (98-107); Estimated CRCL calculation 41 ml/min; Estimated Glomerular Filt Rate > 60; Glucose 226 mg/dL (65-110); Magnesium 1.5 mg/dL (1.6-2.3); Potassium 4.6 mmol/L (3.4-5.0); Sodium 133 mmol/L (137-145)
[2025-01-14 16:06] LABS: Basophils Absolute Manual 0.24 K/mm3 (0.0-0.1); Basophils Percent Manual 2 % (0-1); Smudge Cells FEW; Total Cells Counted 100
[2025-01-14 16:11] LABS: Band Neutrophils Percent 15 % (0-6); Eosinophils Absolute Manual 0.36 K/mm3 (0.02-0.50); Eosinophils Percent Manual 3 % (0-4); Lymphocytes Absolute Manual 2.70 K/mm3 (1.1-4.5); Lymphocytes Percent Manual 22 % (18-44); Monocytes Absolute Manual 0.61 K/mm3 (0.1-0.90); Monocytes Percent Manual 5 % (3-9); Myelocytes Percent 5 %; Neutrophils Absolute Manual 7.74 K/mm3 (1.3-6.7); Neutrophils Percent Manual 48 % (46-73)
[2025-01-14 16:12] LABS: Anisocytosis 1+
[2025-01-14 16:13] LABS: Hypochromasia Occasional; Schistocytes None Seen
[2025-01-14] MEDS: ACETAMINOPHEN 325 MG TABLET 650 MG PO (17:13)
[2025-01-14] MEDS: INSULIN ASPART (*BKC) 100 UNITS/ML SUB-Q (17:41)
[2025-01-14] MEDS: MAGNESIUM SULF 2 GM/WATER 50ML 2 GM/50 ML BAG IVPB (17:49)
[2025-01-14] MEDS: diphenhydrAMINE HCl CAP 25 MG CAPSULE PO (17:50)
[2025-01-14] MEDS: INSULIN GLARGINE (*BKC) 100 UNITS/ML 12 UNITS SUB-Q (20:22)
[2025-01-15] VITALS (9 sets, daily range): BP systolic 106–147; BP diastolic 45–85; PULSE 71–116; RESP 16–20; TEMP 36.3–36.9; O2SAT 95–100
[2025-01-15 05:05] LABS: Hematocrit 24.6 % (37.0-47.0); Hemoglobin 7.8 g/dL (12.0-15.0); Immature Platelet Fraction Pct 9.5 % (0.9-11.2); Mean Corpuscular HGB Conc 31.7 g/dl (32-36); Mean Corpuscular Hemoglobin 28.6 pg (26-34); Mean Corpuscular Volume 90.1 fl (80-100); Platelet Count Result 109 k/mm3 (150-375); Red Blood Count 2.73 M/mm3 (4.2-5.4); White Blood Count 14.3 K/mm3 (4.5-10.0)
[2025-01-15 05:30] LABS: Alanine Aminotransferase 19 U/L (6-35); Albumin Level 2.6 g/dL (3.5-5.1); Alkaline Phosphatase 98 U/L (38-126); Anion Gap 9 mmol/L (4-12); Aspartate Amino Transferase 41 U/L (14-36); Bilirubin,Total 1.5 mg/dL (0.2-1.3); Blood Urea Nitrogen 15 mg/dL (7-17); Calcium 8.1 mg/dL (8.4-10.2); Carbon Dioxide 21 mmol/L (22-30); Chloride 104 mmol/L (98-107); Estimated CRCL calculation 38 ml/min; Estimated Glomerular Filt Rate 54; Glucose 151 mg/dL (65-110); Potassium 3.8 mmol/L (3.4-5.0); Sodium 134 mmol/L (137-145); Total Protein 7.2 g/dL (6.3-8.2)
[2025-01-15 05:33] LABS: Total Cells Counted 100
[2025-01-15 05:35] LABS: Band Neutrophils Percent 8 % (0-6); Basophils Absolute Manual 0.28 K/mm3 (0.0-0.1); Basophils Percent Manual 2 % (0-1); Lymphocytes Absolute Manual 3.00 K/mm3 (1.1-4.5); Lymphocytes Percent Manual 21 % (18-44); Metamyelocytes Percent 1 %; Monocytes Absolute Manual 2.14 K/mm3 (0.1-0.90); Monocytes Percent Manual 15 % (3-9); Neutrophils Absolute Manual 8.15 K/mm3 (1.3-6.7); Neutrophils Percent Manual 49 % (46-73)
[2025-01-15 05:36] LABS: Eosinophils Absolute Manual 0.14 K/mm3 (0.02-0.50); Eosinophils Percent Manual 1 % (0-4); Myelocytes Percent 2 %; Promyelocytes Percent 1 %
[2025-01-15 05:37] LABS: Anisocytosis Occasional; Hypochromasia 1+; Ovalocytes Occasional; Poikilocytosis Occasional; Target Cells Occasional
[2025-01-15 05:38] LABS: Schistocytes None Seen
[2025-01-15] MEDS: METOPROLOL SUCCINATE EXT REL 50 MG TABCR PO (08:14)
[2025-01-15] MEDS: FUROSEMIDE 40 MG TABLET PO (08:14)
[2025-01-15] MEDS: OMEGA 3 POLYUNSAT FATTY ACIDS 1 GM CAP PO (08:14)
[2025-01-15] MEDS: SENNA/DOCUSATE SODIUM TABLET 1 TAB PO (08:14)
[2025-01-15] MEDS: DIGOXIN TAB 125 MCG TABLET PO (08:14)
[2025-01-15] MEDS: FOLIC ACID 1 MG TABLET PO (08:14)
[2025-01-15] MEDS: MAGNESIUM OXIDE 400 MG TABLET PO (08:14)
[2025-01-15] MEDS: ENOXAPARIN 80 MG/0.8 ML SYRINGE SUB-Q ×2 (08:18→20:42)
--- NOTE | 2025-01-15 09:55 | P.PNIM_ITS ---
Progress Note: A&P Assessment and Plan (1) Hypotension: Code(s): I95.9 - Hypotension, unspecified Status: Acute (2) Atrial fibrillation with rapid ventricular response: Code(s): I48.91 - Unspecified atrial fibrillation Status: Acute (3) Acute UTI: Code(s): N39.0 - Urinary tract infection, site not specified Status: Acute (4) Anemia: Code(s): D64.9 - Anemia, unspecified Status: Acute (5) Acute on chronic anemia: Code(s): D64.9 - Anemia, unspecified Status: Acute (6) Elevated troponin: Code(s): R79.89 - Other specified abnormal findings of blood chemistry Status: Acute Plan 84-year-old female with PMH neurocognitive disorder, 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 due to confusion and slurred speech. Upon arrival the patient A&O x2 and in unreliable historian. Found to be in AFib with RVR with an acute UTI and severe anemia. Complicated UTI, present on admission with severe sepsis -urinalysis 01/04/2025 many squamous cells, 4+ bacteria, 2+ leukocyte esterase. CT abdomen pelvis on admission demonstrated findings concerning for urinary tract infection, small pleural effusions, mild pulmonary edema, bilateral acute pyelonephritis. -urine culture did not reflex, urine culture finally obtained on 01/06/2025 after antibiotics were given. Final results negative. Unreliable results. Ceftriaxone transition to Augmentin for a total 7 day course. Leukocytosis and bandemia resolved. Augmentin finished on 01/11. -01/05/2025 blood culture x2, no growth at 48 hours Leukocytosis -WBC trendin up, 7.2<14.3 Chest x-ray pulmonary edema vs pneumonia --Start doxy 100 BID x5 days --Repeat UA given recent pyelo --May need additional imaging if continues to uptrend --Check flu/covid/rsv Anemia, normocytic Thrombocytopenia Unclear baseline, 6.9 on admission. Received 2 units PRBC, improved with a hemoglobin around 9.0 but has been gradually down trending -hemoccult negative reported in ER. No evidence of overt bleeding. -iron 110, TIBC 237, ferritin 758. Vitamin B12 852. Folic acid greater than 20. TSH 1.150. Haptoglobin 226 -hematology consulted. --Blood count trending down. Repeat haptoglobin, LDH, Total and direct bili, retic, SHERRIE. Consider a peripheral blood smear if evidence of hemolysis. Previously no evidence of hemolysis in urine but at risk with moderate to severe --Monitor for black/bloody stools, normal per report --Maybe be chronic disease. At risk for hemolysis with severe /calcification. Blood count stable Acute DVT Bilateral LE DVT on dopplers --Start therapeutic lovenox and monitor Hgb & plt --Discuss with hematology if continues to downtrend, consulted previously --Follow stools AFib with RVR -keep potassium greater than 4, magnesium greater than 2. -she has improved with low volume continue was fluid infusion. We will discontinue that on 01/11/2025. She reports poor appetite and really does not with eat or drink anything. Dietary supplements t.i.d. with Glucerna. Dietitian consultation. Initially she was on metoprolol but that was held due to low blood pressure which is improved status post volume resuscitation. Continue metoprolol 25 mg p.o. b.i.d., digoxin 125 mcg p.o. q.day. Amiodarone has been discontinued to prevent cardioversion and risk of stroke. Continue telemetry, she continues to be in AFib with better controlled rate in the 90s. No changes on 01/12 - remains asymptomatic. Confusion/slurred speech, resolved. -she does have a baseline neurocognitive disorder/cognitive communication disorder -A&O x2, pleasantly confused. -CT brain on admission no evidence of ischemic/hemorrhagic event CHF, systolic -BNP 04937 on admission, no evidence of clinical overload -on metoprolol. Added Entresto, empagliflozin as BP tolerates. -Repeat BNP and trop downtrending -TTE 01/07/25: Summary 1. Complete two-dimensional, color flow and Doppler transthoracic echocardiogram is performed. 2. Left ventricular chamber dimension is mildly enlarged. 3. Left ventricular systolic function is mildly reduced, estimated at 45-50. 4. There is moderate asymmetric septal increased left ventricular wall thickness. 5. The left ventricular diastolic function is abnormal. 6. Right ventricular chamber dimension is mildly enlarged. 7. Left atrial chamber dimension is moderately enlarged. 8. Right atrial chamber dimension is moderately enlarged. 9. There is moderate to severe aortic valve stenosis with a peak velocity of 291 cm/s, mean gradient of 15 mmHg, and aortic valve area of 1.0 cm2. 10. There is moderate aortic valve regurgitation. 11. There is severe aortic valve calcification. 12. There is moderate mitral valve regurgitation. 13. There is moderate tricuspid valve regurgitation. 14. Moderate pulmonary hypertension, estimated pulmonary arterial systolic pressure is 59 mmHg. 15. There is mild pulmonic regurgitation. 16. The prox ascending aorta size is dilated. -cardiology following --Start lasix 40mg daily Lactic acidosis -3.2 on admission, resolved status post 2 units PRBC and isotonic fluid resuscitation Elevated serum creatinine -1.26 on admission. Likely EDDA since serum creatinine has come down to normal. Likely due to AFib/sepsis. Elevated troponin -present on admission, likely due to sepsis in AFib with RVR. Peak. No chest pain, no shortness of breath. Cardiology consulted -repeat trop and bnp with DVT, though has been asymptomatic and still asymptomatic Insulin-dependent diabetes mellitus -blood sugars reviewed, currently at goal for a elderly female with poor oral intake, continue current regimen, avoid over-correction. -Accu-Cheks a.c. 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 q.day resumed -01/07/2025 no BM, increase to 2 tabs b.i.d. -had 3 bowel movements on 01/08/2025: Will decrease tabs back to 1 p.o. b.i.d. -continue monitoring Hyponatremia -improved after volume resuscitation. Continue to trend . Stable on medical floor with telemetry. DNR SCDs. Discontinue fluids on 01/11/2025. Daily weights/intake/output. Ambulate with assistance PT/OT evaluations for weakness. Recommend discharge to SNF. Plan to discharge back to [facility] when Hgb stable. Started anticoagulation and monitoring WBC trending up Presented from [facility], was at [facility] [place] prior. Subjective Date/time seen: 01/15/25 09:55 Interval history: Overnight events Hgb and Plt stable on lovenox but white count is trending up to 14.3. Has been afebrile Chest x-ray this morning shows pulmonary edema vs pneumonia. Started lasix 01/15, continuing. Add doxy Check a UA, but denies dysuria Reason for hospitalization 84-year-old lady with atrial fibrillation and probably moderate to severe aortic valve stenosis admitted with a UTI complicated by sepsis and afib with RVR. Now rate controlled and no urinary complaints. Finishing a 7 day course of Augmentin for the UTI Review of Systems Review of Systems: 12 systems were reviewed with pertinent positives and negatives per HPI. Except as documented in the HPI, all other systems were reviewed and are negative. However patient is not the best historian which limits accuracy of review of systems. All systems reviewed & are unremarkable except as noted in HPI and below (Subjective) Exam Narrative: General - Awake and alert. No acute distress Eyes - PERRLA, EOM intact ENT - No thrush, No erythema Neck - No noticeable or palpable swelling Lymph Nodes - No lymphadenopathy Cardiovascular - RRR, , +murmur, no JVD Lungs: Clear to auscultation, No wheezing, use of accessory muscles, no crackles Skin - Skin warm and dry, no wounds or rashes Abdomen - Normal bowel sounds, abdomen soft and nontender Extremities - Bilateral LE edema R>L, cyanosis or clubbing Musculoskeletal - 5/5 strength, normal range of motion, no swollen or erythematous joints. Neurological ? Alert and oriented x 2, CN 2-12 grossly intact. Psych: Normal mood and affect Objective Data Vital Signs Vital Signs: Vital Signs - 24 hr 01/14/25 12:00 01/14/25 12:00 01/14/25 16:00 Temperature 97.4 F L Pulse Rate 86 84 86 Respiratory Rate 20 Blood Pressure 113/46 L Pulse Oximetry 99 Oxygen Delivery 01/14/25 20:00 01/14/25 20:00 01/14/25 20:00 Temperature 97.6 F Pulse Rate 83 91 Respiratory Rate 16 Blood Pressure 128/54 L Pulse Oximetry 96 Oxygen Delivery Room Air 01/15/25 00:00 01/15/25 00:00 01/15/25 04:00 Temperature 97.6 F Pulse Rate 92 77 116 H Respiratory Rate 16 Blood Pressure 135/85 Pulse Oximetry 99 Oxygen Delivery 01/15/25 04:00 01/15/25 08:12 01/15/25 08:14 Temperature 97.7 F 97.7 F Pulse Rate 89 91 90 Respiratory Rate 20 16 Blood Pressure 147/66 H 114/61 Pulse Oximetry 95 95 Oxygen Delivery 01/15/25 08:14 Temperature Pulse Rate 90 Respiratory Rate Blood Pressure Pulse Oximetry Oxygen Delivery Intake/Output Intake/Output: Intake & Output 01/12/25 01/13/25 01/14/25 01/15/25 23:59 23:59 23:59 23:59 Intake Total 9086 701 5599 240 Output Total 300 1001 Balance 1080 470 359 240 Meds/Results Medications: Active Medications Generic Name Dose Route Start Last Admin Trade Name Freq PRN Reason Stop Dose Admin Acetaminophen 650 mg 01/12/25 02:25 01/14/25 17:13 Acetaminophen 325 Mg Tablet PO 650 mg Q4H PRN Administration Mild Pain (1-3) or Fever Dextrose 12.5 gm 01/05/25 01:39 Dextrose 50% 25 Gm/50 Ml Syringe IV PUSH PRN PRN Hypoglycemia Protocol Digoxin 125 mcg 01/10/25 09:00 01/15/25 08:14 Digoxin Tab 125 Mcg Tablet PO 125 mcg DAILY JEN Administration Diphenhydramine HCl 25 mg 01/12/25 02:25 01/14/25 17:50 Diphenhydramine Hcl Cap 25 Mg Capsule PO 25 mg Q4HR PRN Administration Itching Enoxaparin Sodium 80 mg 01/13/25 21:00 01/15/25 08:18 Enoxaparin 80 Mg/0.8 Ml Syringe SUB-Q 80 mg Q12HR JEN Administration Fish Oil 1 gm 01/05/25 09:00 01/15/25 08:14 [place] 3 Polyunsat Fatty Acids 1 Gm Cap PO 1 gm QAM JEN Administration Folic Acid 1 mg 01/05/25 09:00 01/15/25 08:14 Folic Acid 1 Mg Tablet PO 1 mg DAILY JEN Administration Furosemide 40 mg 01/14/25 15:10 01/15/25 08:14 Furosemide 40 Mg Tablet PO 40 mg DAILY JEN Administration Glucagon 1 mg 01/05/25 01:39 Glucagon For Inj 1 Mg Vial IM PRN PRN Hypoglycemia Protocol Glucose 15 gm 01/05/25 01:39 Glucose Oral Gel 15 Gm Of Glucse In 37.5 Gm Tube PO PRN PRN Hypoglycemia Protocol Dextrose 1,000 mls @ 100 mls/hr 01/05/25 01:39 Dextrose 5% 1,000 Ml IVPB PRN PRN Hypoglycemia Protocol Insulin Aspart 3 - 6 units 01/05/25 08:00 01/14/25 17:41 Insulin Aspart (*Bkc) 100 Units/Ml SUB-Q 3 units TIDWM JEN Administration Protocol Insulin Glargine 12 units 01/14/25 21:00 01/14/25 20:22 Insulin Glargine (*Bkc) 100 Units/Ml SUB-Q 12 units HS JEN Administration Metoprolol Succinate 50 mg 01/12/25 09:00 01/15/25 08:14 Metoprolol Succinate Ext Rel 50 Mg Tabcr PO 50 mg QAM JEN Administration Polyethylene Glycol 17 gm 01/15/25 09:00 01/15/25 08:17 Polyethylene Glycol 3350 17 Gm Powd.Pack PO 17 gm DAILY JEN Administration Senna/Docusate Sodium 1 tab 01/09/25 17:00 01/15/25 08:14 Senna/Docusate Sodium Tablet PO 1 tab BID JEN Administration Radiology Results: ITS Impressions Head CT 01/05/25 17:34 Impression: 1.No acute intracranial abnormality. Abdomen/Pelvis CT 01/06/25 16:01 IMPRESSION: 1. Mild pulmonary edema. 2. Small pleural effusions. 3. Cystitis. 4. Bilateral acute pyelonephritis. Venous Doppler Study 01/13/25 16:38 Impression: Bilateral DVT detailed above Chest X-Ray 01/15/25 07:52 IMPRESSION: 1. Persistent interstitial and groundglass opacities throughout both lungs which could represent pulmonary edema and/or pneumonia. 2. Cardiomegaly. Labs Labs: Laboratory Results - last 24 hr 01/14/25 01/14/25 01/14/25 11:25 15:26 17:25 WBC 12.3 H RBC 2.59 L Hgb 7.5 L Hct 23.4 L MCV 90.3 MCH 29.0 MCHC 32.1 RDW 22.8 H Plt Count 104 L MPV TNP Immature Gran % (Auto) Not Reportable Neut % (Auto) Not Reportable Lymph % (Auto) Not Reportable [place] % (Auto) Not Reportable Eos % (Auto) Not Reportable Baso % (Auto) Not Reportable Lymph # (Auto) Not Reportable [place] # (Auto) Not Reportable Eos # (Auto) Not Reportable Baso # (Auto) Not Reportable Abs Immat Gran (auto) Not Reportable Absolute Neuts (auto) Not Reportable Absolute Nucleated RBC Not Reportable Total Counted 100 Neutrophils % (Manual) 48 Band Neutrophils % 15 H Lymphocytes % (Manual) 22 Monocytes % (Manual) 5 Eosinophils % (Manual) 3 Basophils % (Manual) 2 H Metamyelocytes % Not Reportable Myelocytes % 5 Promyelocytes % (Man) Nucleated RBC % Not Reportable Abs Neuts (Manual) 7.74 H Abs Lymphs (Manual) 2.70 Abs Monocytes (Manual) 0.61 Absolute Eos (Manual) 0.36 Abs Basophils (Manual) 0.24 H Nucleated RBCs 5 Atypical Lymphocytes Present Smudge Cells Few Platelet Estimate Decreased Large Platelets % Immature Plt Fraction 8.5 Hypochromasia Occasional Poikilocytosis Anisocytosis 1+ Target Cells Ovalocytes Schistocytes None seen Sodium 133 L Potassium 4.6 Chloride 107 Carbon Dioxide 20 L Anion Gap 6 BUN 15 Creatinine 0.88 Estim Creat Clear Calc 41 Estimated GFR > 60 Glucose 226 H POC Capillary Glucose 132 H 201 H Calcium 7.8 L Phosphorus 2.9 Magnesium 1.5 L Total Bilirubin Direct Bilirubin AST ALT Alkaline Phosphatase Total Protein Albumin 01/14/25 01/14/25 01/15/25 20:19 21:54 04:32 WBC 14.3 H RBC 2.73 L Hgb 7.8 L Hct 24.6 L MCV 90.1 MCH 28.6 MCHC 31.7 L RDW 23.4 H Plt Count 109 L MPV TNP Immature Gran % (Auto) Not Reportable Neut % (Auto) Not Reportable Lymph % (Auto) Not Reportable [place] % (Auto) Not Reportable Eos % (Auto) Not Reportable Baso % (Auto) Not Reportable Lymph # (Auto) Not Reportable [place] # (Auto) Not Reportable Eos # (Auto) Not Reportable Baso # (Auto) Not Reportable Abs Immat Gran (auto) Not Reportable Absolute Neuts (auto) Not Reportable Absolute Nucleated RBC Not Reportable Total Counted 100 Neutrophils % (Manual) 49 Band Neutrophils % 8 H Lymphocytes % (Manual) 21 Monocytes % (Manual) 15 H Eosinophils % (Manual) 1 Basophils % (Manual) 2 H Metamyelocytes % 1 Myelocytes % 2 Promyelocytes % (Man) 1 Nucleated RBC % Not Reportable Abs Neuts (Manual) 8.15 H Abs Lymphs (Manual) 3.00 Abs Monocytes (Manual) 2.14 H Absolute Eos (Manual) 0.14 Abs Basophils (Manual) 0.28 H Nucleated RBCs 3 Atypical Lymphocytes Present Smudge Cells Platelet Estimate Decreased Large Platelets Present % Immature Plt Fraction 9.5 Hypochromasia 1+ Poikilocytosis Occasional Anisocytosis Occasional Target Cells Occasional Ovalocytes Occasional Schistocytes None seen Sodium 134 L Potassium 3.8 Chloride 104 Carbon Dioxide 21 L Anion Gap 9 BUN 15 Creatinine 0.98 Estim Creat Clear Calc 38 Estimated GFR 54 L Glucose 151 H POC Capillary Glucose 194 H 171 H Calcium 8.1 L Phosphorus Magnesium Total Bilirubin 1.5 H Direct Bilirubin 0.0 AST 41 H ALT 19 Alkaline Phosphatase 98 Total Protein 7.2 Albumin 2.6 L 01/15/25 08:38 WBC RBC Hgb Hct MCV MCH MCHC RDW Plt Count MPV Immature Gran % (Auto) Neut % (Auto) Lymph % (Auto) [place] % (Auto) Eos % (Auto) Baso % (Auto) Lymph # (Auto) [place] # (Auto) Eos # (Auto) Baso # (Auto) Abs Immat Gran (auto) Absolute Neuts (auto) Absolute Nucleated RBC Total Counted Neutrophils % (Manual) Band Neutrophils % Lymphocytes % (Manual) Monocytes % (Manual) Eosinophils % (Manual) Basophils % (Manual) Metamyelocytes % Myelocytes % Promyelocytes % (Man) Nucleated RBC % Abs Neuts (Manual) Abs Lymphs (Manual) Abs Monocytes (Manual) Absolute Eos (Manual) Abs Basophils (Manual) Nucleated RBCs Atypical Lymphocytes Smudge Cells Platelet Estimate Large Platelets % Immature Plt Fraction Hypochromasia Poikilocytosis Anisocytosis Target Cells Ovalocytes Schistocytes Sodium Potassium Chloride Carbon Dioxide Anion Gap BUN Creatinine Estim Creat Clear Calc Estimated GFR Glucose POC Capillary Glucose 139 H Calcium Phosphorus Magnesium Total Bilirubin Direct Bilirubin AST ALT Alkaline Phosphatase Total Protein Albumin Quality VTE Prophylaxis VTE prophylaxis: mechanical ordered (SCDs) and pharmacologic ordered Hospitalist MIPS Advance Care Plan I have confirmed that the patient's Advanced Care Plan is present, code status is documented, or surrogate decision maker is listed in patient medical record.: Yes Medication Reconciliation I have utilized all available resources to obtain, update and review the patients current medications (includes all prescriptions, OTC, herbals, cannabis, and nutritional supplements).: Yes
--- NOTE | 2025-01-15 10:38 | PCNFU ---
Nutrition Follow-Up Complete: Inadequate oral intake related to loss of appetite as evidenced by intakes 25-50% Goal: Adequate PO intake at least 50-75% Patient will continue current goal. Pt current nutrition is Heart Healthy/DBCC with diet supplements. Last recorded weight is 83 kg, up from 78.2 kg. Bowel Motility: +BM reported 01/14 Labs Reviewed: Glu 151, Na 134, Alb 2.6, Hct 24.6, Hgb 7.8 Meds Noted:NovoLog, Lantus, Folic Acid, Miralax Skin: WNL Additional Notes: Patient remains on a heart healthy/DBCC diet. Oral Intake has been 50-100% of most meals. Diet supplements are providing an additional 240 kcal and 10 gm protein. Agree with diet orders. Monitoring intakes, weights, labs, supplement tolerance, output, plan of care Follow up in 5 days
[2025-01-15 11:19] LABS: Add Urine Microscopic? YES; Appearance Urine Clear (Clear); Budding Yeast Urine Present /hpf; Glucose Urine UA Negative (Negative); Leukocyte Esterase Ur 2+ LEU/UL (Negative); Need Manual Microscopic Reviewed; Nitrate Urine Negative (Negative); Non Pathogenic Casts 0-2; Specific Grav Ur 1.010 (1.001-1.035)
[2025-01-15] MEDS: DOXYCYCLINE HYCLATE 100 MG TABLET PO ×2 (13:19→20:42)
[2025-01-15 14:44] LABS: Influenza A QL RT-PCR Negative (Negative); Influenza B QL RT-PCR Negative (Negative); RSV RNA, RT-PCR Negative (Negative); SARS-CoV-2 RNA PCR Negative (Negative)
[2025-01-15] MEDS: INSULIN ASPART (*BKC) 100 UNITS/ML SUB-Q (17:21)
[2025-01-15] MEDS: INSULIN GLARGINE (*BKC) 100 UNITS/ML 12 UNITS SUB-Q (20:42)
[2025-01-16 03:49] VITALS: BP 106/52; PULSE 86; RESP 18; TEMP 36.9; O2SAT 97
[2025-01-16 05:36] LABS: Hematocrit 23.2 % (37.0-47.0); Hemoglobin 7.4 g/dL (12.0-15.0); Immature Platelet Fraction Pct 8.6 % (0.9-11.2); Mean Corpuscular HGB Conc 31.9 g/dl (32-36); Mean Corpuscular Hemoglobin 28.8 pg (26-34); Mean Corpuscular Volume 90.3 fl (80-100); Platelet Count Result 104 k/mm3 (150-375); Red Blood Count 2.57 M/mm3 (4.2-5.4); White Blood Count 13.2 K/mm3 (4.5-10.0)
[2025-01-16 05:56] LABS: Alanine Aminotransferase 13 U/L (6-35); Albumin Level 2.3 g/dL (3.5-5.1); Alkaline Phosphatase 94 U/L (38-126); Anion Gap 4 mmol/L (4-12); Aspartate Amino Transferase 33 U/L (14-36); Bilirubin,Total 1.7 mg/dL (0.2-1.3); Blood Urea Nitrogen 15 mg/dL (7-17); Calcium 7.9 mg/dL (8.4-10.2); Carbon Dioxide 23 mmol/L (22-30); Chloride 104 mmol/L (98-107); Estimated CRCL calculation 39 ml/min; Estimated Glomerular Filt Rate 57; Glucose 182 mg/dL (65-110); Potassium 4.4 mmol/L (3.4-5.0); Sodium 131 mmol/L (137-145); Total Protein 6.9 g/dL (6.3-8.2)
[2025-01-16 06:26] LABS: Band Neutrophils Percent 9 % (0-6); Basophils Absolute Manual 0.26 K/mm3 (0.0-0.1); Basophils Percent Manual 2 % (0-1); Lymphocytes Absolute Manual 3.16 K/mm3 (1.1-4.5); Lymphocytes Percent Manual 24 % (18-44); Monocytes Absolute Manual 0.79 K/mm3 (0.1-0.90); Monocytes Percent Manual 6 % (3-9); Neutrophils Absolute Manual 8.97 K/mm3 (1.3-6.7); Neutrophils Percent Manual 59 % (46-73); Smudge Cells PRESENT; Total Cells Counted 100
[2025-01-16 06:27] LABS: Anisocytosis 1+; Basophilic Stippling Occasional; Hypochromasia 1+; Target Cells Occasional
[2025-01-16 06:28] LABS: Schistocytes None Seen
[2025-01-16 09:40] VITALS: PULSE 90
[2025-01-16] MEDS: DOXYCYCLINE HYCLATE 100 MG TABLET PO ×2 (09:40→21:53)
[2025-01-16] MEDS: DIGOXIN TAB 125 MCG TABLET PO (09:40)
[2025-01-16] MEDS: FUROSEMIDE 40 MG TABLET PO (09:40)
[2025-01-16] MEDS: diphenhydrAMINE HCl CAP 25 MG CAPSULE PO (09:40)
[2025-01-16] MEDS: OMEGA 3 POLYUNSAT FATTY ACIDS 1 GM CAP PO (09:40)
[2025-01-16] MEDS: ENOXAPARIN 80 MG/0.8 ML SYRINGE SUB-Q ×2 (09:40→21:53)
[2025-01-16] MEDS: FOLIC ACID 1 MG TABLET PO (09:40)
[2025-01-16] MEDS: METOPROLOL SUCCINATE EXT REL 50 MG TABCR PO (09:40)
[2025-01-16] MEDS: SENNA/DOCUSATE SODIUM TABLET 1 TAB PO (09:40)
[2025-01-16 12:00] VITALS: BP 94/41; PULSE 95; RESP 16; TEMP 36.6; O2SAT 99
--- NOTE | 2025-01-16 14:39 | PC.NURSE ---
Patient's BP was soft during vitals. RN notified [employer]INE[employer] face to face.
--- NOTE | 2025-01-16 15:13 | P.PNIM_ITS ---
Progress Note: A&P Assessment and Plan (1) Hypotension: Code(s): I95.9 - Hypotension, unspecified Status: Acute (2) Atrial fibrillation with rapid ventricular response: Code(s): I48.91 - Unspecified atrial fibrillation Status: Acute (3) Acute UTI: Code(s): N39.0 - Urinary tract infection, site not specified Status: Acute (4) Anemia: Code(s): D64.9 - Anemia, unspecified Status: Acute (5) Acute on chronic anemia: Code(s): D64.9 - Anemia, unspecified Status: Acute (6) Elevated troponin: Code(s): R79.89 - Other specified abnormal findings of blood chemistry Status: Acute Plan 84-year-old female with PMH neurocognitive disorder, 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 Upon arrival the patient A&O x2 and in unreliable historian. Found to be in AFib with RVR with an acute UTI and severe anemia. Complicated UTI, present on admission with severe sepsis -urinalysis 01/04/2025 many squamous cells, 4+ bacteria, 2+ leukocyte esterase. CT abdomen pelvis on admission demonstrated findings concerning for urinary tract infection, small pleural effusions, mild pulmonary edema, bilateral acute pyelonephritis. -urine culture did not reflex, urine culture finally obtained on 01/06/2025 after antibiotics were given. Final results negative. Unreliable results. Ceftriaxone transition to Augmentin for a total 7 day course. Leukocytosis and bandemia resolved. Augmentin finished on 01/11. -01/05/2025 blood culture x2, no growth at 48 hours Leukocytosis -WBC trending up, 7.2<14.3 Chest x-ray pulmonary edema vs pneumonia. Recheck X-ray in AM --Start doxy 100 BID x5 days --Repeat UA given recent pyelo. Monitor off antibiotics pending culture --May need additional imaging if continues to uptrend --01/15 flu/covid/rsv negative Anemia, normocytic Thrombocytopenia Unclear baseline, 6.9 on admission. Received 2 units PRBC, improved with a hem oglobin around 9.0 but has been gradually down trending 01/15 7.4 -hemoccult negative reported in ER. No evidence of overt bleeding. -iron 110, TIBC 237, ferritin 758. Vitamin B12 852. Folic acid greater than 20. TSH 1.150. Haptoglobin 226 -hematology consulted. --Blood count trending down. Bili 1.7, SHERRIE. Consider a peripheral blood smear if evidence of hemolysis. Previously no evidence of hemolysis in urine but at risk with moderate to severe --Monitor for black/bloody stools, normal per report --Maybe be chronic disease. At risk for hemolysis with severe /calcification. Blood count stable Acute DVT Bilateral LE DVT on dopplers --Start therapeutic lovenox and monitor Hgb & plt --Discuss with hematology if continues to downtrend, consulted previously --Follow stools AFib with RVR -keep potassium greater than 4, magnesium greater than 2. -she has improved with low volume continue was fluid infusion. We will discontinue that on 01/11/2025. She reports poor appetite and really does not with eat or drink anything. Dietary supplements t.i.d. with Glucerna. Dietitian consultation. Initially she was on metoprolol but that was held due to low blood pressure which is improved status post volume resuscitation. Continue metoprolol 25 mg p.o. b.i.d., digoxin 125 mcg p.o. q.day. Amiodarone has been discontinued to prevent cardioversion and risk of stroke. Continue telemetry, she continues to be in AFib with better controlled rate in the 90s. No changes on 01/12 - remains asymptomatic. Confusion/slurred speech, resolved. -she does have a baseline neurocognitive disorder/cognitive communication disorder -A&O x2, pleasantly confused. -CT brain on admission no evidence of ischemic/hemorrhagic event CHF, systolic -BNP 91542 on admission, no evidence of clinical overload -on metoprolol. Add Entresto, empagliflozin as BP tolerates. -Repeat BNP and trop downtrending -TTE 01/07/25: Summary 1. Complete two-dimensional, color flow and Doppler transthoracic echocardiogram is performed. 2. Left ventricular chamber dimension is mildly enlarged. 3. Left ventricular systolic function is mildly reduced, estimated at 45-50. 4. There is moderate asymmetric septal increased left ventricular wall thickness. 5. The left ventricular diastolic function is abnormal. 6. Right ventricular chamber dimension is mildly enlarged. 7. Left atrial chamber dimension is moderately enlarged. 8. Right atrial chamber dimension is moderately enlarged. 9. There is moderate to severe aortic valve stenosis with a peak velocity of 291 cm/s, mean gradient of 15 mmHg, and aortic valve area of 1.0 cm2. 10. There is moderate aortic valve regurgitation. 11. There is severe aortic valve calcification. 12. There is moderate mitral valve regurgitation. 13. There is moderate tricuspid valve regurgitation. 14. Moderate pulmonary hypertension, estimated pulmonary arterial systolic pressure is 59 mmHg. 15. There is mild pulmonic regurgitation. 16. The prox ascending aorta size is dilated. -cardiology following --Start lasix 40mg daily Lactic acidosis -3.2 on admission, resolved status post 2 units PRBC and isotonic fluid resuscitation Elevated serum creatinine -1.26 on admission. Likely EDDA since serum creatinine has come down to normal. Likely due to AFib/sepsis. Elevated troponin -present on admission, likely due to sepsis in AFib with RVR. Peak. No chest pain, no shortness of breath. Cardiology consulted -repeat trop and bnp with DVT, though has been asymptomatic and still asymptomatic Insulin-dependent diabetes mellitus -blood sugars reviewed, currently at goal for a elderly female with poor oral intake, continue current regimen, avoid over-correction. -Accu-Cheks a.c. HS with Lantus 12 units subQ b.i.d., change to daily since trending down --Consistent carb, heart healthy diet Constipation -RADIO COMMUNICATION COORDINATOR Senokot S1 tab p.o. q.day resumed -01/07/2025 no BM, increase to 2 tabs b.i.d. -had 3 bowel movements on 01/08/2025: Will decrease tabs back to 1 p.o. b.i.d. -continue monitoring Hyponatremia -improved after volume resuscitation. Continue to trend . Stable on medical floor with telemetry. DNR SCDs. Discontinue fluids on 01/11/2025. Daily weights/intake/output. Ambulate with assistance PT/OT evaluations for weakness. Recommend discharge to SNF. Plan to discharge back to [facility] when Hgb stable. Started anticoagulation and monitoring WBC improving Presented from [facility], was at [facility] prior. Time Spent With Patient Time: 58 minutes Subjective Date/time seen: 01/16/25 15:13 Interval history: Overnight events Hgb slightly lower, WBC improved. Has been afebrile Chest x-ray 01/15 showed pulmonary edema vs pneumonia. Started lasix 01/15, slightly improved but blood pressure soft this afternoon UA 51-100 RBC's, 11-20 WBC's, yeast Reason for hospitalization 84-year-old lady with atrial fibrillation and probably moderate to severe aortic valve stenosis admitted with a UTI complicated by sepsis and afib with RVR. Now rate controlled and no urinary complaints. Finishing a 7 day course of Augmentin for the UTI Review of Systems Review of Systems: 12 systems were reviewed with pertinent positives and negatives per HPI. Except as documented in the HPI, all other systems were reviewed and are negative. However patient is not the best historian which limits accuracy of review of systems. All systems reviewed & are unremarkable except as noted in HPI and below (Subjective) Exam Narrative: General - Awake and alert. No acute distress Eyes - PERRLA, EOM intact ENT - No thrush, No erythema Neck - No noticeable or palpable swelling Lymph Nodes - No lymphadenopathy Cardiovascular - RRR, , +murmur, no JVD Lungs: Clear to auscultation, No wheezing, use of accessory muscles, no crackles Skin - Skin warm and dry, no wounds or rashes Abdomen - Normal bowel sounds, abdomen soft and nontender Extremities - Bilateral LE edema R>L, cyanosis or clubbing Musculoskeletal - 5/5 strength, normal range of motion, no swollen or erythematous joints. Neurological ? Alert and oriented x 2, CN 2-12 grossly intact. Psych: Normal mood and affect Objective Data Vital Signs Vital Signs: Vital Signs - 24 hr 01/15/25 18:59 01/15/25 20:00 01/15/25 20:00 Temperature 97.3 F L 97.6 F Pulse Rate 89 81 Respiratory Rate 18 20 Blood Pressure 124/45 L 111/50 L Pulse Oximetry 100 100 97 Oxygen Delivery Room Air Fraction of Inspired Oxygen 01/15/25 20:42 01/15/25 23:32 01/16/25 03:49 Temperature 98.4 F 98.5 F Pulse Rate 95 89 86 Respiratory Rate 16 18 Blood Pressure 121/45 L 106/52 L Pulse Oximetry 97 99 97 Oxygen Delivery Room Air Fraction of Inspired Oxygen 21 01/16/25 09:40 01/16/25 09:40 01/16/25 09:50 Temperature Pulse Rate 90 90 Respiratory Rate Blood Pressure Pulse Oximetry Oxygen Delivery Room Air Fraction of Inspired Oxygen Intake/Output Intake/Output: Intake & Output 01/13/25 01/14/25 01/15/25 01/16/25 23:59 23:59 23:59 23:59 Intake Total 770 1360 720 100 Output Total 300 1001 500 700 Balance 470 359 220 -600 Meds/Results Medications: Active Medications Generic Name Dose Route Start Last Admin Trade Name Freq PRN Reason Stop Dose Admin Acetaminophen 650 mg 01/12/25 02:25 01/14/25 17:13 Acetaminophen 325 Mg Tablet PO 650 mg Q4H PRN Administration Mild Pain (1-3) or Fever Dextrose 12.5 gm 01/05/25 01:39 Dextrose 50% 25 Gm/50 Ml Syringe IV PUSH PRN PRN Hypoglycemia Protocol Digoxin 125 mcg 01/10/25 09:00 01/16/25 09:40 Digoxin Tab 125 Mcg Tablet PO 125 mcg DAILY JEN Administration Diphenhydramine HCl 25 mg 01/12/25 02:25 01/16/25 09:40 Diphenhydramine Hcl Cap 25 Mg Capsule PO 25 mg Q4HR PRN Administration Itching Doxycycline Hyclate 100 mg 01/15/25 13:00 01/16/25 09:40 Doxycycline Hyclate 100 Mg Tablet PO 01/20/25 12:59 100 mg Q12HR JEN Administration Enoxaparin Sodium 80 mg 01/13/25 21:00 01/16/25 09:40 Enoxaparin 80 Mg/0.8 Ml Syringe SUB-Q 80 mg Q12HR JEN Administration Fish Oil 1 gm 01/05/25 09:00 01/16/25 09:40 [place] 3 Polyunsat Fatty Acids 1 Gm Cap PO 1 gm QAM JEN Administration Folic Acid 1 mg 01/05/25 09:00 01/16/25 09:40 Folic Acid 1 Mg Tablet PO 1 mg DAILY JEN Administration Furosemide 20 mg 01/17/25 09:00 Furosemide 20 Mg Tablet PO DAILY JEN Glucagon 1 mg 01/05/25 01:39 Glucagon For Inj 1 Mg Vial IM PRN PRN Hypoglycemia Protocol Glucose 15 gm 01/05/25 01:39 Glucose Oral Gel 15 Gm Of Glucse In 37.5 Gm Tube PO PRN PRN Hypoglycemia Protocol Dextrose 1,000 mls @ 100 mls/hr 01/05/25 01:39 Dextrose 5% 1,000 Ml IVPB PRN PRN Hypoglycemia Protocol Insulin Aspart 3 - 6 units 01/05/25 08:00 01/16/25 13:34 Insulin Aspart (*Bkc) 100 Units/Ml SUB-Q Not Given TIDWM JEN Protocol Insulin Glargine 12 units 01/14/25 21:00 01/15/25 20:42 Insulin Glargine (*Bkc) 100 Units/Ml SUB-Q 12 units HS JEN Administration Metoprolol Succinate 50 mg 01/12/25 09:00 01/16/25 09:40 Metoprolol Succinate Ext Rel 50 Mg Tabcr PO 50 mg QAM JEN Administration Polyethylene Glycol 17 gm 01/15/25 09:00 01/16/25 09:40 Polyethylene Glycol 3350 17 Gm Powd.Pack PO 17 gm DAILY JEN Administration Senna/Docusate Sodium 1 tab 01/09/25 17:00 01/16/25 09:40 Senna/Docusate Sodium Tablet PO 1 tab BID JEN Administration Radiology Results: ITS Impressions Head CT 01/05/25 17:34 Impression: 1.No acute intracranial abnormality. Abdomen/Pelvis CT 01/06/25 16:01 IMPRESSION: 1. Mild pulmonary edema. 2. Small pleural effusions. 3. Cystitis. 4. Bilateral acute pyelonephritis. Venous Doppler Study 01/13/25 16:38 Impression: Bilateral DVT detailed above Chest X-Ray 01/15/25 07:52 IMPRESSION: 1. Persistent interstitial and groundglass opacities throughout both lungs which could represent pulmonary edema and/or pneumonia. 2. Cardiomegaly. Labs Labs: Laboratory Results - last 24 hr 01/15/25 01/15/25 01/16/25 17:15 20:03 04:44 WBC 13.2 H RBC 2.57 L Hgb 7.4 L Hct 23.2 L MCV 90.3 MCH 28.8 MCHC 31.9 L RDW 23.4 H Plt Count 104 L MPV TNP Immature Gran % (Auto) Not Reportable Neut % (Auto) Not Reportable Lymph % (Auto) Not Reportable [place] % (Auto) Not Reportable Eos % (Auto) Not Reportable Baso % (Auto) Not Reportable Lymph # (Auto) Not Reportable [place] # (Auto) Not Reportable Eos # (Auto) Not Reportable Baso # (Auto) Not Reportable Abs Immat Gran (auto) Not Reportable Absolute Neuts (auto) Not Reportable Absolute Nucleated RBC Not Reportable Total Counted 100 Neutrophils % (Manual) 59 Band Neutrophils % 9 H Lymphocytes % (Manual) 24 Monocytes % (Manual) 6 Basophils % (Manual) 2 H Nucleated RBC % Not Reportable Abs Neuts (Manual) 8.97 H Abs Lymphs (Manual) 3.16 Abs Monocytes (Manual) 0.79 Abs Basophils (Manual) 0.26 H Nucleated RBCs 3 Atypical Lymphocytes Present Smudge Cells Present Platelet Estimate Decreased % Immature Plt Fraction 8.6 Hypochromasia 1+ Basophilic Stippling Occasional Anisocytosis 1+ Target Cells Occasional Schistocytes None seen Sodium 131 L Potassium 4.4 Chloride 104 Carbon Dioxide 23 Anion Gap 4 BUN 15 Creatinine 0.93 Estim Creat Clear Calc 39 Estimated GFR 57 L Glucose 182 H POC Capillary Glucose 220 H 192 H Calcium 7.9 L Total Bilirubin 1.7 H Direct Bilirubin 0.0 AST 33 ALT 13 Alkaline Phosphatase 94 Total Protein 6.9 Albumin 2.3 L 01/16/25 01/16/25 08:07 11:45 WBC RBC Hgb Hct MCV MCH MCHC RDW Plt Count MPV Immature Gran % (Auto) Neut % (Auto) Lymph % (Auto) [place] % (Auto) Eos % (Auto) Baso % (Auto) Lymph # (Auto) [place] # (Auto) Eos # (Auto) Baso # (Auto) Abs Immat Gran (auto) Absolute Neuts (auto) Absolute Nucleated RBC Total Counted Neutrophils % (Manual) Band Neutrophils % Lymphocytes % (Manual) Monocytes % (Manual) Basophils % (Manual) Nucleated RBC % Abs Neuts (Manual) Abs Lymphs (Manual) Abs Monocytes (Manual) Abs Basophils (Manual) Nucleated RBCs Atypical Lymphocytes Smudge Cells Platelet Estimate % Immature Plt Fraction Hypochromasia Basophilic Stippling Anisocytosis Target Cells Schistocytes Sodium Potassium Chloride Carbon Dioxide Anion Gap BUN Creatinine Estim Creat Clear Calc Estimated GFR Glucose POC Capillary Glucose 159 H 190 H Calcium Total Bilirubin Direct Bilirubin AST ALT Alkaline Phosphatase Total Protein Albumin Quality VTE Prophylaxis VTE prophylaxis: mechanical ordered (SCDs) and pharmacologic ordered Hospitalist MIPS Advance Care Plan I have confirmed that the patient's Advanced Care Plan is present, code status is documented, or surrogate decision maker is listed in patient medical record.: Yes Medication Reconciliation I have utilized all available resources to obtain, update and review the patients current medications (includes all prescriptions, OTC, herbals, cannabis, and nutritional supplements).: Yes
[2025-01-16 16:58] VITALS: BP 118/46; PULSE 97; RESP 18; TEMP 36.6; O2SAT 95
[2025-01-16] MEDS: INSULIN ASPART (*BKC) 100 UNITS/ML SUB-Q (17:00)
--- NOTE | 2025-01-16 17:02 | PC.NURSE ---
RN called and updated patient's granddaughter.
[2025-01-16 20:00] VITALS: BP 116/53; PULSE 116; RESP 18; TEMP 36.9; O2SAT 100
[2025-01-16 20:29] VITALS: BP 116/53; PULSE 116; RESP 18; TEMP 36.9; O2SAT 100
[2025-01-16] MEDS: INSULIN GLARGINE (*BKC) 100 UNITS/ML 12 UNITS SUB-Q (21:54)
[2025-01-17] VITALS (7 sets, daily range): BP systolic 107–122; BP diastolic 46–58; PULSE 90–110; RESP 14–16; TEMP 36.5–37; O2SAT 93–98
[2025-01-17 05:11] LABS: Hematocrit 22.5 % (37.0-47.0); Hemoglobin 7.2 g/dL (12.0-15.0); Immature Platelet Fraction Pct 7.9 % (0.9-11.2); Mean Corpuscular HGB Conc 32.0 g/dl (32-36); Mean Corpuscular Hemoglobin 28.8 pg (26-34); Mean Corpuscular Volume 90.0 fl (80-100); Platelet Count Result 101 k/mm3 (150-375); Red Blood Count 2.50 M/mm3 (4.2-5.4); White Blood Count 14.6 K/mm3 (4.5-10.0)
[2025-01-17 05:33] LABS: Alanine Aminotransferase 19 U/L (6-35); Albumin Level 2.5 g/dL (3.5-5.1); Alkaline Phosphatase 95 U/L (38-126); Anion Gap 6 mmol/L (4-12); Aspartate Amino Transferase 37 U/L (14-36); Bilirubin,Total 2.0 mg/dL (0.2-1.3); Blood Urea Nitrogen 17 mg/dL (7-17); Calcium 8.0 mg/dL (8.4-10.2); Carbon Dioxide 22 mmol/L (22-30); Chloride 104 mmol/L (98-107); Estimated CRCL calculation 39 ml/min; Estimated Glomerular Filt Rate 57; Glucose 241 mg/dL (65-110); Potassium 4.2 mmol/L (3.4-5.0); Sodium 132 mmol/L (137-145); Total Protein 7.1 g/dL (6.3-8.2)
[2025-01-17 05:37] LABS: Total Cells Counted 100
[2025-01-17 05:39] LABS: Band Neutrophils Percent 6 % (0-6); Neutrophils Absolute Manual 8.17 K/mm3 (1.3-6.7); Neutrophils Percent Manual 50 % (46-73)
[2025-01-17 05:40] LABS: Basophils Absolute Manual 0.29 K/mm3 (0.0-0.1); Basophils Percent Manual 2 % (0-1); Eosinophils Absolute Manual 0.14 K/mm3 (0.02-0.50); Eosinophils Percent Manual 1 % (0-4); Lymphocytes Absolute Manual 3.06 K/mm3 (1.1-4.5); Lymphocytes Percent Manual 21 % (18-44); Metamyelocytes Percent 1 %; Monocytes Absolute Manual 2.33 K/mm3 (0.1-0.90); Monocytes Percent Manual 16 % (3-9); Myelocytes Percent 1 %; Promyelocytes Percent 2 %
[2025-01-17 05:41] LABS: Anisocytosis 2+; Hypochromasia 2+
[2025-01-17 05:42] LABS: Ovalocytes Occasional; Schistocytes None Seen; Target Cells Occasional
[2025-01-17] MEDS: FOLIC ACID 1 MG TABLET PO (09:21)
[2025-01-17] MEDS: OMEGA 3 POLYUNSAT FATTY ACIDS 1 GM CAP PO (09:21)
[2025-01-17] MEDS: METOPROLOL SUCCINATE EXT REL 50 MG TABCR PO (09:21)
[2025-01-17] MEDS: DOXYCYCLINE HYCLATE 100 MG TABLET PO ×2 (09:22→21:33)
[2025-01-17] MEDS: SENNA/DOCUSATE SODIUM TABLET 1 TAB PO ×2 (09:22→17:05)
[2025-01-17] MEDS: DIGOXIN TAB 125 MCG TABLET PO (09:22)
[2025-01-17] MEDS: INSULIN ASPART (*BKC) 100 UNITS/ML SUB-Q ×4 (09:28→22:11)
[2025-01-17] MEDS: ENOXAPARIN 80 MG/0.8 ML SYRINGE SUB-Q ×2 (10:19→21:33)
--- NOTE | 2025-01-17 11:23 | P.PNIM_ITS ---
Progress Note: A&P Assessment and Plan (1) Hypotension: Code(s): I95.9 - Hypotension, unspecified Status: Acute (2) Atrial fibrillation with rapid ventricular response: Code(s): I48.91 - Unspecified atrial fibrillation Status: Acute (3) Acute UTI: Code(s): N39.0 - Urinary tract infection, site not specified Status: Acute (4) Anemia: Code(s): D64.9 - Anemia, unspecified Status: Acute (5) Acute on chronic anemia: Code(s): D64.9 - Anemia, unspecified Status: Acute (6) Elevated troponin: Code(s): R79.89 - Other specified abnormal findings of blood chemistry Status: Acute Plan 84-year-old female with PMH neurocognitive disorder, 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 Upon arrival the patient A&O x2 and in unreliable historian. Found to be in AFib with RVR with an acute UTI and severe anemia. Complicated UTI, present on admission with severe sepsis -urinalysis 01/04/2025 many squamous cells, 4+ bacteria, 2+ leukocyte esterase. CT abdomen pelvis on admission demonstrated findings concerning for urinary tract infection, small pleural effusions, mild pulmonary edema, bilateral acute pyelonephritis. -urine culture did not reflex, urine culture finally obtained on 01/06/2025 after antibiotics were given. Final results negative. Unreliable results. Ceftriaxone transition to Augmentin for a total 7 day course. Leukocytosis and bandemia resolved. Augmentin finished on 01/11. -01/05/2025 blood culture x2, no growth at 48 hours --Repeat UA, blood cultures if new fevers Leukocytosis -WBC trending up, 7.2<14.3>13.2<14.6 Chest x-ray pulmonary edema vs pneumonia. Recheck X-ray in AM --Start doxy 100 BID x5 days --Repeat UA given recent pyelo. Monitor off antibiotics pending culture --May need additional imaging if continues to uptrend --01/15 flu/covid/rsv negative --Repeat Chest x-ray, Straight cath for urine Anemia, normocytic Thrombocytopenia Unclear baseline, 6.9 on admission. Received 2 units PRBC, improved with a hemoglobin around 9.0 but has been gradually down trending 01/15 7.4> -hemoccult negative reported in ER. No evidence of overt bleeding. -iron 110, TIBC 237, ferritin 758. Vitamin B12 852. Folic acid greater than 20. TSH 1.150. Haptoglobin 226 -hematology consulted. --Blood count trending down. Bili 1.7, SHERRIE. Consider a peripheral blood smear if evidence of hemolysis. Previously no evidence of hemolysis in urine but at risk with moderate to severe --Monitor for black/bloody stools, normal per report --Maybe be chronic disease. At risk for hemolysis with severe /calcification. Blood count trending down slowly. T&S in AM Acute DVT Bilateral LE DVT on dopplers --Started therapeutic lovenox and monitor Hgb & plt. Plts have been stable. Hgb trending down slowly but stools not black or bloody --Discuss with hematology if continues to downtrend, consulted previously AFib with RVR -keep potassium greater than 4, magnesium greater than 2. -she has improved with low volume continue was fluid infusion. We will discontinue that on 01/11/2025. She reports poor appetite and really does not with eat or drink anything. Dietary supplements t.i.d. with Glucerna. Dietitian consultation. Initially she was on metoprolol but that was held due to low blood pressure which is improved status post volume resuscitation. Continue metoprolol 25 mg p.o. b.i.d., digoxin 125 mcg p.o. q.day. Amiodarone h as been discontinued to prevent cardioversion and risk of stroke. Continue telemetry, she continues to be in AFib with better controlled rate in the 90s. No changes on 01/12 - remains asymptomatic. Confusion/slurred speech, resolved. -she does have a baseline neurocognitive disorder/cognitive communication disorder -A&O x2, pleasantly confused. -CT brain on admission no evidence of ischemic/hemorrhagic event CHF, systolic -BNP 74640 on admission, no evidence of clinical overload -on metoprolol. Add Entresto, empagliflozin as BP tolerates. -Repeat BNP and trop downtrending -TTE 01/07/25: Summary 1. Complete two-dimensional, color flow and Doppler transthoracic echocardiogram is performed. 2. Left ventricular chamber dimension is mildly enlarged. 3. Left ventricular systolic function is mildly reduced, estimated at 45-50. 4. There is moderate asymmetric septal increased left ventricular wall thickness. 5. The left ventricular diastolic function is abnormal. 6. Right ventricular chamber dimension is mildly enlarged. 7. Left atrial chamber dimension is moderately enlarged. 8. Right atrial chamber dimension is moderately enlarged. 9. There is moderate to severe aortic valve stenosis with a peak velocity of 291 cm/s, mean gradient of 15 mmHg, and aortic valve area of 1.0 cm2. 10. There is moderate aortic valve regurgitation. 11. There is severe aortic valve calcification. 12. There is moderate mitral valve regurgitation. 13. There is moderate tricuspid valve regurgitation. 14. Moderate pulmonary hypertension, estimated pulmonary arterial systolic pressure is 59 mmHg. 15. There is mild pulmonic regurgitation. 16. The prox ascending aorta size is dilated. -cardiology following --Start lasix 40mg daily Lactic acidosis -3.2 on admission, resolved status post 2 units PRBC and isotonic fluid resuscitation Elevated serum creatinine -1.26 on admission. Likely EDDA since serum creatinine has come down to normal. Likely due to AFib/sepsis. Elevated troponin -present on admission, likely due to sepsis in AFib with RVR. Peak. No chest pain, no shortness of breath. Cardiology consulted -repeat trop and bnp with DVT, though has been asymptomatic and still asymptomatic Insulin-dependent diabetes mellitus -blood sugars reviewed, currently at goal for a elderly female with poor oral intake, continue current regimen, avoid over-correction. -Accu-Cheks a.c. HS with Lantus 12 units subQ b.i.d., change to daily since trending down --Consistent carb, heart healthy diet Constipation -[employer]PA[employer] Senokot S1 tab p.o. q.day resumed -01/07/2025 no BM, increase to 2 tabs b.i.d. -had 3 bowel movements on 01/08/2025: Will decrease tabs back to 1 p.o. b.i.d. -continue monitoring Hyponatremia -improved after volume resuscitation. Continue to trend . Stable on medical floor with telemetry. DNR SCDs. Discontinue fluids on 01/11/2025. Daily weights/intake/output. Ambulate with assistance PT/OT evaluations for weakness. Recommend discharge to SNF. Plan to discharge back to [facility] when Hgb stable. Started anticoagulation and monitoring WBC improving Presented from [facility], was at [facility] prior. Time Spent With Patient Time: 57 minutes Subjective Date/time seen: 01/17/25 11:23 Interval history: Overnight events Hgb slightly lower, WBC improved. Has been afebrile Chest x-ray 01/15 showed pulmonary edema vs pneumonia. Started lasix 01/15, slightly improved but blood pressure soft this afternoon Repeat UA, straight cath with WBC uptrending Reason for hospitalization 84-year-old lady with atrial fibrillation and probably moderate to severe aortic valve stenosis admitted with a UTI complicated by sepsis and afib with RVR. Now rate controlled and no urinary complaints. Finishing a 7 day course of Augmentin for the UTI Review of Systems Review of Systems: 12 systems were reviewed with pertinent positives and negatives per HPI. Except as documented in the HPI, all other systems were reviewed and are negative. However patient is not the best historian which limits accuracy of review of systems. All systems reviewed & are unremarkable except as noted in HPI and below (Subjective) Exam Narrative: General - Awake and alert. No acute distress Eyes - PERRLA, EOM intact ENT - No thrush, No erythema Neck - No noticeable or palpable swelling Lymph Nodes - No lymphadenopathy Cardiovascular - RRR, , +murmur, no JVD Lungs: Clear to auscultation, No wheezing, use of accessory muscles, no crackles Skin - Skin warm and dry, no wounds or rashes Abdomen - Normal bowel sounds, abdomen soft and nontender Extremities - Bilateral LE edema R>L, cyanosis or clubbing Musculoskeletal - 5/5 strength, normal range of motion, no swollen or erythematous joints. Neurological ? Alert and oriented x 2, CN 2-12 grossly intact. Psych: Normal mood and affect Objective Data Vital Signs Vital Signs: Vital Signs - 24 hr 01/16/25 12:00 01/16/25 16:58 01/16/25 20:00 Temperature 97.8 F 98 F 98.5 F Pulse Rate 95 97 116 H Respiratory Rate 16 18 18 Blood Pressure 94/41 L 118/46 L 116/53 L Pulse Oximetry 99 95 100 Oxygen Delivery Fraction of Inspired Oxygen 01/16/25 20:00 01/16/25 20:29 01/17/25 03:35 Temperature 98.5 F 97.7 F Pulse Rate 116 H 116 H 96 Respiratory Rate 18 18 16 Blood Pressure 116/53 L 118/46 L Pulse Oximetry 100 100 94 Oxygen Delivery Room Air Fraction of Inspired Oxygen 01/17/25 08:00 01/17/25 09:21 01/17/25 09:22 Temperature Pulse Rate 95 110 H 110 H Respiratory Rate 14 Blood Pressure 122/58 L Pulse Oximetry 93 Oxygen Delivery Fraction of Inspired Oxygen Intake/Output Intake/Output: Intake & Output 01/14/25 01/15/25 01/16/25 01/17/25 23:59 23:59 23:59 23:59 Intake Total 1360 720 340 410 Output Total 0380 444 1680 300 Balance 359 220 -860 110 Meds/Results Medications: Active Medications Generic Name Dose Route Start Last Admin Trade Name Freq PRN Reason Stop Dose Admin Acetaminophen 650 mg 01/12/25 02:25 01/14/25 17:13 Acetaminophen 325 Mg Tablet PO 650 mg Q4H PRN Administration Mild Pain (1-3) or Fever Dextrose 12.5 gm 01/05/25 01:39 Dextrose 50% 25 Gm/50 Ml Syringe IV PUSH PRN PRN Hypoglycemia Protocol Digoxin 125 mcg 01/10/25 09:00 01/17/25 09:22 Digoxin Tab 125 Mcg Tablet PO 125 mcg DAILY JEN Administration Diphenhydramine HCl 25 mg 01/12/25 02:25 01/16/25 09:40 Diphenhydramine Hcl Cap 25 Mg Capsule PO 25 mg Q4HR PRN Administration Itching Doxycycline Hyclate 100 mg 01/15/25 13:00 01/17/25 09:22 Doxycycline Hyclate 100 Mg Tablet PO 01/20/25 12:59 100 mg Q12HR JEN Administration Enoxaparin Sodium 80 mg 01/13/25 21:00 01/17/25 10:19 Enoxaparin 80 Mg/0.8 Ml Syringe SUB-Q 80 mg Q12HR JEN Administration Fish Oil 1 gm 01/05/25 09:00 01/17/25 09:21 [place] 3 Polyunsat Fatty Acids 1 Gm Cap PO 1 gm QAM JEN Administration Folic Acid 1 mg 01/05/25 09:00 01/17/25 09:21 Folic Acid 1 Mg Tablet PO 1 mg DAILY JEN Administration Furosemide 20 mg 01/17/25 09:00 01/17/25 09:22 Furosemide 20 Mg Tablet PO 20 mg DAILY JEN Administration Glucagon 1 mg 01/05/25 01:39 Glucagon For Inj 1 Mg Vial IM PRN PRN Hypoglycemia Protocol Glucose 15 gm 01/05/25 01:39 Glucose Oral Gel 15 Gm Of Glucse In 37.5 Gm Tube PO PRN PRN Hypoglycemia Protocol Dextrose 1,000 mls @ 100 mls/hr 01/05/25 01:39 Dextrose 5% 1,000 Ml IVPB PRN PRN Hypoglycemia Protocol Insulin Aspart 3 - 6 units 01/05/25 08:00 01/17/25 09:28 Insulin Aspart (*Bkc) 100 Units/Ml SUB-Q 3 units TIDWM JEN Administration Protocol Insulin Glargine 15 units 01/17/25 21:00 Insulin Glargine (*Bkc) 100 Units/Ml SUB-Q HS JEN Metoprolol Succinate 50 mg 01/12/25 09:00 01/17/25 09:21 Metoprolol Succinate Ext Rel 50 Mg Tabcr PO 50 mg QAM JEN Administration Polyethylene Glycol 17 gm 01/15/25 09:00 01/17/25 09:22 Polyethylene Glycol 3350 17 Gm Powd.Pack PO 17 gm DAILY JEN Administration Senna/Docusate Sodium 1 tab 01/09/25 17:00 01/17/25 09:22 Senna/Docusate Sodium Tablet PO 1 tab BID JEN Administration Radiology Results: ITS Impressions Head CT 01/05/25 17:34 Impression: 1.No acute intracranial abnormality. Abdomen/Pelvis CT 01/06/25 16:01 IMPRESSION: 1. Mild pulmonary edema. 2. Small pleural effusions. 3. Cystitis. 4. Bilateral acute pyelonephritis. Venous Doppler Study 01/13/25 16:38 Impression: Bilateral DVT detailed above Chest X-Ray 01/15/25 07:52 IMPRESSION: 1. Persistent interstitial and groundglass opacities throughout both lungs which could represent pulmonary edema and/or pneumonia. 2. Cardiomegaly. Labs Labs: Laboratory Results - last 24 hr 01/16/25 01/16/25 01/17/25 11:45 16:54 04:27 WBC 14.6 H RBC 2.50 L Hgb 7.2 L Hct 22.5 L MCV 90.0 MCH 28.8 MCHC 32.0 RDW 23.9 H Plt Count 101 L MPV TNP Immature Gran % (Auto) Not Reportable Neut % (Auto) Not Reportable Lymph % (Auto) Not Reportable Nobles % (Auto) Not Reportable Eos % (Auto) Not Reportable Baso % (Auto) Not Reportable Lymph # (Auto) Not Reportable Nobles # (Auto) Not Reportable Eos # (Auto) Not Reportable Baso # (Auto) Not Reportable Abs Immat Gran (auto) Not Reportable Absolute Neuts (auto) Not Reportable Absolute Nucleated RBC Not Reportable Total Counted 100 Neutrophils % (Manual) 50 Band Neutrophils % 6 Lymphocytes % (Manual) 21 Monocytes % (Manual) 16 H Eosinophils % (Manual) 1 Basophils % (Manual) 2 H Metamyelocytes % 1 Myelocytes % 1 Promyelocytes % (Man) 2 Nucleated RBC % Not Reportable Abs Neuts (Manual) 8.17 H Abs Lymphs (Manual) 3.06 Abs Monocytes (Manual) 2.33 H Absolute Eos (Manual) 0.14 Abs Basophils (Manual) 0.29 H Nucleated RBCs 1 Atypical Lymphocytes Present Platelet Estimate Decreased % Immature Plt Fraction 7.9 Hypochromasia 2+ Anisocytosis 2+ Target Cells Occasional Ovalocytes Occasional Schistocytes None seen Sodium 132 L Potassium 4.2 Chloride 104 Carbon Dioxide 22 Anion Gap 6 BUN 17 Creatinine 0.93 Estim Creat Clear Calc 39 Estimated GFR 57 L Glucose 241 H POC Capillary Glucose 190 H 289 H Calcium 8.0 L Total Bilirubin 2.0 H Direct Bilirubin 0.0 AST 37 H ALT 19 Alkaline Phosphatase 95 Total Protein 7.1 Albumin 2.5 L 01/17/25 07:45 WBC RBC Hgb Hct MCV MCH MCHC RDW Plt Count MPV Immature Gran % (Auto) Neut % (Auto) Lymph % (Auto) Nobles % (Auto) Eos % (Auto) Baso % (Auto) Lymph # (Auto) Nobles # (Auto) Eos # (Auto) Baso # (Auto) Abs Immat Gran (auto) Absolute Neuts (auto) Absolute Nucleated RBC Total Counted Neutrophils % (Manual) Band Neutrophils % Lymphocytes % (Manual) Monocytes % (Manual) Eosinophils % (Manual) Basophils % (Manual) Metamyelocytes % Myelocytes % Promyelocytes % (Man) Nucleated RBC % Abs Neuts (Manual) Abs Lymphs (Manual) Abs Monocytes (Manual) Absolute Eos (Manual) Abs Basophils (Manual) Nucleated RBCs Atypical Lymphocytes Platelet Estimate % Immature Plt Fraction Hypochromasia Anisocytosis Target Cells Ovalocytes Schistocytes Sodium Potassium Chloride Carbon Dioxide Anion Gap BUN Creatinine Estim Creat Clear Calc Estimated GFR Glucose POC Capillary Glucose 212 H Calcium Total Bilirubin Direct Bilirubin AST ALT Alkaline Phosphatase Total Protein Albumin Quality VTE Prophylaxis VTE prophylaxis: mechanical ordered (SCDs) and pharmacologic ordered Hospitalist MIPS Advance Care Plan I have confirmed that the patient's Advanced Care Plan is present, code status is documented, or surrogate decision maker is listed in patient medical record.: Yes Medication Reconciliation I have utilized all available resources to obtain, update and review the patients current medications (includes all prescriptions, OTC, herbals, cannabis, and nutritional supplements).: Yes
[2025-01-17 20:21] LABS: Add Urine Microscopic? YES; Appearance Urine Cloudy (Clear); Budding Yeast Urine Present /hpf; Glucose Urine UA Negative (Negative); Leukocyte Esterase Ur 2+ LEU/UL (Negative); Need Manual Microscopic Reviewed; Nitrate Urine Negative (Negative); Non Pathogenic Casts 0-2; Specific Grav Ur 1.013 (1.001-1.035)
[2025-01-17] MEDS: INSULIN GLARGINE (*BKC) 100 UNITS/ML 12 UNITS SUB-Q (21:36)
[2025-01-18] VITALS (12 sets, daily range): BP systolic 111–143; BP diastolic 43–66; PULSE 85–100; RESP 14–22; TEMP 36.5–37; O2SAT 92–96
[2025-01-18 05:42] LABS: Hematocrit 21.7 % (37.0-47.0); Immature Platelet Fraction Pct 7.9 % (0.9-11.2); Mean Corpuscular HGB Conc 31.8 g/dl (32-36); Mean Corpuscular Hemoglobin 28.5 pg (26-34); Mean Corpuscular Volume 89.7 fl (80-100); Red Blood Count 2.42 M/mm3 (4.2-5.4); White Blood Count 14.5 K/mm3 (4.5-10.0)
[2025-01-18 05:43] LABS: Platelet Count Result 95 k/mm3 (150-375)
[2025-01-18 05:44] LABS: Hemoglobin 6.9 g/dL (12.0-15.0)
[2025-01-18 06:00] LABS: Alanine Aminotransferase 15 U/L (6-35); Albumin Level 2.4 g/dL (3.5-5.1); Alkaline Phosphatase 95 U/L (38-126); Aspartate Amino Transferase 36 U/L (14-36); Bilirubin,Total 1.9 mg/dL (0.2-1.3); Total Protein 7.2 g/dL (6.3-8.2)
[2025-01-18 07:06] LABS: Band Neutrophils Percent 12 % (0-6); Basophils Absolute Manual 0.29 K/mm3 (0.0-0.1); Basophils Percent Manual 2 % (0-1); Eosinophils Absolute Manual 0.14 K/mm3 (0.02-0.50); Eosinophils Percent Manual 1 % (0-4); Lymphocytes Absolute Manual 2.75 K/mm3 (1.1-4.5); Lymphocytes Percent Manual 19.0 % (18-44); Metamyelocytes Percent 1 %; Monocytes Absolute Manual 0.87 K/mm3 (0.1-0.90); Monocytes Percent Manual 6 % (3-9); Neutrophils Absolute Manual 10.00 K/mm3 (1.3-6.7); Neutrophils Percent Manual 57 % (46-73); Promyelocytes Percent 2 %; Total Cells Counted 100
[2025-01-18 07:07] LABS: Anisocytosis 2+; Hypochromasia 2+; Schistocytes None Seen
[2025-01-18 07:08] LABS: Target Cells Occasional
--- NOTE | 2025-01-18 08:50 | P.PNIM_ITS ---
Progress Note: A&P Assessment and Plan (1) Hypotension: Code(s): I95.9 - Hypotension, unspecified Status: Acute (2) Atrial fibrillation with rapid ventricular response: Code(s): I48.91 - Unspecified atrial fibrillation Status: Acute (3) Acute UTI: Code(s): N39.0 - Urinary tract infection, site not specified Status: Acute (4) Anemia: Code(s): D64.9 - Anemia, unspecified Status: Acute (5) Acute on chronic anemia: Code(s): D64.9 - Anemia, unspecified Status: Acute (6) Elevated troponin: Code(s): R79.89 - Other specified abnormal findings of blood chemistry Status: Acute Plan 84-year-old female with PMH neurocognitive disorder, 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 Upon arrival the patient A&O x2 and in unreliable historian. Found to be in AFib with RVR with an acute UTI and severe anemia. Complicated UTI, present on admission with severe sepsis -urinalysis 01/04/2025 many squamous cells, 4+ bacteria, 2+ leukocyte esterase. CT abdomen pelvis on admission demonstrated findings concerning for urinary tract infection, small pleural effusions, mild pulmonary edema, bilateral acute pyelonephritis. -urine culture did not reflex, urine culture finally obtained on 01/06/2025 after antibiotics were given. Final results negative. Unreliable results. Ceftriaxone transition to Augmentin for a total 7 day course. Leukocytosis and bandemia resolved. Augmentin finished on 01/11. -01/05/2025 blood culture x2, no growth at 48 hours --Repeat UA --blood cultures if new fevers Leukocytosis -WBC trending up, 7.2<14.3>13.2<14.6 Chest x-ray pulmonary edema vs pneumonia. --Started doxy 100 BID x5 days. Change to augmentin if WBC continues to trend up --Repeated UA given recent pyelo. Monitor off antibiotics pending culture --May need additional imaging if continues to uptrend --01/15 flu/covid/rsv negative --Repeat Chest x-ray, Straight cath for urine negatvie for bacteria, 51-100 RBC's 01/17 Chest X-ray Persistent patchy bilateral airspace disease, compatible with pneumonia. Anemia, normocytic Thrombocytopenia Unclear baseline, 6.9 on admission. Received 2 units PRBC, improved with a hemoglobin around 9.0 but has been gradually down trending 01/15 7.4> 6.9 01/18. Repeat Hgb 8.5 after 1 unit of PRBC's -hemoccult negative reported in ER. No evidence of overt bleeding. -iron 110, TIBC 237, ferritin 758. Vitamin B12 852. Folic acid greater than 20. TSH 1.150. Haptoglobin 226 -hematology consulted. Differential for blood loss includes mild renal insufficiency and infection, bone marrow disorders like MDS. --Hapto & LDH are normal Bili 1.7, normal direct bili so elevation may be 2/2 Gilbert's syndrome. --Monitor for black/bloody stools, normal per report. Guaic stool --Maybe be chronic disease. At risk for hemolysis with severe /calcification but LDH and haptoglobin normal. Blood count trending down slowly. T&S 01/18 Acute DVT 01/13 Bilateral LE DVT on dopplers --Started therapeutic lovenox and monitor Hgb & plt. Plts have been stable. Hgb trending down slowly but stools not black or bloody --Radiology consult for possible IVC filter --Hold lovenox overnight with continued blood loss. GI consult if new black/bloody stools AFib with RVR -keep potassium greater than 4, magnesium greater than 2. -she has improved with low volume continue was fluid infusion. We will discontinue that on 01/11/2025. She reports poor appetite and really does not with eat or drink anything. Dietary supplements t.i.d. with Glucerna. Dietitian consultation. Initially she was on metoprolol but that was held due to low blood pressure which is improved status post volume resuscitation. Continue metoprolol 25 mg p.o. b.i.d., digoxin 125 mcg p.o. q.day. Amiodarone has been discontinued to prevent cardioversion and risk of stroke. Continue telemetry, she continues to be in AFib with better controlled rate in the 90s. No changes on 01/12 - remains asymptomatic. Confusion/slurred speech, resolved. -she does have a baseline neurocognitive disorder/cognitive communication disorder -A&O x2, pleasantly confused. -CT brain on admission no evidence of ischemic/hemorrhagic event CHF, systolic -BNP 55745 on admission, no evidence of clinical overload -on metoprolol. Add Entresto, empagliflozin as BP tolerates. -Repeat BNP and trop downtrending -TTE 01/07/25: Summary 1. Complete two-dimensional, color flow and Doppler transthoracic echocardiogram is performed. 2. Left ventricular chamber dimension is mildly enlarged. 3. Left ventricular systolic function is mildly reduced, estimated at 45-50. 4. There is moderate asymmetric septal increased left ventricular wall thickness. 5. The left ventricular diastolic function is abnormal. 6. Right ventricular chamber dimension is mildly enlarged. 7. Left atrial chamber dimension is moderately enlarged. 8. Right atrial chamber dimension is moderately enlarged. 9. There is moderate to severe aortic valve stenosis with a peak velocity of 291 cm/s, mean gradient of 15 mmHg, and aortic valve area of 1.0 cm2. 10. There is moderate aortic valve regurgitation. 11. There is severe aortic valve calcification. 12. There is moderate mitral valve regurgitation. 13. There is moderate tricuspid valve regurgitation. 14. Moderate pulmonary hypertension, estimated pulmonary arterial systolic pressure is 59 mmHg. 15. There is mild pulmonic regurgitation. 16. The prox ascending aorta size is dilated. -cardiology following --Start lasix 40mg daily Lactic acidosis -3.2 on admission, resolved status post 2 units PRBC and isotonic fluid resuscitation Elevated serum creatinine -1.26 on admission. Likely EDDA since serum creatinine has come down to normal. Likely due to AFib/sepsis. Elevated troponin -present on admission, likely due to sepsis in AFib with RVR. Peak. No chest pain, no shortness of breath. Cardiology consulted -repeat trop and bnp with DVT, though has been asymptomatic and still asymptomatic Insulin-dependent diabetes mellitus -blood sugars reviewed, currently at goal for a elderly female with poor oral intake, continue current regimen, avoid over-correction. -Accu-Cheks a.c. HS with Lantus 12 units subQ b.i.d., change to daily since trending down --Consistent carb, heart healthy diet Constipation Hard stool 01/18 Increase miralax to BID, Senna hs -continue monitoring Hyponatremia -improved after volume resuscitation. Continue to trend . Stable on medical floor with telemetry. DNR SCDs.Lovenox on hold for continued anemia Discontinue fluids on 01/11/2025. Daily weights/intake/output. Ambulate with assistance PT/OT evaluations for weakness. Recommend discharge to SNF. Plan to discharge back to [facility] when Hgb stable. Started anticoagulation and monitoring WBC improving Presented from [facility], was at [facility] prior. Time Spent With Patient Time: 57 minutes Subjective Date/time seen: 01/18/25 08:50 Interval history: Overnight events Hgb 7.2>6.9 Stool has been brown. WBC 14.5 Radiology consult for IVC filter on Monday Holding lovenox for anemia & TTP Spoke with granddaughter and she is ok with her grandmother making her own decisions about procedures such, including colonoscopy and IVC filter, and is aware she has some mild cognitive impairment. Reason for hospitalization 84-year-old lady with atrial fibrillation and probably moderate to severe aortic valve stenosis admitted with a UTI complicated by sepsis and afib with RVR. Now rate controlled and no urinary complaints. Finished a 7 day course of Augmentin for the UTI. Blood count downtrending and white count trending up. Review of Systems Review of Systems: 12 systems were reviewed with pertinent positives and negatives per HPI. Except as documented in the HPI, all other systems were reviewed and are negative. However patient is not the best historian which limits accuracy of review of systems. All systems reviewed & are unremarkable except as noted in HPI and below (Subjective) Exam Narrative: General - Awake and alert. No acute distress Eyes - PERRLA, EOM intact ENT - No thrush, No erythema Neck - No noticeable or palpable swelling Lymph Nodes - No lymphadenopathy Cardiovascular - RRR, , +murmur, no JVD Lungs: Clear to auscultation, No wheezing, use of accessory muscles, no crackles Skin - Skin warm and dry, no wounds or rashes Abdomen - Normal bowel sounds, abdomen soft and nontender Extremities - Bilateral LE edema R>L, cyanosis or clubbing Musculoskeletal - 5/5 strength, normal range of motion, no swollen or erythematous joints. Neurological ? Alert and oriented x 2, CN 2-12 grossly intact. Psych: Normal mood and affect Objective Data Vital Signs Vital Signs: Vital Signs - 24 hr 01/17/25 09:21 01/17/25 09:22 01/17/25 09:35 Temperature Pulse Rate 110 H 110 H Respiratory Rate Blood Pressure Pulse Oximetry Oxygen Delivery Room Air Fraction of Inspired Oxygen 01/17/25 12:00 01/17/25 16:00 01/17/25 20:00 Temperature Pulse Rate 92 90 Respiratory Rate 14 16 Blood Pressure 107/49 L 122/49 L Pulse Oximetry 98 98 Oxygen Delivery Room Air Fraction of Inspired Oxygen 01/17/25 20:23 01/18/25 00:48 01/18/25 05:30 Temperature 98.6 F 98.2 F 98.2 F Pulse Rate 95 96 88 Respiratory Rate 14 16 16 Blood Pressure 119/50 L 119/55 L 114/56 L Pulse Oximetry 95 96 92 Oxygen Delivery Fraction of Inspired Oxygen Intake/Output Intake/Output: Intake & Output 01/15/25 01/16/25 01/17/25 01/18/25 23:59 23:59 23:59 23:59 Intake Total 631 905 1985 250 Output Total 500 1200 300 600 Balance 220 -860 770 -350 Meds/Results Medications: Active Medications Generic Name Dose Route Start Last Admin Trade Name Freq PRN Reason Stop Dose Admin Acetaminophen 650 mg 01/12/25 02:25 01/14/25 17:13 Acetaminophen 325 Mg Tablet PO 650 mg Q4H PRN Administration Mild Pain (1-3) or Fever Dextrose 12.5 gm 01/05/25 01:39 Dextrose 50% 25 Gm/50 Ml Syringe IV PUSH PRN PRN Hypoglycemia Protocol Digoxin 125 mcg 01/10/25 09:00 01/17/25 09:22 Digoxin Tab 125 Mcg Tablet PO 125 mcg DAILY JEN Administration Diphenhydramine HCl 25 mg 01/12/25 02:25 01/16/25 09:40 Diphenhydramine Hcl Cap 25 Mg Capsule PO 25 mg Q4HR PRN Administration Itching Doxycycline Hyclate 100 mg 01/15/25 13:00 01/17/25 21:33 Doxycycline Hyclate 100 Mg Tablet PO 01/20/25 12:59 100 mg Q12HR JEN Administration Enoxaparin Sodium 80 mg 01/13/25 21:00 01/17/25 21:33 Enoxaparin 80 Mg/0.8 Ml Syringe SUB-Q 80 mg Q12HR JEN Administration Fish Oil 1 gm 01/05/25 09:00 01/17/25 09:21 [place] 3 Polyunsat Fatty Acids 1 Gm Cap PO 1 gm QAM JEN Administration Folic Acid 1 mg 01/05/25 09:00 01/17/25 09:21 Folic Acid 1 Mg Tablet PO 1 mg DAILY JEN Administration Furosemide 20 mg 01/17/25 09:00 01/17/25 09:22 Furosemide 20 Mg Tablet PO 20 mg DAILY JEN Administration Glucagon 1 mg 01/05/25 01:39 Glucagon For Inj 1 Mg Vial IM PRN PRN Hypoglycemia Protocol Glucose 15 gm 01/05/25 01:39 Glucose Oral Gel 15 Gm Of Glucse In 37.5 Gm Tube PO PRN PRN Hypoglycemia Protocol Dextrose 1,000 mls @ 100 mls/hr 01/05/25 01:39 Dextrose 5% 1,000 Ml IVPB PRN PRN Hypoglycemia Protocol Sodium Chloride 250 mls @ 30 mls/hr 01/18/25 05:49 Normal Saline Iv IV CONT 01/18/25 14:08 .Q8H20M STA Insulin Aspart 3 - 6 units 01/05/25 08:00 01/17/25 17:04 Insulin Aspart (*Bkc) 100 Units/Ml SUB-Q 4 units TIDWM JEN Administration Protocol Insulin Aspart 3 units 01/17/25 12:00 01/17/25 17:04 Insulin Aspart (*Bkc) 100 Units/Ml SUB-Q Not Given TIDWM JEN Insulin Glargine 12 units 01/17/25 21:00 01/17/25 21:36 Insulin Glargine (*Bkc) 100 Units/Ml SUB-Q 12 units HS JEN Administration Metoprolol Succinate 50 mg 01/12/25 09:00 01/17/25 09:21 Metoprolol Succinate Ext Rel 50 Mg Tabcr PO 50 mg QAM JEN Administration Polyethylene Glycol 17 gm 01/15/25 09:00 01/17/25 09:22 Polyethylene Glycol 3350 17 Gm Powd.Pack PO 17 gm DAILY JEN Administration Senna/Docusate Sodium 1 tab 01/09/25 17:00 01/17/25 17:05 Senna/Docusate Sodium Tablet PO 1 tab BID JEN Administration Radiology Results: ITS Impressions Head CT 01/05/25 17:34 Impression: 1.No acute intracranial abnormality. Abdomen/Pelvis CT 01/06/25 16:01 IMPRESSION: 1. Mild pulmonary edema. 2. Small pleural effusions. 3. Cystitis. 4. Bilateral acute pyelonephritis. Venous Doppler Study 01/13/25 16:38 Impression: Bilateral DVT detailed above Chest X-Ray 01/17/25 18:49 Impression: 1: Persistent patchy bilateral airspace disease, compatible with pneumonia. Labs Labs: Laboratory Results - last 24 hr 01/17/25 01/17/25 01/17/25 11:52 16:41 20:00 WBC RBC Hgb Hct MCV MCH MCHC RDW Plt Count MPV Immature Gran % (Auto) Neut % (Auto) Lymph % (Auto) [place] % (Auto) Eos % (Auto) Baso % (Auto) Lymph # (Auto) [place] # (Auto) Eos # (Auto) Baso # (Auto) Abs Immat Gran (auto) Absolute Neuts (auto) Absolute Nucleated RBC Total Counted Neutrophils % (Manual) Band Neutrophils % Lymphocytes % (Manual) Monocytes % (Manual) Eosinophils % (Manual) Basophils % (Manual) Metamyelocytes % Promyelocytes % (Man) Nucleated RBC % Abs Neuts (Manual) Abs Lymphs (Manual) Abs Monocytes (Manual) Absolute Eos (Manual) Abs Basophils (Manual) Nucleated RBCs Atypical Lymphocytes Platelet Estimate % Immature Plt Fraction Hypochromasia Anisocytosis Target Cells Schistocytes POC Capillary Glucose 293 H 276 H Total Bilirubin Direct Bilirubin AST ALT Alkaline Phosphatase Total Protein Albumin Urine Color Yellow Urine Appearance Cloudy H Urine pH 6.0 Ur Specific [place] 1.013 Urine Protein Trace Urine Glucose (UA) Negative Urine Ketones Negative Ur Blood (Man) Negative Urine Nitrate Negative Urine Bilirubin Negative Urine Urobilinogen 1.0 Add Ur Microanalysis Reviewed Leukocyte Esterase Rfl 2+ H Urine RBC 51-100 H Urine WBC 21-50 H Ur Squamous Epith Cells Occasional Urine Bacteria None seen Urine Casts 0-2 Urine Yeast (Budding) Present H Blood Type Antibody Screen Crossmatch 01/17/25 01/18/25 01/18/25 20:27 05:13 07:41 WBC 14.5 H RBC 2.42 L Hgb 6.9 L* Hct 21.7 L MCV 89.7 MCH 28.5 MCHC 31.8 L RDW 24.0 H Plt Count 95 L MPV TNP Immature Gran % (Auto) Not Reportable Neut % (Auto) Not Reportable Lymph % (Auto) Not Reportable [place] % (Auto) Not Reportable Eos % (Auto) Not Reportable Baso % (Auto) Not Reportable Lymph # (Auto) Not Reportable [place] # (Auto) Not Reportable Eos # (Auto) Not Reportable Baso # (Auto) Not Reportable Abs Immat Gran (auto) Not Reportable Absolute Neuts (auto) Not Reportable Absolute Nucleated RBC Not Reportable Total Counted 100 Neutrophils % (Manual) 57 Band Neutrophils % 12 H Lymphocytes % (Manual) 19.0 Monocytes % (Manual) 6 Eosinophils % (Manual) 1 Basophils % (Manual) 2 H Metamyelocytes % 1 Promyelocytes % (Man) 2 Nucleated RBC % Not Reportable Abs Neuts (Manual) 10.00 H Abs Lymphs (Manual) 2.75 Abs Monocytes (Manual) 0.87 Absolute Eos (Manual) 0.14 Abs Basophils (Manual) 0.29 H Nucleated RBCs 2 Atypical Lymphocytes Present Platelet Estimate Decreased % Immature Plt Fraction 7.9 Hypochromasia 2+ Anisocytosis 2+ Target Cells Occasional Schistocytes None seen POC Capillary Glucose 307 H 221 H Total Bilirubin 1.9 H Direct Bilirubin 0.1 AST 36 ALT 15 Alkaline Phosphatase 95 Total Protein 7.2 Albumin 2.4 L Urine Color Urine Appearance Urine pH Ur Specific [place] Urine Protein Urine Glucose (UA) Urine Ketones Ur Blood (Man) Urine Nitrate Urine Bilirubin Urine Urobilinogen Add Ur Microanalysis Leukocyte Esterase Rfl Urine RBC Urine WBC Ur Squamous Epith Cells Urine Bacteria Urine Casts Urine Yeast (Budding) Blood Type A Positive Antibody Screen Negative Crossmatch See Detail Quality VTE Prophylaxis VTE prophylaxis: mechanical ordered (SCDs) and pharmacologic ordered
[2025-01-18] MEDS: INSULIN ASPART (*BKC) 100 UNITS/ML SUB-Q ×5 (09:02→17:30)
[2025-01-18] MEDS: METOPROLOL SUCCINATE EXT REL 50 MG TABCR PO (09:15)
[2025-01-18] MEDS: DOXYCYCLINE HYCLATE 100 MG TABLET PO ×2 (09:15→22:09)
[2025-01-18] MEDS: OMEGA 3 POLYUNSAT FATTY ACIDS 1 GM CAP PO (09:15)
[2025-01-18] MEDS: SENNA/DOCUSATE SODIUM TABLET 1 TAB PO (09:15)
[2025-01-18] MEDS: DIGOXIN TAB 125 MCG TABLET PO (09:16)
[2025-01-18] MEDS: FOLIC ACID 1 MG TABLET PO (09:16)
[2025-01-18] MEDS: SODIUM CHLORIDE 0.9% IV 250 ML 30 ML IV CONT (09:21)
--- NOTE | 2025-01-18 11:18 | PC.NURSE ---
RN called and updated Kourtney, granddaughter.
[2025-01-18] MEDS: FUROSEMIDE 20 MG TABLET PO (11:55)
--- NOTE | 2025-01-18 11:55 | PC.NURSE ---
RN held Lasix due to patient's BP this morning. MICHELL Santacruz gave RN the okay to give now.
[2025-01-18 14:29] LABS: Hematocrit 26.3 % (37.0-47.0); Hemoglobin 8.5 g/dL (12.0-15.0)
--- NOTE | 2025-01-18 15:07 | PC.NURSE ---
Patient had a bowel movement right before ANIMAL RIDE MANAGER put stool sample order in.
[2025-01-18] MEDS: INSULIN GLARGINE (*BKC) 100 UNITS/ML 12 UNITS SUB-Q (22:14)
[2025-01-19] VITALS (13 sets, daily range): BP systolic 121–139; BP diastolic 45–65; PULSE 74–102; RESP 12–22; TEMP 36.2–37.2; O2SAT 91–99
[2025-01-19 05:48] LABS: Hematocrit 25.0 % (37.0-47.0); Hemoglobin 8.1 g/dL (12.0-15.0); Immature Platelet Fraction Pct 7.9 % (0.9-11.2); Mean Corpuscular HGB Conc 32.4 g/dl (32-36); Mean Corpuscular Hemoglobin 28.3 pg (26-34); Mean Corpuscular Volume 87.4 fl (80-100); Platelet Count Result 80 k/mm3 (150-375); Red Blood Count 2.86 M/mm3 (4.2-5.4); White Blood Count 13.0 K/mm3 (4.5-10.0)
[2025-01-19 06:37] LABS: Band Neutrophils Percent 12 % (0-6); Basophils Absolute Manual 0.26 K/mm3 (0.0-0.1); Basophils Percent Manual 2 % (0-1); Lymphocytes Absolute Manual 2.86 K/mm3 (1.1-4.5); Lymphocytes Percent Manual 22.0 % (18-44); Metamyelocytes Percent 2 %; Monocytes Absolute Manual 0.91 K/mm3 (0.1-0.90); Monocytes Percent Manual 7 % (3-9); Neutrophils Absolute Manual 8.58 K/mm3 (1.3-6.7); Neutrophils Percent Manual 54 % (46-73); Promyelocytes Percent 1 %; Total Cells Counted 100
[2025-01-19 06:38] LABS: Anisocytosis 2+; Hypochromasia 2+; Polychromasia Occasional; Schistocytes Rare; Target Cells Occasional
--- NOTE | 2025-01-19 07:45 | PM.IMPN ---
Progress Note: A&P Assessment and Plan (1) Hypotension: Code(s): I95.9 - Hypotension, unspecified Status: Acute (2) Atrial fibrillation with rapid ventricular response: Code(s): I48.91 - Unspecified atrial fibrillation Status: Acute (3) Acute UTI: Code(s): N39.0 - Urinary tract infection, site not specified Status: Acute (4) Anemia: Code(s): D64.9 - Anemia, unspecified Status: Acute (5) Acute on chronic anemia: Code(s): D64.9 - Anemia, unspecified Status: Acute (6) Elevated troponin: Code(s): R79.89 - Other specified abnormal findings of blood chemistry Status: Acute Plan 84-year-old female with PMH neurocognitive disorder, 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 Upon arrival the patient A&O x2 and in unreliable historian. Found to be in AFib with RVR with an acute UTI and severe anemia. Acute respiratory failure -Short of breath on exam Patchy opacities on x-ray --Lasix 40mg x1 dose --CT Chest if not improving with diuresis --EKG Complicated UTI, present on admission with severe sepsis -urinalysis 01/04/2025 many squamous cells, 4+ bacteria, 2+ leukocyte esterase. CT abdomen pelvis on admission demonstrated findings concerning for urinary tract infection, small pleural effusions, mild pulmonary edema, bilateral acute pyelonephritis. -urine culture did not reflex, urine culture finally obtained on 01/06/2025 after antibiotics were given. Final results negative. Unreliable results. Ceftriaxone transition to Augmentin for a total 7 day course. Leukocytosis and bandemia resolved. Augmentin finished on 01/11. -01/05/2025 blood culture x2, no growth at 48 hours --Repeat UA sent 01/17 from cath UA. 21-50 WBC's no bacteria. Culture pending, follow --blood cultures if new fevers Leukocytosis -WBC trending up, 7.2<14.3>13.2<14.6 Chest x-ray pulmonary edema vs pneumonia. --Started doxy 100 BID x5 days. Change to augmentin if WBC continues to trend up --Repeated UA given recent pyelo. Monitor off antibiotics pending culture --May need additional imaging if continues to uptrend --01/15 flu/covid/rsv negative --Repeat Chest x-ray, Straight cath for urine 01/17 equivocal, culture pending 01/17 Chest X-ray Persistent patchy bilateral airspace disease, compatible with pneumonia. Started doxycycline Anemia, normocytic Thrombocytopenia Unclear baseline, 6.9 on admission. Received 2 units PRBC, improved with a hemoglobin around 9.0 but has been gradually down trending 01/15 7.4> 6.9 01/18. Repeat Hgb 8.5 after 1 unit of PRBC's -hemoccult negative reported in ER. No evidence of overt bleeding. -iron 110, TIBC 237, ferritin 758. Vitamin B12 852. Folic acid greater than 20. TSH 1.150. Haptoglobin 226 -hematology consulted. Differential for blood loss includes mild renal insufficiency and infection, bone marrow disorders like MDS. --Hapto & LDH are normal Bili 1.7, normal direct bili so elevation may be 2/2 Gilbert's syndrome. --Monitor for black/bloody stools, normal per report. Guaic stool --Maybe be chronic disease. At risk for hemolysis with severe /calcification but LDH and haptoglobin normal. Blood count trending down slowly. T&S 01/18 Acute DVT 01/13 Bilateral LE DVT on dopplers --Started therapeutic lovenox and monitor Hgb & plt. Plts have been stable. Hgb trending down slowly but stools not black or bloody --Radiology consult for possible IVC filter. NPO post midnight --Hold lovenox overnight with continued blood loss. GI consult if new black/bloody stools AFib with RVR -keep potassium greater than 4, magnesium greater than 2. -she has improved with low volume continue was fluid infusion. We will discontinue that on 01/11/2025. She reports poor appetite and really does not with eat or drink anything. Dietary supplements t.i.d. with Glucerna. Dietitian consultation. Initially she was on metoprolol but that was held due to low blood pressure which is improved status post volume resuscitation. Continue metoprolol 25 mg p.o. b.i.d., digoxin 125 mcg p.o. q.day. Amiodarone has been discontinued to prevent cardioversion and risk of stroke. Continue telemetry, she continues to be in AFib with better controlled rate in the 90s. No changes on 01/12 - remains asymptomatic. Confusion/slurred speech, resolved. -she does have a baseline neurocognitive disorder/cognitive communication disorder -A&O x2, pleasantly confused. -CT brain on admission no evidence of ischemic/hemorrhagic event CHF, systolic -BNP 56420 on admission, no evidence of clinical overload -on metoprolol. Add Entresto, empagliflozin as BP tolerates. -Repeat BNP and trop downtrending -TTE 01/07/25: Summary 1. Complete two-dimensional, color flow and Doppler transthoracic echocardiogram is performed. 2. Left ventricular chamber dimension is mildly enlarged. 3. Left ventricular systolic function is mildly reduced, estimated at 45-50. 4. There is moderate asymmetric septal increased left ventricular wall thickness. 5. The left ventricular diastolic function is abnormal. 6. Right ventricular chamber dimension is mildly enlarged. 7. Left atrial chamber dimension is moderately enlarged. 8. Right atrial chamber dimension is moderately enlarged. 9. There is moderate to severe aortic valve stenosis with a peak velocity of 291 cm/s, mean gradient of 15 mmHg, and aortic valve area of 1.0 cm2. 10. There is moderate aortic valve regurgitation. 11. There is severe aortic valve calcification. 12. There is moderate mitral valve regurgitation. 13. There is moderate tricuspid valve regurgitation. 14. Moderate pulmonary hypertension, estimated pulmonary arterial systolic pressure is 59 mmHg. 15. There is mild pulmonic regurgitation. 16. The prox ascending aorta size is dilated. -cardiology following --Start lasix 40mg daily Lactic acidosis RESOLVED 3.2 on admission, resolved status post 2 units PRBC and isotonic fluid resuscitation Elevated serum creatinine -1.26 on admission. Likely EDDA since serum creatinine has come down to normal. Likely due to AFib/sepsis. Elevated troponin -present on admission, likely due to sepsis in AFib with RVR. Peak. No chest pain, no shortness of breath. Cardiology consulted -repeat trop and bnp with DVT, though has been asymptomatic and still asymptomatic Insulin-dependent diabetes mellitus -blood sugars reviewed, currently at goal for a elderly female with poor oral intake, continue current regimen, avoid over-correction. -Accu-Cheks a.c. HS with Lantus 12 hs units subQ b.i.d., change to daily since trending down --Consistent carb, heart healthy diet Constipation Hard stool 01/18 Increase miralax to BID, Senna hs -continue monitoring Hyponatremia -improved after volume resuscitation. Continue to trend . Stable on medical floor with telemetry. DNR SCDs. Lovenox on hold for continued anemia Discontinue fluids on 01/11/2025. Daily weights/intake/output. Ambulate with assistance PT/OT evaluations for weakness. Recommend discharge to SNF. Plan to discharge back to [facility] when Hgb stable. Started anticoagulation and monitoring WBC improving Presented from [facility], was at [facility] prior. Time Spent With Patient Time: 55 minutes Subjective Date/time seen: 01/19/25 07:45 Interval history: Overnight events Short of breath/tachypneic this morning. Repeat x-ray this morning patchy opacities Giving 40mg IV lasix WBC 14.5>13 Blood count 8.5>8.1 overnight Holding lovenox for anemia & TTP Radiology consult for IVC filter on Monday DNR/DNI Reason for hospitalization 84-year-old lady with atrial fibrillation and probably moderate to severe aortic valve stenosis admitted with a UTI complicated by sepsis and afib with RVR. Now rate controlled and no urinary complaints. Finished a 7 day course of Augmentin for the UTI. Blood count downtrending and white count elevated. Dopplers showed DVT but Lovenox held for anemia requiring transfusions and thrombocytopenia. Spoke with granddaughter and she is ok with her grandmother making her own decisions about procedures such, including colonoscopy and IVC filter, and is aware she has some mild cognitive impairment. Exam Narrative: General - Awake and alert. Appears tachypneic, short of breath Eyes - PERRLA, EOM intact ENT - No thrush, No erythema Neck - No noticeable or palpable swelling Lymph Nodes - No lymphadenopathy Cardiovascular - RRR, , +murmur, no JVD Lungs: Decreased, crackles bilateral bases Skin - Skin warm and dry, no wounds or rashes Abdomen - Normal bowel sounds, abdomen soft and nontender Extremities - Bilateral LE edema R>L, cyanosis or clubbing Musculoskeletal - 5/5 strength, normal range of motion, no swollen or erythematous joints. Neurological ? Alert and oriented x 2, CN 2-12 grossly intact. Psych: Normal mood and affect Objective Data Vital Signs Vital Signs: Vital Signs - 24 hr 01/18/25 08:00 01/18/25 09:15 01/18/25 09:16 Temperature Pulse Rate 95 95 Respiratory Rate Blood Pressure Pulse Oximetry Oxygen Delivery Room Air Fraction of Inspired Oxygen 01/18/25 09:27 01/18/25 09:41 01/18/25 10:40 Temperature 97.9 F 98.1 F 97.9 F Pulse Rate 92 98 92 Respiratory Rate 14 14 18 Blood Pressure 111/43 L 122/44 L 142/54 H Pulse Oximetry 93 94 94 Oxygen Delivery Fraction of Inspired Oxygen 01/18/25 11:43 01/18/25 12:00 01/18/25 16:00 Temperature 97.7 F Pulse Rate 93 85 91 Respiratory Rate 22 H 16 16 Blood Pressure 133/61 133/64 122/53 L Pulse Oximetry 94 95 92 Oxygen Delivery Fraction of Inspired Oxygen 01/18/25 20:00 01/18/25 20:18 01/19/25 00:00 Temperature 98.6 F 98.9 F Pulse Rate 100 91 102 H Respiratory Rate 18 18 20 Blood Pressure 143/66 H 139/65 Pulse Oximetry 95 92 94 Oxygen Delivery Room Air Fraction of Inspired Oxygen 21 01/19/25 04:00 Temperature 98.5 F Pulse Rate 100 Respiratory Rate 18 Blood Pressure 130/50 L Pulse Oximetry 95 Oxygen Delivery Fraction of Inspired Oxygen Intake/Output Intake/Output: Intake & Output 01/16/25 01/17/25 01/18/25 01/19/25 23:59 23:59 23:59 23:59 Intake Total 340 1070 1730 100 Output Total 1200 300 850 500 Balance -860 770 880 -400 Meds/Results Medications: Active Medications Generic Name Dose Route Start Last Admin Trade Name Freq PRN Reason Stop Dose Admin Acetaminophen 650 mg 01/12/25 02:25 01/14/25 17:13 Acetaminophen 325 Mg Tablet PO 650 mg Q4H PRN Administration Mild Pain (1-3) or Fever Dextrose 12.5 gm 01/05/25 01:39 Dextrose 50% 25 Gm/50 Ml Syringe IV PUSH PRN PRN Hypoglycemia Protocol Digoxin 125 mcg 01/10/25 09:00 01/18/25 09:16 Digoxin Tab 125 Mcg Tablet PO 125 mcg DAILY JEN Administration Diphenhydramine HCl 25 mg 01/12/25 02:25 01/16/25 09:40 Diphenhydramine Hcl Cap 25 Mg Capsule PO 25 mg Q4HR PRN Administration Itching Doxycycline Hyclate 100 mg 01/15/25 13:00 01/18/25 22:09 Doxycycline Hyclate 100 Mg Tablet PO 01/20/25 12:59 100 mg Q12HR JEN Administration Enoxaparin Sodium 80 mg 01/13/25 21:00 01/18/25 09:23 Enoxaparin 80 Mg/0.8 Ml Syringe SUB-Q Not Given On Hold: 01/18/25 13:02 Q12HR JEN Fish Oil 1 gm 01/05/25 09:00 01/18/25 09:15 [place] 3 Polyunsat Fatty Acids 1 Gm Cap PO 1 gm QAM JEN Administration Folic Acid 1 mg 01/05/25 09:00 01/18/25 09:16 Folic Acid 1 Mg Tablet PO 1 mg DAILY JEN Administration Furosemide 20 mg 01/17/25 09:00 01/18/25 11:55 Furosemide 20 Mg Tablet PO 20 mg DAILY JEN Administration Glucagon 1 mg 01/05/25 01:39 Glucagon For Inj 1 Mg Vial IM PRN PRN Hypoglycemia Protocol Glucose 15 gm 01/05/25 01:39 Glucose Oral Gel 15 Gm Of Glucse In 37.5 Gm Tube PO PRN PRN Hypoglycemia Protocol Dextrose 1,000 mls @ 100 mls/hr 01/05/25 01:39 Dextrose 5% 1,000 Ml IVPB PRN PRN Hypoglycemia Protocol Insulin Aspart 3 - 6 units 01/05/25 08:00 01/18/25 17:30 Insulin Aspart (*Bkc) 100 Units/Ml SUB-Q 3 units TIDWM JEN Administration Protocol Insulin Aspart 3 units 01/17/25 12:00 01/18/25 17:29 Insulin Aspart (*Bkc) 100 Units/Ml SUB-Q 3 units TIDWM JEN Administration Insulin Glargine 12 units 01/17/25 21:00 01/18/25 22:14 Insulin Glargine (*Bkc) 100 Units/Ml SUB-Q 12 units HS JEN Administration Metoprolol Succinate 50 mg 01/12/25 09:00 01/18/25 09:15 Metoprolol Succinate Ext Rel 50 Mg Tabcr PO 50 mg QAM JEN Administration Polyethylene Glycol 17 gm 01/18/25 17:00 01/18/25 17:28 Polyethylene Glycol 3350 17 Gm Powd.Pack PO Not Given BID JEN Senna 8.6 mg 01/18/25 21:00 01/18/25 22:10 Sennosides 8.6 Mg Tablet PO Not Given HS JEN Senna/Docusate Sodium 1 tab 01/09/25 17:00 01/18/25 17:28 Senna/Docusate Sodium Tablet PO Not Given BID JEN Sodium Chloride 6 ml 01/20/25 05:00 Sodium Chlor 3% 15 Ml Neb (Respiratory Therapy) INHALATION 01/22/25 05:01 DAILY@0500 [facility] Radiology Results: ITS Impressions Head CT 01/05/25 17:34 Impression: 1.No acute intracranial abnormality. Abdomen/Pelvis CT 01/06/25 16:01 IMPRESSION: 1. Mild pulmonary edema. 2. Small pleural effusions. 3. Cystitis. 4. Bilateral acute pyelonephritis. Venous Doppler Study 01/13/25 16:38 Impression: Bilateral DVT detailed above Chest X-Ray 01/17/25 18:49 Impression: 1: Persistent patchy bilateral airspace disease, compatible with pneumonia. Labs Labs: Laboratory Results - last 24 hr 01/18/25 01/18/25 01/18/25 05:13 07:41 12:10 WBC RBC Hgb Hct MCV MCH MCHC RDW Plt Count MPV Immature Gran % (Auto) Neut % (Auto) Lymph % (Auto) [place] % (Auto) Eos % (Auto) Baso % (Auto) Lymph # (Auto) [place] # (Auto) Eos # (Auto) Baso # (Auto) Abs Immat Gran (auto) Absolute Neuts (auto) Absolute Nucleated RBC Total Counted Neutrophils % (Manual) Band Neutrophils % Lymphocytes % (Manual) Monocytes % (Manual) Basophils % (Manual) Metamyelocytes % Promyelocytes % (Man) Nucleated RBC % Abs Neuts (Manual) Abs Lymphs (Manual) Abs Monocytes (Manual) Abs Basophils (Manual) Nucleated RBCs Platelet Estimate % Immature Plt Fraction Polychromasia Hypochromasia Anisocytosis Target Cells Schistocytes POC Capillary Glucose 221 H 257 H Blood Type A Positive Antibody Screen Negative Crossmatch See Detail 01/18/25 01/18/25 01/18/25 14:19 17:19 21:53 WBC RBC Hgb 8.5 L Hct 26.3 L MCV MCH MCHC RDW Plt Count MPV Immature Gran % (Auto) Neut % (Auto) Lymph % (Auto) [place] % (Auto) Eos % (Auto) Baso % (Auto) Lymph # (Auto) [place] # (Auto) Eos # (Auto) Baso # (Auto) Abs Immat Gran (auto) Absolute Neuts (auto) Absolute Nucleated RBC Total Counted Neutrophils % (Manual) Band Neutrophils % Lymphocytes % (Manual) Monocytes % (Manual) Basophils % (Manual) Metamyelocytes % Promyelocytes % (Man) Nucleated RBC % Abs Neuts (Manual) Abs Lymphs (Manual) Abs Monocytes (Manual) Abs Basophils (Manual) Nucleated RBCs Platelet Estimate % Immature Plt Fraction Polychromasia Hypochromasia Anisocytosis Target Cells Schistocytes POC Capillary Glucose 246 H 243 H Blood Type Antibody Screen Crossmatch 01/19/25 05:22 WBC 13.0 H RBC 2.86 L Hgb 8.1 L Hct 25.0 L MCV 87.4 MCH 28.3 MCHC 32.4 RDW 23.1 H Plt Count 80 L MPV TNP Immature Gran % (Auto) Not Reportable Neut % (Auto) Not Reportable Lymph % (Auto) Not Reportable [place] % (Auto) Not Reportable Eos % (Auto) Not Reportable Baso % (Auto) Not Reportable Lymph # (Auto) Not Reportable [place] # (Auto) Not Reportable Eos # (Auto) Not Reportable Baso # (Auto) Not Reportable Abs Immat Gran (auto) Not Reportable Absolute Neuts (auto) Not Reportable Absolute Nucleated RBC Not Reportable Total Counted 100 Neutrophils % (Manual) 54 Band Neutrophils % 12 H Lymphocytes % (Manual) 22.0 Monocytes % (Manual) 7 Basophils % (Manual) 2 H Metamyelocytes % 2 Promyelocytes % (Man) 1 Nucleated RBC % Not Reportable Abs Neuts (Manual) 8.58 H Abs Lymphs (Manual) 2.86 Abs Monocytes (Manual) 0.91 H Abs Basophils (Manual) 0.26 H Nucleated RBCs 7 Platelet Estimate Decreased % Immature Plt Fraction 7.9 Polychromasia Occasional Hypochromasia 2+ Anisocytosis 2+ Target Cells Occasional Schistocytes Rare POC Capillary Glucose Blood Type Antibody Screen Crossmatch Quality VTE Prophylaxis VTE prophylaxis: mechanical ordered Hospitalist MIPS Advance Care Plan I have confirmed that the patient's Advanced Care Plan is present, code status is documented, or surrogate decision maker is listed in patient medical record.: Yes Medication Reconciliation I have utilized all available resources to obtain, update and review the patients current medications (includes all prescriptions, OTC, herbals, cannabis, and nutritional supplements).: Yes
[2025-01-19] MEDS: INSULIN ASPART (*BKC) 100 UNITS/ML SUB-Q ×5 (08:52→17:54)
[2025-01-19] MEDS: DIGOXIN TAB 125 MCG TABLET PO (08:53)
[2025-01-19] MEDS: OMEGA 3 POLYUNSAT FATTY ACIDS 1 GM CAP PO (08:53)
[2025-01-19] MEDS: METOPROLOL SUCCINATE EXT REL 50 MG TABCR PO (08:53)
[2025-01-19] MEDS: FOLIC ACID 1 MG TABLET PO (08:54)
[2025-01-19] MEDS: DOXYCYCLINE HYCLATE 100 MG TABLET PO (08:54)
[2025-01-19] MEDS: SENNA/DOCUSATE SODIUM TABLET 1 TAB PO (08:54)
[2025-01-19] MEDS: FUROSEMIDE 20 MG TABLET PO (09:04)
--- NOTE | 2025-01-19 11:54 | ECG_ITS ---
Test Date: 2025-01-19 12:31:35 Measurements Intervals [place] Rate: 94 P: 0 NM: 0 QRS: 78 QRSD: 144 T: 0 QT: 347 QTc: 435 Interpretive Statements ATRIAL FIBRILLATION RIGHT BUNDLE BRANCH BLOCK Electronically Signed On 01-19-2025 20:49:59 CDT by Lew Chapa D.O
[2025-01-19] MEDS: FUROSEMIDE INJ 40 MG/4 ML VIAL IV PUSH (12:15)
--- NOTE | 2025-01-19 12:50 | PCOTNOTE ---
Attempted to see patient this pm, however patient declined stating, Not right now. Pt was sleeping upon entering and appeared very fatigued and short of breath. Notified RIGOBERTO Song. She is aware. Pt O2 sats 95%, but Duncan stated she had been given blood yesterday and appears to be having a bad day today. Pt not seen for this reason.
[2025-01-19] MEDS: IPRATROPIUM 0.5 MG/ALBUTEROL SULFATE 2.5 MG AMPUL.NEB 3 ML INHALATION (15:43)
[2025-01-19 16:10] LABS: Fractional Inspired Oxygen 21 %; HCO3 VBG 19.0 mEq/l (24.0-30.0); Hematocrit 26.0 % (37.0-47.0); Hemoglobin 8.3 g/dL (12.0-15.0); Immature Platelet Fraction Pct 8.3 % (0.9-11.2); Mean Corpuscular HGB Conc 31.9 g/dl (32-36); Mean Corpuscular Hemoglobin 27.9 pg (26-34); Mean Corpuscular Volume 87.2 fl (80-100); Platelet Count Result 83 k/mm3 (150-375); Red Blood Count 2.98 M/mm3 (4.2-5.4); White Blood Count 12.3 K/mm3 (4.5-10.0)
[2025-01-19 16:13] LABS: pH VBG 7.473 (7.300-7.400)
[2025-01-19 16:14] LABS: PCO2 VBG 26.5 mmHg (42.0-48.0)
[2025-01-19 16:15] LABS: PO2 VBG < 27.0 mmHg (35.0-45.0)
[2025-01-19 16:20] LABS: Alanine Aminotransferase 20 U/L (6-35); Albumin Level 2.6 g/dL (3.5-5.1); Alkaline Phosphatase 87 U/L (38-126); Anion Gap 7 mmol/L (4-12); Aspartate Amino Transferase 35 U/L (14-36); Bilirubin,Total 3.1 mg/dL (0.2-1.3); Blood Urea Nitrogen 26 mg/dL (7-17); Calcium 8.1 mg/dL (8.4-10.2); Carbon Dioxide 21 mmol/L (22-30); Chloride 107 mmol/L (98-107); Estimated CRCL calculation 34 ml/min; Estimated Glomerular Filt Rate 49; Glucose 186 mg/dL (65-110); Magnesium 1.7 mg/dL (1.6-2.3); Potassium 4.1 mmol/L (3.4-5.0); Sodium 135 mmol/L (137-145); Total Protein 7.7 g/dL (6.3-8.2)
[2025-01-19 16:35] LABS: Troponin I 0.073 ng/mL (0.000-0.034)
[2025-01-19 17:16] LABS: Anisocytosis 2+; Band Neutrophils Percent 4 % (0-6); Basophils Absolute Manual 0.24 K/mm3 (0.0-0.1); Basophils Percent Manual 2 % (0-1); Eosinophils Absolute Manual 0.24 K/mm3 (0.02-0.50); Eosinophils Percent Manual 2 % (0-4); Lymphocytes Absolute Manual 2.09 K/mm3 (1.1-4.5); Lymphocytes Percent Manual 17.0 % (18-44); Metamyelocytes Percent 3 %; Monocytes Absolute Manual 1.10 K/mm3 (0.1-0.90); Monocytes Percent Manual 9 % (3-9); Myelocytes Percent 2 %; Neutrophils Absolute Manual 7.99 K/mm3 (1.3-6.7); Neutrophils Percent Manual 61 % (46-73); Total Cells Counted 100
[2025-01-19 17:17] LABS: Hypochromasia 2+; Schistocytes None Seen; Target Cells 1+
[2025-01-19 17:18] LABS: INR 1.5; Prothrombin Time 18.1 Seconds (11.1-14.7)
[2025-01-19 17:19] LABS: Partial Thromboplastin Time 34.5 Seconds (22.3-36.8)
[2025-01-19] MEDS: CEFEPIME 2 GM in SODIUM CHLORIDE 0.9% IV 50 ML 100 ML IVPB (17:53)
[2025-01-19] MEDS: HEPARIN SOD/D5W 100 UNITS/ML 25,000 UNITS/250 ML BAG 12 UNITS IV CONT (17:53)
--- NOTE | 2025-01-19 18:48 | ADMGEN ---
This patient, Char Tucker, was admitted to Medical Room [facility]- at approximately 1848. Patient/family oriented to hospital policies and general routines including ID bracelet, bed and alarms, visiting hours, pain management, procedures, bathroom and other care routines, personal items, smoking policy, room service/diet, and visiting hours. Information on how to activate the Rapid Response Team has been discussed. Patient/Family are encouraged to report perceived risks to care and to ask questions if they do not understand what they are told or what they should do.
--- NOTE | 2025-01-19 19:11 | PC.NURSE ---
This patient, Char Tucker, was transferred to IMU on 01/19/25 at 1911. Personal belongings sent with patient. Report given to Annia FRANKLIN. Appropriate documentation sent with patient.
[2025-01-19] MEDS: SENNOSIDES 8.6 MG TABLET PO (20:48)
[2025-01-19] MEDS: BISACODYL 10 MG SUPPOSITORY RECTAL (20:48)
[2025-01-19] MEDS: INSULIN GLARGINE (*BKC) 100 UNITS/ML 15 UNITS SUB-Q (20:51)
[2025-01-20] VITALS (22 sets, daily range): BP systolic 92–121; BP diastolic 39–54; PULSE 83–119; RESP 18–29; TEMP 36.6–37.6; O2SAT 92–99
--- NOTE | 2025-01-20 | CONSULT_PTH ---
PATIENT: Char Tucker LOC: [id number] U#:[id number] AGE/SX: 84/F ROOM: 322 RE01/04/[address]: Varsha Hines MD : [id number] BED: 02 DIS: 01/21/2025 SPEC #: [id number] RECD: 01/20/25 08:10 STATUS: TERRELL REQ #: [id number] ARJUN: 01/20/25 00:[address]: Berkley Moeller DEPT: [facility] Consult RECD BY: Zoya Oshea MLT ENTERED: 01/20/25 08:11 SP TYPE: Consult OT DR: MD Juan Evans, PAElmira Rodriguez, DO MD Pooja Harrison APRN Tissues: A - Peripheral Smear Procedures: Hematology Consult
[2025-01-20 01:24] LABS: Partial Thromboplastin Time 81.7 Seconds (22.3-36.8)
[2025-01-20] MEDS: CEFEPIME 2 GM in SODIUM CHLORIDE 0.9% IV 50 ML 100 ML IVPB ×2 (03:34→16:18)
[2025-01-20] MEDS: SODIUM CHLOR 3% 15 ML NEB (RESPIRATORY THERAPY) 6 ML INHALATION (04:45)
[2025-01-20] MEDS: FUROSEMIDE INJ 40 MG/4 ML VIAL IV PUSH ×3 (05:39→17:04)
[2025-01-20 07:24] LABS: Hematocrit 25.3 % (37.0-47.0); Hemoglobin 8.0 g/dL (12.0-15.0); Immature Platelet Fraction Pct 8.0 % (0.9-11.2); Mean Corpuscular HGB Conc 31.6 g/dl (32-36); Mean Corpuscular Hemoglobin 28.1 pg (26-34); Mean Corpuscular Volume 88.8 fl (80-100); Platelet Count Result 77 k/mm3 (150-375); Red Blood Count 2.85 M/mm3 (4.2-5.4); White Blood Count 9.7 K/mm3 (4.5-10.0)
[2025-01-20 07:42] LABS: Partial Thromboplastin Time 93.7 Seconds (22.3-36.8)
[2025-01-20 07:52] LABS: Anion Gap 9 mmol/L (4-12); Blood Urea Nitrogen 30 mg/dL (7-17); Calcium 8.2 mg/dL (8.4-10.2); Carbon Dioxide 21 mmol/L (22-30); Chloride 107 mmol/L (98-107); Estimated CRCL calculation 30 ml/min; Estimated Glomerular Filt Rate 43; Glucose 221 mg/dL (65-110); Potassium 4.2 mmol/L (3.4-5.0); Sodium 137 mmol/L (137-145)
[2025-01-20 08:06] LABS: Band Neutrophils Percent 24 % (0-6); Basophils Absolute Manual 0.09 K/mm3 (0.0-0.1); Basophils Percent Manual 1 % (0-1); Eosinophils Absolute Manual 0.09 K/mm3 (0.02-0.50); Eosinophils Percent Manual 1 % (0-4); Lymphocytes Absolute Manual 2.42 K/mm3 (1.1-4.5); Lymphocytes Percent Manual 25 % (18-44); Metamyelocytes Percent 6 %; Monocytes Absolute Manual 0.29 K/mm3 (0.1-0.90); Monocytes Percent Manual 3 % (3-9); Neutrophils Absolute Manual 6.20 K/mm3 (1.3-6.7); Neutrophils Percent Manual 40 % (46-73); Total Cells Counted 100
[2025-01-20 08:07] LABS: Anisocytosis 2+; Basophilic Stippling Occasional; Hypochromasia 2+; Polychromasia 1+; Schistocytes None Seen; Target Cells 1+
[2025-01-20] MEDS: INSULIN ASPART (*BKC) 100 UNITS/ML SUB-Q ×2 (08:51→08:52)
[2025-01-20] MEDS: DIGOXIN TAB 125 MCG TABLET PO (08:52)
[2025-01-20] MEDS: FOLIC ACID 1 MG TABLET PO (08:53)
[2025-01-20] MEDS: SENNA/DOCUSATE SODIUM TABLET 1 TAB PO ×2 (08:53→16:18)
[2025-01-20] MEDS: SENNOSIDES 8.6 MG TABLET PO ×2 (08:53→16:18)
[2025-01-20] MEDS: METOPROLOL SUCCINATE EXT REL 50 MG TABCR PO (08:53)
[2025-01-20] MEDS: OMEGA 3 POLYUNSAT FATTY ACIDS 1 GM CAP PO (08:53)
--- NOTE | 2025-01-20 11:24 | P.PNIM_ITS ---
Progress Note: A&P Assessment and Plan (1) Hypotension: Code(s): I95.9 - Hypotension, unspecified Status: Acute (2) Atrial fibrillation with rapid ventricular response: Code(s): I48.91 - Unspecified atrial fibrillation Status: Acute (3) Acute UTI: Code(s): N39.0 - Urinary tract infection, site not specified Status: Acute (4) Anemia: Code(s): D64.9 - Anemia, unspecified Status: Acute (5) Acute on chronic anemia: Code(s): D64.9 - Anemia, unspecified Status: Acute (6) Elevated troponin: Code(s): R79.89 - Other specified abnormal findings of blood chemistry Status: Acute Plan 84-year-old female with PMH neurocognitive disorder, 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 Upon arrival the patient A&O x2 and in unreliable historian. Found to be in AFib with RVR with an acute UTI and severe anemia. Acute hypoxic respiratory failure -Short of breath on exam, on supplemental oxygen - CT chest shows CHF with chronic lung diseases. Superimposed severe bilateral bronchopneumonia. negative for PE - etiology could be multifactorial; bilateral bronchopneumonia / CHF given elevated BNP. lactic acid is uptrending. - patient was on cefepime and will add azithromycin 500 mg for 3 days - Lasix challenge today, if she becomes hypotensive, IV fluid resuscitation - trend lactic acid - strict I&Os, daily weight, sodium less than 2 g daily Complicated UTI, present on admission with severe sepsis -urinalysis 01/04/2025 many squamous cells, 4+ bacteria, 2+ leukocyte esterase. CT abdomen pelvis on admission demonstrated findings concerning for urinary tract infection, small pleural effusions, mild pulmonary edema, bilateral acute pyelonephritis. -urine culture did not reflex, urine culture finally obtained on 01/06/2025 after antibiotics were given. Final results negative. Unreliable results. Ceftriaxone transition to Augmentin for a total 7 day course. Leukocytosis and bandemia resolved. Augmentin finished on 01/11. -01/05/2025 blood culture x2, no growth at 48 hours --Repeat UA sent 01/17 from cath UA. 21-50 WBC's no bacteria. Culture pending, follow --blood cultures if new fevers Leukocytosis -WBC trending up, 7.2<14.3>13.2<14.6 Chest x-ray pulmonary edema vs pneumonia. --Started doxy 100 BID x5 days. Change to augmentin if WBC continues to trend up --Repeated UA given recent pyelo. Monitor off antibiotics pending culture --May need additional imaging if continues to uptrend --01/15 flu/covid/rsv negative --Repeat Chest x-ray, Straight cath for urine 01/17 equivocal, culture pending 01/17 Chest X-ray Persistent patchy bilateral airspace disease, compatible with pneumonia. Started doxycycline Anemia, normocytic Thrombocytopenia Unclear baseline, 6.9 on admission. Received 2 units PRBC, improved with a hemoglobin around 9.0 but has been gradually down trending 01/15 7.4> 6.9 01/18. Repeat Hgb 8.5 after 1 unit of PRBC's -hemoccult negative reported in ER. No evidence of overt bleeding. -iron 110, TIBC 237, ferritin 758. Vitamin B12 852. Folic acid greater than 20. TSH 1.150. Haptoglobin 226 -hematology consulted. Differential for blood loss includes mild renal insufficiency and infection, bone marrow disorders like MDS. --Hapto & LDH are normal Bili 1.7, normal direct bili so elevation may be 2/2 Gilbert's syndrome. --Monitor for black/bloody stools, normal per report. Gu[place] stool --Maybe be chronic disease. At risk for hemolysis with severe /calcification but LDH and haptoglobin normal. Blood count trending down slowly. T&S 01/18 Acute DVT 01/13 Bilateral LE DVT on dopplers --Started therapeutic lovenox and monitor Hgb & plt. Plts have been stable. Hgb trending down slowly but stools not black or bloody --Radiology consult for possible IVC filter. NPO post midnight --Hold lovenox overnight with continued blood loss. GI consult if new black/bloody stools AFib with RVR -keep potassium greater than 4, magnesium greater than 2. -she has improved with low volume continue was fluid infusion. We will discontinue that on 01/11/2025. She reports poor appetite and really does not with eat or drink anything. Dietary supplements t.i.d. with Glucerna. Dietitian consultation. Initially she was on metoprolol but that was held due to low blood pressure which is improved status post volume resuscitation. Continue metoprolol 25 mg p.o. b.i.d., digoxin 125 mcg p.o. q.day. Amiodarone has been discontinued to prevent cardioversion and risk of stroke. Continue telemetry, she continues to be in AFib with better controlled rate in the 90s. No changes on 01/12 - remains asymptomatic. Confusion/slurred speech, resolved. -she does have a baseline neurocognitive disorder/cognitive communication disorder -A&O x2, pleasantly confused. -CT brain on admission no evidence of ischemic/hemorrhagic event CHF, systolic -BNP 10553 on admission, no evidence of clinical overload -on metoprolol. Add Entresto, empagliflozin as BP tolerates. -Repeat BNP and trop downtrending -TTE 01/07/25: Summary 1. Complete two-dimensional, color flow and Doppler transthoracic echocardiogram is performed. 2. Left ventricular chamber dimension is mildly enlarged. 3. Left ventricular systolic function is mildly reduced, estimated at 45-50. 4. There is moderate asymmetric septal increased left ventricular wall thickness. 5. The left ventricular diastolic function is abnormal. 6. Right ventricular chamber dimension is mildly enlarged. 7. Left atrial chamber dimension is moderately enlarged. 8. Right atrial chamber dimension is moderately enlarged. 9. There is moderate to severe aortic valve stenosis with a peak velocity of 291 cm/s, mean gradient of 15 mmHg, and aortic valve area of 1.0 cm2. 10. There is moderate aortic valve regurgitation. 11. There is severe aortic valve calcification. 12. There is moderate mitral valve regurgitation. 13. There is moderate tricuspid valve regurgitation. 14. Moderate pulmonary hypertension, estimated pulmonary arterial systolic pressure is 59 mmHg. 15. There is mild pulmonic regurgitation. 16. The prox ascending aorta size is dilated. -cardiology following --Start lasix 40mg daily Lactic acidosis RESOLVED 3.2 on admission, resolved status post 2 units PRBC and isotonic fluid resuscitation Elevated serum creatinine -1.26 on admission. Likely EDDA since serum creatinine has come down to normal. Likely due to AFib/sepsis. Elevated troponin -present on admission, likely due to sepsis in AFib with RVR. Peak. No chest pain, no shortness of breath. Cardiology consulted -repeat trop and bnp with DVT, though has been asymptomatic and still asymptomatic Insulin-dependent diabetes mellitus -blood sugars reviewed, currently at goal for a elderly female with poor oral intake, continue current regimen, avoid over-correction. -Accu-Cheks a.c. HS with Lantus 12 hs units subQ b.i.d., change to daily since trending down --Consistent carb, heart healthy diet Constipation Hard stool 01/18 Increase miralax to BID, Senna hs -continue monitoring Hyponatremia -improved after volume resuscitation. Continue to trend . Stable on medical floor with telemetry. DNR SCDs. Lovenox on hold for continued anemia Discontinue fluids on 01/11/2025. Daily weights/intake/output. Ambulate with assistance PT/OT evaluations for weakness. Recommend discharge to SNF. Plan to discharge back to [facility] when Hgb stable. Started anticoagulation and monitoring WBC improving Presented from [facility], was at [facility] prior. Time Spent With Patient Time: 35 minutes Subjective Date/time seen: 01/20/25 11:24 Interval history: On supplemental Oxygen on nasal cannula. Oriented to person, time and place. she was complaining difficulty of breathing. No fever or chills. no abdominal pain or diarrhea. Exam Narrative: APPEARANCE: mild distress EYES: EOMI HEENT: Normocephalic, atraumatic, OMM RESPIRATORY: mild crackles bilaterally, no wheezing CARDIOVASCULAR: RRR, S1 and S2 without murmurs rubs or gallops. ABDOMINAL: Soft, nontender, nondistended, no rebound or guarding MSK: no restriction with range of motion NEURO: Awake and alert. Following commands. SKIN:: Warm, dry. No rashes lesions or abrasions PSYCHIATRIC: Normal affect/mood Objective Data Vital Signs Vital Signs: Vital Signs - 24 hr 01/19/25 12:16 01/19/25 14:00 01/19/25 15:47 Temperature 37.1 C 37.1 C Pulse Rate 96 95 83 Respiratory Rate 18 18 21 H Blood Pressure 121/49 L 121/61 Pulse Oximetry 97 91 Oxygen Delivery Oxygen Flow Rate Fraction of Inspired Oxygen 01/19/25 15:53 01/19/25 15:54 01/19/25 18:22 Temperature 36.2 C L Pulse Rate 74 74 94 Respiratory Rate 21 H 18 Blood Pressure 133/57 L Pulse Oximetry 92 99 Oxygen Delivery Room Air Oxygen Flow Rate Fraction of Inspired Oxygen 01/19/25 20:00 01/19/25 20:00 01/19/25 20:00 Temperature 36.9 C Pulse Rate 97 95 Respiratory Rate 22 H Blood Pressure 126/53 L Pulse Oximetry 99 99 Oxygen Delivery Nasal Cannula Oxygen Flow Rate 3 Fraction of Inspired Oxygen 01/19/25 22:00 01/19/25 23:46 01/20/25 00:00 Temperature 36.7 C Pulse Rate 92 102 H 94 Respiratory Rate 20 Blood Pressure 134/55 L Pulse Oximetry 98 Oxygen Delivery Oxygen Flow Rate Fraction of Inspired Oxygen 01/20/25 00:00 01/20/25 02:00 01/20/25 04:00 Temperature 36.9 C Pulse Rate 101 H 113 H Respiratory Rate 23 H Blood Pressure 121/54 L Pulse Oximetry 99 96 Oxygen Delivery Nasal Cannula Oxygen Flow Rate 4 Fraction of Inspired Oxygen 01/20/25 04:00 01/20/25 04:00 01/20/25 04:45 Temperature Pulse Rate 119 H 88 Respiratory Rate 18 Blood Pressure Pulse Oximetry 97 Oxygen Delivery Nasal Cannula Oxygen Flow Rate 4 Fraction of Inspired Oxygen 01/20/25 05:35 01/20/25 05:38 01/20/25 06:00 Temperature Pulse Rate 100 Respiratory Rate Blood Pressure 120/52 L 110/54 L Pulse Oximetry Oxygen Delivery Oxygen Flow Rate Fraction of Inspired Oxygen 01/20/25 08:00 01/20/25 08:00 01/20/25 08:00 Temperature 37.6 C Pulse Rate 106 H 106 H 106 H Respiratory Rate 22 H 22 H Blood Pressure 103/39 L Pulse Oximetry 98 98 Oxygen Delivery Nasal Cannula Oxygen Flow Rate 3 Fraction of Inspired Oxygen 21 01/20/25 08:52 01/20/25 08:53 01/20/25 10:00 Temperature Pulse Rate 103 H 103 H 98 Respiratory Rate Blood Pressure Pulse Oximetry Oxygen Delivery Oxygen Flow Rate Fraction of Inspired Oxygen Intake/Output Intake/Output: Intake & Output 01/17/25 01/18/25 01/19/25 01/20/25 23:59 23:59 23:59 23:59 Intake Total 1070 1730 390 100 Output Total 300 850 500 5 Balance 770 880 -110 95 Meds/Results Medications: Active Medications Generic Name Dose Route Start Last Admin Trade Name Abiodunq PRN Reason Stop Dose Admin Acetaminophen 650 mg 01/12/25 02:25 01/14/25 17:13 Acetaminophen 325 Mg Tablet PO 650 mg Q4H PRN Administration Mild Pain (1-3) or Fever Bisacodyl 10 mg 01/19/25 21:00 01/19/25 20:48 Bisacodyl 10 Mg Suppository RECTAL 10 mg HS JEN Administration Dextrose 12.5 gm 01/05/25 01:39 Dextrose 50% 25 Gm/50 Ml Syringe IV PUSH PRN PRN Hypoglycemia Protocol Digoxin 125 mcg 01/10/25 09:00 01/20/25 08:52 Digoxin Tab 125 Mcg Tablet PO 125 mcg DAILY JEN Administration Diphenhydramine HCl 25 mg 01/12/25 02:25 01/16/25 09:40 Diphenhydramine Hcl Cap 25 Mg Capsule PO 25 mg Q4HR PRN Administration Itching Fish Oil 1 gm 01/05/25 09:00 01/20/25 08:53 [place] 3 Polyunsat Fatty Acids 1 Gm Cap PO 1 gm QAM JEN Administration Folic Acid 1 mg 01/05/25 09:00 01/20/25 08:53 Folic Acid 1 Mg Tablet PO 1 mg DAILY JEN Administration Glucagon 1 mg 01/05/25 01:39 Glucagon For Inj 1 Mg Vial IM PRN PRN Hypoglycemia Protocol Glucose 15 gm 01/05/25 01:39 Glucose Oral Gel 15 Gm Of Glucse In 37.5 Gm Tube PO PRN PRN Hypoglycemia Protocol Heparin Sodium (Porcine) 5,000 units 01/19/25 16:22 Heparin Sodium 5,000 Units/Ml Vial IV PUSH PRN PRN aPTT less than 55 seconds Heparin Sodium (Porcine) 2,500 units 01/19/25 16:22 Heparin Sodium 5,000 Units/Ml Vial IV PUSH PRN PRN aPTT 55 - 70 seconds Dextrose 1,000 mls @ 100 mls/hr 01/05/25 01:39 Dextrose 5% 1,000 Ml IVPB PRN PRN Hypoglycemia Protocol Cefepime HCl 2 gm/ Sodium 50 mls @ 100 mls/hr 01/19/25 16:00 01/20/25 04:04 Chloride IVPB Infused Q12H JEN Infusion Heparin Sodium/Dextrose 25,000 units in 250 mls @ 12 mls/hr 01/19/25 16:25 01/19/25 17:53 Heparin Sodium/D5w 100 Units/Ml IV CONT 1,200 units/hr .[id number] JEN 12 mls/hr Protocol Administration 1,200 UNITS/HR Azithromycin 500 mg/ Sodium 250 mls @ 250 mls/hr 01/20/25 12:00 Chloride IVPB 01/22/25 12:59 Q24H JEN Insulin Aspart 3 - 6 units 01/05/25 08:00 01/20/25 08:51 Insulin Aspart (*Bkc) 100 Units/Ml SUB-Q 3 units TIDWM JEN Administration Protocol Insulin Aspart 5 units 01/19/25 08:00 01/20/25 08:52 Insulin Aspart (*Bkc) 100 Units/Ml SUB-Q 5 units TIDWM JEN Administration Insulin Glargine 15 units 01/19/25 21:00 01/19/25 20:51 Insulin Glargine (*Bkc) 100 Units/Ml SUB-Q 15 units HS JEN Administration Metoprolol Succinate 50 mg 01/12/25 09:00 01/20/25 08:53 Metoprolol Succinate Ext Rel 50 Mg Tabcr PO 50 mg QAM JEN Administration Polyethylene Glycol 17 gm 01/18/25 17:00 01/20/25 08:53 Polyethylene Glycol 3350 17 Gm Powd.Pack PO 17 gm BID JEN Administration Senna 8.6 mg 01/20/25 09:00 01/20/25 08:53 Sennosides 8.6 Mg Tablet PO 8.6 mg BID JEN Administration Senna/Docusate Sodium 1 tab 01/09/25 17:00 01/20/25 08:53 Senna/Docusate Sodium Tablet PO 1 tab BID [facility] Administration Sodium Chloride 6 ml 01/20/25 05:00 Sodium Chlor 3% 15 Ml Neb (Respiratory Therapy) INHALATION 01/22/25 05:01 DAILY@0500 [facility] Radiology Results: ITS Impressions Abdomen/Pelvis CT 01/06/25 16:01 IMPRESSION: 1. Mild pulmonary edema. 2. Small pleural effusions. 3. Cystitis. 4. Bilateral acute pyelonephritis. Venous Doppler Study 01/13/25 16:38 Impression: Bilateral DVT detailed above Chest X-Ray 01/19/25 13:22 IMPRESSION: 1. No significant change. 2. Persistent diffuse scattered bilateral airspace disease. Head CT 01/19/25 17:21 Impression: 1.No acute intracranial abnormality. Chest/Abdomen/Pelvis CTA 01/19/25 17:26 IMPRESSION: 1. Negative for pulmonary embolism. CHF with chronic lung disease detailed above. Superimposed severe bilateral bronchopneumonia. 2. Fecal impaction with mild proctitis. Incidental findings above Labs Labs: Laboratory Results - last 24 hr 01/16/25 01/19/25 01/19/25 20:28 12:11 15:55 WBC 12.3 H RBC 2.98 L Hgb 8.3 L Hct 26.0 L MCV 87.2 MCH 27.9 MCHC 31.9 L RDW 23.9 H Plt Count 83 L MPV TNP Immature Gran % (Auto) Not Reportable Neut % (Auto) Not Reportable Lymph % (Auto) Not Reportable [place] % (Auto) Not Reportable Eos % (Auto) Not Reportable Baso % (Auto) Not Reportable Lymph # (Auto) Not Reportable [place] # (Auto) Not Reportable Eos # (Auto) Not Reportable Baso # (Auto) Not Reportable Abs Immat Gran (auto) Not Reportable Absolute Neuts (auto) Not Reportable Absolute Nucleated RBC Not Reportable Total Counted 100 Neutrophils % (Manual) 61 Band Neutrophils % 4 Lymphocytes % (Manual) 17.0 L Monocytes % (Manual) 9 Eosinophils % (Manual) 2 Basophils % (Manual) 2 H Metamyelocytes % 3 Myelocytes % 2 Nucleated RBC % Not Reportable Abs Neuts (Manual) 7.99 H Abs Lymphs (Manual) 2.09 Abs Monocytes (Manual) 1.10 H Absolute Eos (Manual) 0.24 Abs Basophils (Manual) 0.24 H Nucleated RBCs 10 Platelet Estimate Decreased % Immature Plt Fraction 8.3 Polychromasia Hypochromasia 2+ Basophilic Stippling Anisocytosis 2+ Target Cells 1+ Schistocytes None seen PT INR APTT VBG pH 7.473 H* VBG pCO2 26.5 L* VBG pO2 < 27.0 L VBG HCO3 19.0 L O2 Delivery Device Not Reportable O2 Liters/Min Not Reportable FiO2 21 Sodium 135 L Potassium 4.1 Chloride 107 Carbon Dioxide 21 L Anion Gap 7 BUN 26 H Creatinine 1.07 H Estim Creat Clear Calc 34 Estimated GFR 49 L Glucose 186 H POC Capillary Glucose 273 H 211 H Lactic Acid 4.2 H* Calcium 8.1 L Magnesium 1.7 Total Bilirubin 3.1 H AST 35 ALT 20 Alkaline Phosphatase 87 Troponin I 0.073 H* Total Protein 7.7 Albumin 2.6 L 01/19/25 01/19/25 01/19/25 16:39 17:33 18:21 WBC RBC Hgb Hct MCV MCH MCHC RDW Plt Count MPV Immature Gran % (Auto) Neut % (Auto) Lymph % (Auto) [place] % (Auto) Eos % (Auto) Baso % (Auto) Lymph # (Auto) [place] # (Auto) Eos # (Auto) Baso # (Auto) Abs Immat Gran (auto) Absolute Neuts (auto) Absolute Nucleated RBC Total Counted Neutrophils % (Manual) Band Neutrophils % Lymphocytes % (Manual) Monocytes % (Manual) Eosinophils % (Manual) Basophils % (Manual) Metamyelocytes % Myelocytes % Nucleated RBC % Abs Neuts (Manual) Abs Lymphs (Manual) Abs Monocytes (Manual) Absolute Eos (Manual) Abs Basophils (Manual) Nucleated RBCs Platelet Estimate % Immature Plt Fraction Polychromasia Hypochromasia Basophilic Stippling Anisocytosis Target Cells Schistocytes PT 18.1 H INR 1.5 APTT 34.5 VBG pH VBG pCO2 VBG pO2 VBG HCO3 O2 Delivery Device O2 Liters/Min FiO2 Sodium Potassium Chloride Carbon Dioxide Anion Gap BUN Creatinine Estim Creat Clear Calc Estimated GFR Glucose POC Capillary Glucose 182 H Lactic Acid 2.7 H Calcium Magnesium Total Bilirubin AST ALT Alkaline Phosphatase Troponin I Total Protein Albumin 01/19/25 01/20/25 01/20/25 20:23 00:43 07:14 WBC 9.7 RBC 2.85 L Hgb 8.0 L Hct 25.3 L MCV 88.8 MCH 28.1 MCHC 31.6 L RDW 23.7 H Plt Count 77 L MPV TNP Immature Gran % (Auto) Not Reportable Neut % (Auto) Not Reportable Lymph % (Auto) Not Reportable [place] % (Auto) Not Reportable Eos % (Auto) Not Reportable Baso % (Auto) Not Reportable Lymph # (Auto) Not Reportable [place] # (Auto) Not Reportable Eos # (Auto) Not Reportable Baso # (Auto) Not Reportable Abs Immat Gran (auto) Not Reportable Absolute Neuts (auto) Not Reportable Absolute Nucleated RBC Not Reportable Total Counted 100 Neutrophils % (Manual) 40 L Band Neutrophils % 24 H Lymphocytes % (Manual) 25 Monocytes % (Manual) 3 Eosinophils % (Manual) 1 Basophils % (Manual) 1 Metamyelocytes % 6 Myelocytes % Nucleated RBC % Not Reportable Abs Neuts (Manual) 6.20 Abs Lymphs (Manual) 2.42 Abs Monocytes (Manual) 0.29 Absolute Eos (Manual) 0.09 Abs Basophils (Manual) 0.09 Nucleated RBCs 19 Platelet Estimate Decreased % Immature Plt Fraction 8.0 Polychromasia 1+ Hypochromasia 2+ Basophilic Stippling Occasional Anisocytosis 2+ Target Cells 1+ Schistocytes None seen PT INR APTT 81.7 H 93.7 H VBG pH VBG pCO2 VBG pO2 VBG HCO3 O2 Delivery Device O2 Liters/Min FiO2 Sodium 137 Potassium 4.2 Chloride 107 Carbon Dioxide 21 L Anion Gap 9 BUN 30 H Creatinine 1.19 H Estim Creat Clear Calc 30 Estimated GFR 43 L Glucose 221 H POC Capillary Glucose 188 H Lactic Acid 3.7 H Calcium 8.2 L Magnesium Total Bilirubin AST ALT Alkaline Phosphatase Troponin I Total Protein Albumin 01/20/25 01/20/25 07:55 09:41 WBC RBC Hgb Hct MCV MCH MCHC RDW Plt Count MPV Immature Gran % (Auto) Neut % (Auto) Lymph % (Auto) [place] % (Auto) Eos % (Auto) Baso % (Auto) Lymph # (Auto) [place] # (Auto) Eos # (Auto) Baso # (Auto) Abs Immat Gran (auto) Absolute Neuts (auto) Absolute Nucleated RBC Total Counted Neutrophils % (Manual) Band Neutrophils % Lymphocytes % (Manual) Monocytes % (Manual) Eosinophils % (Manual) Basophils % (Manual) Metamyelocytes % Myelocytes % Nucleated RBC % Abs Neuts (Manual) Abs Lymphs (Manual) Abs Monocytes (Manual) Absolute Eos (Manual) Abs Basophils (Manual) Nucleated RBCs Platelet Estimate % Immature Plt Fraction Polychromasia Hypochromasia Basophilic Stippling Anisocytosis Target Cells Schistocytes PT INR APTT VBG pH VBG pCO2 VBG pO2 VBG HCO3 O2 Delivery Device O2 Liters/Min FiO2 Sodium Potassium Chloride Carbon Dioxide Anion Gap BUN Creatinine Estim Creat Clear Calc Estimated GFR Glucose POC Capillary Glucose 217 H Lactic Acid 5.2 H* Calcium Magnesium Total Bilirubin AST ALT Alkaline Phosphatase Troponin I Total Protein Albumin Quality VTE Prophylaxis VTE prophylaxis: mechanical ordered
[2025-01-20] MEDS: AZITHROMYCIN IV 500 MG in SODIUM CHLORIDE 0.9% IV 250 ML IVPB (12:01)
--- NOTE | 2025-01-20 12:49 | PCNFU ---
Nutrition Follow-Up Complete: Inadequate oral intake related to loss of appetite as evidenced by intakes 25-50% Goal:Adequate PO intake at least 50-75% Pt not meeting goal, continue with same goal Pt current nutrition is NPO, was heart healthy/diabetic. Nutrition recommendation: resume diet when appropriate with Glucerna shakes BID Last recorded weight is 77.2 kg. Bowel Motility: +BM 01/20 Labs Reviewed: Hgb:8.0, HCT:25.3, Alb:2.6, BUN:30, Cr:1.2, Glu:221 Meds Noted: folic acid, lantus, novolog senna Skin: WNL Additional Notes: Pt NPO today, was on a heart healthy diet, intake 25% most meals at this time. Recommend to resume diet and supplements when appropriate, encourage po intake. Monitoring intakes, weights, labs, supplement tolerance, output, plan of care Follow up in 5 days
--- NOTE | 2025-01-20 12:52 | PCOTNOTE ---
Attempted to see Patient with RN present in the room. Patient having increased SOB, wheezing, confusion, inability to follow commands. When Patient asked questions unable to give reasonable answers. RN gave Patient a sip of water, unable to swallow at this time. RN states she is going to contact the doctor. Patient unable to participate at this time.
[2025-01-20] MEDS: HEPARIN SOD/D5W 100 UNITS/ML 25,000 UNITS/250 ML BAG 12 UNITS IV CONT (13:27)
[2025-01-20 13:47] LABS: Partial Thromboplastin Time 88.4 Seconds (22.3-36.8)
[2025-01-20] MEDS: BISACODYL 10 MG SUPPOSITORY RECTAL (20:23)
--- NOTE | 2025-01-20 22:38 | PC.NURSE ---
Pt presented with increased lethargy, now alert and oriented to only self as well as decreased output. Provider notified of pts change in condition and suggested Bipap. Pts shaq and ROSSY updated on pts condition by this RN, shaq was agreeable to try bipap if the patient allows. Bipap ordered PRN, pt refused. Provider notified of pt refusing. This RN called to update pts shaq, voicemail left.
[2025-01-21] VITALS (7 sets, daily range): BP systolic 101; BP diastolic 39–44; PULSE 76–98; RESP 20–22; TEMP 36.1–36.9; O2SAT 91–100
[2025-01-21 03:21] LABS: IFOB Positive Control Positive; Immunochemical Fecal Occult Bl Negative (N)
[2025-01-21] MEDS: CEFEPIME 2 GM in SODIUM CHLORIDE 0.9% IV 50 ML 100 ML IVPB (04:09)
[2025-01-21] MEDS: SODIUM CHLOR 3% 15 ML NEB (RESPIRATORY THERAPY) 6 ML INHALATION (04:16)
--- NOTE | 2025-01-21 04:19 | PCRCNOTE ---
Sputum induction: Non- productive
[2025-01-21 04:33] LABS: Hematocrit 21.5 % (37.0-47.0); Immature Platelet Fraction Pct 9.2 % (0.9-11.2); Mean Corpuscular HGB Conc 31.6 g/dl (32-36); Mean Corpuscular Hemoglobin 28.0 pg (26-34); Mean Corpuscular Volume 88.5 fl (80-100); Platelet Count Result 74 k/mm3 (150-375); Red Blood Count 2.43 M/mm3 (4.2-5.4); White Blood Count 9.0 K/mm3 (4.5-10.0)
[2025-01-21 04:51] LABS: Partial Thromboplastin Time 129.5 Seconds (22.3-36.8)
[2025-01-21 04:59] LABS: Anion Gap 16 mmol/L (4-12); Blood Urea Nitrogen 40 mg/dL (7-17); Calcium 7.9 mg/dL (8.4-10.2); Carbon Dioxide 14 mmol/L (22-30); Chloride 108 mmol/L (98-107); Estimated CRCL calculation 24 ml/min; Estimated Glomerular Filt Rate 32; Glucose 198 mg/dL (65-110); Potassium 3.9 mmol/L (3.4-5.0); Sodium 138 mmol/L (137-145)
[2025-01-21 05:45] LABS: Hemoglobin 6.8 g/dL (12.0-15.0)
[2025-01-21 05:56] LABS: Anisocytosis 2+; Band Neutrophils Percent 10 % (0-6); Basophils Absolute Manual 0.18 K/mm3 (0.0-0.1); Basophils Percent Manual 2 % (0-1); Eosinophils Absolute Manual 0.27 K/mm3 (0.02-0.50); Eosinophils Percent Manual 3 % (0-4); Giant Platelets Present; Lymphocytes Absolute Manual 2.88 K/mm3 (1.1-4.5); Lymphocytes Percent Manual 32.0 % (18-44); Monocytes Absolute Manual 1.08 K/mm3 (0.1-0.90); Monocytes Percent Manual 12 % (3-9); Myelocytes Percent 1 %; Neutrophils Absolute Manual 4.50 K/mm3 (1.3-6.7); Neutrophils Percent Manual 40 % (46-73); Total Cells Counted 100
[2025-01-21 05:57] LABS: Ovalocytes 1+; Schistocytes Rare
[2025-01-21 05:58] LABS: Burr Cells 1+; Hypochromasia 3+; Target Cells Occasional
[2025-01-21 05:59] LABS: Spherocytes Occasional
--- NOTE | 2025-01-21 06:14 | PM.EVENT ---
Event Note Event Note Event Note: the grand daughter was notified per staff and myself concerning the patient's decline. i called her granddaugher Kourtney Myersjun about hospice and she is agreeable . the patient was made comfort measures and pain medication was added to her order list .
--- NOTE | 2025-01-21 06:34 | PC.NURSE ---
Spoke with pts delma/ROSSY Oconnell about pt condition. Informed granddaughter of pts hemiglobin and the need for blood as well as mental status and increased respirations. Granddaughter decided for pt to be put on comfort measures and all invasive interventions to be stopped as well as a consult to Hospice.
[2025-01-21] MEDS: diazePAM INJ (*CRX) 10 MG/2 ML SYRINGE 5 MG IV PUSH (06:46)
--- NOTE | 2025-01-21 09:34 | PC.NURSE ---
Pt transferred to [address] bed 2 at 0930. Report given to RIGOBERTO Mars.
--- NOTE | 2025-01-21 10:11 | PC.NURSE ---
This patient, Char Tucker, was received from IMU on 01/21/25 at 9:54AM . Patient/family oriented to unit policies and routines
--- NOTE | 2025-01-21 14:27 | PCOTNOTE ---
Patient has been placed on comfort measures and will be discharged from therapy services at this time.
--- NOTE | 2025-01-21 16:37 | P.DS_ITS ---
DS: Admitting Diagnosis Discharge Date 01/21/25 Admitting Diagnosis ?Not feeling right? DS: Discharge Diagnosis Discharge Diagnosis (1) Cardiomyopathy: Code(s): I42.9 - Cardiomyopathy, unspecified Status: Acute (2) Atrial fibrillation with rapid ventricular response: Code(s): I48.91 - Unspecified atrial fibrillation Status: Acute DS: Summary Hospital Course Hospital Course: Reason for Admission Acute confusion, slurred speech, and generalized weakness in the setting of severe anemia, sepsis secondary to complicated urinary tract infection, and atrial fibrillation with rapid ventricular response. 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 She was transferred from [facility] due to confusion and slurred speech. On arrival, she was alert and oriented to person, place, and year, but confused as to the month. She was a poor historian; much of the history was obtained from [facility] records and the ER physician. Initial Evaluation: * Vitals:?Hypotensive (BP 67/40?99/50), MAP 60?65, tachycardic (AFib with RVR) * Labs: * Hgb 6.0?6.9 (prior 8.0), improved to 8.6 after transfusion, then downtrended again * WBC uptrending, bandemia * Creatinine 1.26 (EDDA on CKD), GFR ?40% * Iron studies: Normal iron, elevated ferritin, normal B12, normal folate * Troponin elevated (demand ischemia) * Imaging: * CT abdomen/pelvis: Bilateral pyelonephritis, cystitis, small pleural effusions, mild pulmonary edema * CXR: Pulmonary edema vs pneumonia * TTE: Mildly reduced LVEF (45?50%), moderate to severe aortic stenosis, moderate aortic/mitral/tricuspid regurgitation, severe aortic valve calcification, moderate pulmonary hypertension, dilated proximal ascending aorta Hospital Course: * Sepsis/UTI: * Treated empirically with ceftriaxone, transitioned to Augmentin, then doxycycline for persistent leukocytosis and pneumonia. * Blood and urine cultures negative after antibiotics started. * Completed 7-day course of antibiotics. * Anemia: * Severe, normocytic, likely multifactorial (chronic disease, infection, mild renal insufficiency, possible bone marrow disorder). * Received 3 units PRBCs during admission. * No overt bleeding; hemoccult negative. * Hematology/Oncology consulted; outpatient follow-up recommended for further workup (possible MDS). * Atrial Fibrillation with RVR: * Initially uncontrolled, managed with metoprolol, digoxin, and brief amiodarone. * Amiodarone discontinued to avoid cardioversion and stroke risk. * Rate well controlled on metoprolol and digoxin; not a candidate for anticoagulation due to ongoing anemia and transfusion dependence. * CHF/Valvular Disease: * Managed with diuresis (Lasix), fluid resuscitation as needed for hypotens ion. * Cardiology following; started on Entresto and empagliflozin as tolerated. * Acute DVT: * Bilateral lower extremity DVTs diagnosed 01/13; started on therapeutic Lovenox, then held due to ongoing anemia. * Radiology consulted for possible IVC filter. * Other: * Diabetes managed with insulin, goal-directed for elderly with poor oral intake. * Constipation managed with bowel regimen. * Hyponatremia and EDDA resolved with supportive care. * Confusion and slurred speech resolved; baseline cognitive impairment persists. * Functional Status: * Significant deconditioning, poor oral intake, and ongoing transfusion needs. * Family and patient elected for hospice care. 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) * Atrial fibrillation with rapid ventricular response (I48.91) * Acute on chronic heart failure with moderate to severe aortic stenosis ( I50.22, I35.0) * Acute DVT, bilateral lower extremities (I82.403) Secondary: * Type 2 diabetes mellitus with neuropathy, on insulin (E11.40, Z79.4) * Essential hypertension (I10) * Chronic kidney disease, stage 3 (N18.30) * Moderate pulmonary hypertension (I27.2) * Cognitive communication disorder/neurocognitive disorder (F03.90) * Chronic constipation (K59.00) * History of recent sepsis L Discharge Medications * Metoprolol?25 mg PO BID * Digoxin?125 mcg PO daily * Lasix?40 mg PO daily * Insulin?per sliding scale and Lantus as previously dosed * Bowel regimen:?Miralax BID, Senna HS * Other home medications?as appropriate and tolerated * Anticoagulation:?Lovenox held due to ongoing anemia; IVC filter under consideration Discharge Condition * Comfortable, at baseline cognitive status, hemodynamically stable, afebrile, no acute distress, rate-controlled atrial fibrillation, no overt bleeding, on supplemental oxygen as needed. Discharge Disposition * Discharged to hospice facility for comfort-focused care Discharge Instructions * Diet:?As tolerated, encourage small frequent meals, Glucerna supplements as needed * Activity:?As tolerated, fall precautions, ambulate with assistance * Wound/Device Care:?Monitor for signs of bleeding, infection, or DVT * Follow-up: * Hospice team to coordinate all further care * Hematology/Oncology outpatient follow-up if clinical status allows * Monitor:?For signs of bleeding, shortness of breath, chest pain, confusion, or new/worsening symptoms * Goals of Care:?Comfort measures, symptom management, and support for patient and family Summary Ms. Tucker was admitted with acute confusion and severe anemia in the setting of sepsis from a complicated UTI, with superimposed pneumonia and acute on chronic heart failure. She required multiple transfusions and developed bilateral DVTs. After multidisciplinary discussion and in light of her ongoing transfusion needs, deconditioning, and comorbidities, she and her family elected for hospice care. She was discharged in stable condition to a hospice facility for comfort- focused management. Time Spent with Patient Time attestation: Total time spent providing and/or coordinating discharge services: DS: Data Data Completed and Pending Labs on day of discharge: Labs from last 24 hours 01/21/25 01/21/25 01/20/25 03:44 02:44 21:08 WBC 9.0 RBC 2.43 L Hgb 6.8 L* Hct 21.5 L MCV 88.5 MCH 28.0 MCHC 31.6 L RDW 24.5 H Plt Count 74 L MPV TNP Immature Gran % (Auto) Not Reportable Neut % (Auto) Not Reportable Lymph % (Auto) Not Reportable [place] % (Auto) Not Reportable Eos % (Auto) Not Reportable Baso % (Auto) Not Reportable Lymph # (Auto) Not Reportable [place] # (Auto) Not Reportable Eos # (Auto) Not Reportable Baso # (Auto) Not Reportable Abs Immat Gran (auto) Not Reportable Absolute Neuts (auto) Not Reportable Absolute Nucleated RBC Not Reportable Total Counted 100 Neutrophils % (Manual) 40 L Band Neutrophils % 10 H Lymphocytes % (Manual) 32.0 Monocytes % (Manual) 12 H Eosinophils % (Manual) 3 Basophils % (Manual) 2 H Myelocytes % 1 Nucleated RBC % Not Reportable Abs Neuts (Manual) 4.50 Abs Lymphs (Manual) 2.88 Abs Monocytes (Manual) 1.08 H Absolute Eos (Manual) 0.27 Abs Basophils (Manual) 0.18 H Nucleated RBCs 24 Platelet Estimate Decreased Giant Platelets Present % Immature Plt Fraction 9.2 Hypochromasia 3+ Anisocytosis 2+ Spherocytes Occasional Target Cells Occasional Ovalocytes 1+ [place] Cells 1+ Schistocytes Rare APTT 129.5 H Sodium 138 Potassium 3.9 Chloride 108 H Carbon Dioxide 14 L Anion Gap 16 H BUN 40 H D Creatinine 1.53 H Estim Creat Clear Calc 24 Estimated GFR 32 L Glucose 198 H POC Capillary Glucose 191 H Calcium 7.9 L Stl Occult Blood (IFOB) Negative Discharge Plan Discharge Attending physician on discharge: Varsha Hines Consulting providers: Juan Robin; Pooja Valderrama; Varsha Hines; Francisco Tavares; Ric Mathias Discharging Clinician: Varsha Hines Anticipated Discharge Date/Time: 01/21/25 16:35 Patient Disposition: Hospice - Medical Facility Activity: as tolerated Diet: as tolerated Patient Instructions: Heart Failure (DC), A-fib (Atrial Fibrillation) (DC), Anemia (DC), Blood Transfusion (DC) Patient Language: Hebrew Stand Alone Forms: General Discharge Information Follow-up/Referrals: Michael,Agusto Griffin DO [Primary Care Provider, Unknown] Referral Note: F/u with PCP in 3-5 days and hospice care as scheduled Discharge Medications: Continued miconazole nitrate 2 % powder 1 applic topical BID Rx Instructions: apply to under breasts ascorbic acid (vitamin C) 1,000 mg tablet 1,000 mg PO DAILY insulin glargine [Basaglar KwikPen U-100 Insulin] 100 unit/mL (3 mL) insulin pen 17 unit SUBCUT BID folic acid 1 mg tablet 1 mg PO DAILY losartan 50 mg tablet 50 mg PO DAILY metformin 1,000 mg tablet 1,000 mg PO BID metoprolol succinate 50 mg tablet extended release 24 hr 50 mg PO DAILY polyethylene glycol 3350 [Miralax] 17 gram/dose powder 17 g PO BID PRN (Reason: constipation) [place]-3 350 mg-235 mg- 90 mg-597 mg capsule,delayed release(DR/EC) 1 cap PO DAILY sennosides-docusate sodium [Senna Plus] 8.6-50 mg tablet 1 tab-cap PO DAILY Date of admission: 01/04/25 23:14 Primary Care Provider: Michael,Agusto Griffin Admitting Provider: Berkley Moeller Attending physician on admission: Berkley Moeller Condition: Stable
--- NOTE | 2025-01-21 16:37 | PM.DS ---
DS: Admitting Diagnosis Discharge Date 01/21/25 Admitting Diagnosis ?Not feeling right? DS: Discharge Diagnosis Discharge Diagnosis (1) Cardiomyopathy: Code(s): I42.9 - Cardiomyopathy, unspecified Status: Acute (2) Atrial fibrillation with rapid ventricular response: Code(s): I48.91 - Unspecified atrial fibrillation Status: Acute DS: Summary Hospital Course Hospital Course: Reason for Admission Acute confusion, slurred speech, and generalized weakness in the setting of severe anemia, sepsis secondary to complicated urinary tract infection, and atrial fibrillation with rapid ventricular response. 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 She was transferred from [facility] due to confusion and slurred speech. On arrival, she was alert and oriented to person, place, and year, but confused as to the month. She was a poor historian; much of the history was obtained from long-term records and the ER physician. Initial Evaluation: Vitals:?Hypotensive (BP 67/40?99/50), MAP 60?65, tachycardic (AFib with RVR) Labs: Hgb 6.0?6.9 (prior 8.0), improved to 8.6 after transfusion, then downtrended again WBC uptrending, bandemia Creatinine 1.26 (EDDA on CKD), GFR ?40% Iron studies: Normal iron, elevated ferritin, normal B12, normal folate Troponin elevated (demand ischemia) Imaging: CT abdomen/pelvis: Bilateral pyelonephritis, cystitis, small pleural effusions, mild pulmonary edema CXR: Pulmonary edema vs pneumonia TTE: Mildly reduced LVEF (45?50%), moderate to severe aortic stenosis, moderate aortic/mitral/tricuspid regurgitation, severe aortic valve calcification, moderate pulmonary hypertension, dilated proximal ascending aorta Hospital Course: Sepsis/UTI: Treated empirically with ceftriaxone, transitioned to Augmentin, then doxycycline for persistent leukocytosis and pneumonia. Blood and urine cultures negative after antibiotics started. Completed 7-day course of antibiotics. Anemia: Severe, normocytic, likely multifactorial (chronic disease, infection, mild renal insufficiency, possible bone marrow disorder). Received 3 units PRBCs during admission. No overt bleeding; hemoccult negative. Hematology/Oncology consulted; outpatient follow-up recommended for further workup (possible MDS). Atrial Fibrillation with RVR: Initially uncontrolled, managed with metoprolol, digoxin, and brief amiodarone. Amiodarone discontinued to avoid cardioversion and stroke risk. Rate well controlled on metoprolol and digoxin; not a candidate for anticoagulation due to ongoing anemia and transfusion dependence. CHF/Valvular Disease: Managed with diuresis (Lasix), fluid resuscitation as needed for hypotension. Cardiology following; started on Entresto and empagliflozin as tolerated. Acute DVT: Bilateral lower extremity DVTs diagnosed 01/13; started on therapeutic Lovenox, then held due to ongoing anemia. Radiology consulted for possible IVC filter. Other: Diabetes managed with insulin, goal-directed for elderly with poor oral intake. Constipation managed with bowel regimen. Hyponatremia and EDDA resolved with supportive care. Confusion and slurred speech resolved; baseline cognitive impairment persists. Functional Status: Significant deconditioning, poor oral intake, and ongoing transfusion needs. Family and patient elected for hospice care. Discharge Diagnoses Principal: Sepsis secondary to complicated UTI with acute pyelonephritis (A41.9, N39.0) Severe, transfusion-dependent normocytic anemia (D64.9) Atrial fibrillation with rapid ventricular response (I48.91) Acute on chronic heart failure with moderate to severe aortic stenosis (I50.22, I35.0) Acute DVT, bilateral lower extremities (I82.403) Secondary: Type 2 diabetes mellitus with neuropathy, on insulin (E11.40, Z79.4) Essential hypertension (I10) Chronic kidney disease, stage 3 (N18.30) Moderate pulmonary hypertension (I27.2) Cognitive communication disorder/neurocognitive disorder (F03.90) Chronic constipation (K59.00) History of recent sepsis Discharge Medications Metoprolol?25 mg PO BID Digoxin?125 mcg PO daily Lasix?40 mg PO daily Insulin?per sliding scale and Lantus as previously dosed Bowel regimen:?Miralax BID, Senna HS Other home medications?as appropriate and tolerated Anticoagulation:?Lovenox held due to ongoing anemia; IVC filter under consideration Discharge Condition Comfortable, at baseline cognitive status, hemodynamically stable, afebrile, no acute distress, rate-controlled atrial fibrillation, no overt bleeding, on supplemental oxygen as needed. Discharge Disposition Discharged to hospice facility for comfort-focused care Discharge Instructions Diet:?As tolerated, encourage small frequent meals, Glucerna supplements as needed Activity:?As tolerated, fall precautions, ambulate with assistance Wound/Device Care:?Monitor for signs of bleeding, infection, or DVT Follow-up: Hospice team to coordinate all further care Hematology/Oncology outpatient follow-up if clinical status allows Monitor:?For signs of bleeding, shortness of breath, chest pain, confusion, or new/worsening symptoms Goals of Care:?Comfort measures, symptom management, and support for patient and family Summary Ms. Tucker was admitted with acute confusion and severe anemia in the setting of sepsis from a complicated UTI, with superimposed pneumonia and acute on chronic heart failure. She required multiple transfusions and developed bilateral DVTs. After multidisciplinary discussion and in light of her ongoing transfusion needs, deconditioning, and comorbidities, she and her family elected for hospice care. She was discharged in stable condition to a hospice facility for comfort-focused management. Time Spent with Patient Time attestation: Total time spent providing and/or coordinating discharge services: DS: Data Data Completed and Pending Labs on day of discharge: Labs from last 24 hours 01/21/25 01/21/25 01/20/25 03:44 02:44 21:08 WBC 9.0 RBC 2.43 L Hgb 6.8 L* Hct 21.5 L MCV 88.5 MCH 28.0 MCHC 31.6 L RDW 24.5 H Plt Count 74 L MPV TNP Immature Gran % (Auto) Not Reportable Neut % (Auto) Not Reportable Lymph % (Auto) Not Reportable [place] % (Auto) Not Reportable Eos % (Auto) Not Reportable Baso % (Auto) Not Reportable Lymph # (Auto) Not Reportable [place] # (Auto) Not Reportable Eos # (Auto) Not Reportable Baso # (Auto) Not Reportable Abs Immat Gran (auto) Not Reportable Absolute Neuts (auto) Not Reportable Absolute Nucleated RBC Not Reportable Total Counted 100 Neutrophils % (Manual) 40 L Band Neutrophils % 10 H Lymphocytes % (Manual) 32.0 Monocytes % (Manual) 12 H Eosinophils % (Manual) 3 Basophils % (Manual) 2 H Myelocytes % 1 Nucleated RBC % Not Reportable Abs Neuts (Manual) 4.50 Abs Lymphs (Manual) 2.88 Abs Monocytes (Manual) 1.08 H Absolute Eos (Manual) 0.27 Abs Basophils (Manual) 0.18 H Nucleated RBCs 24 Platelet Estimate Decreased Giant Platelets Present % Immature Plt Fraction 9.2 Hypochromasia 3+ Anisocytosis 2+ Spherocytes Occasional Target Cells Occasional Ovalocytes 1+ [place] Cells 1+ Schistocytes Rare APTT 129.5 H Sodium 138 Potassium 3.9 Chloride 108 H Carbon Dioxide 14 L Anion Gap 16 H BUN 40 H D Creatinine 1.53 H Estim Creat Clear Calc 24 Estimated GFR 32 L Glucose 198 H POC Capillary Glucose 191 H Calcium 7.9 L Stl Occult Blood (IFOB) Negative Discharge Plan Discharge Attending physician on discharge: Varsha Hines Consulting providers: Juan Robin; Pooja Valderrama; Varsha Hines; Francisco Tavares; Ric Mathias Discharging Clinician: Varsha Hines Anticipated Discharge Date/Time: 01/21/25 16:35 Patient Disposition: Hospice - Medical Facility Activity: as tolerated Diet: as tolerated Patient Instructions: Heart Failure (DC), A-fib (Atrial Fibrillation) (DC), Anemia (DC), Blood Transfusion (DC) Patient Language: Armenian Stand Alone Forms: General Discharge Information Follow-up/Referrals: Michael,Agusto Griffin DO [Primary Care Provider, Unknown] Referral Note: F/u with PCP in 3-5 days and hospice care as scheduled Discharge Medications: Continued miconazole nitrate 2 % powder 1 applic topical BID Rx Instructions: apply to under breasts ascorbic acid (vitamin C) 1,000 mg tablet 1,000 mg PO DAILY insulin glargine [Basaglar KwikPen U-100 Insulin] 100 unit/mL (3 mL) insulin pen 17 unit SUBCUT BID folic acid 1 mg tablet 1 mg PO DAILY losartan 50 mg tablet 50 mg PO DAILY metformin 1,000 mg tablet 1,000 mg PO BID metoprolol succinate 50 mg tablet extended release 24 hr 50 mg PO DAILY polyethylene glycol 3350 [Miralax] 17 gram/dose powder 17 g PO BID PRN (Reason: constipation) [place]-3 350 mg-235 mg- 90 mg-597 mg capsule,delayed release(DR/EC) 1 cap PO DAILY sennosides-docusate sodium [Senna Plus] 8.6-50 mg tablet 1 tab-cap PO DAILY Date of admission: 01/04/25 23:14 Primary Care Provider: Michael,Agusto Griffin Admitting Provider: Berkley Moeller Attending physician on admission: Berkley Moeller Condition: Stable
== END 2025-01-21 17:36 | disposition hospice, inpatient (51) | DRG 871 ==
LOC: ANHED 21:07 → ANHIMU 23:36 → ANH2MED 01-10 14:10 → ANHIMU 01-19 18:49 → ANH3MEDSUR 01-21 16:36 → ANHIMU 01-22 09:35
PROVIDERS: Emergency Medicine; General Practice; Nurse Practitioner; Nurse Practitioner Acute Care; Student in an Organized Health Care Education/Training Program; Admitting Provider Internal Medicine; Emergency Provider Emergency Medicine; PCP Internal Medicine; Visit Provider Internal Medicine
DX: A41.9 Sepsis, unspecified organism (principal); I21.A1 Myocardial infarction type 2; J18.0 Bronchopneumonia, unspecified organism; I50.23 Acute on chronic systolic (congestive) heart failure; N10 Acute pyelonephritis; I42.9 Cardiomyopathy, unspecified; N17.9 Acute kidney failure, unspecified; E87.21 Acute metabolic acidosis; E87.1 Hypo-osmolality and hyponatremia; I82.443 Acute embolism and thrombosis of tibial vein, bilateral; I82.453 Acute embolism and thrombosis of peroneal vein, bilateral; R65.20 Severe sepsis without septic shock; E86.1 Hypovolemia; I11.0 Hypertensive heart disease with heart failure; I48.91 Unspecified atrial fibrillation; E11.42 Type 2 diabetes mellitus with diabetic polyneuropathy; D69.6 Thrombocytopenia, unspecified; E78.5 Hyperlipidemia, unspecified; D63.8 Anemia in other chronic diseases classified elsewhere; K59.00 Constipation, unspecified; I34.0 Nonrheumatic mitral (valve) insufficiency; I07.1 Rheumatic tricuspid insufficiency; G31.84 Mild cognitive impairment of uncertain or unknown etiology; E11.65 Type 2 diabetes mellitus with hyperglycemia; I35.0 Nonrheumatic aortic (valve) stenosis; K76.0 Fatty (change of) liver, not elsewhere classified; Z66 Do not resuscitate; Z79.4 Long term (current) use of insulin; Z87.891 Personal history of nicotine dependence; Z51.5 Encounter for palliative care
CPT/HCPCS: 36415; 36430; 70450; 71045; 71275; 74177; 80048; 80053; 80076; 81001; 82274; 82607; 82728; 82746; 82803; 82948; 83010; 83540; 83550; 83605; 83615; 83690; 83735; 83880; 84100; 84145; 84443; 84484; 85014; 85018; 85025; 85027; 85046; 85055; 85380; 85610; 85730; 86850; 86880; 86900; 86901; 86923; 87040; 87086; 87637; 93005; 93306; 93970; 94002; 94640; 94667; 96361; 96365; 97110; 97116; 97162; 97166; 97530; 97535; 99291; A9270; J0282; J0456; J0692; J0696; J1160; J1644; J1650; J1815; J1938; J3360; J3475; J7030; J7040; J7050; P9016; Q9967